=== PATIENT | male | born 1955 | race Caucasian/White ===

== ENCOUNTER 2016-10-15 13:15 | Outpatient (CLI) | payer OTHER ==
[~2016-10-15 13:15] MED LIST: ACET-907 PO; ALLA266C2 TP; ATEN100T PO; CLON0.1T14 PO; GEL90GEL2 TP; HYDR-3326 PO; HYDR-552 PO; INSU100V27 SQ; INSU100V7 SQ; LANC-346 MC; RXVAN XX
== END 2016-10-15 23:59 | disposition home or self-care (01) ==
LOC: VASLAB 13:15
PROVIDERS: ATTEND Surgery Vascular Surgery
DX: Z75.3 Unavailability and inaccessibility of health-care facilities (principal)

== ENCOUNTER 2016-11-06 09:53 | Outpatient (CLI) | payer OTHER | END 2016-11-06 23:59 | disposition home or self-care (01) | LOC: WOU 09:53 | PROVIDERS: ATTEND Podiatrist Foot & Ankle Surgery | DX: E11.621 Type 2 diabetes mellitus with foot ulcer (principal); L97.422 Non-pressure chronic ulcer of left heel and midfoot with fat layer exposed; E11.42 Type 2 diabetes mellitus with diabetic polyneuropathy; Z87.891 Personal history of nicotine dependence; E11.610 Type 2 diabetes mellitus with diabetic neuropathic arthropathy; I10 Essential (primary) hypertension; H40.9 Unspecified glaucoma; S80.812A Abrasion, left lower leg, initial encounter; X58.XXXA Exposure to other specified factors, initial encounter; Y92.89 Other specified places as the place of occurrence of the external cause; Z79.4 Long term (current) use of insulin | CPT/HCPCS: A6402 ==

== ENCOUNTER 2016-11-13 10:00 | Outpatient (CLI) | payer OTHER | END 2016-11-13 23:59 | disposition home or self-care (01) | LOC: WOU 10:00 | PROVIDERS: ATTEND Podiatrist Foot & Ankle Surgery | DX: E11.621 Type 2 diabetes mellitus with foot ulcer (principal); L97.422 Non-pressure chronic ulcer of left heel and midfoot with fat layer exposed; E11.610 Type 2 diabetes mellitus with diabetic neuropathic arthropathy; Z79.4 Long term (current) use of insulin; E11.42 Type 2 diabetes mellitus with diabetic polyneuropathy; H40.9 Unspecified glaucoma; Z87.891 Personal history of nicotine dependence; I10 Essential (primary) hypertension; R26.9 Unspecified abnormalities of gait and mobility; S80.812D Abrasion, left lower leg, subsequent encounter; X58.XXXD Exposure to other specified factors, subsequent encounter | CPT/HCPCS: 29445; A6402 ==

== ENCOUNTER 2016-11-20 10:00 | Outpatient (CLI) | payer OTHER | END 2016-11-20 23:59 | disposition home or self-care (01) | LOC: WOU 10:00 | PROVIDERS: ATTEND Podiatrist Foot & Ankle Surgery | DX: E11.621 Type 2 diabetes mellitus with foot ulcer (principal); L97.424 Non-pressure chronic ulcer of left heel and midfoot with necrosis of bone; R26.89 Other abnormalities of gait and mobility; S80.812D Abrasion, left lower leg, subsequent encounter; X58.XXXD Exposure to other specified factors, subsequent encounter; E11.610 Type 2 diabetes mellitus with diabetic neuropathic arthropathy; E11.69 Type 2 diabetes mellitus with other specified complication; M86.672 Other chronic osteomyelitis, left ankle and foot | CPT/HCPCS: 11042; 87070; 87075; 87077; 87186 ×2; A6402 ==

== ENCOUNTER 2016-11-26 10:12 | Outpatient (CLI) | payer OTHER | END 2016-11-26 23:59 | disposition home or self-care (01) | LOC: WOU 10:12 | PROVIDERS: ATTEND Podiatrist Foot & Ankle Surgery | DX: E11.621 Type 2 diabetes mellitus with foot ulcer (principal); L97.423 Non-pressure chronic ulcer of left heel and midfoot with necrosis of muscle; L97.521 Non-pressure chronic ulcer of other part of left foot limited to breakdown of skin; E11.42 Type 2 diabetes mellitus with diabetic polyneuropathy; E11.69 Type 2 diabetes mellitus with other specified complication; E11.610 Type 2 diabetes mellitus with diabetic neuropathic arthropathy; M86.672 Other chronic osteomyelitis, left ankle and foot; B95.2 Enterococcus as the cause of diseases classified elsewhere; B95.5 Unspecified streptococcus as the cause of diseases classified elsewhere; B95.61 Methicillin susceptible Staphylococcus aureus infection as the cause of diseases classified elsewhere | CPT/HCPCS: 11042; 11043; A6402 ==

== ENCOUNTER 2016-12-06 09:47 | Outpatient (CLI) | payer OTHER | END 2016-12-06 23:59 | disposition home or self-care (01) | LOC: WOU 09:47 | PROVIDERS: ATTEND Podiatrist Foot & Ankle Surgery | DX: E11.621 Type 2 diabetes mellitus with foot ulcer (principal); L97.423 Non-pressure chronic ulcer of left heel and midfoot with necrosis of muscle; E11.42 Type 2 diabetes mellitus with diabetic polyneuropathy; E11.610 Type 2 diabetes mellitus with diabetic neuropathic arthropathy; Z87.891 Personal history of nicotine dependence; E11.69 Type 2 diabetes mellitus with other specified complication; M86.672 Other chronic osteomyelitis, left ankle and foot; M24.372 Pathological dislocation of left ankle, not elsewhere classified | CPT/HCPCS: 11043; A6402 ==

== ENCOUNTER 2016-12-13 10:00 | Outpatient (CLI) | payer OTHER | END 2016-12-13 23:59 | disposition home or self-care (01) | LOC: WOU 10:00 | PROVIDERS: ATTEND Podiatrist Foot & Ankle Surgery | DX: E11.621 Type 2 diabetes mellitus with foot ulcer (principal); L97.423 Non-pressure chronic ulcer of left heel and midfoot with necrosis of muscle; E11.610 Type 2 diabetes mellitus with diabetic neuropathic arthropathy; E11.40 Type 2 diabetes mellitus with diabetic neuropathy, unspecified; Z83.3 Family history of diabetes mellitus; Z82.3 Family history of stroke; Z82.49 Family history of ischemic heart disease and other diseases of the circulatory system; H40.9 Unspecified glaucoma; Z87.891 Personal history of nicotine dependence; Z79.4 Long term (current) use of insulin; Z79.899 Other long term (current) drug therapy | CPT/HCPCS: 11043; 87070; 87077; 87186; A6253; A6402 ==

== ENCOUNTER 2016-12-24 10:06 | Outpatient (CLI) | payer OTHER | END 2016-12-24 23:59 | disposition home or self-care (01) | LOC: WOU 10:06 | PROVIDERS: ATTEND Podiatrist Foot & Ankle Surgery | DX: E11.621 Type 2 diabetes mellitus with foot ulcer (principal); L97.424 Non-pressure chronic ulcer of left heel and midfoot with necrosis of bone; E11.610 Type 2 diabetes mellitus with diabetic neuropathic arthropathy; B95.2 Enterococcus as the cause of diseases classified elsewhere; R70.0 Elevated erythrocyte sedimentation rate; Z79.4 Long term (current) use of insulin | CPT/HCPCS: 11044; 87070-TC; 87186-TC; A6253; A6402 ==

== ENCOUNTER 2017-01-11 12:05 | Inpatient (IN) | payer OTHER ==
[~2017-01-11] VITALS: Ht 167.6 cm; Wt 90.7 kg
--- NOTE | 2017-01-11 12:05 | NUR ---
sent by dr shetty for evaluation of left heel wound. per dr felton will undress wound. nad noted. pt aao x4, vss. daughter at bedside. pt placed in gown and monitor. pending md echavarria.
--- NOTE | 2017-01-11 12:55 | NUR ---
CALLED DR. SPICER LEFT MESSAGE.
[2017-01-11] MEDS ORDERED: PIPERACILLIN /TAZOBACTAM 3.375 G in IV D5W 50 ML IV ONE (13:30)
[2017-01-11] MEDS ORDERED: VANCOMYCIN 1 GM in IV D5W 250 ML IV ONE (13:30)
[2017-01-11] MEDS ORDERED: IV SET PRIMARY PUMP SET 1 EA INFUS.SET MC ONE ×2 (13:36→16:45)
[2017-01-11] MEDS ORDERED: BLOO-668 IN (13:43)
[2017-01-11] MEDS ORDERED: CLON0.1T14 PO (13:43)
[2017-01-11 13:44] LABS: BASOPHILS % (AUTO) 0.4 % (0.0-2.0); EOSINOPHILS # (AUTO) 0.3 /CMM (0.0-0.7); EOSINOPHILS % (AUTO) 4.1 % (0.0-6.0); HEMATOCRIT 27 % (39-51); HEMOGLOBIN 9.1 g/dL (13.5-17.5); LYMPHOCYTES % (AUTO) 15.2 % (20.0-44.0); MEAN CORPUSCULAR HEMOGLOBIN 30 PG (26.0-33.0); MEAN CORPUSCULAR HGB CONC 34 g/dl (31.0-36.0); MEAN CORPUSCULAR VOLUME 88 fL (80-96); MONOCYTES # (AUTO) 0.5 /CMM (0.1-1.30); MONOCYTES % (AUTO) 7.6 % (2.0-12.0); NEUTROPHILS % (AUTO) 72.7 % (43.0-81.0); PLATELET COUNT (AUTO) 211 /CMM (150-450); RDW COEFFICIENT OF VARIATION 13.5 (11.5-15.0); RED BLOOD CELL COUNT(AUTO) 3.03 MIL/uL (4.5-6.0); WHITE BLOOD COUNT (AUTO) 6.8 K/uL (4.3-11.0)
[2017-01-11 13:48] LABS: INR 0.96 (0.87-1.13)
[2017-01-11 13:53] LABS: CALCIUM, SERUM 8.5 mg/dL (8.5-10.1); CREATININE 1.9 mg/dL (0.6-1.3); POTASSIUM 4.3 mmol/L (3.5-5.1)
[2017-01-11 14:00] LABS: ALBUMIN 2.9 g/dL (3.4-5.0); BILIRUBIN,DIRECT 0.1 mg/dL (0.0-0.2); BILIRUBIN,TOTAL 0.2 mg/dL (0.2-1.0)
--- NOTE | 2017-01-11 14:49 | NUR ---
report given to shanelle gonzalez for jeny
--- NOTE | 2017-01-11 15:05 | NUR ---
RN NOTES PATIENT ADMITTED FROM E.R. DEPARTMENT, ADMITTING DIAGNOSIS OF LEFT HEEL WOUND, UNDER THE CARE OF DR. BAKER, FOR WOUND MANAGEMENT WITH DR. SPICER, PATIENT ALERT AND ORIENTED, SPEAKS MAURITIAN AND CHILEAN, AT BEDSIDE, PATIENT DENIES PAIN OR DISCOMFORT AT THIS TIME, ASSESSMENT COMPLETED, PATIENT WITH PIV ON RFA #18, PATENT AND INTACT, CONTINENT WITH B&B, ABLE TO AMBULATE WITH ASSIST AND WALKER, PATIENT HAS VERY POOR EYESIGHT, AND WILL NEED ASSISTANCE, PATIENT IN STABLE CONDITION AT THIS TIME, WAITING FOR DR. BAKER AND DR. SPICER, SAFETY MEASURES IN PLACED, CALL LIGHT WITHIN REACH, WILL CONTINUE TO MONITOR.
[2017-01-11 16:00] VITALS: BP 129/71
[2017-01-11] MEDS ORDERED: Z GUARD REMEDY 2 OZ OINT TP PRN (16:00)
[2017-01-11] MEDS ORDERED: MAG HYDROX/AL HYDROX/SIMETH 30 ML UDC PO PRN (16:00)
[2017-01-11] MEDS ORDERED: HYDROCODONE/APAP 5/325MG 1 EACH TABLET PO PRN (16:00)
[2017-01-11] MEDS ORDERED: CLONIDINE HCL 0.1 MG TABLET PO PRN (16:00)
[2017-01-11] MEDS ORDERED: ONDANSETRON HCL/PF 4 MG/2 ML VIAL IVP PRN (16:00)
[2017-01-11] MEDS ORDERED: ZOLPIDEM TARTRATE 5 MG TABLET PO PRN (16:00)
[2017-01-11] MEDS ORDERED: ACETAMINOPHEN 325 MG TABLET PO PRN (16:00)
[2017-01-11] MEDS ORDERED: MAGNESIUM HYDROXIDE 30 ML UDC PO PRN (16:00)
[2017-01-11] MEDS: IV NS 0.9% 1,000 ML IV PRN (17:08)
[2017-01-11 18:36] LABS: IRON, SERUM 27 ug/dl (50-175); TOTAL IRON BINDING CAPACITY 208 ug/dl (250-450)
--- NOTE | 2017-01-11 19:00 | NUR ---
MS RN OPENING NOTE PATIENT IS ALERT AND ORIENTED X4, NPO, NO S/S OF DISTRESS, NO CHEST PAIN. NO SOB OR DISTRESS NOTED. IN STABLE CONDITION. SAFETY MEASURES IMPLEMENTED. IV INTACT NO S/S OF INFILTRATION NOTED. CALL LIGHT WITHIN REACH. ON LOW BED TO ENSURE SAFETY. WILL CONTINUE TO MONITOR
--- NOTE | 2017-01-11 19:33 | NUR ---
RN NOTES PATIENT STILL WAITING FOR DR. SPICER, IN STABLE CONDITION, NPO AT THIS TIME, NEEDS ATTENDED AND MET, SAFETY MEASURES IN PLACED, CALL LIGHT WITHIN REACH, ENDORSED TO TRAVEL MONEY ADVISOR FOR ANGEL.
[2017-01-11 19:55] LABS: THYROID STIMULATING HORMONE 2.293 uIU/mL (0.358-3.74); URIC ACID 6.4 mg/dL (2.6-7.2)
[2017-01-11 20:00] VITALS: BP 153/76
[2017-01-11] MEDS ORDERED: LEVOFLOXACIN (500MG) 500 MG TABLET PO ONE (20:00)
--- NOTE | 2017-01-11 20:00 | NUR ---
LEVAQUIN 500 MG 1 TAB NOT GIVEN PATIENT NPO AT THIS TIME.
[2017-01-11 20:29] LABS: RETICULOCYTE COUNT 0.9 % (0.6-2.5)
--- NOTE | 2017-01-11 21:58 | NUR ---
CLARIFIED WITH DOCTOR NAYAN PATIENT DIET PER DR. GARCIA OK NOW TO GIVE DIET START ADA CCHO 60 GMS/ CARBS/MEAL 1800 STD NOTED AND CARRIED OUT
[2017-01-11] MEDS ORDERED: INSULIN GLARGINE HUM REC ANLOG 17 UNIT SQ SCH (22:00)
[2017-01-11] MEDS: INSULIN DETEMIR 100 UNIT/ML CARTRIDGE SQ SCH (22:00)
--- NOTE | 2017-01-11 22:00 | NUR ---
JUANIMER INSULIN 17 UNITS SQ REFUSED BY THE PATIENT DESPITE RISKS AND BENEFITS OFFERED 3 TIMES PATIENT DOESN'T WANT TO TAKE IT "PER PATIENT MY SUGAR IS OK NOW" MD MADE AWARE AND FAMILY.
[2017-01-12] MEDS: IV NS 0.9% 1,000 ML IV PRN ×2 (05:36→22:43)
--- NOTE | 2017-01-12 06:51 | NUR ---
MS RN CLOSING NOTES PATIENT COMFORTABLY IN BED ASLEEP AND EASILY AWAKEN, ALERT AND VERBALLY X 4 RESPONSIVE DENIES PAIN OR DISTRESS, RESPONDS APPROPRIATELY TO VERBAL STIMULI, RESPIRATIONS EVEN UNLABORED BREATH SOUNDS. APICAL PULSE REGULAR; NO S/S OF BLEEDING NOTED. TREATMENT ORDERED. GOOD SKIN CARE PROVIDED. NO S/S OF HYPO/HYPERGLYCEMIA. PATIENT IN STABLE CONDITION WITH NO SOB NO S/S OF DISTRESS NO NAUSEA AND VOMITING NO HEADACHE NO PAIN, NO COMPLAIN OF CHEST PAIN SAFETY ENVIRONMENT PROVIDED. FREE OF CLUTTERS, NEEDS ATTENDED AND ANTICIPATED, NURSING CARE RENDERED, KEPT CLEAN AND DRY AND COMFORTABLE. ALL DUE MEDS WAS GIVEN. CALL LIGHT IN REACH, BED LOWERED AND LOCKED, SR X2 FOR SAFETY AND WILL ENDORSE CONTINUE PLAN OF CARE. OFF LOAD AT ALL TIMES. RFA # 18 NS RUNNING 75 CC/HR. PATIENT REFUSED PICC LINE INSERTION CONSENT DESPITE RISKS AND BENEFITS OFFERED 3 TIMES RISKS AND BENEFITS EXPLAINED. MADE AWARE. PATIENT STIL REFUSED PICC LINE.
--- NOTE | 2017-01-12 07:10 | NUR ---
MS RN INITIAL NOTES REPORT RECEIVED AT THE BEDSIDE. PATIENT IS RESTING COMFORTABLY IN BED. NO SOB OR DISTRESS NOTED AT THIS TIME. PATIENT REPORTS PAIN AT 5/10 IN NECK AND BACK, WILL FOLLOW UP WITH PAIN MEDICATIONS. BED IN A LOW POSITION, CALL LIGHT WITHIN PATIENT REACH. WILL CONTINUE TO MONITOR.
[2017-01-12 08:00] VITALS: BP 148/67
[2017-01-12] MEDS: PANTOPRAZOLE 40 MG TABLET.DR PO SCH (08:35)
[2017-01-12] MEDS: ASCORBIC ACID 500 MG TABLET PO SCH (08:35)
[2017-01-12] MEDS: ATENOLOL 25 MG TABLET PO SCH (08:35)
[2017-01-12] MEDS: ZINC SULFATE 220 MG CAPSULE PO SCH (08:35)
[2017-01-12] MEDS: FLUCONAZOLE (100 MG) 100 MG TABLET PO SCH (08:35)
[2017-01-12] MEDS ORDERED: FERROUS SULFATE (325 MG) 325 MG/TAB TABLET PO SCH (09:00)
[2017-01-12 09:18] LABS: BASOPHILS % (AUTO) 0.9 % (0.0-2.0); EOSINOPHILS # (AUTO) 0.3 /CMM (0.0-0.7); EOSINOPHILS % (AUTO) 5.8 % (0.0-6.0); HEMATOCRIT 26 % (39-51); HEMOGLOBIN 8.7 g/dL (13.5-17.5); LYMPHOCYTES # (AUTO) 0.8 /CMM (0.8-4.8); LYMPHOCYTES % (AUTO) 18.4 % (20.0-44.0); MEAN CORPUSCULAR HEMOGLOBIN 30 PG (26.0-33.0); MEAN CORPUSCULAR HGB CONC 34 g/dl (31.0-36.0); MEAN CORPUSCULAR VOLUME 88 fL (80-96); MONOCYTES # (AUTO) 0.4 /CMM (0.1-1.30); NEUTROPHILS % (AUTO) 65.9 % (43.0-81.0); PLATELET COUNT (AUTO) 236 /CMM (150-450); RDW COEFFICIENT OF VARIATION 14.8 (11.5-15.0); RED BLOOD CELL COUNT(AUTO) 2.96 MIL/uL (4.5-6.0); WHITE BLOOD COUNT (AUTO) 4.5 K/uL (4.3-11.0)
--- NOTE | 2017-01-12 09:27 | NUR ---
MS RN NOTES CAN NOT YET ADMIN DAKINS OR BOOST THEY ARE NOT YET ON FLOOR. WILL CALL PHARMACY TO REMIND.
[2017-01-12 09:58] LABS: ALBUMIN 2.6 g/dL (3.4-5.0); BILIRUBIN,TOTAL 0.3 mg/dL (0.2-1.0); CALCIUM, SERUM 8.1 mg/dL (8.5-10.1); CREATININE 1.8 mg/dL (0.6-1.3); PHOSPHORUS 3.5 mg/dL (2.5-4.9); POTASSIUM 3.7 mmol/L (3.5-5.1); TOTAL PROTEIN, SERUM 6.4 g/dL (6.4-8.2)
[2017-01-12] MEDS: BOOST PLUS FOOD-VANILLA 237 ML BOX PO SCH ×2 (10:03→17:00)
[2017-01-12] MEDS: DAKINS QUARTER STRENGTH (0.125%) 480 ML BOTTLE TOP SCH (10:04)
[2017-01-12 10:06] LABS: THYROID STIMULATING HORMONE 2.453 uIU/mL (0.358-3.74)
[2017-01-12] MEDS ORDERED: SECONDARY IV SET 1 EA INFUS.SET MC ONE (13:24)
[2017-01-12] MEDS: SOD FERRIC GLUC 125 MG in IV NS 0.9% 100 ML IV SCH (13:28)
[2017-01-12 16:00] VITALS: BP 164/80
[2017-01-12 17:00] VITALS: BP 147/78
--- NOTE | 2017-01-12 17:44 | NUR ---
MS RN NOTES CHECKED PATIENT BLOOD SUGAR HE STATES THAT HE IS DIABETIC. SUGAR IS 149. INFORMED PATIENT THAT I WOULD HAVE TO CALL THE DOCTOR AND ASK HER TO ADD SOME INSULIN. PATIENT RESPONDED, "DON'T, I WILL NOT TAKE THE INSULIN. I ONLY SOMETIMES TAKE LONG ACTING, BUT THAT SUGAR IS FINE. I DON'T NEED IT." EXPLAINED TO THE PATIENT THE IMPORTANCE OF INSULIN FOR SUGARS OVER 130 AND ITS EFFECT ON WOUND HEALING. PATIENT IS STILL REFUSING. WILL INFORM MD.
--- NOTE | 2017-01-12 17:49 | NUR ---
MS RN NOTES INFORMED DR BAKER THAT PATIENT DOES NOT HAVE ANY ACCU CHECK OR INSULIN ORDERED. ALSO INFORMED MD OF PATIENT'S REFUSAL OF INSULIN. MD STATES TO ADD A MODERATE SLIDING SCALE AND TO ENCOURAGE INSULIN USE. WILL PLACE ORDERS AN SPEAK TO PATIENT AGAIN.
--- NOTE | 2017-01-12 17:59 | NUR ---
MS RUTHY ZUÑIGA AGAIN, INFORMED PATIENT THAT HE WOULD NEED INSULIN AND INFORMED HIM THAT HIS WOUND WOULD HEEL BETTER IF HE KEPT HIS BLOOD SUGARS UNDER TIGHT CONTROL. PATIENT STATED UNDERSTANDING AND STATES THAT IF THE NEXT ONE IS OVER 160, HE WILL ACCEPT THE INSULIN.
[2017-01-12] MEDS ORDERED: DEXTROSE 50%-WATER 50 ML DISP.SYRIN IV PRN (18:00)
--- NOTE | 2017-01-12 19:30 | NUR ---
MS RN OPENING NOTES: PATIENT IN BED, AOX4, ON ROOM AIR, BREATHING EVEN AND UNLABORED. PIV OVER RFA G 18 INTACT AND PATENT, INFUSING WELL WITH NS RUNNIGN AT 75 ML/HR. L FOOT HAS INTACT DRESSING, SECURED IN CAST. PROVIDED FOR COMFORT AND SAFETY. WILL CONT TO MONITOR.
--- NOTE | 2017-01-12 19:40 | NUR ---
MS RN CLOSING NOTES NO SIGNIFICANT CHANGES IN PATIENT CONDITION THROUGHOUT THE SHIFT. NO SOB OR DISTRESS NOTED AT THIS TIME. PATIENT DENIES PAIN. BED IN A LOW POSITION, CALL LIGHT WITHIN PATIENT REACH. ENDORSED FOR ANGEL.
[2017-01-12 20:00] VITALS: BP 169/76
[2017-01-12] MEDS: LEVOFLOXACIN (250MG) 250 MG TABLET PO SCH (20:37)
--- NOTE | 2017-01-12 21:08 | NUR ---
RN NOTES: PATIENT WAS ORDERED TO HAVE PICC LINE INSERTION BY DR GERBER, HOWEVER, WHEN TRYING TO GET CONSENT FROM PATIENT, PATIENT REFUSED, AND SAID THAT HE CAN TAKE ANTIBIOTIC "PILLS" AT HOME. EXPLAINED THAT THE PICC LINE IS INDICATED FOR ELL TEACHER ATB THERAPY, PATIENT STILL REFUSES.
[2017-01-12 22:00] VITALS: BP 169/76
[2017-01-12] MEDS: BLOOD SUGAR DIAGNOSTIC 1 EACH STRIP VI SCH (22:34)
[2017-01-12] MEDS: INSULIN DETEMIR 100 UNIT/ML CARTRIDGE SQ SCH (22:36)
[2017-01-12] MEDS: *INSULIN REGULAR(HUMULIN R)HUM 100 UNIT/ML VIAL SQ PRN (22:37)
[2017-01-12] MEDS ORDERED: IV SET PRIMARY PUMP SET 1 EA INFUS.SET MC ONE (22:43)
[2017-01-13] VITALS: BP 151/77
[2017-01-13 04:00] VITALS: BP 167/89
--- NOTE | 2017-01-13 04:00 | NUR ---
MS RN NOTES RECEIVED FROM [facility]IA [facility],AWAKE,ALERT,BLIND ON BOTH EYES,WITH DIABETIC FOOT ULCER.CAST IN PLACE WITH HOLE ON THE HEEL FOR TREATMENT ACCESS.NS AT 75ML/HR RATE IN PROGRESS VIA RFA THRU IV PUMP,SITE PATENT.NO S/S OF INFILTRATION NOTED.REPORT GIVEN MAK VELAZQUEZ RN FOR ANGEL.
--- NOTE | 2017-01-13 04:27 | NUR ---
RN NOTES: PATIENT TRANSFERRED TO MS 2ND FLOOR VIA GURNEY IN STABLE CONDITION. REPORT GIVEN TO RUTHY DOWNS FOR ANGEL.
--- NOTE | 2017-01-13 05:30 | NUR ---
MS RN NOTES ACCU-CHECK BLOOD SUGAR CHECK 76,NO INSULIN COVERAGE,ASYMPTOMATIC FOR HYPOGLYCEMIA,APPLE JUICE WITH SUGAR GIVEN PER PATIENT REQUEST AND PROTOCOL FOR LOW BLOOD SUGAR.
[2017-01-13] MEDS: BLOOD SUGAR DIAGNOSTIC 1 EACH STRIP VI SCH ×4 (05:35→21:50)
--- NOTE | 2017-01-13 07:14 | NUR ---
MS RN NOTES RESTING COMFORTABLY ON BED,DENIES PAIN,IVF INFUSING,SITE REMAINS PATENT.ABLE TO WALK TO THE TOILET ASSISTED BY DAMARIS THOMPSON.IN NO ACUTE DISTRESS.ENDORSED TO GLEN BLISS FOR ANGEL.POSSIBLE WOUND DEBRIDEMENT TODAY OR TOMORROW AWAITING FOR DR FONSECA.
--- NOTE | 2017-01-13 07:59 | NUR ---
MS/RN NOTES RECEIVED PATIENT RESTING IN BED COMFORTABLY, SLEEPING AT THIS TIME AROUSED BY VERBAL STIMULI, ON ROOM AIR. NO ACUTE DISTRESS OR DISCOMFORT NOTED. IV TO RIGHT FA INTACT AND PATENT. NO S/S OF PAIN. LEFT LEG COVERED IN DRESSING, PENDING DEBRIDEMENT TODAY. SAFETY MEASURES RENDERED, CALL LIGHT PLACED WITHIN REACH. WILL CONTINUE TO MONITOR.
[2017-01-13 08:00] VITALS: BP 150/96
[2017-01-13] MEDS: BOOST PLUS FOOD-VANILLA 237 ML BOX PO SCH ×2 (08:00→17:45)
[2017-01-13 08:13] LABS: BASOPHILS % (AUTO) 0.7 % (0.0-2.0); EOSINOPHILS # (AUTO) 0.2 /CMM (0.0-0.7); EOSINOPHILS % (AUTO) 4.7 % (0.0-6.0); HEMATOCRIT 25 % (39-51); HEMOGLOBIN 8.3 g/dL (13.5-17.5); MEAN CORPUSCULAR HEMOGLOBIN 29 PG (26.0-33.0); MEAN CORPUSCULAR HGB CONC 33 g/dl (31.0-36.0); MEAN CORPUSCULAR VOLUME 88 fL (80-96); MONOCYTES # (AUTO) 0.4 /CMM (0.1-1.30); MONOCYTES % (AUTO) 8.9 % (2.0-12.0); NEUTROPHILS # (AUTO) 3.2 /CMM (1.8-8.9); NEUTROPHILS % (AUTO) 65.7 % (43.0-81.0); PLATELET COUNT (AUTO) 229 /CMM (150-450); RDW COEFFICIENT OF VARIATION 14.5 (11.5-15.0); RED BLOOD CELL COUNT(AUTO) 2.87 MIL/uL (4.5-6.0); WHITE BLOOD COUNT (AUTO) 4.8 K/uL (4.3-11.0)
[2017-01-13 08:25] VITALS: BP 150/72
[2017-01-13 08:31] LABS: CALCIUM, SERUM 7.8 mg/dL (8.5-10.1); CREATININE 1.8 mg/dL (0.6-1.3); MAGNESIUM 1.9 mg/dL (1.8-2.4); PHOSPHORUS 3.7 mg/dL (2.5-4.9); POTASSIUM 4.1 mmol/L (3.5-5.1)
[2017-01-13] MEDS: ZINC SULFATE 220 MG CAPSULE PO SCH (08:43)
[2017-01-13] MEDS: ASCORBIC ACID 500 MG TABLET PO SCH (08:43)
[2017-01-13] MEDS: FLUCONAZOLE (100 MG) 100 MG TABLET PO SCH (08:43)
[2017-01-13] MEDS: PANTOPRAZOLE 40 MG TABLET.DR PO SCH (08:44)
[2017-01-13] MEDS: DAKINS QUARTER STRENGTH (0.125%) 480 ML BOTTLE TOP SCH (08:49)
[2017-01-13] MEDS: ATENOLOL 25 MG TABLET PO SCH ×2 (08:50→18:26)
[2017-01-13] MEDS ORDERED: hydrALAZINE HCL 25 MG TABLET PO PRN (10:30)
--- NOTE | 2017-01-13 11:44 | NUR ---
WOUND CARE CONSULT: PT REFUSED TO HAVE FULL SKIN ASSESSMENT. PT NOTED TO HAVE DRY SCABS TO RT LOWER LEG AND ANKLE. PT HAS CAST TO LEFT LOWER LEG WITH FRANCISCO WRAP AROUND CAST WINDOW. PT REFUSED TO HAVE FRANCISCO WRAP REMOVED AND STATED THAT DOCTOR JUST PACKED HIS WOUND. WILL SEE PRN. JEANINE SCORE IS 17.
[2017-01-13] MEDS: SOD FERRIC GLUC 125 MG in IV NS 0.9% 100 ML IV SCH (15:22)
[2017-01-13 16:00] VITALS: BP_SYST 169; BP_DIAS 70; BP_DIAS 79
--- NOTE | 2017-01-13 16:00 | NUR ---
MS/RN NOTES DR. CHEUNG AT BEDSIDE FOR LEFT FOOT DEBRIDEMENT. DISCUSSED WOUND CARE ORDERS AND PLAN OF CARE AND AGREED. WILL TREAT ACCORDINGLY
--- NOTE | 2017-01-13 17:30 | NUR ---
MS/RN NOTES BLOOD SUGAR 141 MG/DL, 2 UNITS OF INSULIN ADMINISTERED PER SLIDING SCALE.
[2017-01-13] MEDS: INSULIN REGULAR, HUMAN 100 UNIT/ML 3 ML VIAL SQ PRN (17:51)
--- NOTE | 2017-01-13 18:30 | NUR ---
MS/RN NOTES PATIENT RESTING IN BED COMFORTABLY, NO SIGNIFICANT CHANGES NOTED, STABLE AT THIS TIME. NO S/S OF DISTRESS/DISCOMFORT. NO COMPLAINTS OF PAIN AT THIS TIME. DAUGHTER AT BEDSIDE. PATIENT KEPT CLEAN AND DRY, ALL DUE MEDS GIVEN, ALL NEEDS MET AND ATTENDED. WILL ENDORSE CARE TO FARMWORKER FRUIT FOR ANGEL.
--- NOTE | 2017-01-13 19:40 | NUR ---
MS RN NOTE: PATIENT RESTING IN BED, NO ACUTE DISTRESS NOTED. BREATHING EVEN AND UNLABORED, NO SOB NOTED. IV TO RFA IN PLACE, INFUSING NS AT 75 ML/HR. DRESSING TO LEFT LEG IN PLACE, CLEAN AND DRY, NO BLEEDING NOTED. NO S/S OF HYPER/HYPOGLYCEMIA NOTED. BED LOCKED AND IN LOWEST POSITION, CALL LIGHT IN REACH. WILL CONTINUE TO MONITOR.
[2017-01-13 20:00] VITALS: BP 142/70
[2017-01-13] MEDS: LEVOFLOXACIN (250MG) 250 MG TABLET PO SCH (20:26)
[2017-01-13] MEDS: IV NS 0.9% 1,000 ML IV PRN (20:26)
[2017-01-13] MEDS: LINEZOLID 600 MG TABLET PO SCH (21:50)
[2017-01-13] MEDS: INSULIN DETEMIR 100 UNIT/ML CARTRIDGE SQ SCH (21:54)
[2017-01-13] MEDS: *INSULIN REGULAR(HUMULIN R)HUM 100 UNIT/ML VIAL SQ PRN (21:55)
--- NOTE | 2017-01-13 22:00 | NUR ---
MS RN NOTE: PATIENT BLOOD SUGAR LEVEL 132MG/DL, PATIENT TO RECEIVE 2 UNITS PER SLIDING SCALE AND LEVEMIR 17 UNITS PER MD ORDER. PATIENT DENIES S/S OF HYPER/HYPOGLYCEMIA AT THIS TIME, SNACKS PROVIDED. WILL CONTINUE TO MONITOR.
--- NOTE | 2017-01-14 01:45 | NUR ---
MS RN NOTE: PATIENT COMPLAINS OF UNABLE TO SLEEP. AMBIEN 5MG ORAL GIVEN PER MD ORDER. WILL CONTINUE TO MONITOR.
[2017-01-14 02:20] LABS: CARCINOEMBRYONIC AG (CEA) 4.1 ng/mL (0.0-4.7)
--- NOTE | 2017-01-14 06:10 | NUR ---
MS RN NOTE: PATIENT RESTING IN BED, NO ACUTE DISTRESS NOTED. BREATHING EVEN AND UNLABORED, NO SOB NOTED. IV TO RFA IN PLACE, INFUSING NS AT 75 ML/HR. DRESSING TO LEFT LEG IN PLACE, CLEAN AND DRY, NO BLEEDING NOTED. PATIENT BLOOD SUGAR 104MG/DL, NO INSULIN NEEDED PER SLIDING SCALE. NO S/S OF HYPER/HYPOGLYCEMIA NOTED. BED LOCKED AND IN LOWEST POSITION, CALL LIGHT IN REACH. WILL ENDORSE TO DAY NURSE TO CONTINUE WITH PLAN OF CARE.
[2017-01-14 07:00] LABS: BASOPHILS % (AUTO) 0.2 % (0.0-2.0); EOSINOPHILS # (AUTO) 0.3 /CMM (0.0-0.7); EOSINOPHILS % (AUTO) 3.7 % (0.0-6.0); HEMATOCRIT 26 % (39-51); HEMOGLOBIN 8.6 g/dL (13.5-17.5); LYMPHOCYTES # (AUTO) 1.1 /CMM (0.8-4.8); LYMPHOCYTES % (AUTO) 15.6 % (20.0-44.0); MEAN CORPUSCULAR HEMOGLOBIN 29 PG (26.0-33.0); MEAN CORPUSCULAR HGB CONC 33 g/dl (31.0-36.0); MEAN CORPUSCULAR VOLUME 88 fL (80-96); MONOCYTES # (AUTO) 0.5 /CMM (0.1-1.30); NEUTROPHILS % (AUTO) 72.5 % (43.0-81.0); PLATELET COUNT (AUTO) 243 /CMM (150-450); RDW COEFFICIENT OF VARIATION 14.9 (11.5-15.0); RED BLOOD CELL COUNT(AUTO) 2.93 MIL/uL (4.5-6.0); WHITE BLOOD COUNT (AUTO) 6.8 K/uL (4.3-11.0)
[2017-01-14 07:10] LABS: VIT D, 25-HYDROXY 7.5 ng/mL (30.0-100.0)
[2017-01-14 07:12] LABS: CREATININE 1.8 mg/dL (0.6-1.3); MAGNESIUM 1.8 mg/dL (1.8-2.4); PHOSPHORUS 3.1 mg/dL (2.5-4.9); POTASSIUM 3.9 mmol/L (3.5-5.1)
[2017-01-14] MEDS: BLOOD SUGAR DIAGNOSTIC 1 EACH STRIP VI SCH ×3 (07:30→17:38)
[2017-01-14 08:00] VITALS: BP 167/78
--- NOTE | 2017-01-14 08:00 | NUR ---
MS/RN NOTES PATIENT RESTING IN BED COMFORTABLY, NO SIGNIFICANT CHANGES NOTED, STABLE AT THIS TIME. NO S/S OF DISTRESS/DISCOMFORT. NO COMPLAINTS OF PAIN AT THIS TIME.PATIENT KEPT CLEAN AND DRY, DUE MEDS GIVEN, NEEDS MET AND ATTENDED.TX DONE TO THE LEFT HEEL WOUND.PT TOLERATED WELL.PT WAS ALSO SEEN BY WOUND DOCTOR, DR RUVALCABA AND WOUND TX DONE 2ND TIME.
[2017-01-14] MEDS: ZINC SULFATE 220 MG CAPSULE PO SCH (09:18)
[2017-01-14] MEDS: BOOST PLUS FOOD-VANILLA 237 ML BOX PO SCH ×2 (09:18→17:22)
[2017-01-14] MEDS: ASCORBIC ACID 500 MG TABLET PO SCH (09:18)
[2017-01-14] MEDS: PANTOPRAZOLE 40 MG TABLET.DR PO SCH (09:19)
[2017-01-14] MEDS: FLUCONAZOLE (100 MG) 100 MG TABLET PO SCH (09:19)
[2017-01-14] MEDS: ATENOLOL 25 MG TABLET PO SCH (09:21)
[2017-01-14] MEDS: DAKINS QUARTER STRENGTH (0.125%) 480 ML BOTTLE TOP SCH (09:22)
[2017-01-14] MEDS: LINEZOLID 600 MG TABLET PO SCH (09:27)
[2017-01-14] MEDS: IV NS 0.9% 1,000 ML IV PRN (10:15)
--- NOTE | 2017-01-14 10:27 | NUR ---
PT WAS SEEN BY Enedelia AND IS NON COMPLIANT AND WANTS TO STEP ON HIS LT FOOT AND IS NON COMPLIANT INSPITE OF INSTRUCTING PT NOT TO BEAR WT ON THE LT FOOT-PT INSISTS TO STEP ON BOTH FOOT AND REFUSED TO HOP AND NOT BEAR WT ON THE LT FOOT.
[2017-01-14] MEDS ORDERED: Zinc Sulfate PO (10:52)
[2017-01-14] MEDS ORDERED: ATEN25TA PO (10:52)
[2017-01-14] MEDS ORDERED: LINE600T PO (10:52)
[2017-01-14] MEDS ORDERED: Fluconazole PO (10:52)
[2017-01-14] MEDS ORDERED: LEVO250T2 PO (10:53)
[2017-01-14] MEDS: *INSULIN REGULAR(HUMULIN R)HUM 100 UNIT/ML VIAL SQ PRN (13:00)
[2017-01-14 14:16] LABS: *SPE A/G RATIO 0.9 (0.7-1.7); *SPE ALPHA-1-GLOBULIN 0.2 g/dL (0.0-0.4); *SPE ALPHA-2-GLOBULIN 0.7 g/dL (0.4-1.0); *SPE BETA GLOBULIN 0.8 g/dL (0.7-1.3); *SPE GLOBULIN, TOTAL 3.2 g/dL (2.2-3.9); *SPE M-SPIKE Not Observed g/dL (Not Observed); *SPE PROTEIN TOTAL 6.2 g/dL (6.0-8.5); *SPEGAMMA GLOBULIN 1.3 g/dL (0.4-1.8)
[2017-01-14] MEDS ORDERED: SECONDARY IV SET 1 EA INFUS.SET MC ONE (14:37)
[2017-01-14] MEDS: SOD FERRIC GLUC 125 MG in IV NS 0.9% 100 ML IV SCH (14:46)
[2017-01-14 16:00] VITALS: BP 150/84
[2017-01-14] MEDS: INSULIN REGULAR, HUMAN 100 UNIT/ML 3 ML VIAL SQ PRN (17:57)
--- NOTE | 2017-01-14 18:45 | NUR ---
DISCHARGED PT HOME VIA PRIVATE CAR ACCOMPANIED BY HIS WITH STABLE V/S.NEW PRESCRIPTIONS HANDED TO THE AND FAXED TO [facility].
[2017-01-15] MEDS ORDERED: EPOETIN ALFA (20,000 UNIT) 20,000 UNIT/ML VIAL IV SCH (15:00)
== END 2017-01-14 18:45 | disposition home health service (06) | DRG 951 ==
LOC: EDUNIT# 12:05 → ER 12:07 → MED 14:40 → MEDSG2 01-13 04:10
PROVIDERS: ADMIT Internal Medicine; ATTEND Internal Medicine
PROC: 0QBM0ZZ Excision of Left Tarsal, Open Approach (ICD-10-PCS; principal; 2017-01-13)
PROC: 0KBW0ZZ Excision of Left Foot Muscle, Open Approach (ICD-10-PCS; 2017-01-14)
DX: E11.52 Type 2 diabetes mellitus with diabetic peripheral angiopathy with gangrene (principal); N17.0 Acute kidney failure with tubular necrosis; E11.22 Type 2 diabetes mellitus with diabetic chronic kidney disease; E11.621 Type 2 diabetes mellitus with foot ulcer; E11.69 Type 2 diabetes mellitus with other specified complication; N18.3 Chronic kidney disease, stage 3 (moderate); A04.7 Enterocolitis due to Clostridium difficile; E78.5 Hyperlipidemia, unspecified; I12.9 Hypertensive chronic kidney disease with stage 1 through stage 4 chronic kidney disease, or unspecified chronic kidney disease; Z87.891 Personal history of nicotine dependence; D50.9 Iron deficiency anemia, unspecified; D63.8 Anemia in other chronic diseases classified elsewhere; M86.8X7 Other osteomyelitis, ankle and foot; E11.628 Type 2 diabetes mellitus with other skin complications; L03.116 Cellulitis of left lower limb; E11.610 Type 2 diabetes mellitus with diabetic neuropathic arthropathy; B95.2 Enterococcus as the cause of diseases classified elsewhere; Z79.4 Long term (current) use of insulin; L97.524 Non-pressure chronic ulcer of other part of left foot with necrosis of bone
CPT/HCPCS: 36415; 71010-TC; 80048-TC; 80053-TC; 80061-TC; 80076-TC; 82306; 82378; 82728-TC; 82746; 82962-TC; 83540-TC; 83615-TC; 83690-TC; 83735-TC; 84100-TC; 84155; 84165; 84443-TC; 84550-TC; 85025-TC; 85045-TC; 85652-TC; 85730-TC; 86850-TC; 87070-TC; 87081-TC; 87186-TC; 93307-TC; 94799-TC; 97001-TC; 97110-TC; 97530-TC; A4606; A6402; A6403; J1815; J2543; J2916; J3370; J7030; J7060; Z7610

== ENCOUNTER 2017-02-18 10:00 | Outpatient (CLI) | payer OTHER ==
[~2017-02-18 10:00] MED LIST changes: -ACET-907 PO; -ALLA266C2 TP; -ATEN100T PO; +ATEN25TA PO; +BLOO-668 IN; +Fluconazole PO; -GEL90GEL2 TP; -HYDR-3326 PO; -LANC-346 MC; +LEVO250T2 PO; +LINE600T PO; -RXVAN XX; +Zinc Sulfate PO
== END 2017-02-18 23:59 | disposition home or self-care (01) ==
LOC: WOU 10:00
PROVIDERS: ATTEND Podiatrist Foot & Ankle Surgery
DX: E11.621 Type 2 diabetes mellitus with foot ulcer (principal); L97.424 Non-pressure chronic ulcer of left heel and midfoot with necrosis of bone; E11.610 Type 2 diabetes mellitus with diabetic neuropathic arthropathy; E11.69 Type 2 diabetes mellitus with other specified complication; M86.672 Other chronic osteomyelitis, left ankle and foot; E11.42 Type 2 diabetes mellitus with diabetic polyneuropathy
CPT/HCPCS: 11044; 87070; 87075; A6253; A6402; 87186-TC

== ENCOUNTER 2017-03-04 09:59 | Outpatient (CLI) | payer OTHER | END 2017-03-04 23:59 | disposition home or self-care (01) | LOC: WOU 09:59 | PROVIDERS: ATTEND Podiatrist Foot & Ankle Surgery | DX: E11.621 Type 2 diabetes mellitus with foot ulcer (principal); L97.423 Non-pressure chronic ulcer of left heel and midfoot with necrosis of muscle; S80.812A Abrasion, left lower leg, initial encounter; X58.XXXA Exposure to other specified factors, initial encounter; Y92.89 Other specified places as the place of occurrence of the external cause; E11.610 Type 2 diabetes mellitus with diabetic neuropathic arthropathy; E11.40 Type 2 diabetes mellitus with diabetic neuropathy, unspecified; R26.9 Unspecified abnormalities of gait and mobility; H40.9 Unspecified glaucoma; Z87.891 Personal history of nicotine dependence; Z98.49 Cataract extraction status, unspecified eye | CPT/HCPCS: 11043; A6253; A6402 ==

== ENCOUNTER 2017-03-19 09:45 | Outpatient (CLI) | payer OTHER | END 2017-03-19 23:59 | disposition home or self-care (01) | LOC: WOU 09:45 | PROVIDERS: ATTEND Podiatrist Foot & Ankle Surgery | DX: L97.422 Non-pressure chronic ulcer of left heel and midfoot with fat layer exposed (principal); S80.812A Abrasion, left lower leg, initial encounter; X58.XXXA Exposure to other specified factors, initial encounter; Y92.89 Other specified places as the place of occurrence of the external cause; E11.69 Type 2 diabetes mellitus with other specified complication; M86.672 Other chronic osteomyelitis, left ankle and foot; M24.372 Pathological dislocation of left ankle, not elsewhere classified; L03.116 Cellulitis of left lower limb; E11.610 Type 2 diabetes mellitus with diabetic neuropathic arthropathy; E11.42 Type 2 diabetes mellitus with diabetic polyneuropathy; D64.9 Anemia, unspecified; I10 Essential (primary) hypertension; Z87.891 Personal history of nicotine dependence; Z79.4 Long term (current) use of insulin; Z83.3 Family history of diabetes mellitus; Z82.3 Family history of stroke; Z82.49 Family history of ischemic heart disease and other diseases of the circulatory system; R60.0 Localized edema; E11.51 Type 2 diabetes mellitus with diabetic peripheral angiopathy without gangrene; Z59.8 Other problems related to housing and economic circumstances | CPT/HCPCS: 97597; A6253; A6402; Z7610 ==

== ENCOUNTER 2017-04-09 10:00 | Outpatient (CLI) | payer OTHER | END 2017-04-09 23:59 | disposition home or self-care (01) | LOC: WOU 10:00 | PROVIDERS: ATTEND Podiatrist Foot & Ankle Surgery | DX: E11.621 Type 2 diabetes mellitus with foot ulcer (principal); L97.424 Non-pressure chronic ulcer of left heel and midfoot with necrosis of bone; E11.610 Type 2 diabetes mellitus with diabetic neuropathic arthropathy; E11.40 Type 2 diabetes mellitus with diabetic neuropathy, unspecified; E11.69 Type 2 diabetes mellitus with other specified complication; M86.672 Other chronic osteomyelitis, left ankle and foot; B95.2 Enterococcus as the cause of diseases classified elsewhere; Z79.4 Long term (current) use of insulin; R60.0 Localized edema; B35.1 Tinea unguium; Z89.422 Acquired absence of other left toe(s) | CPT/HCPCS: 11044; 87070; 87077; 87106; 87186; A6253; A6402 ==

== ENCOUNTER 2017-04-15 12:45 | Outpatient (CLI) | payer OTHER | END 2017-04-15 23:59 | disposition home or self-care (01) | LOC: VASLAB 12:45 | PROVIDERS: ATTEND Surgery Vascular Surgery | DX: E11.40 Type 2 diabetes mellitus with diabetic neuropathy, unspecified (principal); E11.621 Type 2 diabetes mellitus with foot ulcer; L97.422 Non-pressure chronic ulcer of left heel and midfoot with fat layer exposed | CPT/HCPCS: G0463 ==

== ENCOUNTER 2017-04-16 09:43 | Outpatient (CLI) | payer OTHER | END 2017-04-16 23:59 | disposition home or self-care (01) | LOC: WOU 09:43 | PROVIDERS: ATTEND Podiatrist Foot & Ankle Surgery | DX: E11.621 Type 2 diabetes mellitus with foot ulcer (principal); L97.423 Non-pressure chronic ulcer of left heel and midfoot with necrosis of muscle; B35.1 Tinea unguium; E11.610 Type 2 diabetes mellitus with diabetic neuropathic arthropathy; E11.69 Type 2 diabetes mellitus with other specified complication; M86.672 Other chronic osteomyelitis, left ankle and foot; Z79.4 Long term (current) use of insulin; R60.0 Localized edema; Z89.422 Acquired absence of other left toe(s) | CPT/HCPCS: 11043; A6253; A6402 ×2 ==

== ENCOUNTER 2017-04-30 09:50 | Outpatient (CLI) | payer OTHER | END 2017-04-30 23:59 | disposition home or self-care (01) | LOC: WOU 09:50 | PROVIDERS: ATTEND Podiatrist Foot & Ankle Surgery | DX: E11.621 Type 2 diabetes mellitus with foot ulcer (principal); L97.422 Non-pressure chronic ulcer of left heel and midfoot with fat layer exposed; E11.610 Type 2 diabetes mellitus with diabetic neuropathic arthropathy; E11.69 Type 2 diabetes mellitus with other specified complication; M86.672 Other chronic osteomyelitis, left ankle and foot; Z99.3 Dependence on wheelchair; Z91.19 Patient's noncompliance with other medical treatment and regimen; H40.9 Unspecified glaucoma; Z87.891 Personal history of nicotine dependence; Z79.4 Long term (current) use of insulin | CPT/HCPCS: 87070-TC; 87186-TC; A6253; A6402 ==

== ENCOUNTER 2017-05-07 09:45 | Outpatient (CLI) | payer OTHER | END 2017-05-07 23:59 | disposition home or self-care (01) | LOC: WOU 09:45 | PROVIDERS: ATTEND Podiatrist Foot & Ankle Surgery | DX: E11.621 Type 2 diabetes mellitus with foot ulcer (principal); L97.423 Non-pressure chronic ulcer of left heel and midfoot with necrosis of muscle; E11.610 Type 2 diabetes mellitus with diabetic neuropathic arthropathy; E11.69 Type 2 diabetes mellitus with other specified complication; M86.672 Other chronic osteomyelitis, left ankle and foot; B95.2 Enterococcus as the cause of diseases classified elsewhere; B95.7 Other staphylococcus as the cause of diseases classified elsewhere; Z16.21 Resistance to vancomycin; L97.511 Non-pressure chronic ulcer of other part of right foot limited to breakdown of skin; B35.1 Tinea unguium; R60.0 Localized edema | CPT/HCPCS: 11043; A6253; A6402 ==

== ENCOUNTER 2017-09-09 13:10 | Outpatient (CLI) | payer MEDICARE, OTHER | END 2017-09-09 23:59 | disposition home or self-care (01) | LOC: WOU 13:10 | PROVIDERS: ATTEND Podiatrist Foot & Ankle Surgery | DX: E11.621 Type 2 diabetes mellitus with foot ulcer (principal); L97.426 Non-pressure chronic ulcer of left heel and midfoot with bone involvement without evidence of necrosis; L97.512 Non-pressure chronic ulcer of other part of right foot with fat layer exposed; Z79.82 Long term (current) use of aspirin; E11.610 Type 2 diabetes mellitus with diabetic neuropathic arthropathy; E11.39 Type 2 diabetes mellitus with other diabetic ophthalmic complication; E11.40 Type 2 diabetes mellitus with diabetic neuropathy, unspecified; H40.9 Unspecified glaucoma; Z83.3 Family history of diabetes mellitus; Z82.3 Family history of stroke; Z82.49 Family history of ischemic heart disease and other diseases of the circulatory system; Z98.49 Cataract extraction status, unspecified eye; R60.0 Localized edema | CPT/HCPCS: 11042; 11043; 11730; 87070; 87075; 87077; 87186; A6253; A6402 ==

== ENCOUNTER 2017-09-12 09:50 | Outpatient (CLI) | payer MEDICARE, OTHER | END 2017-09-12 23:59 | disposition other institution (70) | LOC: WOU 09:50 | PROVIDERS: ATTEND Podiatrist Foot & Ankle Surgery | DX: E11.52 Type 2 diabetes mellitus with diabetic peripheral angiopathy with gangrene (principal); E11.621 Type 2 diabetes mellitus with foot ulcer; L97.426 Non-pressure chronic ulcer of left heel and midfoot with bone involvement without evidence of necrosis; L97.512 Non-pressure chronic ulcer of other part of right foot with fat layer exposed; L97.412 Non-pressure chronic ulcer of right heel and midfoot with fat layer exposed; E11.42 Type 2 diabetes mellitus with diabetic polyneuropathy; E11.610 Type 2 diabetes mellitus with diabetic neuropathic arthropathy; L03.115 Cellulitis of right lower limb; R60.0 Localized edema; M25.375 Other instability, left foot | CPT/HCPCS: G0463; A6253; A6402 ×2 ==

== ENCOUNTER 2017-09-12 11:57 | Inpatient (IN) | payer MEDICARE, OTHER ==
[~2017-09-12] VITALS: Ht 177.8 cm; Wt 86.6 kg
[2017-09-12] MEDS ORDERED: ZOLPIDEM TARTRATE 5 MG TABLET PO PRN (12:30)
[2017-09-12] MEDS ORDERED: LINEZOLID 600 MG TABLET PO SCH ×2 (12:30→21:00)
[2017-09-12] MEDS ORDERED: MAG HYDROX/AL HYDROX/SIMETH 30 ML UDC PO PRN (12:30)
[2017-09-12] MEDS ORDERED: HYDROCODONE/APAP 5/325MG 1 EACH TABLET PO PRN (12:30)
[2017-09-12] MEDS ORDERED: Z GUARD REMEDY 2 OZ OINT TP PRN (12:30)
[2017-09-12] MEDS ORDERED: ONDANSETRON HCL/PF 4 MG/2 ML VIAL IVP PRN (12:30)
[2017-09-12] MEDS ORDERED: MAGNESIUM HYDROXIDE 30 ML UDC PO PRN (12:30)
[2017-09-12] MEDS ORDERED: CLONIDINE HCL 0.1 MG TABLET PO PRN (12:30)
[2017-09-12 12:58] LABS: EOSINOPHILS # (AUTO) 0.2 /CMM (0.0-0.7); HEMATOCRIT 26 % (39-51); HEMOGLOBIN 8.4 g/dL (13.5-17.5); LYMPHOCYTES # (AUTO) 1.1 /CMM (0.8-4.8); LYMPHOCYTES % (AUTO) 5.8 % (20.0-44.0); MEAN CORPUSCULAR HEMOGLOBIN 29 PG (26.0-33.0); MEAN CORPUSCULAR HGB CONC 33 g/dl (31.0-36.0); MEAN CORPUSCULAR VOLUME 88 fL (80-96); MONOCYTES # (AUTO) 1.1 /CMM (0.1-1.30); MONOCYTES % (AUTO) 6.1 % (2.0-12.0); NEUTROPHILS # (AUTO) 16.3 /CMM (1.8-8.9); NEUTROPHILS % (AUTO) 87.1 % (43.0-81.0); PLATELET COUNT (AUTO) 367 /CMM (150-450); RDW COEFFICIENT OF VARIATION 16.3 (11.5-15.0); RED BLOOD CELL COUNT(AUTO) 2.94 MIL/uL (4.5-6.0); WHITE BLOOD COUNT (AUTO) 18.7 K/uL (4.3-11.0)
[2017-09-12 13:00] VITALS: BP 157/70
[2017-09-12 13:12] LABS: CALCIUM, SERUM 8.5 mg/dL (8.5-10.1); CREATININE 2.5 mg/dL (0.6-1.3); POTASSIUM 3.2 mmol/L (3.5-5.1)
[2017-09-12] MEDS ORDERED: CLINDAMYCIN 600 MG in IV D5W 50 ML IV SCH (14:00)
--- NOTE | 2017-09-12 14:00 | NUR ---
ADMISSION NOTE RECEIVED PT DIRECT ADMIT FROM WOUND CENTER. A/OX4 RWANDAN SPEAKING. DM WOUNDS ON B LOWER EXTREMITIES. FOOT DROP ON LEFT FOOT. IV ACCESS INSERTED INTO LEFT AC 22G SL. NO S/S OF RESPIRATORY DISTRESS OR SOB. NO C/O PAIN. WILL CONTINUE TO MONITOR.
[2017-09-12] MEDS: ZINC SULFATE 220 MG CAPSULE PO SCH (14:36)
[2017-09-12] MEDS: CEFTRIAXONE 1 G in IV D5W 50 ML IV SCH (15:47)
[2017-09-12 16:00] VITALS: BP 149/72
[2017-09-12] MEDS: ENOXAPARIN SODIUM 40 MG/0.4 ML DISP.SYRIN SQ SCH (16:36)
[2017-09-12] MEDS ORDERED: POTASSIUM CHLORIDE 20 MEQ TAB.PRT.SR PO ONE ×2 (18:00→21:31)
[2017-09-12] MEDS ORDERED: IV NS 0.9% 1,000 ML IV SCH (18:00)
[2017-09-12] MEDS ORDERED: DEXTROSE 50%-WATER 50 ML DISP.SYRIN IV PRN (18:00)
[2017-09-12] MEDS ORDERED: CLINDAMYCIN IV RTU IN D5W 900 MG/50 ML PIGGYBACK IV SCH (19:00)
[2017-09-12 19:22] VITALS: BP 149/72
--- NOTE | 2017-09-12 19:42 | NUR ---
RN CLOSING NOTES PT AWAKE AND RESTING IN BED. NO S/S OF RESP DISTRESS. NO C/O PAIN. DRESSINGS CHANGED ON BILATERAL LOWER EXT. ALL PT NEEDS ANTICIPATED AND MET. SAFETY MEASURES IN PLACE, CALL LIGHT WITHIN REACH. WILL ENDORSE TO PIPING SUPERVISOR FOR ANGEL.
[2017-09-12 20:00] VITALS: BP_SYST 149; BP_SYST 164; BP_DIAS 70; BP_DIAS 71
--- NOTE | 2017-09-12 20:00 | NUR ---
MS/RN OPENING NOTES PATIENT ALERT, ORIENTED X3 ABLE TO VERBALIZE NEEDS, REQUIRE ASSISTANCE DUE TO POOR VISIO/LOSS. RESPIRATION EVEN AND UNLABORED, SKIN WARM TO TOUCH, DENIES PAIN. IV ON LEFT AC PATENT W/ NO S/S OF INFILTRATION, ABLE TO USE URINAL, LEFT FOOT WITH BOOTS DUE TO FOOT DROP, APPLIED /COVER GAUZE AND KERLIX ON THE FOOT, RIGHT FOOT NOTED GANGRENE, COVERED W. KERLIX, POTASSIUM LOW AT 3.2 WITH ORDER TO GIVE KDUR 20MEW, ON IV ATB, FOR INFECTION. WILL CONTINUE TO MONITOR. RECEIVED ENDORSEMENT FROM AM RN.
[2017-09-12] MEDS: CLINDAMYCIN 600 MG in IV D5W 50 ML IV SCH (21:33)
[2017-09-12] MEDS: INSULIN DETEMIR 100 UNIT/ML CARTRIDGE SQ SCH (21:42)
[2017-09-12] MEDS: *INSULIN REGULAR(HUMULIN R)HUM 100 UNIT/ML VIAL SQ PRN (21:48)
[2017-09-12] MEDS: BLOOD SUGAR DIAGNOSTIC 1 EACH STRIP VI SCH (21:52)
--- NOTE | 2017-09-13 02:48 | NUR ---
MS/RN NOTES MD SPICER ORDER CARRIED OUT FOR EMPIRIC VANCO/ZOSYN TO DOSE, IDCONSULT, DIET ADA 2000 CALORIE, RIGHT AND LEFT FOOT XRAY 3 VIEWS, VASCULAR ARTERIAL AND VENOUS ULTRASOUND, CHEST XRAY, EKG, WOUND CARE WITH RIGHT FOOT APPLY IODOFORM PACKING AND LEFT FOOD WOUND VAC.
[2017-09-13] MEDS: CLINDAMYCIN 600 MG in IV D5W 50 ML IV SCH ×3 (05:02→21:39)
[2017-09-13] MEDS: BLOOD SUGAR DIAGNOSTIC 1 EACH STRIP VI SCH ×4 (05:57→21:39)
--- NOTE | 2017-09-13 06:23 | NUR ---
MS/RN NOTES PATIENT IN BED, ALERT, ORIENTED, ABLE TO VERBALZIE NEEDS, ASSIST TO BED, USES URINAL . PROVIDE FLUIDS. IV ATB ADMINISTERED, MONITORING FOR S/S OF HYPO/HYPERGLYCEMIA. BED IN LOCK POSITION. CALL LIGHTS WITNIN REACH, WILL CONTINUE TO MONITOR.
[2017-09-13 07:07] LABS: EOSINOPHILS % (AUTO) 0.2 % (0.0-6.0); HEMATOCRIT 26 % (39-51); HEMOGLOBIN 8.6 g/dL (13.5-17.5); LYMPHOCYTES % (AUTO) 6.2 % (20.0-44.0); MEAN CORPUSCULAR HEMOGLOBIN 29 PG (26.0-33.0); MEAN CORPUSCULAR HGB CONC 33 g/dl (31.0-36.0); MEAN CORPUSCULAR VOLUME 89 fL (80-96); MONOCYTES % (AUTO) 6.3 % (2.0-12.0); NEUTROPHILS % (AUTO) 87.3 % (43.0-81.0); PLATELET COUNT (AUTO) 396 /CMM (150-450); RDW COEFFICIENT OF VARIATION 16.3 (11.5-15.0); RED BLOOD CELL COUNT(AUTO) 2.96 MIL/uL (4.5-6.0)
[2017-09-13 07:20] LABS: CALCIUM, SERUM 8.5 mg/dL (8.5-10.1); CREATININE 2.3 mg/dL (0.6-1.3); MAGNESIUM 1.9 mg/dL (1.8-2.4); PHOSPHORUS 3.3 mg/dL (2.5-4.9); POTASSIUM 3.3 mmol/L (3.5-5.1)
--- NOTE | 2017-09-13 07:30 | NUR ---
AM RN NOTE Received patient sleeping comfortably in his bed, no acute distress noted. No SOB noted resp even and non-labored. IV site intact and patent. Tg on left foot. Bed in low locked position. Will continue to monitor.
[2017-09-13] MEDS ORDERED: POTASSIUM CHLORIDE 20 MEQ TAB.PRT.SR PO ONE ×2 (07:54→11:30)
[2017-09-13 08:00] VITALS: BP 148/68
[2017-09-13] MEDS: ZINC SULFATE 220 MG CAPSULE PO SCH (08:29)
[2017-09-13] MEDS: ATENOLOL 25 MG TABLET PO SCH (08:30)
[2017-09-13] MEDS ORDERED: hydrALAZINE HCL 25 MG TABLET PO PRN (11:30)
[2017-09-13] MEDS: INSULIN REGULAR, HUMAN 100 UNIT/ML 3 ML VIAL SQ PRN ×2 (11:55→17:55)
--- NOTE | 2017-09-13 12:12 | NUR ---
AM RN NOTE Clarified with Dr. Talbert that K-Dur 20meq was given this AM and per Dr. Talbert disregard her 40meq order. Vianca at pharmacy made aware.
[2017-09-13] MEDS: CEFTRIAXONE 1 G in IV D5W 50 ML IV SCH (13:30)
[2017-09-13 16:00] VITALS: BP 130/71
--- NOTE | 2017-09-13 16:00 | NUR ---
AM RN NOTE Pt seen by Dr. Salas with NNO.
[2017-09-13] MEDS: CADEXOMER IODINE 40 GM TUBE TP SCH (16:26)
[2017-09-13] MEDS: DAKINS QUARTER STRENGTH (0.125%) 480 ML BOTTLE TOP SCH (16:26)
[2017-09-13] MEDS: LACTOBACILLUS RHAMNOSUS GG 1 EACH CAP.SPRINK PO SCH (16:26)
--- NOTE | 2017-09-13 18:16 | NUR ---
AM RN NOTE Pt resting in his bed, no acute distress noted. All needs met and attended in timely manner. IV site intact and patent. Will endorse care to next shift.
--- NOTE | 2017-09-13 19:50 | NUR ---
MS RN NOTE: PATIENT RESTING IN BED, NO ACUTE DISTRESS NOTED. BREATHING EVEN AND UNLABORED, NO SOB NOTED. IV TO LAC IN PLACE, INFUSING NS AT 75ML/HR. CAM BOOT TO LEFT FOOT IN PLACE. NO S/S OF HYPER/HYPOGLYCEMIA NOTED. ISOLATION PRECAUTION OBSERVED. BED LOCKED AND IN LOWEST POSITION, CALL LIGHT IN REACH. WILL CONTINUE TO MONITOR.
[2017-09-13 20:00] VITALS: BP 150/72
[2017-09-13] MEDS: IV NS 0.9% 1,000 ML IV PRN (20:06)
[2017-09-13] MEDS: INSULIN DETEMIR 100 UNIT/ML CARTRIDGE SQ SCH (21:42)
[2017-09-13] MEDS: ENOXAPARIN SODIUM 40 MG/0.4 ML DISP.SYRIN SQ SCH (21:42)
[2017-09-13] MEDS: *INSULIN REGULAR(HUMULIN R)HUM 100 UNIT/ML VIAL SQ PRN (21:43)
--- NOTE | 2017-09-13 21:45 | NUR ---
MS RN NOTE: PATIENT BLOOD SUGAR LEVEL 158MG/DL, PATIENT TO RECEIVE 17 UNITS OF LEVEMIR PER MD ORDER AND 2 UNITS OF INSULIN PER SLIDING SCALE. NO S/S OF HYPER/HYPOGLYCEMIA NOTED. WILL CONTINUE TO MONITOR.
[2017-09-14] MEDS: CLINDAMYCIN 600 MG in IV D5W 50 ML IV SCH ×3 (05:40→21:10)
--- NOTE | 2017-09-14 06:30 | NUR ---
MS RN NOTE: PATIENT RESTING IN BED, NO ACUTE DISTRESS NOTED. BREATHING EVEN AND UNLABORED, NO SOB NOTED. IV TO LAC IN PLACE, INFUSING NS AT 75ML/HR. CAM BOOT TO LEFT FOOT IN PLACE. PATIENT BLOOD SUGAR LEVEL 73 MG/DL, NO INSULIN NEEDED PER SLIDING SCALE. NO S/S OF HYPER/HYPOGLYCEMIA NOTED, JUICE PROVIDED. ISOLATION PRECAUTION OBSERVED. BED LOCKED AND IN LOWEST POSITION, CALL LIGHT IN REACH. WILL ENDORSE TO DAY NURSE TO CONTINUE WITH PLAN OF CARE.
[2017-09-14] MEDS: BLOOD SUGAR DIAGNOSTIC 1 EACH STRIP VI SCH ×4 (06:31→21:13)
[2017-09-14 06:36] LABS: BASOPHILS % (AUTO) 0.1 % (0.0-2.0); EOSINOPHILS % (AUTO) 0.2 % (0.0-6.0); HEMATOCRIT 26 % (39-51); HEMOGLOBIN 8.7 g/dL (13.5-17.5); LYMPHOCYTES # (AUTO) 1.3 /CMM (0.8-4.8); LYMPHOCYTES % (AUTO) 7.9 % (20.0-44.0); MEAN CORPUSCULAR HEMOGLOBIN 29 PG (26.0-33.0); MEAN CORPUSCULAR HGB CONC 33 g/dl (31.0-36.0); MEAN CORPUSCULAR VOLUME 88 fL (80-96); MONOCYTES # (AUTO) 1.2 /CMM (0.1-1.30); MONOCYTES % (AUTO) 7.5 % (2.0-12.0); NEUTROPHILS % (AUTO) 84.3 % (43.0-81.0); PLATELET COUNT (AUTO) 416 /CMM (150-450); RDW COEFFICIENT OF VARIATION 16.2 (11.5-15.0); RED BLOOD CELL COUNT(AUTO) 2.98 MIL/uL (4.5-6.0); WHITE BLOOD COUNT (AUTO) 16.7 K/uL (4.3-11.0)
[2017-09-14 06:37] LABS: CALCIUM, SERUM 8.6 mg/dL (8.5-10.1); CREATININE 2.1 mg/dL (0.6-1.3); PHOSPHORUS 3.7 mg/dL (2.5-4.9); POTASSIUM 3.4 mmol/L (3.5-5.1)
[2017-09-14 08:00] VITALS: BP 176/70
[2017-09-14] MEDS: LACTOBACILLUS RHAMNOSUS GG 1 EACH CAP.SPRINK PO SCH ×2 (08:01→17:25)
[2017-09-14] MEDS: ATENOLOL 25 MG TABLET PO SCH (08:01)
[2017-09-14] MEDS: ZINC SULFATE 220 MG CAPSULE PO SCH (08:01)
[2017-09-14] MEDS: DAKINS QUARTER STRENGTH (0.125%) 480 ML BOTTLE TOP SCH ×2 (08:05→17:25)
[2017-09-14] MEDS: CADEXOMER IODINE 40 GM TUBE TP SCH ×2 (08:05→17:25)
[2017-09-14 10:38] VITALS: BP 133/67
[2017-09-14] MEDS ORDERED: POTASSIUM CHLORIDE 20 MEQ TAB.PRT.SR PO SCH (12:00)
[2017-09-14] MEDS: INSULIN REGULAR, HUMAN 100 UNIT/ML 3 ML VIAL SQ PRN ×2 (12:22→17:26)
[2017-09-14] MEDS: IV NS 0.9% 1,000 ML IV PRN (12:23)
[2017-09-14] MEDS: SENNOSIDES/DOCUSATE SODIUM 1 TAB TABLET PO SCH (14:14)
[2017-09-14] MEDS: POLYETHYLENE GLYCOL 3350 17 GM POWD.PACK PO SCH ×2 (14:14→21:10)
[2017-09-14] MEDS: CEFTRIAXONE 1 G in IV D5W 50 ML IV SCH (14:14)
[2017-09-14 16:00] VITALS: BP 149/70
--- NOTE | 2017-09-14 18:36 | NUR ---
CLOSING NOTES NO SIGNIFICANT CHANGES IN PATIENT CONDITION THROUGHOUT THE SHIFT. NO SOB OR DISTRESS NOTED AT THIS TIME. PATIENT DENIES PAIN. DRESSING CHANGES DONE. BED IN A LOW POSITION, CALL LIGHT WITHIN PATIENT REACH. WILL ENDORSE FOR ANGEL.
--- NOTE | 2017-09-14 19:30 | NUR ---
RN NOTE; RECEIVED PT IN BED AWAKE AND ALERT. BREATHING EVENLY. NO SOB. NAD, DRESSING ON BILAT FEET CDI. NO C/C OR C/O PAIN OR DISCOMFORT. NEEDS ATTENDED. BED LOW LOCKED .CALL LIGHT WITHIN REACH. WILL CONT TO MONITOR ,.
[2017-09-14 19:50] VITALS: BP 139/77
[2017-09-14 20:00] VITALS: BP 143/65
--- NOTE | 2017-09-14 20:00 | NUR ---
S/B DR. SPICER. WOUND CARE DONE AND PICTURES TAKEN. NO C/O PAIN OR DISCOMFORT . WILL CONT TO MONITOR,
[2017-09-14] MEDS: ENOXAPARIN SODIUM 40 MG/0.4 ML DISP.SYRIN SQ SCH (21:00)
[2017-09-14] MEDS: INSULIN DETEMIR 100 UNIT/ML CARTRIDGE SQ SCH (21:14)
[2017-09-14] MEDS: *INSULIN REGULAR(HUMULIN R)HUM 100 UNIT/ML VIAL SQ PRN (21:15)
[2017-09-14] MEDS: ACETAMINOPHEN 325 MG TABLET PO PRN (22:05)
--- NOTE | 2017-09-14 22:08 | NUR ---
tylenol given per pt's request for c/o r foot pain. will cont to monitor.
[2017-09-15] MEDS: IV NS 0.9% 1,000 ML IV PRN (03:27)
[2017-09-15] MEDS: CLINDAMYCIN 600 MG in IV D5W 50 ML IV SCH ×3 (04:18→20:24)
[2017-09-15] MEDS: BLOOD SUGAR DIAGNOSTIC 1 EACH STRIP VI SCH ×4 (06:34→21:45)
[2017-09-15 06:39] LABS: CALCIUM, SERUM 8.1 mg/dL (8.5-10.1); CREATININE 1.9 mg/dL (0.6-1.3); MAGNESIUM 1.9 mg/dL (1.8-2.4); POTASSIUM 3.7 mmol/L (3.5-5.1)
--- NOTE | 2017-09-15 07:10 | NUR ---
PT IN BED DOZING INTERMITTENTLY. BREATHING EVENLY. ON ONGOING IVF HYDRATION. NO C/O PAIN OR DISCOMFORT. WOUND CARE PROVIDED. ASSISTED W/ ADLS. CALL LIGHT WITHIN REACH,. WILL CONT TO MONITOR AND WILL ENDORSE TO AM SHIFT FOR ANGEL.
--- NOTE | 2017-09-15 07:20 | NUR ---
ms rn initial notes Received patient in bed, asleep, head of bed elevated, no SOB or distress noted. Patient is alert and oriented x 3, verbally responsive. Speak a little maltese and mostly tajik. Legally blind. IV intact and patent with IVF infusing well. Wound dressing intact on the right foot. Left boot on. Kept patient clean and comfortable in bed, call light with in patient reach, will continue to monitor accordingly.
[2017-09-15 08:00] VITALS: BP 174/67
[2017-09-15] MEDS: ATENOLOL 25 MG TABLET PO SCH (08:06)
[2017-09-15] MEDS: LACTOBACILLUS RHAMNOSUS GG 1 EACH CAP.SPRINK PO SCH ×2 (08:07→17:02)
[2017-09-15] MEDS: DAKINS QUARTER STRENGTH (0.125%) 480 ML BOTTLE TOP SCH ×2 (08:07→17:03)
[2017-09-15] MEDS: ZINC SULFATE 220 MG CAPSULE PO SCH (08:07)
[2017-09-15] MEDS: SENNOSIDES/DOCUSATE SODIUM 1 TAB TABLET PO SCH (08:07)
[2017-09-15] MEDS: CADEXOMER IODINE 40 GM TUBE TP SCH ×2 (08:07→17:03)
[2017-09-15] MEDS: AMLODIPINE BESYLATE 5 MG TABLET PO SCH (11:10)
[2017-09-15] MEDS: INSULIN REGULAR, HUMAN 100 UNIT/ML 3 ML VIAL SQ PRN ×2 (11:11→17:04)
[2017-09-15 13:38] LABS: APPEARANCE,URINE SL CLOUDY (CLEAR); BILIRUBIN,URINE NEGATIVE (NEGATIVE); BLOOD, URINE 1+ Ery/uL (NEGATIVE); COLOR,URINE YELLOW (YELLOW); KETONES,URINE NEGATIVE (NEGATIVE); LEUKOCYTE ESTERASE ,URINE TRACE (NEGATIVE); NITRITE, URINE NEGATIVE (NEGATIVE); PH,URINE 5.5 (5.0-8.0); PROTEIN,URINE 2+ mg/dl (NEGATIVE); UGLUCOSE NEGATIVE (NEGATIVE); UROBILINOGEN,URINE 0.2 EU/dL (0.2)
[2017-09-15 13:51] LABS: BACTERIA,URINE Rare /HPF (None Seen); SQUAMOUS EPITHELIAL CELL,UR Few /HPF (None Seen)
[2017-09-15] MEDS: CEFTRIAXONE 1 G in IV D5W 50 ML IV SCH (14:42)
[2017-09-15 16:00] VITALS: BP 155/60
--- NOTE | 2017-09-15 19:46 | NUR ---
MS RN NOTES All needs provided, attended, and anticipated. Wound dressing done with on site. Kept patient clean and comfortable in bed, call light with in patient reach, endorsed to next shift RN to continue care.
--- NOTE | 2017-09-15 19:47 | NUR ---
RN NOTES RECEIVED PT AWAKE, HOB ELEVATED, ON ROOM AIR AND TOLERATED WELL. PT IS ALERT AND ORIENTED X3, LEGALLY BLIND, FAMILY AT BEDSIDE. PAIN AT TOLERABLE LEVEL AT THIS TIME. BOTH LOWER LEG ELEVATED ON A PILLOW WITH RIGHT FOOT DRESSING CLEAN, DRY AND INTACT. KEPT COMFORTABLE IN BED, WITH CALL LIGHT WITHIN REACH. SAFETY MEASURES AND FALL PRECAUTION OBSERVED. WILL CONTINUE TO MONITOR PT.
[2017-09-15 19:54] VITALS: BP 153/76
[2017-09-15] MEDS: ENOXAPARIN SODIUM 40 MG/0.4 ML DISP.SYRIN SQ SCH (20:30)
[2017-09-15] MEDS: ACETAMINOPHEN 325 MG TABLET PO PRN (20:42)
[2017-09-15] MEDS: *INSULIN REGULAR(HUMULIN R)HUM 100 UNIT/ML VIAL SQ PRN (21:48)
[2017-09-15] MEDS: INSULIN DETEMIR 100 UNIT/ML CARTRIDGE SQ SCH (21:49)
[2017-09-15] MEDS: POLYETHYLENE GLYCOL 3350 17 GM POWD.PACK PO SCH (21:52)
[2017-09-15 22:00] VITALS: BP 153/76
[2017-09-16] MEDS: CLINDAMYCIN 600 MG in IV D5W 50 ML IV SCH ×2 (05:08→12:53)
[2017-09-16] MEDS: IV NS 0.9% 1,000 ML IV PRN (05:09)
[2017-09-16] MEDS: BLOOD SUGAR DIAGNOSTIC 1 EACH STRIP VI SCH ×3 (06:43→16:51)
[2017-09-16 06:47] LABS: CALCIUM, SERUM 8.5 mg/dL (8.5-10.1); CREATININE 1.9 mg/dL (0.6-1.3); POTASSIUM 3.7 mmol/L (3.5-5.1)
--- NOTE | 2017-09-16 07:25 | NUR ---
ms rn initial notes Received patient in bed, awake, head of bed elevated, no SOB or distress noted, on room air with 02 saturation of 98%, IV intact and patent with IVF infusing well. No complaint of pain or discomfort at this time. Will continue to monitor accordingly.
--- NOTE | 2017-09-16 07:31 | NUR ---
RN NOTES PT SLEEP WELL OVERNIGHT, DENIES ANY DISCOMFORT. KEPT BOTH LOWER LEG ELEVATED. PAIN AT TOLERABLE LEVEL. NO SIGNS OF HYPOGLYCEMIA NOTED. ALL NEEDS ATTENDED. ENDORSED TO MORNING RN FOR CONTINUITY OF CARE.
[2017-09-16 08:00] VITALS: BP 144/73
[2017-09-16] MEDS: AMLODIPINE BESYLATE 5 MG TABLET PO SCH (08:20)
[2017-09-16] MEDS: LACTOBACILLUS RHAMNOSUS GG 1 EACH CAP.SPRINK PO SCH (08:20)
[2017-09-16] MEDS: ZINC SULFATE 220 MG CAPSULE PO SCH (08:20)
[2017-09-16] MEDS: SENNOSIDES/DOCUSATE SODIUM 1 TAB TABLET PO SCH (08:21)
[2017-09-16] MEDS: DAKINS QUARTER STRENGTH (0.125%) 480 ML BOTTLE TOP SCH ×2 (08:21→16:52)
[2017-09-16] MEDS: ATENOLOL 25 MG TABLET PO SCH (08:21)
[2017-09-16] MEDS: CADEXOMER IODINE 40 GM TUBE TP SCH ×2 (08:21→16:52)
[2017-09-16] MEDS: ACETAMINOPHEN 325 MG TABLET PO PRN (09:43)
[2017-09-16 12:26] LABS: CALCIUM, SERUM 8.3 mg/dL (8.5-10.1); CREATININE 1.9 mg/dL (0.6-1.3); POTASSIUM 4.1 mmol/L (3.5-5.1)
[2017-09-16] MEDS: INSULIN REGULAR, HUMAN 100 UNIT/ML 3 ML VIAL SQ PRN ×2 (12:58→16:52)
[2017-09-16 13:01] LABS: BASOPHILS % (AUTO) 0.2 % (0.0-2.0); EOSINOPHILS # (AUTO) 0.3 /CMM (0.0-0.7); EOSINOPHILS % (AUTO) 1.9 % (0.0-6.0); HEMATOCRIT 25 % (39-51); HEMOGLOBIN 8.5 g/dL (13.5-17.5); LYMPHOCYTES % (AUTO) 7.7 % (20.0-44.0); MEAN CORPUSCULAR HEMOGLOBIN 30 PG (26.0-33.0); MEAN CORPUSCULAR HGB CONC 34 g/dl (31.0-36.0); MEAN CORPUSCULAR VOLUME 88 fL (80-96); MONOCYTES # (AUTO) 0.9 /CMM (0.1-1.30); MONOCYTES % (AUTO) 6.7 % (2.0-12.0); NEUTROPHILS # (AUTO) 11.3 /CMM (1.8-8.9); NEUTROPHILS % (AUTO) 83.5 % (43.0-81.0); PLATELET COUNT (AUTO) 414 /CMM (150-450); RDW COEFFICIENT OF VARIATION 15.7 (11.5-15.0); RED BLOOD CELL COUNT(AUTO) 2.89 MIL/uL (4.5-6.0); WHITE BLOOD COUNT (AUTO) 13.5 K/uL (4.3-11.0)
[2017-09-16] MEDS: CEFTRIAXONE 1 G in IV D5W 50 ML IV SCH (13:49)
[2017-09-16 16:00] VITALS: BP 152/76
--- NOTE | 2017-09-16 16:53 | NUR ---
ms rn notes Blood sugar checked no coverage given. Will continue to monitor accordingly.
--- NOTE | 2017-09-16 18:30 | NUR ---
ms modern dancer notes Discharge instructions given to patient and Veda and able to understand instructions. Signed discharge paper and belonging list. Prescription given and faxed to their preferred pharmacy. Wound dressing done and pictures taken and filed in the chart. Patient refused flu and pneumonia vaccine. Explained the risk and benefits x 3 and still refused. Vital signs checked and recorded. Patient left via wheelchair accompanied by assigned PIPE MAKER and . No complaint of pain or discomfort noted nor chest pain. patient left in stable condition. MD and charge nurse made aware.
== END 2017-09-16 18:30 | disposition home health service (06) | DRG 981 ==
LOC: WOUND2 11:57
PROVIDERS: ADMIT Internal Medicine; ATTEND Podiatrist Foot & Ankle Surgery
PROC: 0KBW0ZZ Excision of Left Foot Muscle, Open Approach (ICD-10-PCS; principal; 2017-09-16)
DX: E11.52 Type 2 diabetes mellitus with diabetic peripheral angiopathy with gangrene (principal); N17.0 Acute kidney failure with tubular necrosis; L03.116 Cellulitis of left lower limb; I96 Gangrene, not elsewhere classified; M86.672 Other chronic osteomyelitis, left ankle and foot; L03.115 Cellulitis of right lower limb; L97.429 Non-pressure chronic ulcer of left heel and midfoot with unspecified severity; E11.621 Type 2 diabetes mellitus with foot ulcer; E78.5 Hyperlipidemia, unspecified; E11.69 Type 2 diabetes mellitus with other specified complication; I12.9 Hypertensive chronic kidney disease with stage 1 through stage 4 chronic kidney disease, or unspecified chronic kidney disease; N18.9 Chronic kidney disease, unspecified; E11.22 Type 2 diabetes mellitus with diabetic chronic kidney disease; Z86.19 Personal history of other infectious and parasitic diseases; D64.9 Anemia, unspecified; H54.8 Legal blindness, as defined in USA; E11.42 Type 2 diabetes mellitus with diabetic polyneuropathy; I25.10 Atherosclerotic heart disease of native coronary artery without angina pectoris; K21.9 Gastro-esophageal reflux disease without esophagitis; Z87.891 Personal history of nicotine dependence; E11.610 Type 2 diabetes mellitus with diabetic neuropathic arthropathy; Z79.84 Long term (current) use of oral hypoglycemic drugs; L97.519 Non-pressure chronic ulcer of other part of right foot with unspecified severity; Z79.4 Long term (current) use of insulin
CPT/HCPCS: 36415; 71010-TC; 73630-TC; 80048-TC; 80061-TC; 81000-TC; 82962-TC; 83540-TC; 83735-TC; 84100-TC; 85025-TC; 85652-TC; 87040-TC; 87086-TC; 93970-TC; A4217; A6253; A6402; A6403; A6407; J0696; J1650; J1815; J3490; J7030; J7060; Z7610

== ENCOUNTER 2017-09-26 10:00 | Outpatient (CLI) | payer MEDICARE, OTHER ==
[~2017-09-26 10:00] MED LIST changes: -Fluconazole PO; -LEVO250T2 PO; -LINE600T PO
== END 2017-09-27 23:59 | disposition home or self-care (01) ==
LOC: WOU 10:00
PROVIDERS: ATTEND Podiatrist Foot & Ankle Surgery
DX: E11.621 Type 2 diabetes mellitus with foot ulcer (principal); E11.52 Type 2 diabetes mellitus with diabetic peripheral angiopathy with gangrene; L97.426 Non-pressure chronic ulcer of left heel and midfoot with bone involvement without evidence of necrosis; L97.512 Non-pressure chronic ulcer of other part of right foot with fat layer exposed; E11.610 Type 2 diabetes mellitus with diabetic neuropathic arthropathy; Z87.891 Personal history of nicotine dependence; Z83.3 Family history of diabetes mellitus; Z82.3 Family history of stroke; Z82.49 Family history of ischemic heart disease and other diseases of the circulatory system; E11.42 Type 2 diabetes mellitus with diabetic polyneuropathy; M25.372 Other instability, left ankle
CPT/HCPCS: 11044; A6253 ×2; A6402

== ENCOUNTER 2018-01-06 13:00 | Outpatient (CLI) | payer MEDICARE, MEDICAID ==
[2018-01-06] MEDS ORDERED: CARV6.25 PO (18:06)
[2018-01-06] MEDS ORDERED: AMLO5TAB7 PO (18:06)
[2018-01-06] MEDS ORDERED: ASPI-1152 PO (18:06)
[2018-01-06] MEDS ORDERED: ATOR40TA PO (18:06)
[2018-01-06] MEDS ORDERED: INSU100V7 SQ (18:06)
[2018-01-06] MEDS ORDERED: FURO40TA5 PO (18:06)
== END 2018-01-06 23:59 | disposition other institution (70) ==
LOC: WOU 13:00
PROVIDERS: ATTEND Podiatrist Foot & Ankle Surgery
DX: A41.9 Sepsis, unspecified organism (principal); E11.52 Type 2 diabetes mellitus with diabetic peripheral angiopathy with gangrene; E11.65 Type 2 diabetes mellitus with hyperglycemia; I96 Gangrene, not elsewhere classified; L97.426 Non-pressure chronic ulcer of left heel and midfoot with bone involvement without evidence of necrosis; I25.2 Old myocardial infarction; I25.10 Atherosclerotic heart disease of native coronary artery without angina pectoris; Z95.5 Presence of coronary angioplasty implant and graft; Z87.891 Personal history of nicotine dependence; Z79.899 Other long term (current) drug therapy; Z79.82 Long term (current) use of aspirin; E11.610 Type 2 diabetes mellitus with diabetic neuropathic arthropathy; E11.69 Type 2 diabetes mellitus with other specified complication; M86.8X7 Other osteomyelitis, ankle and foot
CPT/HCPCS: A6402; A6452; G0463

== ENCOUNTER 2018-01-06 15:22 | Inpatient (IN) | payer MEDICARE, OTHER, MEDICAID ==
[2018-01-06] VITALS (7 sets, daily range): BP systolic 114–131; BP diastolic 49–62
[~2018-01-06] VITALS: Ht 182.9 cm; Wt 88.9 kg
[2018-01-06] MEDS ORDERED: IV NS 0.9% 1,000 ML BAG IV ONE (16:00)
[2018-01-06] MEDS ORDERED: PIPERACILLIN /TAZOBACTAM 3.375 G in IV D5W 50 ML IV ONE (16:00)
--- NOTE | 2018-01-06 16:00 | NUR ---
[facility] FOR A POSSIBLE RT FOOT AMPUTATION. VSS. BILATERAL LOWER EXTREMITY WITH DRY DRESSING. SEEN BY MD FOR EVAL. SAFETY AND COMFORT MEASURES PROVIDED. WILL MONITOR.
[2018-01-06] MEDS: VANCOMYCIN 1 GM in IV D5W 250 ML IV ONE ×2 (16:20→16:40)
[2018-01-06 16:26] LABS: EOSINOPHILS % (AUTO) 0.4 % (0.0-6.0); LYMPHOCYTES # (AUTO) 0.9 /CMM (0.8-4.8); LYMPHOCYTES % (AUTO) 3.6 % (20.0-44.0); MEAN CORPUSCULAR HGB CONC 35 g/dl (31.0-36.0); MEAN CORPUSCULAR VOLUME 79 fL (80-96); MONOCYTES # (AUTO) 0.8 /CMM (0.1-1.30); MONOCYTES % (AUTO) 3.2 % (2.0-12.0); NEUTROPHILS # (AUTO) 24.1 /CMM (1.8-8.9); NEUTROPHILS % (AUTO) 92.8 % (43.0-81.0); PLATELET COUNT (AUTO) 514 /CMM (150-450); RED BLOOD CELL COUNT(AUTO) 2.23 MIL/uL (4.5-6.0); WHITE BLOOD COUNT (AUTO) 25.9 K/uL (4.3-11.0)
[2018-01-06] MEDS ORDERED: HYDROCODONE/APAP 5/325MG 1 EACH TABLET ONE (16:33)
[2018-01-06 16:38] LABS: HEMOGLOBIN 6.1 g/dL (13.5-17.5)
[2018-01-06 16:39] LABS: HEMATOCRIT 18 % (39-51)
[2018-01-06 16:44] LABS: ALBUMIN 1.7 g/dL (3.4-5.0); BILIRUBIN,DIRECT 0.2 mg/dL (0.0-0.2); BILIRUBIN,TOTAL 0.2 mg/dL (0.2-1.0); CREATININE 3.5 mg/dL (0.6-1.3); POTASSIUM 3.6 mmol/L (3.5-5.1); TOTAL PROTEIN, SERUM 7.2 g/dL (6.4-8.2)
[2018-01-06 16:48] LABS: INR 1.1 (0.85-1.15)
--- NOTE | 2018-01-06 17:12 | NUR ---
REPORT GIVEN TO RUTHY DIMAS FOR ANGEL MS 108
[2018-01-06] MEDS ORDERED: IV NS 0.9% 1,000 ML IV PRN ×2 (17:43→21:30)
[2018-01-06 17:49] LABS: NEUTROPHILS % (MANUAL) 94 (42-76)
[2018-01-06 17:50] LABS: LYMPHOCYTES % (MANUAL) 3 % (16-48); MONOCYTES % (MANUAL) 3 % (0-11.0)
[2018-01-06] MEDS ORDERED: MAG HYDROX/AL HYDROX/SIMETH 30 ML UDC PO PRN (18:00)
[2018-01-06] MEDS ORDERED: ONDANSETRON HCL/PF 4 MG/2 ML VIAL IVP PRN (18:00)
--- NOTE | 2018-01-06 18:00 | NUR ---
MS RN NOTE RECEIVED PATIENT FROM ER WITH DX RT FOOT POSSIBLE AMPUTATION UNDER CARE KASEY RN SPINAL SURGEON , RT FOOT CX DONE PER LORI RN SPINAL SURGEON ID ORDER , LT LEG WITH COMPRESSION CAST DRESSING INTACT , NOT ALLOWED TO REMOVE , HOSPITAL ORIENTATION DONE , VS TAKEN , PLAN OF CARE DISCUSSED WITH PATIENT , BED IN LOWEST AND LOCKED POSITION C\O PAIN OM RT FOOT NORCO PO GIVEN ORDERED WILL CONT TO MONITOR CLOSELY
[2018-01-06] MEDS ORDERED: ATOR40TA PO (18:06)
[2018-01-06] MEDS ORDERED: CARV6.25 PO (18:06)
[2018-01-06] MEDS ORDERED: AMLO5TAB7 PO (18:06)
[2018-01-06] MEDS ORDERED: FURO40TA5 PO (18:06)
[2018-01-06] MEDS ORDERED: INSU100V7 SQ (18:06)
[2018-01-06] MEDS ORDERED: ASPI-1152 PO (18:06)
[2018-01-06] MEDS ORDERED: FEE PK DOSING 1 MIN EA MC ONE (18:08)
[2018-01-06] MEDS: HYDROCODONE/APAP 5/325MG 1 EACH TABLET PO PRN ×2 (18:51→22:33)
--- NOTE | 2018-01-06 19:42 | NUR ---
MS RN NOTE US TECH AT BEDSIDE US KIDNEY AND BLADDERV DONE, SUGGESTED TO PLACE RAYGOZA CATH ,ENDORSED UPCOMING NURSE
[2018-01-06] MEDS: MEROPENEM 500 MG in IV NS 0.9% 50 ML IV SCH (20:46)
[2018-01-06] MEDS: LINEZOLID 600 MG TABLET PO SCH (20:47)
[2018-01-06] MEDS ORDERED: PIPERACILLIN /TAZOBACTAM 2.25 G in IV NS 0.9% 50 ML IV SCH (21:00)
[2018-01-06] MEDS: ATORVASTATIN 40 MG TABLET PO SCH (22:11)
[2018-01-06] MEDS: INSULIN GLARGINE, 100 UNIT/ML CARTRIDGE SQ SCH (22:18)
[2018-01-07] VITALS (11 sets, daily range): BP systolic 101–136; BP diastolic 52–69
[2018-01-07] MEDS: HYDROCODONE/APAP 5/325MG 1 EACH TABLET PO PRN ×4 (03:51→21:56)
[2018-01-07] MEDS: MEROPENEM 500 MG in IV NS 0.9% 50 ML IV SCH ×2 (05:40→17:30)
[2018-01-07 06:28] LABS: EOSINOPHILS % (AUTO) 0.2 % (0.0-6.0); HEMATOCRIT 21 % (39-51); HEMOGLOBIN 7.3 g/dL (13.5-17.5); LYMPHOCYTES # (AUTO) 0.8 /CMM (0.8-4.8); LYMPHOCYTES % (AUTO) 2.8 % (20.0-44.0); MEAN CORPUSCULAR HGB CONC 35 g/dl (31.0-36.0); MEAN CORPUSCULAR VOLUME 78 fL (80-96); MONOCYTES % (AUTO) 3.3 % (2.0-12.0); NEUTROPHILS % (AUTO) 93.7 % (43.0-81.0); PLATELET COUNT (AUTO) 528 /CMM (150-450); RDW COEFFICIENT OF VARIATION 15.6 (11.5-15.0); RED BLOOD CELL COUNT(AUTO) 2.71 MIL/uL (4.5-6.0); WHITE BLOOD COUNT (AUTO) 28.9 K/uL (4.3-11.0)
[2018-01-07] MEDS: ACETAMINOPHEN 325 MG TABLET PO PRN (06:33)
[2018-01-07 06:44] LABS: CALCIUM, SERUM 7.3 mg/dL (8.5-10.1); CREATININE 3.5 mg/dL (0.6-1.3); MAGNESIUM 1.8 mg/dL (1.8-2.4); PHOSPHORUS 4.9 mg/dL (2.5-4.9); POTASSIUM 3.3 mmol/L (3.5-5.1)
--- NOTE | 2018-01-07 07:40 | NUR ---
MS RN OPENING NOTE PATIENT IS ALERT AND ORIENTED X3. NO PAIN AT THIS TIME. NO SOB OR DISTRESS NOTED. CALL LIGHT WITHIN REACH. SAFETY MEASURES IMPLEMENTED. ABLE TO COMMUNICATE NEEDS. IV INTACT AND PATENT WITH FLUIDS RUNNING AT 75 ML/HR TOLERATING WELL. PENDING LABS THIS MORNING. WILL CONTINUE TO MONITOR THROUGHOUT SHIFT.
--- NOTE | 2018-01-07 07:58 | NUR ---
WOUND CARE CONSULT: PT PRESENTS WITH NECROTIC RT FOOT AND DISCOLORATION TO RT LOWER LEG (IN PHOTO). PT HAS DRESSING ON RT LOWER LEG AND FOOT WHICH HE REFUSES TO HAVE REMOVED. LEFT LOWER LEG HAS CAST FROM TOES TO KNEE. DEFER TO DR JJ. PT FOLLOWED BY DR SPICER. ALL SKIN PROTECTION MEASURES IN PLACE AND DISCUSSED WITH NURSING STAFF. PT IS CONTINENT AT THIS TIME. WILL SEE PRN. RAO IN AGREEMENT WITH PLAN OF CARE. Addendum: 01/07/18 at 0801 by DEE ANDERSEN WNDNU Amended: Links added.
--- NOTE | 2018-01-07 08:28 | NUR ---
CLARIFIED WITH OR CARLOS IF PATIENT ON ANY OR SCHEDULE VERBALIZED NO.PT. VERY HUNGRY AND SCREAMING AND WANTED TO EAT,KASEY SOUP PERSON NOTIFIED AND OK TO FEED PT. FOR NOW.
[2018-01-07 08:33] LABS: THYROID STIMULATING HORMONE 2.856 uIU/mL (0.358-3.74)
[2018-01-07] MEDS: CARVEDILOL 6.25 MG TABLET PO SCH ×2 (08:47→16:16)
[2018-01-07] MEDS: AMLODIPINE BESYLATE 5 MG TABLET PO SCH (08:47)
[2018-01-07] MEDS: ASPIRIN EC 81 MG TABLET.DR PO SCH (08:47)
[2018-01-07] MEDS: PANTOPRAZOLE 40 MG TABLET.DR PO SCH (08:47)
[2018-01-07] MEDS: LINEZOLID 600 MG TABLET PO SCH ×2 (08:47→21:57)
[2018-01-07] MEDS: IV NS 0.9% 1,000 ML IV PRN ×2 (08:51→21:56)
--- NOTE | 2018-01-07 11:51 | NUR ---
MS RN NOTE PATIENT RECEIVING ANOTHER UNIT OF PRBC. CONSENT OBTAINED AND PLACED IN CHART. VITAL SIGNS NOTED: BP: 107/55, P: 65, T:98.0, R: 18, O2: 98%. WILL MONITOR FOR ANY SIDE EFFECTS AND NOTIFY MD. WILL CONTINUE TO MONITOR
[2018-01-07] MEDS ORDERED: DEXTROSE 50%-WATER 50 ML DISP.SYRIN IV PRN (14:30)
--- NOTE | 2018-01-07 14:50 | NUR ---
MS RN NOTE BLOOD TRANSFUSION FINISHED. NO REACTIONS THROUGHOUT BLOOD TRANSFUSION. VITAL SIGNS WITHIN NORMAL LIMITS. WILL CONTINUE TO MONITOR THROUGHOUT SHIFT.
[2018-01-07] MEDS ORDERED: POTASSIUM CHLORIDE 20 MEQ TAB.PRT.SR PO ONE (15:00)
[2018-01-07] MEDS: MAGNESIUM HYDROXIDE 30 ML UDC PO PRN (16:21)
[2018-01-07] MEDS: BLOOD SUGAR DIAGNOSTIC 1 EACH STRIP IN SCH ×2 (16:31→21:57)
[2018-01-07] MEDS ORDERED: VANCOMYCIN 1 GM in IV NS 0.9% 250 ML IV SCH (17:00)
--- NOTE | 2018-01-07 17:01 | NUR ---
MS RN NOTE RAYGOZA CATHETER INSERTED PER . RAYGOZA CATHETER DRAINING WELL AT THIS TIME. WILL CONTINUE TO MONITOR OUTPUT.
--- NOTE | 2018-01-07 17:02 | NUR ---
ABLE TO PLACE FR 16 COUDETTE WITH INITIAL OUTPUT OF 500ML YELLOWISH IN COLOR.
[2018-01-07] MEDS ORDERED: BLOOD SUGAR DIAGNOSTIC 1 EACH STRIP IN SCH (17:30)
--- NOTE | 2018-01-07 18:33 | NUR ---
MS RN CLOSING NOTE PATIENT RESTING COMFORTABLY AT THIS TIME. NO PAIN NOTED. NO SOB OR DISTRESS NOTED. CALL LIGHT WITHIN REACH AT ALL TIMES. SAFETY MEASURES IMPLEMENTED. ABLE TO COMMUNICATE NEEDS. IV INTACT AND PATENT WITH IV FLUIDS RUNNING AT THIS TIME. TO BE NPO AT MIDNIGHT FOR SURGERY WITH DR. MAY ON 01/08/18, CONSENT SIGNED AND PLACED IN CHART. S/P 1 UNIT BLOOD TRANSFUSION, TOLERATED WELL. POTASSIUM REPLACED WITH 40 MEQ. RAYGOZA CATHETER IN PLACE, DRAINED-900. BLOOD SUGAR MONITORED-82 NO INSULIN NEEDED. IV INTACT AND PATENT NO REDNESS OR SWELLING NOTED WITH IV FLUIDS RUNNING AT THIS TIME. WILL ENDORSE TO EQUIPMENT TECHNICIAN NURSE FOR ANGEL
--- NOTE | 2018-01-07 19:35 | NUR ---
RN [id number] NOTES: RECEIVED REPORT FROM DAY RN SOFIYA, PT IN BED, SLEEPING ON 2L VIA NC RESPIRATION EVEN AND UNLABORED, NO FACIAL GRIMACE NOTED, S/P CODETTE FR 16 INSERTION BY BOAT CARPENTER MECHANIC, NO BLADDER DISTENTION NOTED, RFA IV ACCESS PATENT AND FLUSHING WELL INFUSING WITH NS AT 100ML/HR. PT FOR SURGERY IN AM, CONSENT SECURED BY DAY RN AND PREOP CHECKLIST TOO. PER DAY RN REPORT DRESSING ARE CHANGED DURING THE DAY AND PER MD DO NOT TOUCH THE LEFT FOOT WOUND. BLE OFFLOADED. SAFETY PRECAUTIONS FOR FALL INITIATED CALL LIGHT IN REACH, WILL CONTINUE MONITORING PT
[2018-01-07 20:37] LABS: CREATININE, URINE 64.4 MG/DL (30.0-125.0); URINE TOTAL PROTEIN 114.1 mg/dL (0-11.9)
[2018-01-07 20:54] LABS: APPEARANCE,URINE CLEAR (CLEAR); BILIRUBIN,URINE NEGATIVE (NEGATIVE); BLOOD, URINE 3+ Ery/uL (NEGATIVE); COLOR,URINE YELLOW (YELLOW); KETONES,URINE NEGATIVE (NEGATIVE); LEUKOCYTE ESTERASE ,URINE NEGATIVE (NEGATIVE); NITRITE, URINE NEGATIVE (NEGATIVE); PH,URINE 5.5 (5.0-8.0); PROTEIN,URINE 1+ mg/dl (NEGATIVE); UGLUCOSE NEGATIVE (NEGATIVE); UROBILINOGEN,URINE 0.2 EU/dL (0.2)
[2018-01-07 21:06] LABS: BACTERIA,URINE Many /HPF (None Seen); RBC,URINE TOO NUMEROUS TO COUN /HPF (0-2); SQUAMOUS EPITHELIAL CELL,UR Few /HPF (None Seen)
[2018-01-07 21:15] LABS: EOSINOPHIL,URINE None Seen
[2018-01-07] MEDS: ATORVASTATIN 40 MG TABLET PO SCH (21:56)
[2018-01-07] MEDS: INSULIN REGULAR, HUMAN 100 UNIT/ML 3 ML VIAL SQ PRN (21:57)
--- NOTE | 2018-01-07 21:58 | NUR ---
PRN NORCO AND ACCU CHECK: CHECKED PT'S BLOOD SUGAR AND REVEAL 90, ALSO PT C/O 7/10 BILATERAL FOOT PAIN, REQUESTING FOR PAIN MEDICATION, PRN NORCO 5/325 MG TAB PO ADMINISTERED TO THE PT AT THIS TIME. PT ALSO REQUESTING FOR 2 CRANBERRY JUICE AND JELLO, ASSISTED IN FEEDING THE PT FOLLOWING ASPIRATION PROTOCOL, NO ASPIRATION NOTED. ALSO PT REFUSED LONG ACTING INSULIN LANTUS. PT WILL BE NPO P MN FOR SURGERY IN AM. WILL MONITOR PT FOR ANY S/S OF HYPOGLYCEMIA
[2018-01-07] MEDS: INSULIN GLARGINE, 100 UNIT/ML CARTRIDGE SQ SCH (22:00)
--- NOTE | 2018-01-07 22:46 | NUR ---
CONTACTED [facility] STUDIO COORDINATOR: PT BEEN SCREAMING AND YELLING THAT HE CANNOT MOVE HIS BOWEL, MILK OF MAGNESIA WAS GIVEN 6HRS AGO, PT BEEN ON PAIN MEDICATION POSSIBLE REASON WHY HE'S HAVING CONSTIPATION, AWAITING FOR MD STUDIO COORDINATOR'S RESPONSE
--- NOTE | 2018-01-07 23:00 | NUR ---
RN NOTES: VS TAKEN FOLLOWS: 136/69 HR 78 RR 18 SPO2 98% ON 2L VIA NC, CLEANED THE PT, AND ESTATE PLANNING DIRECTOR MANUALLY DISIMPACTED THE PT, GOT LIKE A HARD BALL LIKE STOOL, AND THERE'S STILL A LOT INSIDE, PT TOLERATED THE PROCEDURE BUT REFUSING TO DO IT AGAIN, HE SPECIFICALLY REQUESTING FOR MEDICATION INSTEAD. AWAITING RESPONSE OF SABRINA RAO TELEPHONE SOLICITOR
--- NOTE | 2018-01-07 23:48 | NUR ---
RN NOTES: RECEIVED CALL FROM FINANCING ANALYST EPIC MD, RELAYED SITUATION, AND PT REFUSAL FOR ANOTHER MANUAL DISIMPACTION AND ENEMA, PER MD TO GIVE MIRALAX POWDER AND COLACE
[2018-01-08] VITALS (13 sets, daily range): BP systolic 119–141; BP diastolic 55–70
[2018-01-08] MEDS: DOCUSATE SODIUM 100 MG CAPSULE PO SCH ×2 (00:31→09:00)
[2018-01-08] MEDS: POLYETHYLENE GLYCOL 3350 17 GM POWD.PACK PO SCH ×2 (00:31→21:42)
[2018-01-08] MEDS: FENTANYL PF 100MCG/2ML AMPUL IV PRN ×2 (00:54→09:25)
--- NOTE | 2018-01-08 00:54 | NUR ---
PRN FENTANYL: PT C/O 04/07 ABDOMINAL PAIN, SCREAMING AGAIN, ALL LAXATIVE TAKEN ORDERED BY MD, VS TAKEN AND RECORDED PRIOR TO ADMINISTERING THE MEDICATION, BP 130/60 RR 18 HR 71 98% ON 2L VIA NC, PT CONNECTED TO SPO2 MONITOR TO MONITOR OXYGENATION AFTER GIVING MEDICATION. PRN FENTANYL 0.8ML/40MCG IVP ADMINISTERED AT THIS TIME, WILL CONTINUE TO MONITOR AND REASSESS PT
[2018-01-08] MEDS: HYDROCODONE/APAP 5/325MG 1 EACH TABLET PO PRN ×2 (03:30→22:23)
--- NOTE | 2018-01-08 03:30 | NUR ---
PRN NORCO: PT BEEN COMPLAINING OF ABDOMINAL PAIN, EXPLAINED TO THE PT SO JANUARY TIMES THAT PAIN MEDICATION SIDE EFFECT IS CONSTIPATION, AND ENCOURAGED PT COUPLE OF TIMES TO DO MANUAL DISIMPACTION BUT PT DOESNT WANT TO LISTEN AND INSTAD REFUSING, HE ONLY WANTS NORCO, PT NPO P MN, HOWEVER WILL BE THE LAST CASE SCHEDULED FOR JANUARY 08, 2018 SINCE ITS A DIRTY CASE/GANGRENE, PRN NORCO 5/325 MG TAB PO ADMINISTERED ONLY WITH SIP OF WATER. IF PT GO TO PROCEDURE AT 0300PM/1500, THERE'S STILL 12HRS SPACE SINCE HE LAST HAD LIQUID CONSUMPTION.
--- NOTE | 2018-01-08 04:12 | NUR ---
UA SPECIMEN COLLECTED: SERIES OF TEST FOR URINE ORDERED, COLLECTED URINE SPECIMEN VIA PORT, CONTACTED LAB TO DATABASE TECHNICIAN URINE
[2018-01-08] MEDS: MEROPENEM 500 MG in IV NS 0.9% 50 ML IV SCH ×2 (06:03→21:29)
[2018-01-08] MEDS: BLOOD SUGAR DIAGNOSTIC 1 EACH STRIP IN SCH ×4 (06:03→21:39)
[2018-01-08] MEDS: INSULIN REGULAR, HUMAN 100 UNIT/ML 3 ML VIAL SQ PRN ×2 (06:04→21:55)
--- NOTE | 2018-01-08 06:04 | NUR ---
ACCUCHECK: BS 109, NO INSULIN COVERAGE GIVEN PER SLIDING SCALE,
--- NOTE | 2018-01-08 06:38 | NUR ---
RN CLOSING NOTES: PT IN BED, AWAKE, REMAINS ON 2L VIA NC, LAST PAIN MEDS ADMINISTERED AT 0300AM, RFA IV ACCESS REMAINS PATENT AND FLUSHING WELL, INFUSING WITH NS AT 100ML/HR. COUDETTE CATHETER REMAINS IN PLACED, DRAINING INTO LYDIA COLORED URINE. PT STILL C/O ABDOMINAL PAIN DUE TO CONSTIPATION BUT STILL CONTINUE TO REFUSED ENEMA AND MANUAL DISIMPACTION. VS REMAINS STABLE, REMAINS NPO, FOR SURGERY RIGHT BKA, CONSENT AND CHECKLIST AT CHART, LABS DRAWN. BLE KEPT OFFLOADED, [id number] DRESSING CHANGE. SAFETY PRECAUTIONS FOR FALL REMAINS ENAGGED, CALL LIGHT IN REACH, WILL ENDORSE TO DAY RN FOR ANGEL.
--- NOTE | 2018-01-08 07:00 | NUR ---
MSRN RN OPENING NOTES. PT RECEIVED A&0X3, AWAKE AND RESTING IN BED. PT BLIND. PT NPO R/T SURG. PT WITH O2 VIA NC AT 2LPM AND SAO2 WNL. PT REPORTING MODERATE ABDOMINAL PAIN. PT REPORTS BEING UNABLE TO MAKE BM. PT WITH IVC AT R FA INTACT AND OPERATIONAL. PT WITH BI LAT FEET WOUNDS, DRESSING INTACT AND ENDORSED THAT MD WILL CHANGE L, R FOR BKA TODAY. BED IN LOWEST LOCKED POSITION WITH HANDRAILSX4 AND CALL ZACARIAS WITHIN REACH. PT BRIEFED ON TODAY'S POC AND IS WITHOUT CONCERN OR COMPLAINT AT THIS TIME.
[2018-01-08 07:19] LABS: EOSINOPHILS % (AUTO) 0.9 % (0.0-6.0); HEMATOCRIT 23 % (39-51); HEMOGLOBIN 7.9 g/dL (13.5-17.5); LYMPHOCYTES # (AUTO) 0.9 /CMM (0.8-4.8); LYMPHOCYTES % (AUTO) 3.2 % (20.0-44.0); MEAN CORPUSCULAR HGB CONC 34 g/dl (31.0-36.0); MEAN CORPUSCULAR VOLUME 80 fL (80-96); MONOCYTES # (AUTO) 1.4 /CMM (0.1-1.30); MONOCYTES % (AUTO) 4.9 % (2.0-12.0); NEUTROPHILS # (AUTO) 25.2 /CMM (1.8-8.9); PLATELET COUNT (AUTO) 459 /CMM (150-450); RDW COEFFICIENT OF VARIATION 15.9 (11.5-15.0); RED BLOOD CELL COUNT(AUTO) 2.86 MIL/uL (4.5-6.0); WHITE BLOOD COUNT (AUTO) 27.7 K/uL (4.3-11.0)
[2018-01-08 07:22] LABS: ALBUMIN 1.6 g/dL (3.4-5.0); BILIRUBIN,TOTAL 0.3 mg/dL (0.2-1.0); CALCIUM, SERUM 7.5 mg/dL (8.5-10.1); CREATININE 3.6 mg/dL (0.6-1.3); MAGNESIUM 1.7 mg/dL (1.8-2.4); PHOSPHORUS 4.9 mg/dL (2.5-4.9); POTASSIUM 3.3 mmol/L (3.5-5.1); TOTAL PROTEIN, SERUM 6.3 g/dL (6.4-8.2)
[2018-01-08] MEDS: PANTOPRAZOLE 40 MG TABLET.DR PO SCH (07:30)
[2018-01-08 08:40] LABS: BAND % (MANUAL) 2 % (0.0-5.0); LYMPHOCYTES % (MANUAL) 2 % (16-48); MONOCYTES % (MANUAL) 2 % (0-11.0); NEUTROPHILS % (MANUAL) 94 (42-76)
[2018-01-08] MEDS: AMLODIPINE BESYLATE 5 MG TABLET PO SCH (09:00)
[2018-01-08] MEDS: CARVEDILOL 6.25 MG TABLET PO SCH ×2 (09:00→16:31)
[2018-01-08] MEDS: LINEZOLID 600 MG TABLET PO SCH ×2 (09:00→21:41)
[2018-01-08] MEDS: ASPIRIN EC 81 MG TABLET.DR PO SCH (09:00)
[2018-01-08] MEDS: IV NS 0.9% 1,000 ML IV PRN (09:40)
--- NOTE | 2018-01-08 10:41 | NUR ---
MSRN NOTES. NUTRITION SERVICES AIDE REPORTED CHANGE TO PT TESTICLES, SOME EDEMA NOTED. COURETTE 16 SENEGALESE IN SITU AND OPERATIONAL WITH LITE YELLOW URINE IN COLLECTION. MD NOTIFIED AND ASSESSED. NO ACTION NEEDED.
[2018-01-08] MEDS: BISACODYL SUPP (10 MG) 10 MG/SUPP.RECT SUPP.RECT RC ONE ×2 (10:45→11:45)
[2018-01-08] MEDS ORDERED: POTASSIUM CL. PREMIX PERIPHER. 50 ML IV SCH (11:00)
[2018-01-08] MEDS ORDERED: Magnesium 1GM/D5W 100ML PREMIX PIGGYBACK IV ONE (11:00)
[2018-01-08] MEDS ORDERED: POTASSIUM CHLORIDE 20 MEQ TAB.PRT.SR PO ONE (11:30)
[2018-01-08] MEDS ORDERED: Magnesium 1GM/D5W 100ML PREMIX 100 ML IV SCH ×2 (11:30)
[2018-01-08 12:00] LABS: APPEARANCE,URINE SL CLOUDY (CLEAR); BILIRUBIN,URINE NEGATIVE (NEGATIVE); BLOOD, URINE 3+ Ery/uL (NEGATIVE); COLOR,URINE YELLOW (YELLOW); KETONES,URINE NEGATIVE (NEGATIVE); LEUKOCYTE ESTERASE ,URINE NEGATIVE (NEGATIVE); NITRITE, URINE NEGATIVE (NEGATIVE); PROTEIN,URINE 1+ mg/dl (NEGATIVE); UGLUCOSE NEGATIVE (NEGATIVE); UROBILINOGEN,URINE 0.2 EU/dL (0.2)
[2018-01-08 12:06] LABS: CREATININE, URINE 71.2 MG/DL (30.0-125.0); URINE TOTAL PROTEIN 122.1 mg/dL (0-11.9)
[2018-01-08] MEDS ORDERED: NA PHOS,M-B/NA PHOS,DI-BA 1 EA ENEMA RC STA (12:08)
--- NOTE | 2018-01-08 12:15 | NUR ---
MSRN NOTES. PT YELLING AND SCREAMING R/T PAIN AND CONSTIPATION. FLEET REQUESTED, PT REVIEWED BY BARGE PILOT AND ORDERS PLACED.
[2018-01-08 12:16] LABS: BACTERIA,URINE Moderate /HPF (None Seen); WBC,URINE 0-2 /HPF (0-3)
[2018-01-08 12:18] LABS: SQUAMOUS EPITHELIAL CELL,UR Few /HPF (None Seen)
[2018-01-08 12:36] LABS: EOSINOPHIL,URINE None Seen
[2018-01-08] MEDS ORDERED: FENTANYL PF 100MCG/2ML AMPUL IV STA (12:43)
--- NOTE | 2018-01-08 12:50 | NUR ---
RAlejandro NOTES. STAT 40MCG IV FENTANYL ORDERED BY CALL CENTER DISPATCHER BRANDY R/T INCREASED ABDOMINAL PAIN. PT YELLING AND SCREAMING. ORDERS PLACED AND ADMINISTERED.
--- NOTE | 2018-01-08 13:30 | NUR ---
MSRN NOTES. PT WITH LARGE BM POST FLEET ENEMA. PT PAIN REDUCED. PT CHANGED AND RESTING.
--- NOTE | 2018-01-08 17:00 | NUR ---
MSRN. PT FOR SURG.
--- NOTE | 2018-01-08 18:57 | NUR ---
MSRN NOTES. PT REMAINS IN THEATER. WILL ENDORSE TO NIGHT NURSE.
[2018-01-08] MEDS ORDERED: FENTANYL PF 100MCG/2ML AMPUL ONE (19:32)
--- NOTE | 2018-01-08 20:10 | NUR ---
RN/ MS NOTES: PT. CAME IN VIA BED FROM PACU AT ABOUT 2009 A/O X 3 W/ O2 @ 2LPM VIA N/C SAT 98%, BP 126/61, HR 69, T 98.1 ORAL,RR 18. DENIES ANY C/O PAIN OR SOB AT PRESENT. PT. HAS RFA G 20 PATENT AND INTACT W/ NO S/S OF INFECTION/INFILTRATION NOTED. PER DR. MAY RESUMYung ALL PRE-OP MEDS/ORDERS/DIET. PT. 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 CALL LIGHT W/ REACH. WILL CONTINUE TO MONITOR.
[2018-01-08 20:12] LABS: BASOPHILS % (AUTO) 0.1 % (0.0-2.0); EOSINOPHILS % (AUTO) 0.1 % (0.0-6.0); HEMATOCRIT 27 % (39-51); HEMOGLOBIN 9.1 g/dL (13.5-17.5); LYMPHOCYTES # (AUTO) 0.6 /CMM (0.8-4.8); MEAN CORPUSCULAR HGB CONC 34 g/dl (31.0-36.0); MEAN CORPUSCULAR VOLUME 80 fL (80-96); MONOCYTES # (AUTO) 0.1 /CMM (0.1-1.30); MONOCYTES % (AUTO) 0.3 % (2.0-12.0); NEUTROPHILS # (AUTO) 31.2 /CMM (1.8-8.9); NEUTROPHILS % (AUTO) 97.5 % (43.0-81.0); PLATELET COUNT (AUTO) 565 /CMM (150-450); RDW COEFFICIENT OF VARIATION 15.6 (11.5-15.0); RED BLOOD CELL COUNT(AUTO) 3.35 MIL/uL (4.5-6.0)
[2018-01-08 20:45] LABS: CALCIUM, SERUM 7.8 mg/dL (8.5-10.1); CREATININE 3.6 mg/dL (0.6-1.3); POTASSIUM 3.6 mmol/L (3.5-5.1)
[2018-01-08 21:02] LABS: BAND % (MANUAL) 23 % (0.0-5.0); LYMPHOCYTES % (MANUAL) 6 % (16-48); MONOCYTES % (MANUAL) 2 % (0-11.0); NEUTROPHILS % (MANUAL) 69 (42-76)
[2018-01-08] MEDS: ATORVASTATIN 40 MG TABLET PO SCH (21:41)
[2018-01-08] MEDS: INSULIN GLARGINE, 100 UNIT/ML CARTRIDGE SQ SCH (21:42)
--- NOTE | 2018-01-08 22:44 | NUR ---
RN/MS NOTES: SPOKE TO DR. SPANN REGARDING CRITICAL LAB RESULTS WBC 32 AND H/H 9./. W/ NEW ORDERS FOR CBC AND BMP IN AM. CHARGE NURSE MADE AWARE.
--- NOTE | 2018-01-08 22:53 | NUR ---
RN/MS NOTES: BLOOD SUGAR 147. DUE MEDS GIVEN.
[2018-01-08] MEDS ORDERED: MORPHINE SULFATE INJ 4 MG/ML DISP.SYRIN ONE (23:41)
[2018-01-08] MEDS: MORPHINE SULFATE INJ 4 MG/ML DISP.SYRIN IVP PRN (23:46)
[2018-01-09 04:00] VITALS: BP 118/57
[2018-01-09] MEDS: MEROPENEM 500 MG in IV NS 0.9% 50 ML IV SCH ×2 (05:32→18:10)
[2018-01-09 06:48] LABS: HEMATOCRIT 26 % (39-51); HEMOGLOBIN 8.6 g/dL (13.5-17.5); LYMPHOCYTES # (AUTO) 0.5 /CMM (0.8-4.8); LYMPHOCYTES % (AUTO) 2.9 % (20.0-44.0); MEAN CORPUSCULAR HGB CONC 34 g/dl (31.0-36.0); MEAN CORPUSCULAR VOLUME 81 fL (80-96); MONOCYTES # (AUTO) 0.1 /CMM (0.1-1.30); MONOCYTES % (AUTO) 0.6 % (2.0-12.0); NEUTROPHILS # (AUTO) 18.2 /CMM (1.8-8.9); NEUTROPHILS % (AUTO) 96.5 % (43.0-81.0); PLATELET COUNT (AUTO) 444 /CMM (150-450); RDW COEFFICIENT OF VARIATION 16.4 (11.5-15.0); RED BLOOD CELL COUNT(AUTO) 3.14 MIL/uL (4.5-6.0); WHITE BLOOD COUNT (AUTO) 18.8 K/uL (4.3-11.0)
[2018-01-09 06:51] LABS: BILIRUBIN,TOTAL 0.2 mg/dL (0.2-1.0); CALCIUM, SERUM 7.8 mg/dL (8.5-10.1); CREATININE 3.7 mg/dL (0.6-1.3); PHOSPHORUS 6.5 mg/dL (2.5-4.9); POTASSIUM 4.2 mmol/L (3.5-5.1); TOTAL PROTEIN, SERUM 6.4 g/dL (6.4-8.2)
[2018-01-09 06:54] LABS: ALBUMIN 1.4 g/dL (3.4-5.0)
[2018-01-09] MEDS: HYDROCODONE/APAP 5/325MG 1 EACH TABLET PO PRN ×3 (07:01→17:02)
--- NOTE | 2018-01-09 07:20 | NUR ---
RN OPENING NOTES RECEIVED PT. PT IS STABLE AND RESTING IN BED. NO S/S OF RESP DISTRESS OR SOB. NO C/O PAIN AT THIS TIME. PT IS A/OX3, PRIMARILY FIJIAN SPEAKING, HOWEVER DOES SPEAK/UNDERSTAND GABONESE. PT HAS VISUAL DEFICITS. FC IN PLACE AND PATENT. IV ACCESS LOCATED ON RIGHT FA 20G INFUSING NS AT 50 ML/HR. PT IS 1 DAY S/P RIGHT BKA. SX DRESSING TO BE CHANGED BY SURGICAL STAFF ON FRIDAY 01/12. SAFETY MEASURES IN PLACE, CALL LIGHT WITHIN REACH. WILL CONTINUE TO MONITOR.
--- NOTE | 2018-01-09 07:20 | NUR ---
RN/MS NOTES: NO ACUTE CHANGES NOTED DURING THIS SHIFT. REPORT GIVEN TO AM NURSE FOR ANGEL.
[2018-01-09] MEDS: PANTOPRAZOLE 40 MG TABLET.DR PO SCH (07:53)
[2018-01-09] MEDS: BLOOD SUGAR DIAGNOSTIC 1 EACH STRIP IN SCH ×4 (07:53→22:03)
[2018-01-09] MEDS: ACETAMINOPHEN 325 MG TABLET PO PRN (07:55)
[2018-01-09 08:00] VITALS: BP_SYST 123; BP_DIAS 50; BP_DIAS 58
[2018-01-09] MEDS: INSULIN REGULAR, HUMAN 100 UNIT/ML 3 ML VIAL SQ PRN ×3 (08:03→22:04)
[2018-01-09] MEDS: ASPIRIN EC 81 MG TABLET.DR PO SCH (08:05)
[2018-01-09] MEDS: CARVEDILOL 6.25 MG TABLET PO SCH ×2 (08:05→17:00)
[2018-01-09] MEDS: DOCUSATE SODIUM 100 MG CAPSULE PO SCH ×2 (08:05→16:58)
[2018-01-09] MEDS: AMLODIPINE BESYLATE 5 MG TABLET PO SCH (08:06)
[2018-01-09] MEDS: LINEZOLID 600 MG TABLET PO SCH ×2 (08:06→21:25)
[2018-01-09] MEDS: FENTANYL PF 100MCG/2ML AMPUL IV PRN (10:24)
[2018-01-09 12:15] LABS: *SPE A/G RATIO 0.5 (0.7-1.7); *SPE ALBUMIN 1.9 g/dL (2.9-4.4); *SPE ALPHA-1-GLOBULIN 0.4 g/dL (0.0-0.4); *SPE ALPHA-2-GLOBULIN 0.8 g/dL (0.4-1.0); *SPE BETA GLOBULIN 0.9 g/dL (0.7-1.3); *SPE M-SPIKE 0.4 g/dL (Not Observed); *SPEGAMMA GLOBULIN 1.9 g/dL (0.4-1.8); PTH, INTACT 107 pg/mL (15-65)
[2018-01-09] MEDS: CADEXOMER IODINE 40 GM TUBE TP SCH (15:47)
[2018-01-09 16:00] VITALS: BP 129/64
[2018-01-09] MEDS ORDERED: Z GUARD REMEDY 4 OZ OINT TP PRN (18:30)
--- NOTE | 2018-01-09 19:18 | NUR ---
RN CLOSING NOTE PT IN BED RESTING. NO S/S OF RESP DISTRESS OR SOB. PT HAS HAD FREQUENT C/O PAIN THROUGHOUT THE DAY, MANAGED PHARMACOLOGICALLY. GAETANO DRAIN EMPTIED WITH 70 ML OF FLUID. DRESSING CHANGE ON LEFT LOWER EXTREMITY CHANGED. SAFETY MEASURES IN PLACE, CALL LIGHT WITHIN REACH. WILL ENDORSE TO MAJOR SALES ASSOCIATE FOR ANGEL.
[2018-01-09 20:00] VITALS: BP 131/61
[2018-01-09] MEDS ORDERED: HYDROCODONE/APAP 10/325MG 1 EA TABLET PO PRN (20:00)
[2018-01-09] MEDS ORDERED: HYDROMORPHONE HCL 2 MG TABLET PO PRN (20:00)
[2018-01-09] MEDS: MORPHINE SULFATE INJ 4 MG/ML DISP.SYRIN IVP PRN ×2 (20:15→23:23)
--- NOTE | 2018-01-09 20:30 | NUR ---
RN NOTES RECEIVED PATIENT AWAKE IN BED WITH NO DISTRESS NOTED. BREATHING EVEN AND UNLABORED. COMPLAINING OF RIGHT KNEE PAIN. ALERT AND ORIENTED. ABLE TO VERBALIZE NEEDS. VITAL SIGNS WNL. NS @50ML TOLERATING WELL. KEPT CLEAN AND DRY.
[2018-01-09] MEDS: ATORVASTATIN 40 MG TABLET PO SCH (21:25)
[2018-01-09] MEDS: POLYETHYLENE GLYCOL 3350 17 GM POWD.PACK PO SCH (21:25)
[2018-01-09] MEDS: IV NS 0.9% 1,000 ML IV PRN (21:51)
[2018-01-09] MEDS: INSULIN GLARGINE, 100 UNIT/ML CARTRIDGE SQ SCH (22:00)
[2018-01-10] VITALS (7 sets, daily range): BP systolic 128–146; BP diastolic 61–89
[2018-01-10] MEDS: TEMAZEPAM 15 MG CAPSULE PO PRN ×2 (00:38→22:01)
[2018-01-10] MEDS: MEROPENEM 500 MG in IV NS 0.9% 50 ML IV SCH ×2 (06:12→17:31)
[2018-01-10] MEDS: BLOOD SUGAR DIAGNOSTIC 1 EACH STRIP IN SCH ×4 (06:21→21:59)
[2018-01-10 06:22] LABS: BASOPHILS % (AUTO) 0.3 % (0.0-2.0); EOSINOPHILS % (AUTO) 0.4 % (0.0-6.0); HEMATOCRIT 24 % (39-51); HEMOGLOBIN 7.8 g/dL (13.5-17.5); LYMPHOCYTES # (AUTO) 1.5 /CMM (0.8-4.8); LYMPHOCYTES % (AUTO) 9.4 % (20.0-44.0); MEAN CORPUSCULAR HGB CONC 33 g/dl (31.0-36.0); MEAN CORPUSCULAR VOLUME 82 fL (80-96); MONOCYTES # (AUTO) 0.7 /CMM (0.1-1.30); MONOCYTES % (AUTO) 4.7 % (2.0-12.0); NEUTROPHILS # (AUTO) 13.5 /CMM (1.8-8.9); NEUTROPHILS % (AUTO) 85.2 % (43.0-81.0); PLATELET COUNT (AUTO) 448 /CMM (150-450); RDW COEFFICIENT OF VARIATION 16.8 (11.5-15.0); RED BLOOD CELL COUNT(AUTO) 2.89 MIL/uL (4.5-6.0); WHITE BLOOD COUNT (AUTO) 15.8 K/uL (4.3-11.0)
[2018-01-10] MEDS: INSULIN REGULAR, HUMAN 100 UNIT/ML 3 ML VIAL SQ PRN (06:22)
[2018-01-10] MEDS: MORPHINE SULFATE INJ 4 MG/ML DISP.SYRIN IVP PRN (06:23)
--- NOTE | 2018-01-10 06:24 | NUR ---
RN CLOSING NOTES PATIENT HAS BEEN MOANING AND CRYING MOST OF THE NIGHT COMPLAINING HE IS IN PAIN, MORPHINE 4MG ADMINISTERED AND DILAUDID GIVEN WITH RELIEF. NO DISTRESS NOTED. BREATHING EVEN AND UNLABORED. VITAL SIGNS WNL. KEPT CLEAN AND DRY. WILL ENDORSE TO AM FOR CONTINUITY OF CARE.
[2018-01-10 07:35] LABS: ALBUMIN 1.5 g/dL (3.4-5.0); BILIRUBIN,TOTAL 0.2 mg/dL (0.2-1.0); CALCIUM, SERUM 7.7 mg/dL (8.5-10.1); CREATININE 3.5 mg/dL (0.6-1.3); PHOSPHORUS 5.9 mg/dL (2.5-4.9); POTASSIUM 4.4 mmol/L (3.5-5.1); TOTAL PROTEIN, SERUM 6.5 g/dL (6.4-8.2)
--- NOTE | 2018-01-10 07:40 | NUR ---
RN NOTES RECEIVED PATIENT AWAKE IN BED WITH TV ON. ALERT AND ORIENTED X 3. HE IS ABLE TO VERBALIZE NEEDS. BREATHING EVEN AND UNLABORED WITH NO DISTRESS NOTED. DENIES ANY PAIN AT THIS TIME. WILL CONTINUE TO MONITOR LEFT LEG CAST AND MEHNAZ DRAIN IF THE RIGHT KNEE. RIGHT FA IV SITE INTACT AND PATENT WITH NO S/SX OF INFILTRATION. BED LOW AND LOCKED POSITION. WILL CONTINUE TO MONITOR CONTINUITY OF CARE.
[2018-01-10] MEDS: CARVEDILOL 6.25 MG TABLET PO SCH ×2 (08:14→17:05)
[2018-01-10] MEDS: LINEZOLID 600 MG TABLET PO SCH ×2 (08:14→22:09)
[2018-01-10] MEDS: DOCUSATE SODIUM 100 MG CAPSULE PO SCH ×2 (08:14→16:06)
[2018-01-10] MEDS: AMLODIPINE BESYLATE 5 MG TABLET PO SCH (08:15)
[2018-01-10] MEDS: ASPIRIN EC 81 MG TABLET.DR PO SCH (08:15)
[2018-01-10] MEDS: CADEXOMER IODINE 40 GM TUBE TP SCH (08:15)
[2018-01-10] MEDS: PANTOPRAZOLE 40 MG TABLET.DR PO SCH (08:15)
--- NOTE | 2018-01-10 12:30 | NUR ---
RN NOTE RECEIVED ORDER FROM DILIP PARKS TO TRANSFUSE PRBC 1 UNIT. PATIENT IS RECEIVING 1 UNIT OF PRBC. CONSENT OBTAINED AND PLACED IN CHART. VITAL SIGNS NOTED: BP: 146/65, P: 70, T:97.7, R: 18, O2: 98%. WILL MONITOR FOR ANY SIDE EFFECTS AND NOTIFY .
--- NOTE | 2018-01-10 12:45 | NUR ---
RN NOTE PATIENT IS RECEIVING 1 UNIT OF PRBC. VITAL SIGNS NOTED: BP: 145/65, P: 69, T:97.6, R: 18, O2: 97%. WILL MONITOR FOR ANY SIDE EFFECTS AND NOTIFY MD.
--- NOTE | 2018-01-10 13:00 | NUR ---
RN NOTE PATIENT CONTINUES TO RECEIVE 1 UNIT OF PRBC. NO REACTION NOTED. VITAL SIGNS NOTED: BP: 142/66, P: 68, T:97.7, R: 20, O2: 98%. WILL MONITOR FOR ANY SIDE EFFECTS AND NOTIFY MD.
--- NOTE | 2018-01-10 14:41 | NUR ---
RN NOTE BLOOD TRANSFUSION COMPLETE. NO REACTIONS THROUGHOUT BLOOD TRANSFUSION. VITAL SIGNS; B/P 146/89, HR 73, T 97.7, RR 18, PAIN 0/10 WILL CONTINUE TO MONITOR THROUGHOUT SHIFT.
[2018-01-10] MEDS: MAGNESIUM HYDROXIDE 30 ML UDC PO PRN (15:35)
[2018-01-10] MEDS: HYDROCODONE/APAP 10/325MG 1 EA TABLET PO PRN (15:36)
[2018-01-10] MEDS ORDERED: GABAPENTIN 300 MG CAPSULE PO SCH (18:00)
[2018-01-10] MEDS: IV NS 0.9% 1,000 ML IV PRN (18:08)
--- NOTE | 2018-01-10 19:11 | NUR ---
RN NOTE PATIENT REMAINED STABLE THROUGHOUT SHIFT, NO ACUTE CHANGES NOTED. BREATHING EVEN AND UNLABORED WITH NO DISTRESS NOTED. ALL MEDS GIVEN WELL TOLERATED. CONTINUED WOUND TREATMENT ORDERED. WILL ENDORSE TO NEXT SHIFT TO CONTINUE CONTINUITY OF CARE.
[2018-01-10] MEDS: METHADONE HCL 10 MG TABLET PO PRN ×2 (19:18→20:09)
--- NOTE | 2018-01-10 20:00 | NUR ---
RN NOTES RECEIVED PATIENT AWAKE IN BED. BREATHING EVEN AND UNLABORED. ALERT AND ORIENTED. ABLE TO VERBALIZE NEEDS. NO COMPLAINT OF PAIN OF THIS TIME. VITAL SIGNS WNL. KEPT CLEAN AND DRY. WILL CONTINUE TO MONITOR.
[2018-01-10] MEDS: POLYETHYLENE GLYCOL 3350 17 GM POWD.PACK PO SCH (22:01)
[2018-01-10] MEDS: ATORVASTATIN 40 MG TABLET PO SCH (22:01)
[2018-01-10] MEDS: INSULIN GLARGINE, 100 UNIT/ML CARTRIDGE SQ SCH (22:11)
[2018-01-11 04:00] VITALS: BP 140/61
[2018-01-11] MEDS: MEROPENEM 500 MG in IV NS 0.9% 50 ML IV SCH ×2 (06:16→18:08)
[2018-01-11] MEDS: BLOOD SUGAR DIAGNOSTIC 1 EACH STRIP IN SCH ×4 (06:16→21:32)
[2018-01-11] MEDS: INSULIN REGULAR, HUMAN 100 UNIT/ML 3 ML VIAL SQ PRN ×2 (06:17→21:36)
[2018-01-11] MEDS: IV NS 0.9% 1,000 ML IV PRN (06:19)
[2018-01-11 06:27] LABS: BASOPHILS % (AUTO) 0.1 % (0.0-2.0); HEMATOCRIT 28 % (39-51); HEMOGLOBIN 9.1 g/dL (13.5-17.5); LYMPHOCYTES # (AUTO) 1.4 /CMM (0.8-4.8); LYMPHOCYTES % (AUTO) 10.9 % (20.0-44.0); MEAN CORPUSCULAR HGB CONC 33 g/dl (31.0-36.0); MEAN CORPUSCULAR VOLUME 81 fL (80-96); MONOCYTES # (AUTO) 0.5 /CMM (0.1-1.30); MONOCYTES % (AUTO) 4.1 % (2.0-12.0); NEUTROPHILS # (AUTO) 10.3 /CMM (1.8-8.9); NEUTROPHILS % (AUTO) 82.9 % (43.0-81.0); PLATELET COUNT (AUTO) 508 /CMM (150-450); RDW COEFFICIENT OF VARIATION 16.5 (11.5-15.0); RED BLOOD CELL COUNT(AUTO) 3.45 MIL/uL (4.5-6.0); WHITE BLOOD COUNT (AUTO) 12.4 K/uL (4.3-11.0)
--- NOTE | 2018-01-11 06:43 | NUR ---
RN CLOSING NOTES NO SIGNIFICANT CHANGE OF CONDITION. IN BED RESTING COMFORTABLY WITH NO RESPIRATORY DISTRESS NOTED. VITAL SIGNS WNL. NO COMPLAINT OF PAIN OF THIS TIME. WILL ENDORSE TO AM SHIFT FOR CONTINUITY OF CARE
[2018-01-11 07:07] LABS: CALCIUM, SERUM 7.7 mg/dL (8.5-10.1); CREATININE 2.9 mg/dL (0.6-1.3); POTASSIUM 4.7 mmol/L (3.5-5.1)
--- NOTE | 2018-01-11 07:30 | NUR ---
LAST PUTTER AWAY INITIAL NOTES PATIENT RESTING IN BED, AOX2-3, SRI LANKAN SPEAKING WITH MALTESE WELL, PATIENT IS AGITATED AND SCREAMING, NO CO OF PAIN, 2L NC, FC TO GRAVITY AND R LEG WITH GAETANO DRAIN POST AMPUTATION, R FA 20G, NS @ 80 ML/HR, BED IN LOW AND LOCKED POSITION CALL LIGHT WITHIN REACH, WILL CONTINUE TO MONITOR.
[2018-01-11 08:00] VITALS: BP 155/66
[2018-01-11] MEDS: ASPIRIN EC 81 MG TABLET.DR PO SCH (08:15)
[2018-01-11] MEDS: PANTOPRAZOLE 40 MG TABLET.DR PO SCH (08:15)
[2018-01-11] MEDS: LINEZOLID 600 MG TABLET PO SCH ×2 (08:15→21:32)
[2018-01-11] MEDS: DOCUSATE SODIUM 100 MG CAPSULE PO SCH ×2 (08:15→17:12)
[2018-01-11] MEDS: CARVEDILOL 6.25 MG TABLET PO SCH ×2 (08:16→17:12)
[2018-01-11] MEDS: AMLODIPINE BESYLATE 5 MG TABLET PO SCH (08:16)
[2018-01-11] MEDS: CADEXOMER IODINE 40 GM TUBE TP SCH (08:16)
[2018-01-11] MEDS: LORAZEPAM 1 MG TABLET PO PRN (09:13)
--- NOTE | 2018-01-11 09:30 | NUR ---
FARM EQUIPMENT OPERATOR NOTES PATIENT GIVEN ATIVAN ORDERED, SEEN BY ENVIRONMENTAL CONSERVATION OFFICER BURKE PATIENT CRYING AND SCREAMING MUCH AGITATION.
[2018-01-11] MEDS: GABAPENTIN 300 MG CAPSULE PO SCH ×2 (12:46→17:12)
[2018-01-11] MEDS: HYDROCODONE/APAP 10/325MG 1 EA TABLET PO PRN (14:40)
[2018-01-11 16:00] VITALS: BP 155/69
--- NOTE | 2018-01-11 19:20 | NUR ---
RN MS NOTES, RECEIVED PATIENT TIN BED, SLEEPING AT THIS TIME, BREATHING EVEN AND UNLABORED, NO SOB OR ACUTE DISTRESS NOTED AT THIS TIME, SL IN LEFT HAND INTACT AND PATENT, NO S/S OF INFILTRATION NOTED, NO IVF RUNNING AT THIS TIME, BED LOCKED AND IN LOWEST POSITION, CALL LIGHT W/I REACH, DRY AND CLEAN AT THIS TIME, DRESSING IN RIGHT LOWER EXTREMITY DRY AND CLEAN, GAETANO NOTED WITH MINIMAL DRAINAGE AT THIS TIME. REPOSITION PROVIDED AT THIS TIME, WILL CONTINUE TO MONITOR CLOSELY.
--- NOTE | 2018-01-11 19:23 | NUR ---
SPIRITUAL CARE COORDINATOR END NOTES PATIENT RESTING IN BED, NO SIGNS OF DISTRESS, ALL NEEDS ATTENDED TO, WILL ENDORSE TO FILM COMPOSER FOR CONTINUITY OF CARE.
[2018-01-11 20:00] VITALS: BP_SYST 135; BP_SYST 138; BP_DIAS 66
[2018-01-11] MEDS: POLYETHYLENE GLYCOL 3350 17 GM POWD.PACK PO SCH (21:32)
[2018-01-11] MEDS: ATORVASTATIN 40 MG TABLET PO SCH (21:32)
[2018-01-11] MEDS: INSULIN GLARGINE, 100 UNIT/ML CARTRIDGE SQ SCH (21:35)
[2018-01-12] VITALS: BP 132/72
[2018-01-12] MEDS: TEMAZEPAM 15 MG CAPSULE PO PRN (00:47)
[2018-01-12 04:00] VITALS: BP 152/78
[2018-01-12] MEDS: MEROPENEM 500 MG in IV NS 0.9% 50 ML IV SCH ×2 (05:32→18:07)
[2018-01-12 06:32] LABS: BASOPHILS % (AUTO) 0.2 % (0.0-2.0); EOSINOPHILS % (AUTO) 1.7 % (0.0-6.0); HEMATOCRIT 27 % (39-51); LYMPHOCYTES # (AUTO) 1.6 /CMM (0.8-4.8); LYMPHOCYTES % (AUTO) 14.4 % (20.0-44.0); MEAN CORPUSCULAR HGB CONC 33 g/dl (31.0-36.0); MEAN CORPUSCULAR VOLUME 81 fL (80-96); MONOCYTES # (AUTO) 0.5 /CMM (0.1-1.30); MONOCYTES % (AUTO) 4.7 % (2.0-12.0); NEUTROPHILS # (AUTO) 8.8 /CMM (1.8-8.9); PLATELET COUNT (AUTO) 436 /CMM (150-450); RDW COEFFICIENT OF VARIATION 16.6 (11.5-15.0); RED BLOOD CELL COUNT(AUTO) 3.36 MIL/uL (4.5-6.0); WHITE BLOOD COUNT (AUTO) 11.2 K/uL (4.3-11.0)
--- NOTE | 2018-01-12 06:50 | NUR ---
RN MS CLOSING NOTES, PATIENT SLEEPING AT THIS TIME, BREATHING EVEN AND UNLABORED, NO SOB/ACUTE DISTRESS NOTED AT THIS TIME AND THROUGHOUT THIS SHIFT, NO C/O PAIN IN THIS SHIFT, RFA IV SITE INTACT AND PATENT, DRY AND CLEAN, BE LOCKED AND IN LOWEST POSITION, CALL LIGHT AT BEDSIDE, ASSURANCE PROVIDED AT ALL TIMES, WILL ENDORSE CONTINUITY OF CARE TO ONCOMING SHIFT.
[2018-01-12 06:52] LABS: CALCIUM, SERUM 7.6 mg/dL (8.5-10.1); CREATININE 2.5 mg/dL (0.6-1.3); POTASSIUM 4.8 mmol/L (3.5-5.1)
[2018-01-12 08:00] VITALS: BP_SYST 148; BP_DIAS 61; BP_DIAS 68
[2018-01-12] MEDS: PANTOPRAZOLE 40 MG TABLET.DR PO SCH (08:03)
[2018-01-12] MEDS: BLOOD SUGAR DIAGNOSTIC 1 EACH STRIP IN SCH ×4 (08:03→21:08)
[2018-01-12] MEDS: ASPIRIN EC 81 MG TABLET.DR PO SCH (08:03)
[2018-01-12] MEDS: LINEZOLID 600 MG TABLET PO SCH ×2 (08:03→20:54)
[2018-01-12] MEDS: GABAPENTIN 300 MG CAPSULE PO SCH ×3 (08:03→16:34)
[2018-01-12] MEDS: DOCUSATE SODIUM 100 MG CAPSULE PO SCH ×2 (08:03→16:34)
[2018-01-12] MEDS: AMLODIPINE BESYLATE 5 MG TABLET PO SCH (08:07)
[2018-01-12] MEDS: CARVEDILOL 6.25 MG TABLET PO SCH ×2 (08:07→16:35)
[2018-01-12] MEDS: CADEXOMER IODINE 40 GM TUBE TP SCH (08:08)
[2018-01-12] MEDS: IV NS 0.9% 1,000 ML IV PRN ×2 (08:09→18:07)
--- NOTE | 2018-01-12 12:40 | NUR ---
MS RN NOTES PATIENT BLOOD SUGAR SLIGHTLY LOWERED. ATE LUNCH AND SUGAR PACKET WITH PUDDING PROVIDED.
[2018-01-12 13:10] LABS: CALCITRIOL VIT D,1, 25 DIHYDRO < 5.0 pg/mL (19.9-79.3)
[2018-01-12] MEDS: LORAZEPAM 1 MG TABLET PO PRN (14:48)
[2018-01-12] MEDS: HYDROCODONE/APAP 10/325MG 1 EA TABLET PO PRN ×2 (14:49→21:52)
[2018-01-12 16:00] VITALS: BP 126/61
[2018-01-12] MEDS: MAGNESIUM HYDROXIDE 30 ML UDC PO PRN (16:34)
--- NOTE | 2018-01-12 17:30 | NUR ---
MS RN NOTES DR MAY AT BEDSIDE. REMOVE GAETANO DRAIN COMPLETED WOUND CARE TO RIGHT BKA. PER MD DELVALLE FOR DC. DAILY DRESSING CHANGE; PAINT BETADINE ON INCISION, APPLY 4X4, KERLIX AND FRANCISCO WRAP.
--- NOTE | 2018-01-12 19:03 | NUR ---
MS RN CLOSING PATIENT STABLE. ALL DUE MEDS GIVEN AND ALL NEEDS MET. PATIENT AT BEDSIDE. RIGHT BKA WOUND CARE COMPLETED BY DR MAY AND LEFT HEEL WOUND CARE COMPLETED PER MD SPICER. PATIENT NEEDS IN REACH. SAFETY PRECAUTIONS IN PLACE. IVF RUNNING ORDERED. IV SITE CLEAN DRY AND INTACT. PATIENT CARE ENDORSED TO RN FOR ANGEL.
--- NOTE | 2018-01-12 19:30 | NUR ---
MS RN OPENING NOTES: PATIENT IN BED, AOX3, ON ROOM AIR, BREATHING EVEN AND UNLABORED, BREATH SOUNDS CLEAR TO AUSCULTATION. APPEARS CALM AND IN NO DISTRESS NOW, DENIES PAIN. PIV OVER RFA G 20 INTACT AND INFUSING WELL WITH NS RUNNING AT 80 ML/HR. RAYGOZA CATHETER IN PLACE, DRAINING LYDIA COLORED URINE. PROVIDED FOR COMFORT AND SAFETY. BED IN LOWEST AND LOCKED POSITION, SIDERAILS UP X 3, CALL LIGHT WITHIN REACH. WILL CONT TO MONITOR.
[2018-01-12 20:00] VITALS: BP 160/74
[2018-01-12] MEDS: ATORVASTATIN 40 MG TABLET PO SCH (21:02)
[2018-01-12] MEDS: INSULIN GLARGINE, 100 UNIT/ML CARTRIDGE SQ SCH (21:20)
[2018-01-12] MEDS: POLYETHYLENE GLYCOL 3350 17 GM POWD.PACK PO SCH (21:20)
--- NOTE | 2018-01-12 21:22 | NUR ---
RN NOTES: BLOOD SUGAR CHECKED AT 87 MG/DL, HELD LANTUS 16 UNITS DOSE FOR TONIGHT.
--- NOTE | 2018-01-12 21:53 | NUR ---
RN NOTES: PATIENT COMPLAINED OF 9/10 PAIN OVER HIS ABDOMEN AND RLE INCISION SITE. ADMINISTERED NORCO 10-325 MG PO. WILL CONT TO MONITOR.
--- NOTE | 2018-01-12 22:30 | NUR ---
RN NOTES: PATIENT NOTED TO HAVE LARGE, HARD/ FORMED STOOL, PATIENT NOTED TO BE HAVING DIFFICULTY DEFECATING. PATIENT ABLE TO HAVE 2 BOWEL MOVEMENTS BY THIS TIME. ENCOURAGED ADEQUATE PO WATER INTAKE.
[2018-01-12 23:00] VITALS: BP 132/77
--- NOTE | 2018-01-13 03:27 | NUR ---
RN NOTES: REPORT GIVEN TO RUTHY DE PAZ FOR ANGEL.
--- NOTE | 2018-01-13 03:28 | NUR ---
RN NOTES RECEIVED REPORT FROM RUTHY VELAZQUEZ FOR CONTINUITY OF CARE. PATIENT IN BED, AWAKE, ALERT AND ORIENTED X 3, VERBALLY RESPONSIVE. CONTINUES TO RECEIVE IVF ORDERED. RAYGOZA CATHETER DRAINING WITH YELLOW URINE. CALL LIGHT PLACED WITHIN EASY REACH. PLACED BED IN LOW POSITION AND LOCKED IN PLACE. WILL CONTINUE TO MONITOR.
[2018-01-13 04:00] VITALS: BP 146/72
--- NOTE | 2018-01-13 04:45 | NUR ---
RN NOTE PATIENT VERBALIZED THAT HE WANTS A SNACK, ALL PATIENT'S NEEDS ATTENDED TO. PATIENT ASKING ABOUT TIME BREAKFAST WILL BE SERVED. INFORMED PATIENT THAT BREAKFAST WILL BE BROUGHT TO UNIT AT 07:30 AM. PATIENT VERBALIZED UNDERSTANDING.
[2018-01-13 05:39] LABS: OCCULT BLOOD STOOL NEGATIVE (NEGATIVE)
[2018-01-13] MEDS: MEROPENEM 500 MG in IV NS 0.9% 50 ML IV SCH ×2 (05:56→16:58)
--- NOTE | 2018-01-13 06:29 | NUR ---
RN NOTES PATIENT IN BED, ALERT AND ORIENTED X 3, NOTED WITH NO SOB, IN NO ACUTE DISTRESS AND WITH NO C/O PAIN. PT CONTINUES TO RECEIVE IVF ORDERED VIA IV PERIPHERAL LINE ON LFA G#22. ALL PATIENT'S NEEDS ATTENDED TO THROUGHOUT THE SHIFT. PLACED BED IN LOW POSITION AND LOCKED IN PLACE. WILL ENDORSE TO AM SHIFT NURSE FOR CONTINUITY OF CARE.
[2018-01-13] MEDS: BLOOD SUGAR DIAGNOSTIC 1 EACH STRIP IN SCH ×4 (06:45→21:14)
[2018-01-13] MEDS: IV NS 0.9% 1,000 ML IV PRN (07:02)
--- NOTE | 2018-01-13 07:41 | NUR ---
MS/RN OPENING NOTE PATIENT IN BED IN STABLE CONDITION. A/O X 3. NO SIGNS OF ACUTE DISTRESS. NO COMPLAIN OF PAIN OR DISCOMFORT. ALL NEEDS ATTENDED TO. CALL LIGHT WITHIN REACH. WILL CONTINUE TO MONITOR TO ENSURE SAFETY.
[2018-01-13 08:00] VITALS: BP 150/68
[2018-01-13 08:16] VITALS: BP 150/68
[2018-01-13] MEDS: AMLODIPINE BESYLATE 5 MG TABLET PO SCH (08:37)
[2018-01-13] MEDS: GABAPENTIN 300 MG CAPSULE PO SCH ×3 (08:37→16:58)
[2018-01-13] MEDS: CARVEDILOL 6.25 MG TABLET PO SCH ×2 (08:37→16:58)
[2018-01-13] MEDS: LINEZOLID 600 MG TABLET PO SCH ×2 (08:37→21:13)
[2018-01-13] MEDS: ASPIRIN EC 81 MG TABLET.DR PO SCH (08:37)
[2018-01-13] MEDS: PANTOPRAZOLE 40 MG TABLET.DR PO SCH (08:37)
[2018-01-13] MEDS: CADEXOMER IODINE 40 GM TUBE TP SCH (08:38)
[2018-01-13] MEDS: DOCUSATE SODIUM 100 MG CAPSULE PO SCH ×2 (08:38→16:59)
[2018-01-13] MEDS: INSULIN REGULAR, HUMAN 100 UNIT/ML 3 ML VIAL SQ PRN ×2 (13:32→17:56)
[2018-01-13 14:29] LABS: BASOPHILS % (AUTO) 0.2 % (0.0-2.0); EOSINOPHILS % (AUTO) 1.8 % (0.0-6.0); HEMATOCRIT 27 % (39-51); HEMOGLOBIN 8.9 g/dL (13.5-17.5); LYMPHOCYTES # (AUTO) 1.4 /CMM (0.8-4.8); LYMPHOCYTES % (AUTO) 10.1 % (20.0-44.0); MEAN CORPUSCULAR HGB CONC 33 g/dl (31.0-36.0); MEAN CORPUSCULAR VOLUME 81 fL (80-96); MONOCYTES # (AUTO) 0.5 /CMM (0.1-1.30); MONOCYTES % (AUTO) 3.3 % (2.0-12.0); NEUTROPHILS # (AUTO) 11.4 /CMM (1.8-8.9); NEUTROPHILS % (AUTO) 84.6 % (43.0-81.0); PLATELET COUNT (AUTO) 386 /CMM (150-450); RDW COEFFICIENT OF VARIATION 16.1 (11.5-15.0); RED BLOOD CELL COUNT(AUTO) 3.36 MIL/uL (4.5-6.0); WHITE BLOOD COUNT (AUTO) 13.5 K/uL (4.3-11.0)
[2018-01-13 14:47] LABS: CALCIUM, SERUM 7.8 mg/dL (8.5-10.1); CREATININE 1.9 mg/dL (0.6-1.3); POTASSIUM 4.7 mmol/L (3.5-5.1)
[2018-01-13 16:00] VITALS: BP 163/75
--- NOTE | 2018-01-13 18:06 | NUR ---
MS/RN CLOSING NOTE PATIENT IN BED IN STABLE CONDITION. A/O X 3, LEGALLY BLIND. NO SIGNS OF ACUTE DISTRESS. NO COMPLAIN OF PAIN OR DISCOMFORT. ALL NEEDS ATTENDED TO. CALL LIGHT WITHIN REACH. WILL ENDORSE TO NEXT SHIFT FOR CONTINUITY OF CARE.
[2018-01-13 20:00] VITALS: BP 166/74
[2018-01-13] MEDS: ATORVASTATIN 40 MG TABLET PO SCH (21:13)
[2018-01-13] MEDS: POLYETHYLENE GLYCOL 3350 17 GM POWD.PACK PO SCH (21:13)
[2018-01-13] MEDS: INSULIN GLARGINE, 100 UNIT/ML CARTRIDGE SQ SCH (21:23)
[2018-01-14 04:00] VITALS: BP 171/78
[2018-01-14] MEDS: HYDROCODONE/APAP 10/325MG 1 EA TABLET PO PRN ×3 (04:29→17:59)
[2018-01-14] MEDS: MEROPENEM 500 MG in IV NS 0.9% 50 ML IV SCH ×2 (06:30→17:59)
--- NOTE | 2018-01-14 06:33 | NUR ---
RN NOTE PT REFUSED TO HAVE IV PLACED. UNABLE TO ADMINISTER IV ATB. WILL ENDORSE TO DAY SHIFT TO TRY TO CONVINCE PT TO ACCEPT IV PLACEMENT FOR IV ATB ADMINISTRATION.
--- NOTE | 2018-01-14 06:34 | NUR ---
RN NOTE PT REMAINS IN NO ACUTE DISTRESS IN BED. PT DID NOT HAVE ANY SIGNIFICANT CHANGE IN CONDITION DURING SHIFT. ALL NEEDS MET, ALL ORDERS CARRIED OUT. WILL ENDORSE CARE TO AM RN FOR CONTINUITY OF CARE.
[2018-01-14 08:00] VITALS: BP 169/69
[2018-01-14] MEDS: PANTOPRAZOLE 40 MG TABLET.DR PO SCH (08:32)
[2018-01-14] MEDS: LORAZEPAM 1 MG TABLET PO PRN (08:32)
[2018-01-14] MEDS: BLOOD SUGAR DIAGNOSTIC 1 EACH STRIP IN SCH ×4 (08:33→22:03)
[2018-01-14] MEDS: GABAPENTIN 300 MG CAPSULE PO SCH ×3 (08:42→17:49)
[2018-01-14] MEDS: DOCUSATE SODIUM 100 MG CAPSULE PO SCH ×3 (08:42→17:48)
[2018-01-14] MEDS: AMLODIPINE BESYLATE 5 MG TABLET PO SCH (08:43)
[2018-01-14] MEDS: ASPIRIN EC 81 MG TABLET.DR PO SCH (08:43)
[2018-01-14] MEDS: LINEZOLID 600 MG TABLET PO SCH ×2 (08:43→22:24)
[2018-01-14] MEDS: CADEXOMER IODINE 40 GM TUBE TP SCH (08:43)
[2018-01-14] MEDS: CARVEDILOL 6.25 MG TABLET PO SCH ×2 (08:43→17:49)
[2018-01-14] MEDS ORDERED: LOPERAMIDE HCL UDC(2 MG/10 ML) 2 MG/10 ML UDC PO PRN (11:30)
[2018-01-14] MEDS: IV NS 0.9% 1,000 ML IV PRN (12:17)
[2018-01-14] MEDS ORDERED: HYDROCODONE/APAP 5/325MG 1 EACH TABLET PO PRN (15:00)
[2018-01-14 16:00] VITALS: BP 177/71
[2018-01-14 20:00] VITALS: BP_SYST 142; BP_SYST 162; BP_DIAS 68
[2018-01-14] MEDS: ATORVASTATIN 40 MG TABLET PO SCH (22:23)
[2018-01-14] MEDS: POLYETHYLENE GLYCOL 3350 17 GM POWD.PACK PO SCH (22:24)
[2018-01-14] MEDS: INSULIN GLARGINE, 100 UNIT/ML CARTRIDGE SQ SCH (22:27)
[2018-01-15] VITALS (7 sets, daily range): BP systolic 111–181; BP diastolic 60–76
[2018-01-15] MEDS: IV NS 0.9% 1,000 ML IV PRN ×2 (06:14→22:03)
[2018-01-15] MEDS: MEROPENEM 500 MG in IV NS 0.9% 50 ML IV SCH ×2 (06:16→19:04)
--- NOTE | 2018-01-15 06:57 | NUR ---
RN NOTE PT REMAINS IN NO ACUTE DISTRESS IN BED. PT A/O X4, SAMMARINESE SPEAKING, HAS IV LINE IS DRY, CLEAN, INTACT AND PATIENT WITH NS 80ML/HR RUNNING. SAFETY PRECAUTIONS ARE IMPLEMENTED, BED IS LOCKED, LOWEST POSITION, SIDE RAILS ARE UP X2, CALL LIGHT IN REACH. PT DID NOT HAVE ANY SIGNIFICANT CHANGE IN CONDITION DURING SHIFT. ALL NEEDS MET, ALL ORDERS CARRIED OUT. WILL ENDORSE CARE TO AM RN FOR CONTINUITY OF CARE.
--- NOTE | 2018-01-15 07:30 | NUR ---
RN MS NOTES PT IN BED, AWAKE, ALERT AND ORIENTED, VERBALLY RESPONSIVE, NO COMPLAINT OF PAIN AT THIS TIME, RESPIRATIONS NORMAL, IV FLUIDS INFUSING WELL, CALL LIGHT WITHIN REACH, KEPT COMFORTABLE.
[2018-01-15] MEDS: BLOOD SUGAR DIAGNOSTIC 1 EACH STRIP IN SCH ×4 (07:50→21:53)
[2018-01-15] MEDS: LINEZOLID 600 MG TABLET PO SCH ×2 (09:16→21:56)
[2018-01-15] MEDS: AMLODIPINE BESYLATE 5 MG TABLET PO SCH (09:16)
[2018-01-15] MEDS: DOCUSATE SODIUM 100 MG CAPSULE PO SCH ×2 (09:16→17:00)
[2018-01-15] MEDS: GABAPENTIN 300 MG CAPSULE PO SCH ×3 (09:16→17:13)
[2018-01-15] MEDS: CARVEDILOL 6.25 MG TABLET PO SCH ×2 (09:16→17:13)
[2018-01-15] MEDS: PANTOPRAZOLE 40 MG TABLET.DR PO SCH (09:16)
[2018-01-15] MEDS: ASPIRIN EC 81 MG TABLET.DR PO SCH (09:16)
[2018-01-15] MEDS: CADEXOMER IODINE 40 GM TUBE TP SCH (09:17)
--- NOTE | 2018-01-15 11:53 | NUR ---
RN MS NOTES PT IN BED, RESTING, DENIES PAIN, NOT IN DISTRESS, CALL LIGHT WITHIN REACH, ASSISTED WITH MEALS, ASSISTED WITH NEEDS, KEPT CLEAN AND DRY, PERINEAL CARE PROVIDED NEEDED, F/C DRAINING WELL, KEPT GRIP BOSS BED.
--- NOTE | 2018-01-15 19:00 | NUR ---
RN MS NOTES PT IN BED, AWAKE, ALERT AND ORIENTED, DENIES PAIN, BREATHING PATTERN NORMAL, CALL LIGHT WITHIN REACH, ASSISTED WITH MEALS, PM MEDS GIVEN, WOUND TREATMENTS DONE, PM CARE RENDERED, LAURIE VISITED, EXPLAINED TO THE NEED FOR PICC LINE PLACEMENT FOR HALFWAY ATB, REFUSING PICC LINE PLACEMENT AT THIS TIME. KEPT CLEAN AND DRY, TURNED AND REPOSITIONED FOR COMFORT.
--- NOTE | 2018-01-15 20:20 | NUR ---
RN NOTES RECEIVED PATIENT AWAKE IN BED WITH NO DISTRESS NOTED. BREATHING EVEN AND UNLABORED. ALERT AND ORIENTED. ABLE TO VERBALLY COMMUNICATE NEEDS. NO COMPLAINT OF PAIN OF THIS TIME. VITAL SIGNS WNL. RAYGOZA CATH IN PLACE DRAINING CLEAR YELLOW WITH NO FOUL ODOR URINE. KEPT CLEAN AND DRY. WILL CONTINUE TO MONITOR.
[2018-01-15] MEDS: INSULIN REGULAR, HUMAN 100 UNIT/ML 3 ML VIAL SQ PRN (21:55)
[2018-01-15] MEDS: ATORVASTATIN 40 MG TABLET PO SCH (21:56)
[2018-01-15] MEDS: POLYETHYLENE GLYCOL 3350 17 GM POWD.PACK PO SCH (21:58)
[2018-01-15] MEDS: INSULIN GLARGINE, 100 UNIT/ML CARTRIDGE SQ SCH (21:59)
[2018-01-16] VITALS (9 sets, daily range): BP systolic 131–189; BP diastolic 68–96
[2018-01-16] MEDS: LORAZEPAM 1 MG TABLET PO PRN ×2 (03:34→12:49)
[2018-01-16] MEDS: HYDROCODONE/APAP 10/325MG 1 EA TABLET PO PRN (03:34)
[2018-01-16] MEDS: IV NS 0.9% 1,000 ML IV PRN (05:52)
[2018-01-16] MEDS: MEROPENEM 500 MG in IV NS 0.9% 50 ML IV SCH ×2 (05:54→17:34)
[2018-01-16] MEDS: BLOOD SUGAR DIAGNOSTIC 1 EACH STRIP IN SCH ×3 (06:10→17:16)
[2018-01-16] MEDS: INSULIN REGULAR, HUMAN 100 UNIT/ML 3 ML VIAL SQ PRN (06:10)
--- NOTE | 2018-01-16 07:30 | NUR ---
COD CLERK INITIAL NOTES PATIENT RESTING IN BED, AOX2-3, [place]ER SPEAKING WITH PERSIAN WELL, PATIENT IS AGITATED AND SCREAMING, THERAPEUTIC COMMUNICATION USED TO CALM PATIENT DOWN, DUE TO BLINDNESS PATIENT CONFUSED ABOUT TIME REORIENTED TO TIME AND PLACE, NO FC AT THIS TIME PATIENT PULLED OUT DURING SENIOR DATA WAREHOUSE ARCHITECT WILL MONITOR FOR BLEEDING AND TRAUMA, NO CO OF PAIN, R FA 20G, BED IN LOW AND LOCKED POSITION CALL LIGHT WITHIN REACH, WILL CONTINUE TO MONITOR.
[2018-01-16] MEDS: AMLODIPINE BESYLATE 5 MG TABLET PO SCH (08:35)
[2018-01-16] MEDS: LINEZOLID 600 MG TABLET PO SCH (08:35)
[2018-01-16] MEDS: PANTOPRAZOLE 40 MG TABLET.DR PO SCH (08:35)
[2018-01-16] MEDS: CARVEDILOL 6.25 MG TABLET PO SCH ×2 (08:35→16:06)
[2018-01-16] MEDS: ASPIRIN EC 81 MG TABLET.DR PO SCH (08:35)
[2018-01-16] MEDS: GABAPENTIN 300 MG CAPSULE PO SCH ×3 (08:35→16:05)
[2018-01-16] MEDS: DOCUSATE SODIUM 100 MG CAPSULE PO SCH ×2 (08:36→16:04)
[2018-01-16] MEDS: CADEXOMER IODINE 40 GM TUBE TP SCH (08:36)
--- NOTE | 2018-01-16 10:02 | NUR ---
LINE CLEARANCE FOREMAN NOTES PATIENT RECEIVING PHYSICAL THERAPY AT THIS TIME FOR HIS LEGS.
[2018-01-16] MEDS ORDERED: hydrALAZINE HCL IV 20 MG VIAL IV ONE (17:30)
--- NOTE | 2018-01-16 19:00 | NUR ---
STATISTICIAN MATHEMATICAL NOTES PATIENT DISCHARGE ORDERS GIVEN BY DR LIZ, ALL EXIT CARE DONE, ALL TEACHING DONE, PICC LINE PLACED IN UPPER RIGHT ARM FOR CONTINUOUS ANTIBIOTICS FOR NEXT 6 WEEKS, REPORT GIVEN TO [facility] TO RUTHY BASS, ALL WOUND CARE DONE, ALL PICTURES TAKEN AND PLACED IN CHART, BELONGINGS LIST SIGNED, PATIENT SÁNCHEZ AWARE OF TRANSFER. ALL NEEDS ATTENDED TO, ALL QUESTIONS ANSWERED. PATIENT TAKEN BY AMBULANCE STABLE VITAL SIGNS.
== END 2018-01-16 19:09 | DRG 853 ==
LOC: ER 15:24 → MEDSG1 17:06
PROVIDERS: ADMIT Nurse Practitioner Acute Care; ATTEND Nurse Practitioner Acute Care
PROC: 0Y6H0Z3 Detachment at Right Lower Leg, Low, Open Approach (ICD-10-PCS; principal; 2018-01-08 18:12)
PROC: 02HV33Z Insertion of Infusion Device into Superior Vena Cava, Percutaneous Approach (ICD-10-PCS; 2018-01-16)
PROC: B548ZZA Ultrasonography of Superior Vena Cava, Guidance (ICD-10-PCS; 2018-01-16)
DX: A41.9 Sepsis, unspecified organism (principal); E43 Unspecified severe protein-calorie malnutrition; N17.0 Acute kidney failure with tubular necrosis; I50.33 Acute on chronic diastolic (congestive) heart failure; I96 Gangrene, not elsewhere classified; E11.22 Type 2 diabetes mellitus with diabetic chronic kidney disease; E11.42 Type 2 diabetes mellitus with diabetic polyneuropathy; E87.1 Hypo-osmolality and hyponatremia; E11.52 Type 2 diabetes mellitus with diabetic peripheral angiopathy with gangrene; M86.8X7 Other osteomyelitis, ankle and foot; I13.0 Hypertensive heart and chronic kidney disease with heart failure and stage 1 through stage 4 chronic kidney disease, or unspecified chronic kidney disease; M86.9 Osteomyelitis, unspecified; E11.69 Type 2 diabetes mellitus with other specified complication; N18.9 Chronic kidney disease, unspecified; Z98.890 Other specified postprocedural states; E11.610 Type 2 diabetes mellitus with diabetic neuropathic arthropathy; E11.621 Type 2 diabetes mellitus with foot ulcer; E11.622 Type 2 diabetes mellitus with other skin ulcer; D63.1 Anemia in chronic kidney disease; E11.65 Type 2 diabetes mellitus with hyperglycemia; Z79.4 Long term (current) use of insulin; Z79.899 Other long term (current) drug therapy; E86.1 Hypovolemia; E78.5 Hyperlipidemia, unspecified; I70.0 Atherosclerosis of aorta; H54.8 Legal blindness, as defined in USA; I25.10 Atherosclerotic heart disease of native coronary artery without angina pectoris; K21.9 Gastro-esophageal reflux disease without esophagitis; Z90.49 Acquired absence of other specified parts of digestive tract; Z86.19 Personal history of other infectious and parasitic diseases; Z79.2 Long term (current) use of antibiotics; E83.42 Hypomagnesemia; E66.9 Obesity, unspecified; Z68.26 Body mass index [BMI] 26.0-26.9, adult; R33.9 Retention of urine, unspecified; F41.9 Anxiety disorder, unspecified; E83.51 Hypocalcemia; E83.39 Other disorders of phosphorus metabolism; E87.6 Hypokalemia; G89.29 Other chronic pain; L97.529 Non-pressure chronic ulcer of other part of left foot with unspecified severity; Z79.82 Long term (current) use of aspirin
CPT/HCPCS: 36415; 71045-TC; 76770-TC; 80048-TC; 80053-TC; 80061-TC; 80076-TC; 81000-TC; 82272-TC; 82306; 82550-TC; 82570-TC; 82652; 82728-TC; 82962-TC; 83540-TC; 83605-TC; 83735-TC; 83970; 84100-TC; 84155; 84155-TC; 84165; 84300-TC; 84439-TC; 84443-TC; 85025-TC; 85730-TC; 86850-TC; 86921-TC; 87040-TC; 87045-TC; 87070-TC; 87081-TC; 87086-TC; 87186-TC; 88305-TC; 88307-TC; 88311-TC; 93307-TC; 93926-TC; 97110-TC; 97530-TC; A4216; A4606; A6253; A6402; A6403; A6407; C1751; J0360; J1100; J1815; J2185; J2270; J2405; J2543; J2704; J3010; J3370; J3475; J3480; J3490; J7030; J7040; J7050; J7060; L1830; P9016-BL; Z7610

== ENCOUNTER 2018-01-20 21:21 | Inpatient (IN) | payer MEDICARE, OTHER, MEDICAID ==
[~2018-01-20] VITALS: Ht 180.3 cm; Wt 71.7 kg
[~2018-01-20 21:21] MED LIST changes: +AMLO5TAB7 PO; +ASPI-1152 PO; -ATEN25TA PO; +ATOR40TA PO; -BLOO-668 IN; +CARV6.25 PO; -CLON0.1T14 PO; +FURO40TA5 PO; -HYDR-552 PO; -Zinc Sulfate PO
--- NOTE | 2018-01-20 22:05 | NUR ---
PT BIB PA WITH A C/O AMS MORE THAN USUAL. PT HAD A RT BKA RECENTLY AND HAS AN IMMOBILIZER ON THAT LEG. PT'S LLE IS IN A CAST AND LT HEEL HAS A WOUND. RT BKA HAS SOME BLOOD ON THE BANDAGES. PT IS YELLING AND TALKING IN VENEZUELAN. PT IS ON THE MONITOR AND CONTINUOUS PULSE OX. PT HAS RUE DOUBLE LUMEN PICC LINE.
[2018-01-20] MEDS ORDERED: LORAZEPAM INJ 2 MG/ML VIAL ONE (22:35)
[2018-01-20 22:47] LABS: BASOPHILS % (AUTO) 0.5 % (0.0-2.0); EOSINOPHILS % (AUTO) 1.2 % (0.0-6.0); HEMATOCRIT 23 % (39-51); HEMOGLOBIN 7.5 g/dL (13.5-17.5); LYMPHOCYTES # (AUTO) 1.2 /CMM (0.8-4.8); LYMPHOCYTES % (AUTO) 13.9 % (20.0-44.0); MEAN CORPUSCULAR HGB CONC 33 g/dl (31.0-36.0); MEAN CORPUSCULAR VOLUME 81 fL (80-96); MONOCYTES # (AUTO) 0.5 /CMM (0.1-1.30); MONOCYTES % (AUTO) 5.2 % (2.0-12.0); NEUTROPHILS # (AUTO) 7.1 /CMM (1.8-8.9); NEUTROPHILS % (AUTO) 79.2 % (43.0-81.0); PLATELET COUNT (AUTO) 143 /CMM (150-450); RDW COEFFICIENT OF VARIATION 16.8 (11.5-15.0); WHITE BLOOD COUNT (AUTO) 8.9 K/uL (4.3-11.0)
--- NOTE | 2018-01-20 22:54 | NUR ---
PT LEFT FOR CT VIA GURDESHAUN WITH RN.
[2018-01-20 22:58] LABS: APPEARANCE,URINE CLEAR (CLEAR); BILIRUBIN,URINE NEGATIVE (NEGATIVE); BLOOD, URINE 2+ Ery/uL (NEGATIVE); COLOR,URINE YELLOW (YELLOW); KETONES,URINE NEGATIVE (NEGATIVE); LEUKOCYTE ESTERASE ,URINE NEGATIVE (NEGATIVE); NITRITE, URINE NEGATIVE (NEGATIVE); PROTEIN,URINE 2+ mg/dl (NEGATIVE); UGLUCOSE NEGATIVE (NEGATIVE); UROBILINOGEN,URINE 0.2 EU/dL (0.2)
[2018-01-20 22:58] LABS: SERUM AMMONIA 18 umol/L (11-32)
[2018-01-20 22:59] LABS: CALCIUM, SERUM 8.3 mg/dL (8.5-10.1); CARBON DIOXIDE 25 mmol/L (21-32); CHLORIDE 104 mmol/L (98-107); CREATININE 1.7 mg/dL (0.6-1.3); GLUCOSE 171 mg/dL (74-106); POTASSIUM 3.9 mmol/L (3.5-5.1); SODIUM SERUM 141 mmol/L (136-145); UREA NITROGEN, BLOOD 27 mg/dL (7-18)
[2018-01-20] MEDS ORDERED: LORAZEPAM INJ 2 MG/ML VIAL IV ONE (23:00)
[2018-01-20 23:04] LABS: TROPONIN I 0.029 ng/mL (0.00-0.056)
[2018-01-20 23:11] LABS: ALANINE AMINOTRANSFERASE 37 U/L (12-78); ALBUMIN 2.2 g/dL (3.4-5.0); ALKALINE PHOSPHATASE 125 U/L (46-116); ASPARTATE AMINOTRANSFERASE 26 U/L (15-37); BILIRUBIN,DIRECT 0.1 mg/dL (0.0-0.2); BILIRUBIN,TOTAL 0.4 mg/dL (0.2-1.0); TOTAL PROTEIN, SERUM 7.3 g/dL (6.4-8.2)
--- NOTE | 2018-01-20 23:11 | NUR ---
PT RETURNED FROM CT.
[2018-01-20 23:12] LABS: ACETAMINOPHEN 0 ug/ml (10-30); ALCOHOL, BLOOD < 3 mg/dL (0-0); SALICYLATE 1.2 mg/dL (2.8-20.0)
[2018-01-20 23:17] LABS: BACTERIA,URINE Rare /HPF (None Seen); SQUAMOUS EPITHELIAL CELL,UR Few /HPF (None Seen); WBC,URINE 0-2 /HPF (0-3)
[2018-01-20 23:49] LABS: INR 1.08 (0.87-1.13)
[2018-01-21] VITALS (10 sets, daily range): BP systolic 142–187; BP diastolic 76–105
--- NOTE | 2018-01-21 00:15 | NUR ---
CLEANED PT AND NOTED DIARRHEA. STOOL SAMPLE SENT TO LAB.
--- NOTE | 2018-01-21 00:16 | NUR ---
tele [phone]
[2018-01-21] MEDS ORDERED: LORAZEPAM INJ 2 MG/ML VIAL ONE (00:24)
[2018-01-21] MEDS ORDERED: MULT-1185 PO (00:25)
[2018-01-21] MEDS ORDERED: ASCO500C18 PO (00:25)
[2018-01-21] MEDS ORDERED: AMIN887L7 PO (00:25)
[2018-01-21] MEDS ORDERED: CEFE2VIA3 IV (00:25)
[2018-01-21] MEDS ORDERED: LINE600I2 IV (00:25)
[2018-01-21] MEDS ORDERED: TRAM50TA PO (00:25)
[2018-01-21] MEDS ORDERED: LORAZEPAM INJ 2 MG/ML VIAL IV PRN (00:30)
--- NOTE | 2018-01-21 00:45 | NUR ---
RN NOTES ADMITTED PATIENT FROM ER DX OF ALTERED MENTAL STATUS, PATIENT IS TUNISIAN SPEAKING ONLY, ALERT AND AWAKE, PER , PATIENT'S BASELINE IS ALERT AND ORIENTED X4. LUNG SOUNDS ARE CLEAR AND DIMINISHED, SPO2 AT ROOM AIR 98%, UNABLE TO VERBALIZE NEEDS, SPEECH GARBLED, INCOHERENT. ABDOMEN SOFT AND NON-TENDER, S/P RIGHT BKA 01/08/[address] MAY, LEFT HEEL SX WITH CAST, UNKNOWN SX DATE, RIGHT BKA WITH IMMOBILIZER, PATIENT IS RESTLESS, HITTING SIDE RAILS WITH RIGHT HAND, AND WITH RIGHT STUMP. RIGHT UPPER PICC LINE WITH DOUBLE LUMEN SECURED WITH DRESSING. BP ELEVATED, WILL GIVE HYDRALAZINE, SKIN ASSESSMENT PERFORMED, KEPT SAFE, CALL LIGHT WITHIN REACH.
[2018-01-21] MEDS ORDERED: TRAMADOL HCL 50 MG TABLET PO PRN (01:00)
[2018-01-21] MEDS ORDERED: DEXTROSE 50%-WATER 50 ML DISP.SYRIN IV PRN (01:00)
[2018-01-21] MEDS ORDERED: MORPHINE SULFATE INJ 2 MG/ML DISP.SYRIN IV PRN (01:30)
[2018-01-21] MEDS ORDERED: ONDANSETRON HCL/PF 4 MG/2 ML VIAL IVP PRN (01:30)
[2018-01-21] MEDS: hydrALAZINE HCL 25 MG TABLET PO PRN (02:43)
[2018-01-21] MEDS: BLOOD SUGAR DIAGNOSTIC 1 EACH STRIP IN SCH ×4 (06:36→21:28)
--- NOTE | 2018-01-21 06:49 | NUR ---
RN NOTES PATIENT IS AWAKE, CONFUSED, RESTLESS, MOANING, FACIAL GRIMACING, GIVEN TRAMADOL, STILL RESTLESS AFTER AN HOUR, GIVEN ATIVAN FOR RESTLESSNESS, CALMED DOWN A BIT, PADDED RIGHT SIDE RAILS, PATIENT HITTING HAND AGAINST SIDE RAIL, R BKA OFFLOADED, KEPT SAFE AND COMFORTABLE, CALL LIGHT WITHIN REACH.
[2018-01-21 07:17] LABS: BASOPHILS % (AUTO) 0.5 % (0.0-2.0); EOSINOPHILS % (AUTO) 1.9 % (0.0-6.0); HEMATOCRIT 23 % (39-51); HEMOGLOBIN 7.4 g/dL (13.5-17.5); LYMPHOCYTES # (AUTO) 1.3 /CMM (0.8-4.8); LYMPHOCYTES % (AUTO) 15.1 % (20.0-44.0); MEAN CORPUSCULAR HGB CONC 33 g/dl (31.0-36.0); MEAN CORPUSCULAR VOLUME 81 fL (80-96); MONOCYTES # (AUTO) 0.6 /CMM (0.1-1.30); NEUTROPHILS # (AUTO) 6.4 /CMM (1.8-8.9); NEUTROPHILS % (AUTO) 75.5 % (43.0-81.0); PLATELET COUNT (AUTO) 141 /CMM (150-450); RDW COEFFICIENT OF VARIATION 17.1 (11.5-15.0); RED BLOOD CELL COUNT(AUTO) 2.79 MIL/uL (4.5-6.0); WHITE BLOOD COUNT (AUTO) 8.5 K/uL (4.3-11.0)
[2018-01-21 07:37] LABS: ALBUMIN 2.3 g/dL (3.4-5.0); BILIRUBIN,TOTAL 0.5 mg/dL (0.2-1.0); CALCIUM, SERUM 8.2 mg/dL (8.5-10.1); CREATININE 1.7 mg/dL (0.6-1.3); MAGNESIUM 1.6 mg/dL (1.8-2.4); PHOSPHORUS 3.5 mg/dL (2.5-4.9); POTASSIUM 3.6 mmol/L (3.5-5.1); TOTAL PROTEIN, SERUM 7.5 g/dL (6.4-8.2)
[2018-01-21 07:59] LABS: TROPONIN I 0.031 ng/mL (0.00-0.056)
[2018-01-21] MEDS: CARVEDILOL 6.25 MG TABLET PO SCH ×2 (08:24→16:29)
[2018-01-21] MEDS: FUROSEMIDE 40 MG TABLET PO SCH ×2 (08:25→16:29)
[2018-01-21] MEDS: ASPIRIN EC 81 MG TABLET.DR PO SCH (08:25)
[2018-01-21] MEDS: AMLODIPINE BESYLATE 5 MG TABLET PO SCH (08:25)
[2018-01-21] MEDS ORDERED: CEFEPIME HCL 2 GM IV SCH (09:00)
--- NOTE | 2018-01-21 09:48 | NUR ---
WOUND CARE CONSULT: PT PRESENTS WITH INCONTINENCE AND SURGICAL WOUND TO RT LEG, SACRAL SCARRING, AND LEFT LOWER LEG CAST WITH WINDOW AND WOUND TO LEFT HEEL/FOOT AREA. UNABLE TO VISUALIZE LEFT HEEL/FOOT WOUND WELL THROUGH WINDOW BUT SOME ADAMSON DRAINAGE NOTED. NURSING STAFF REINFORCING DSG. NEED SURGICAL FOLLOW UP FOR LOWER EXTREMITIES. RECOMMENDATIONS MADE FOR SKIN PROTECTION AND CARE. PT ON KIMBERLY ISOLEX LOW AIRLOSS BED. ALL SKIN PROTECTION MEASURES IN PLACE AND DISCUSSED WITH NURSING STAFF. WILL SEE PRN. CURRENT JEANINE SCORE IS 13. MD IN AGREEMENT WITH PLAN OF CARE. Addendum: 01/21/18 at 0952 by DEE ANDERSEN WNDNU Amended: Links added.
[2018-01-21] MEDS ORDERED: Z GUARD REMEDY 2 OZ OINT TP PRN (10:00)
[2018-01-21] MEDS: MULTIVIT, IRON, MIN NO. 8, FA 1 TAB PO SCH (11:15)
[2018-01-21] MEDS: ASCORBIC ACID 500 MG TABLET PO SCH (11:15)
[2018-01-21] MEDS: PROSOURCE / PROSTAT (PYXIS) 30 ML UDC PO SCH ×2 (11:16→16:29)
[2018-01-21] MEDS: Z GUARD REMEDY 2 OZ OINT TP SCH (11:19)
[2018-01-21] MEDS: LORAZEPAM INJ 2 MG/ML VIAL IV PRN ×2 (11:52→20:56)
[2018-01-21] MEDS ORDERED: Magnesium 1GM/D5W 100ML PREMIX 100 ML IV SCH (12:00)
[2018-01-21] MEDS: CEFEPIME 2 GM in IV D5W 100 ML IV SCH ×2 (12:00→15:20)
--- NOTE | 2018-01-21 15:21 | NUR ---
antibotic not avaliable
[2018-01-21] MEDS ORDERED: QUETIAPINE FUMARATE 25 MG TABLET PO SCH (17:30)
--- NOTE | 2018-01-21 19:35 | NUR ---
MS RN OPENING NOTES RECEIVED PT IN BED AWAKE, CONFUSED, URUGUAYAN SPEAKING, ON ROOM AIR, RESPIRATIONS EVEN, UNLABORED, NO APPARENT DISTRESS NOTED. IV SITE KIMO PICC LINE, INTACT, PATENT. NO S/SX OF PAIN OR DISCOMFORT NOTED AT THIS TIME. BED LOCKED IN LOWEST POSITION. KEPT CLEAN AND COMFORTABLE, ATTENDED ALL NEEDS. WILL CONTINUE TO MONITOR ACCORDINGLY.
[2018-01-21] MEDS: QUETIAPINE FUMARATE 25 MG TABLET PO SCH (20:05)
[2018-01-21] MEDS: LINEZOLID 600 MG TABLET PO SCH (20:06)
[2018-01-21] MEDS: ATORVASTATIN 40 MG TABLET PO SCH (21:02)
[2018-01-21] MEDS: INSULIN GLARGINE, 100 UNIT/ML CARTRIDGE SQ SCH (21:32)
[2018-01-21] MEDS: INSULIN REGULAR, HUMAN 100 UNIT/ML 3 ML VIAL SQ PRN (21:34)
[2018-01-22] MEDS ORDERED: CEFEPIME 1 GM VIAL ONE (00:07)
[2018-01-22] MEDS: CEFEPIME 2 GM in IV D5W 100 ML IV SCH ×3 (00:14→23:52)
--- NOTE | 2018-01-22 00:20 | NUR ---
MS RN NOTE UNABLE TO SCAN MAXIPIME, MEDICATION VERIFIED BY TWO LICENSED NURSES.ADMINISTERED ORDERED. WILL CONTINUE TO MONITOR,
[2018-01-22] MEDS: BLOOD SUGAR DIAGNOSTIC 1 EACH STRIP IN SCH ×4 (06:20→21:46)
--- NOTE | 2018-01-22 06:35 | NUR ---
MS RN CLOSING NOTES PT IN BED ON ROOM AIR, RESPIRATIONS EVEN UNLABORED.NO APPARENT DISTRESS NOTED. KEPT CLEAN AND COMFORTABLE. ATTENDED ALL NEEDS. WILL ENDORSE TO THE DAY SHIFT FOR CONTINUITY OF CARE.
--- NOTE | 2018-01-22 07:30 | NUR ---
RN OPENING NOTES RECEIVED PT. IN BED, CONFUSED, BLIND IN BOTH EYES. BREATHING UNLABORED, AND EVENLY ON ROOM AIR. NO S/S OF ACUTE DISTRESS.CENTRAL LINE ON RIGHT UPPER ARM. 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 LEFT LEG HAS A CAST WITH BANDAGE WRAPPED AROUND HEEL. BED IS IN LOWEST, AND LOCKED POSITION. 2 SIDE RAILS UP, AND CALL LIGHT WITHIN REACH. ALL NEEDS MET WILL CONTINUE TO ASSESS AND MONITOR.
[2018-01-22 08:00] VITALS: BP 112/89
[2018-01-22 08:24] LABS: CALCIUM, SERUM 8.3 mg/dL (8.5-10.1); CREATININE 1.6 mg/dL (0.6-1.3); MAGNESIUM 1.8 mg/dL (1.8-2.4); POTASSIUM 3.4 mmol/L (3.5-5.1)
[2018-01-22] MEDS: Z GUARD REMEDY 2 OZ OINT TP SCH (09:39)
[2018-01-22] MEDS: ASPIRIN EC 81 MG TABLET.DR PO SCH (09:50)
[2018-01-22] MEDS: ACETAMINOPHEN 325 MG TABLET PO PRN (09:50)
[2018-01-22] MEDS: FUROSEMIDE 40 MG TABLET PO SCH ×2 (09:56→16:50)
[2018-01-22] MEDS: MULTIVIT, IRON, MIN NO. 8, FA 1 TAB PO SCH (09:58)
[2018-01-22] MEDS: ASCORBIC ACID 500 MG TABLET PO SCH (09:58)
[2018-01-22] MEDS: CARVEDILOL 6.25 MG TABLET PO SCH ×2 (09:59→16:50)
[2018-01-22] MEDS: PROSOURCE / PROSTAT (PYXIS) 30 ML UDC PO SCH ×2 (09:59→16:50)
[2018-01-22] MEDS: AMLODIPINE BESYLATE 5 MG TABLET PO SCH (09:59)
[2018-01-22] MEDS: LINEZOLID 600 MG TABLET PO SCH ×2 (10:00→21:19)
[2018-01-22 10:26] LABS: IRON, SERUM 50 ug/dl (50-175); TOTAL IRON BINDING CAPACITY 206 ug/dl (250-450)
[2018-01-22] MEDS: LORAZEPAM INJ 2 MG/ML VIAL IV PRN ×2 (10:30→21:24)
[2018-01-22] MEDS ORDERED: POTASSIUM CHLORIDE 20 MEQ TAB.PRT.SR PO SCH (10:30)
--- NOTE | 2018-01-22 10:35 | NUR ---
RN NOTES PT. UNABLE TO SWALLOW K DUR PILL, DUE TO MEDICATION NEEDS TO BE CRUSHED IN ORDER FOR PT. TO INTAKE. PHARMACY WAS NOTIFIED AND WILL CHANGE TO POWDER FORM.
--- NOTE | 2018-01-22 10:36 | NUR ---
RN NOTES PT. WAS SHOUTING, AND SHOWED SIGNS OF AGITATION. 1 MG OF ATIVAN WAS GIVEN IVP.
[2018-01-22 11:00] LABS: FERRITIN 1205 ng/mL (8-388)
[2018-01-22] MEDS ORDERED: POTASSIUM CHLORIDE 20 MEQ POWDER PACKET PO SCH (11:00)
[2018-01-22] MEDS: IV D5/ 0.9% NACL 1,000 ML IV PRN (12:20)
[2018-01-22 15:34] LABS: BASOPHILS # (AUTO) 0.1 /CMM (0.0-0.2); BASOPHILS % (AUTO) 0.4 % (0.0-2.0); EOSINOPHILS % (AUTO) 1.1 % (0.0-6.0); HEMATOCRIT 27 % (39-51); HEMOGLOBIN 9.1 g/dL (13.5-17.5); LYMPHOCYTES # (AUTO) 1.1 /CMM (0.8-4.8); LYMPHOCYTES % (AUTO) 8.7 % (20.0-44.0); MEAN CORPUSCULAR HGB CONC 34 g/dl (31.0-36.0); MEAN CORPUSCULAR VOLUME 82 fL (80-96); MONOCYTES # (AUTO) 0.7 /CMM (0.1-1.30); MONOCYTES % (AUTO) 5.8 % (2.0-12.0); NEUTROPHILS # (AUTO) 10.9 /CMM (1.8-8.9); PLATELET COUNT (AUTO) 130 /CMM (150-450); RED BLOOD CELL COUNT(AUTO) 3.26 MIL/uL (4.5-6.0); WHITE BLOOD COUNT (AUTO) 12.9 K/uL (4.3-11.0)
[2018-01-22 16:00] VITALS: BP 166/95
--- NOTE | 2018-01-22 19:00 | NUR ---
RN NOTES WOUND CARE WAS PERFORMED TO RIGHT WOUND, AND LEFT HEEL. PT. TOLERATED WELL. RIGHT BKA CLEANED AROUND JOSE WITH IODINE, AND WOUND ABOVE SURGICAL SITE, WRAPPED IN KERLIX, AND FRANCISCO BANDAGE. LEFT HEEL ULCER WAS CLEANSED WITH NORMAL SALINE, AND PACKED WITH 4X4 GAUZE, WRAPPED IN FRANCISCO BANDAGE.
--- NOTE | 2018-01-22 19:06 | NUR ---
RN CLOSING NOTES PT. IN BED, CONFUSED, BLIND IN BOTH EYES. PT.'S IS AT BEDSIDE. BREATHING UNLABORED, AND EVENLY ON ROOM AIR. NO S/S OF ACUTE DISTRESS.CENTRAL LINE ON RIGHT UPPER ARM INTACT AND PATENT, IV FLUIDS RUNNING AT 75 ML/HR. 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 LEFT LEG HAS A CAST WITH BANDAGE WRAPPED AROUND HEEL. BED IS IN LOWEST, AND LOCKED POSITION. 2 SIDE RAILS UP, AND CALL LIGHT WITHIN REACH. ALL NEEDS MET. WILL ENDORSE REPORT TO NURSE.
[2018-01-22 20:00] VITALS: BP 158/76
--- NOTE | 2018-01-22 20:31 | NUR ---
RN OPENING NOTES RECEIVED PT. IN BED, CONFUSED, BREATHING EVEN AND UNLABORED, NO S/S OF ACUTE DISTRESS. CENTRAL LINE ON RIGHT UPPER ARM. 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 LEFT LEG HAS A CAST WITH BANDAGE WRAPPED AROUND HEEL. BED IS IN LOWEST, AND LOCKED POSITION. 2 SIDE RAILS UP, AND CALL LIGHT WITHIN REACH. ALL NEEDS MET WILL CONTINUE TO ASSESS AND MONITOR.
[2018-01-22] MEDS: QUETIAPINE FUMARATE 25 MG TABLET PO SCH (21:19)
[2018-01-22] MEDS: ATORVASTATIN 40 MG TABLET PO SCH (21:19)
[2018-01-22] MEDS: INSULIN GLARGINE, 100 UNIT/ML CARTRIDGE SQ SCH (21:44)
[2018-01-22] MEDS: INSULIN REGULAR, HUMAN 100 UNIT/ML 3 ML VIAL SQ PRN (21:45)
[2018-01-23] MEDS: IV D5/ 0.9% NACL 1,000 ML IV PRN (03:19)
[2018-01-23] MEDS: BLOOD SUGAR DIAGNOSTIC 1 EACH STRIP IN SCH ×4 (06:02→21:32)
[2018-01-23] MEDS: INSULIN REGULAR, HUMAN 100 UNIT/ML 3 ML VIAL SQ PRN ×3 (06:28→17:40)
[2018-01-23 06:31] LABS: CREATININE 1.6 mg/dL (0.6-1.3); POTASSIUM 3.3 mmol/L (3.5-5.1)
--- NOTE | 2018-01-23 06:34 | NUR ---
RN CLOSING NOTES PT. IN BED, CONFUSED, BREATHING EVEN AND UNLABORED, NO S/S OF ACUTE DISTRESS. CENTRAL LINE ON RIGHT UPPER ARM. 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 LEFT LEG HAS A CAST WITH BANDAGE WRAPPED AROUND HEEL. BED IS IN LOWEST, AND LOCKED POSITION. 2 SIDE RAILS UP, AND CALL LIGHT WITHIN REACH. ALL NEEDS MET WILL CONTINUE TO ASSESS AND MONITOR.
--- NOTE | 2018-01-23 07:46 | NUR ---
RN OPENING NOTES RECEIVED PT. IN BED, CONFUSED, BLIND IN BOTH EYES. BREATHING UNLABORED, AND EVENLY ON ROOM AIR. NO S/S OF ACUTE DISTRESS.CENTRAL LINE ON RIGHT UPPER ARM. 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 LEFT LEG HAS A CAST BELOW THE KNEE WITH BANDAGE WRAPPED AROUND HEEL. IV FLUIDS RUNNING AT 75 ML/HR. BED IS IN LOWEST, AND LOCKED POSITION. 2 SIDE RAILS UP, AND CALL LIGHT WITHIN REACH. ALL NEEDS MET WILL CONTINUE TO ASSESS AND MONITOR.
[2018-01-23] MEDS: ACETAMINOPHEN 325 MG TABLET PO PRN (08:06)
[2018-01-23] MEDS: MULTIVIT, IRON, MIN NO. 8, FA 1 TAB PO SCH (08:06)
[2018-01-23] MEDS: FUROSEMIDE 40 MG TABLET PO SCH ×2 (08:06→17:21)
[2018-01-23] MEDS: LINEZOLID 600 MG TABLET PO SCH ×2 (08:07→21:15)
[2018-01-23] MEDS: AMLODIPINE BESYLATE 5 MG TABLET PO SCH (08:07)
[2018-01-23] MEDS: CARVEDILOL 6.25 MG TABLET PO SCH ×2 (08:07→17:21)
[2018-01-23] MEDS: ASCORBIC ACID 500 MG TABLET PO SCH (08:07)
[2018-01-23] MEDS: ASPIRIN EC 81 MG TABLET.DR PO SCH (08:07)
[2018-01-23] MEDS: PROSOURCE / PROSTAT (PYXIS) 30 ML UDC PO SCH ×2 (08:09→17:21)
[2018-01-23] MEDS: Z GUARD REMEDY 2 OZ OINT TP SCH (08:30)
[2018-01-23] MEDS: FENTANYL PF 100MCG/2ML AMPUL IV PRN (08:42)
--- NOTE | 2018-01-23 10:05 | NUR ---
WOUND CARE CONSULT 2ND CONSULT RECEIVED BY WOUND CARE AND PATIENT WAS PREVIOUSLY SEEN BY SENIOR MARKETING ASSOCIATE. ALL TREATMENT PLANS ARE BEING DEFERRED TO DPM DR SPICER AT THIS TIME. I CALLED DR SPICER TO CONFIRM AND HE CONFIRMED CONSULT AND WILL WRITE WOUND TREATMENT PLANS.
[2018-01-23] MEDS ORDERED: POTASSIUM CHLORIDE 10 MEQ TABLET.SA PO ONE (10:30)
[2018-01-23] MEDS ORDERED: POTASSIUM CHLORIDE 20 MEQ TAB.PRT.SR PO ONE (12:00)
[2018-01-23] MEDS: CEFEPIME 2 GM in IV D5W 100 ML IV SCH ×2 (12:11→23:34)
[2018-01-23] MEDS ORDERED: POTASSIUM CHLORIDE 20 MEQ POWDER PACKET PO ONE (15:30)
[2018-01-23] MEDS: hydrALAZINE HCL 25 MG TABLET PO PRN (15:31)
[2018-01-23 16:14] VITALS: BP 184/96
--- NOTE | 2018-01-23 16:33 | NUR ---
RN NOTES CALLED PHARMACY TO CHANGE K DUR ORDER TO POWDER FORM DUE TO UNABLE TO CRUSH MEDICATIONS FOR PT. INTAKE.
[2018-01-23] MEDS ORDERED: HYDROCODONE/APAP 5/325MG 1 EACH TABLET PO PRN (19:30)
--- NOTE | 2018-01-23 19:45 | NUR ---
MS RN OPENING NOTE RECEIVED PT IN BED AWAKE, NO APPARENT DISTRESS NOTED.ON ROOM AIR, RESPIRATIONS EVEN, UNLABORED, NO APPARENT DISTRESS NOTED. NO S/SX OF PAIN OR DISCOMFORT NOTED AT THIS TIME. IV SITE KIMO PICC LINE INTACT. BED LOCKED IN LOWEST POSITION. ATTENDED ALL NEEDS. WILL CONTINUE TO MONITOR ACCORDINGLY
[2018-01-23 20:00] VITALS: BP 174/83
--- NOTE | 2018-01-23 20:00 | NUR ---
RN CLOSING NOTES PT. IS IN BED, SITTING UP, CONFUSED, BLIND IN BOTH EYES. PT.'S , AND SON ARE AT BEDSIDE. PT. BREATHING UNLABORED, AND EVENLY ON ROOM AIR. NO S/S OF ACUTE DISTRESS. CENTRAL LINE ON RIGHT UPPER ARM INTACT AND PATENT, IV FLUIDS RUNNING AT 75 ML/HR. 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 LEFT LEG HAS A CAST WITH BANDAGE WRAPPED AROUND HEEL. WOUND CARE WAS PERFORMED TODAY BY WOUND DOCTOR, AND RIGHT BKA DRESSING CHANGED. PT.'S BLADDER WAS DISTENDED ON PALPATION, WILL ENDORSE BLADDER SCAN. NORCO FOR PAIN WAS ORDERED PER FAMILY REQUEST. PT.'S BLOOD PRESSURE WAS ELEVATED TODAY, AND INORGANIC CHEMIST WAS MADE AWARE. DISCUSSED WITH PT.'S FAMILY REGARDING PT.'S CONDITION. PROVIDED SON INFORMATION TO CALL BACK TO SPEAK WITH HOSPITALIST TO HELP BETTER UNDERSTAND HIS DAD'S CONDITION, AND TREATMENT PLAN. BED IS IN LOWEST, AND LOCKED POSITION. 2 SIDE RAILS UP, AND CALL LIGHT WITHIN REACH. ALL NEEDS MET. WILL ENDORSE REPORT TO NURSE.
--- NOTE | 2018-01-23 20:30 | NUR ---
MS RN NOTE PT NOTED WITH BLADDER DISTENTION. BLADDER SCAN DONE WITH RESULTS ABOVE 600ML URINE.NOTIFIED LATONYA VELEZ, DILIP NEW ORDER RECEIVED TO INSERT RAYGOZA CATHETER AND TO COLLECT URINE FOR CULTURE AND SENSITIVITY.WILL CONTINUE TO MONITOR ATTENDED ALL NEEDS.
[2018-01-23] MEDS: ATORVASTATIN 40 MG TABLET PO SCH (21:15)
[2018-01-23] MEDS: QUETIAPINE FUMARATE 25 MG TABLET PO SCH (21:15)
[2018-01-23] MEDS: INSULIN GLARGINE, 100 UNIT/ML CARTRIDGE SQ SCH (21:33)
[2018-01-24] MEDS: IV D5/ 0.9% NACL 1,000 ML IV PRN ×2 (04:31→10:29)
[2018-01-24] MEDS: INSULIN REGULAR, HUMAN 100 UNIT/ML 3 ML VIAL SQ PRN ×2 (05:50→22:21)
[2018-01-24] MEDS: BLOOD SUGAR DIAGNOSTIC 1 EACH STRIP IN SCH ×4 (05:50→22:15)
--- NOTE | 2018-01-24 06:49 | NUR ---
MS RN CLOSING NOTES PT IN BED AWAKE, ON ROOM AIR, RESPIRATIONS EVEN, UNLABORED NO APPARENT DISTRESS NOTED.NO S/SX OF PAIN OR DISCOMFORT NOTED AT THIS TIME. IV SITE INTACT, PATENT F/C IN PLACE DRAINING YELLOW COLOR URINE. ATTENDED ALL NEEDS. WILL CONTINUE TO MONITOR ACCORDINGLY.
--- NOTE | 2018-01-24 07:29 | NUR ---
MS/RN OPENING NOTE PATIENT NOTED IN BED WITH EYES CLOSED. NON VERBAL AT THIS TIME, LEGALLY BLIND. NO SINGS OF ACUTE DISTRESS. NO COMPLAIN OF PAIN OR DISCOMFORT. HOB ELEVATED, ALL NEEDS ATTENDED TO. CALL LIGHT WITHIN REACH. WILL CONTINUE TO MONITOR TO ENSURE SAFETY.
[2018-01-24 08:00] VITALS: BP 135/73
[2018-01-24] MEDS ORDERED: IPRATROPIUM NEB FS 0.5 MG/2.5 ML AMPUL.NEB NEB PRN (09:00)
[2018-01-24] MEDS ORDERED: ALBUTEROL FS 2.5 MG/0.5 ML VIAL.NEB NEB PRN (09:00)
[2018-01-24] MEDS: Z GUARD REMEDY 2 OZ OINT TP SCH (09:00)
[2018-01-24] MEDS: PROSOURCE / PROSTAT (PYXIS) 30 ML UDC PO SCH ×2 (09:00→17:00)
--- NOTE | 2018-01-24 09:00 | NUR ---
MS/RN SPOKE WITH KASEY SPOKE WITH GUNSTOCK REPAIRER KASEY AND MADE AWARE PATIENT NOTED VERY LETHARGIC, CONGESTED AND DESATURATING. OXYGEN 2L VIA NC STARTED TOLERATING WELL, PER GUNSTOCK REPAIRER KASEY STAT CBC, CMP, CXR, HGBAIC, BREATHING TREATMENT, TELE MONITOR. AND TO TRANSFER PATIENT TO [facility].
--- NOTE | 2018-01-24 09:30 | NUR ---
MS/RN TRANSFERRED TO [facility] PATIENT TRANSFER TO [facility] 113-1, REPORT GIVEN TO JENISE BLISS FOR ANGEL. RESPONSIBLE REPUBLICAN SON AWARE.
[2018-01-24 10:00] VITALS: BP 113/68
--- NOTE | 2018-01-24 10:00 | NUR ---
Patient admitted from Med Surg floor. No s/s of distress .Breathing even and unlabored.On 2 LPM O2. On Telemetry monitoring .I.V CDI and patent .Patient is confused at this time.Providers Roge and made aware.will continue to monitor for changes.
[2018-01-24 10:08] LABS: BASOPHILS % (AUTO) 0.4 % (0.0-2.0); EOSINOPHILS % (AUTO) 1.1 % (0.0-6.0); HEMATOCRIT 26 % (39-51); HEMOGLOBIN 8.7 g/dL (13.5-17.5); LYMPHOCYTES # (AUTO) 1.6 /CMM (0.8-4.8); LYMPHOCYTES % (AUTO) 16.1 % (20.0-44.0); MEAN CORPUSCULAR HGB CONC 34 g/dl (31.0-36.0); MEAN CORPUSCULAR VOLUME 81 fL (80-96); MONOCYTES # (AUTO) 0.8 /CMM (0.1-1.30); MONOCYTES % (AUTO) 7.8 % (2.0-12.0); NEUTROPHILS # (AUTO) 7.3 /CMM (1.8-8.9); NEUTROPHILS % (AUTO) 74.6 % (43.0-81.0); PLATELET COUNT (AUTO) 68 /CMM (150-450); RDW COEFFICIENT OF VARIATION 16.5 (11.5-15.0); RED BLOOD CELL COUNT(AUTO) 3.23 MIL/uL (4.5-6.0); WHITE BLOOD COUNT (AUTO) 9.8 K/uL (4.3-11.0)
[2018-01-24 10:23] LABS: ABG BASE EXCESS 1.5 mmol/L; ABG OXYGEN SATURATION 96.4 % (92.0-98.5); ABG PCO2 34.3 mmHg (35.0-45.0); ABG PH 7.479 (7.350-7.450); ABG PO2 101.1 mmHg (75.0-100.0); AaDO2 58.1 mmHg; MetHb 0.5 % (0.0-1.5); SITE, ABG Right Radial; VENT MODE, BG NASAL CANNULA
[2018-01-24 10:23] LABS: CALCIUM, SERUM 8.1 mg/dL (8.5-10.1); CREATININE 1.7 mg/dL (0.6-1.3); POTASSIUM 3.5 mmol/L (3.5-5.1)
[2018-01-24] MEDS: LINEZOLID 600 MG TABLET PO SCH ×2 (10:36→21:53)
[2018-01-24] MEDS: ASCORBIC ACID 500 MG TABLET PO SCH (10:36)
[2018-01-24] MEDS: CARVEDILOL 6.25 MG TABLET PO SCH ×2 (10:36→17:00)
[2018-01-24] MEDS: MULTIVIT, IRON, MIN NO. 8, FA 1 TAB PO SCH (10:37)
[2018-01-24] MEDS: FUROSEMIDE 40 MG TABLET PO SCH ×2 (10:37→17:00)
[2018-01-24] MEDS: ASPIRIN EC 81 MG TABLET.DR PO SCH (10:37)
[2018-01-24] MEDS: AMLODIPINE BESYLATE 5 MG TABLET PO SCH (10:37)
[2018-01-24 10:43] LABS: EOSINOPHILS % (MANUAL) 1 % (0-4); LYMPHOCYTES % (MANUAL) 11 % (16-48); MONOCYTES % (MANUAL) 3 % (0-11.0); NEUTROPHILS % (MANUAL) 85 (42-76)
[2018-01-24] MEDS ORDERED: hydrALAZINE HCL IV 20 MG VIAL IV PRN (12:00)
[2018-01-24] MEDS: hydrALAZINE HCL IV 20 MG VIAL IV PRN ×2 (12:14→19:14)
[2018-01-24] MEDS ORDERED: LORAZEPAM INJ 2 MG/ML VIAL IV PRN (12:30)
[2018-01-24] MEDS: ALBUTEROL FS 2.5 MG/0.5 ML VIAL.NEB NEB SCH ×3 (12:30→20:06)
[2018-01-24] MEDS: IPRATROPIUM NEB FS 0.5 MG/2.5 ML AMPUL.NEB NEB SCH ×3 (12:30→20:06)
[2018-01-24] MEDS: ACETYLCYSTEINE 10% SOLN 400 MG/4 ML VIAL NEB SCH ×3 (12:58→23:26)
[2018-01-24] MEDS: CEFEPIME 2 GM in IV D5W 100 ML IV SCH (14:31)
[2018-01-24 16:00] VITALS: BP 180/92
[2018-01-24 20:00] VITALS: BP 162/66
--- NOTE | 2018-01-24 20:00 | NUR ---
[facility] RN NOTES RECEIVED PTS ON BED WITH EYE OPEN NON VERBAL LETHARGIC . ON ON NC AT 3 LITERS OF O2 97%, ON D5 NS AT 75CC/HR WELL TOLERATED PICCLINE IN KIMO INTACT AND PATENT NOTED WITH DOUBLE LUMEN .PER ENDORSEMENT PTS UNABLE TO SWALLOW , SPOKE TO KASEY WITH ORDER AND DISCUSS WITH FAMILY PTS NEEDS NGT AND DIETARY AND GI EVAL FOR GT PLACEMENT . NGT INSERTED PLACEMENT CHECKED WITH TWO RN ,XRAY DONE TO COFIRM PLACEMENT. PER XRAY RESULT NGT IN THE STOMACH , MADE AWARE MAY USE NGT FOR MEDICATION , PTS IS NPO EXCEPT MEDS, F/C INTACT AND PATENT DRAINING WITH YELLOWISH URINE OUTPUT.HOB ELEVATED FOR ASPIRATION PRECAUTION , TURNED AND REPOSITION .ALL NEEDS ATTENDED TOO CALL LIGHT WITHIN REACH DUE MEDS GIVEN ORDERED KEPT PTS CLEAN DRY AND COMFORTABLE. WILL CONTINUE TO MONITOR PTS.V/S STABLE AFEBRILE.
[2018-01-24] MEDS: QUETIAPINE FUMARATE 25 MG TABLET PO SCH (21:00)
[2018-01-24] MEDS ORDERED: NITROGLYCERIN PACKET 1 GM PACKET ONE (21:45)
[2018-01-24] MEDS: ATORVASTATIN 40 MG TABLET PO SCH (21:53)
[2018-01-24] MEDS: NITROGLYCERIN 30 GM TUBE TP SCH (21:55)
--- NOTE | 2018-01-24 21:58 | NUR ---
[facility] RN NOTES SEROQUEL ORDER NOT GIVEN SECONDARY TO PTS IS LETHARGIC
--- NOTE | 2018-01-24 22:00 | NUR ---
[facility] RN NOTES BLOOD SUGAR AT 10PM IS 172 MG/DL- 16 UNITS SQ INJ GIVEN ORDERED AND 3 UNITS OF REGULAR INSULIN GIVEN PER SLIDING SCALE , PTS ON D5NS AT 75CC/HR , WILL CHECKED BLOOD SUGAR AGAIN IN AM.
[2018-01-24] MEDS: INSULIN GLARGINE, 100 UNIT/ML CARTRIDGE SQ SCH (22:15)
[2018-01-25] VITALS: BP 157/80
--- NOTE | 2018-01-25 00:30 | NUR ---
[facility] RN NOTES BP -157/80- APRESOLINE 25 MG GIVEN VIA NGT ORDERED
[2018-01-25] MEDS: hydrALAZINE HCL 25 MG TABLET PO PRN ×3 (00:38→08:50)
[2018-01-25] MEDS: CEFEPIME 2 GM in IV D5W 100 ML IV SCH ×3 (00:44→23:55)
[2018-01-25] MEDS: IV D5/ 0.9% NACL 1,000 ML IV PRN ×2 (00:50→17:13)
[2018-01-25] MEDS: IPRATROPIUM NEB FS 0.5 MG/2.5 ML AMPUL.NEB NEB SCH ×4 (01:41→19:06)
[2018-01-25] MEDS: ALBUTEROL FS 2.5 MG/0.5 ML VIAL.NEB NEB SCH ×4 (01:41→19:06)
[2018-01-25 04:00] VITALS: BP 164/80
--- NOTE | 2018-01-25 06:23 | NUR ---
lito rn notes pts remains in bed with eye opening ,non verbal npo status , remains on ngt intact and patent , iv fluids of d5ns at 75cc/hr in progress, all needs attended too call light within reach will endorse to rn day shift for continuity of care.
[2018-01-25 07:24] LABS: BASOPHILS % (AUTO) 0.2 % (0.0-2.0); EOSINOPHILS % (AUTO) 0.4 % (0.0-6.0); HEMATOCRIT 24 % (39-51); HEMOGLOBIN 7.9 g/dL (13.5-17.5); LYMPHOCYTES # (AUTO) 1.2 /CMM (0.8-4.8); LYMPHOCYTES % (AUTO) 11.1 % (20.0-44.0); MEAN CORPUSCULAR HGB CONC 33 g/dl (31.0-36.0); MEAN CORPUSCULAR VOLUME 81 fL (80-96); MONOCYTES # (AUTO) 0.7 /CMM (0.1-1.30); MONOCYTES % (AUTO) 6.8 % (2.0-12.0); NEUTROPHILS # (AUTO) 8.7 /CMM (1.8-8.9); NEUTROPHILS % (AUTO) 81.5 % (43.0-81.0); PLATELET COUNT (AUTO) 67 /CMM (150-450); RDW COEFFICIENT OF VARIATION 17.6 (11.5-15.0); RED BLOOD CELL COUNT(AUTO) 2.95 MIL/uL (4.5-6.0); WHITE BLOOD COUNT (AUTO) 10.7 K/uL (4.3-11.0)
[2018-01-25 07:39] LABS: CALCIUM, SERUM 8.2 mg/dL (8.5-10.1); POTASSIUM 3.2 mmol/L (3.5-5.1); TROPONIN I 0.025 ng/mL (0.00-0.056)
[2018-01-25 07:40] LABS: BILIRUBIN,TOTAL 0.4 mg/dL (0.2-1.0); CREATININE 1.8 mg/dL (0.6-1.3); MAGNESIUM 1.7 mg/dL (1.8-2.4); PHOSPHORUS 3.4 mg/dL (2.5-4.9); TOTAL PROTEIN, SERUM 7.1 g/dL (6.4-8.2)
[2018-01-25] MEDS: ACETYLCYSTEINE 10% SOLN 400 MG/4 ML VIAL NEB SCH ×2 (07:47→15:01)
[2018-01-25 08:00] VITALS: BP 163/84
[2018-01-25] MEDS ORDERED: POTASSIUM CHLORIDE 20 MEQ POWDER PACKET GT ONE (08:30)
[2018-01-25] MEDS ORDERED: Magnesium 1GM/D5W 100ML PREMIX PIGGYBACK IV ONE (08:30)
[2018-01-25] MEDS: BLOOD SUGAR DIAGNOSTIC 1 EACH STRIP IN SCH ×4 (08:41→21:52)
[2018-01-25] MEDS: Z GUARD REMEDY 2 OZ OINT TP SCH (08:41)
[2018-01-25] MEDS: AMLODIPINE BESYLATE 5 MG TABLET PO SCH (08:49)
[2018-01-25] MEDS: ASPIRIN EC 81 MG TABLET.DR PO SCH (08:49)
[2018-01-25] MEDS: MULTIVIT, IRON, MIN NO. 8, FA 1 TAB PO SCH (08:49)
[2018-01-25] MEDS: CARVEDILOL 6.25 MG TABLET PO SCH ×2 (08:49→17:13)
[2018-01-25] MEDS: ASCORBIC ACID 500 MG TABLET PO SCH (08:49)
[2018-01-25] MEDS: LINEZOLID 600 MG TABLET PO SCH ×2 (08:49→21:39)
[2018-01-25] MEDS: FUROSEMIDE 40 MG TABLET PO SCH ×2 (08:49→17:13)
[2018-01-25] MEDS: PROSOURCE / PROSTAT (PYXIS) 30 ML UDC PO SCH ×2 (08:54→17:13)
[2018-01-25] MEDS: NITROGLYCERIN 30 GM TUBE TP SCH ×2 (08:55→21:39)
[2018-01-25 09:12] LABS: LYMPHOCYTES % (MANUAL) 12 % (16-48); MONOCYTES % (MANUAL) 6 % (0-11.0); NEUTROPHILS % (MANUAL) 82 (42-76)
[2018-01-25] MEDS ORDERED: POTASSIUM CHLORIDE 20 MEQ POWDER PACKET NG SCH (09:30)
[2018-01-25 10:18] LABS: THYROID STIMULATING HORMONE 3.657 uIU/mL (0.358-3.74); URIC ACID 5.1 mg/dL (2.6-7.2)
[2018-01-25 12:00] VITALS: BP_SYST 159; BP_SYST 161; BP_DIAS 67; BP_DIAS 76
[2018-01-25 16:00] VITALS: BP 170/85
--- NOTE | 2018-01-25 19:25 | NUR ---
SCHOOL JANITOR NOTE RECEIVED PATIENT RESTING COMFORTABLY IN BED WITH HOB ELEVATED, CONFUSED/ LETHARGIC, ON TELE SR 97, ON 2 L O2 VIA NC, NO S/SX OF RESPIRATORY DISTRESS, F/C DRAINING TO GRAVITY, G TUBE FEEDING GLUCERNA 1.2 AT 20 ML/HR, NPO AFTER MIDNIGHT FOR EGD TOMORROW, KIMO PICC LINE PATENT FLUSHING WELL, WITH DWNS AT 75 ML/HR, SKIN KEPT CLEAN AND DRY, SAFETY MAINTAINED AT ALL TIMES, BED IN LOW LOCKED POSITION, CALL LIGHT WITHIN REACH, WILL CONTINUE TO MONITOR.
[2018-01-25] MEDS: hydrALAZINE HCL IV 20 MG VIAL IV PRN (19:56)
[2018-01-25 20:00] VITALS: BP 182/87
[2018-01-25] MEDS: ATORVASTATIN 40 MG TABLET PO SCH (21:39)
[2018-01-25] MEDS: QUETIAPINE FUMARATE 25 MG TABLET PO SCH (21:39)
[2018-01-25] MEDS: INSULIN GLARGINE, 100 UNIT/ML CARTRIDGE SQ SCH (21:43)
[2018-01-25] MEDS: INSULIN REGULAR, HUMAN 100 UNIT/ML 3 ML VIAL SQ PRN (21:51)
[2018-01-25] MEDS: GLUCERNA 1.2 1,000 ML BOTTLE NG PRN (21:52)
[2018-01-26] VITALS (12 sets, daily range): BP systolic 133–179; BP diastolic 62–84
[2018-01-26] MEDS: IPRATROPIUM NEB FS 0.5 MG/2.5 ML AMPUL.NEB NEB SCH ×4 (01:08→20:02)
[2018-01-26] MEDS: ACETYLCYSTEINE 10% SOLN 400 MG/4 ML VIAL NEB SCH ×3 (01:08→15:10)
[2018-01-26] MEDS: ALBUTEROL FS 2.5 MG/0.5 ML VIAL.NEB NEB SCH ×4 (01:08→20:02)
[2018-01-26 06:41] LABS: BASOPHILS % (AUTO) 0.1 % (0.0-2.0); EOSINOPHILS % (AUTO) 0.4 % (0.0-6.0); HEMATOCRIT 21 % (39-51); LYMPHOCYTES # (AUTO) 1.1 /CMM (0.8-4.8); LYMPHOCYTES % (AUTO) 8.5 % (20.0-44.0); MEAN CORPUSCULAR HGB CONC 33 g/dl (31.0-36.0); MEAN CORPUSCULAR VOLUME 82 fL (80-96); MONOCYTES # (AUTO) 0.8 /CMM (0.1-1.30); NEUTROPHILS # (AUTO) 11.6 /CMM (1.8-8.9); PLATELET COUNT (AUTO) 86 /CMM (150-450); RDW COEFFICIENT OF VARIATION 17.3 (11.5-15.0); RED BLOOD CELL COUNT(AUTO) 2.58 MIL/uL (4.5-6.0); WHITE BLOOD COUNT (AUTO) 13.6 K/uL (4.3-11.0)
[2018-01-26 06:53] LABS: HEMOGLOBIN 6.9 g/dL (13.5-17.5)
--- NOTE | 2018-01-26 07:00 | NUR ---
RN NOTE RECEIVED PATIENT ON BED, LETHARGIC , NON VERBAL , ON 2L O2 N/C , NO SOB NOTED, ON TELE SR, HR IN 80'S , RAYGOZA DRINING TO GRAVITY WELL, PT IS NPO THIS AM FOR PEG PLACEMENT, HEMOGLOBIN 6.9 THIS AM , ANDREA BLISS NOTIFED IN OR , D5NS AT 75CC/HR RUNNING VIA R UPPER ARM PICC LINE, SITE CDI, SKIN KEPT CLEAN AND DRY, SAFETY MAINTAINED AT ALL TIMES, BED IN LOW LOCKED POSITION, CALL LIGHT WITHIN EASY REACH, WILL CONTINUE TO MONITOR.
[2018-01-26 07:06] LABS: ALBUMIN 1.8 g/dL (3.4-5.0); BILIRUBIN,TOTAL 0.4 mg/dL (0.2-1.0); CALCIUM, SERUM 8.2 mg/dL (8.5-10.1); CREATININE 1.8 mg/dL (0.6-1.3); MAGNESIUM 1.9 mg/dL (1.8-2.4); PHOSPHORUS 3.5 mg/dL (2.5-4.9); POTASSIUM 3.2 mmol/L (3.5-5.1)
--- NOTE | 2018-01-26 07:07 | NUR ---
RECORD CHANGER NOTE CALL FROM LAB FOR HGB 6.9 AND HCT 21, PER DR PACHECO GIVE 1 UNIT PRBC.
[2018-01-26] MEDS: BLOOD SUGAR DIAGNOSTIC 1 EACH STRIP IN SCH ×4 (07:30→21:27)
--- NOTE | 2018-01-26 09:00 | NUR ---
RN NOTES PT BACK FROM OR , G- TUBE SITE WITH SMALL AMOUNT OF BLOODY DRAINING , DRESSING REINFORCE , CONTINE TO MONITOR .
[2018-01-26] MEDS: ASCORBIC ACID 500 MG TABLET PO SCH (09:06)
[2018-01-26] MEDS: ASPIRIN EC 81 MG TABLET.DR PO SCH (09:06)
[2018-01-26] MEDS: AMLODIPINE BESYLATE 5 MG TABLET PO SCH (09:06)
[2018-01-26] MEDS: MULTIVIT, IRON, MIN NO. 8, FA 1 TAB PO SCH (09:07)
[2018-01-26] MEDS: CARVEDILOL 6.25 MG TABLET PO SCH ×2 (09:07→17:30)
[2018-01-26] MEDS: FUROSEMIDE 40 MG TABLET PO SCH (09:07)
[2018-01-26] MEDS: PROSOURCE / PROSTAT (PYXIS) 30 ML UDC PO SCH ×2 (09:08→17:31)
[2018-01-26] MEDS: Z GUARD REMEDY 2 OZ OINT TP SCH (09:08)
[2018-01-26] MEDS: LINEZOLID 600 MG TABLET PO SCH ×2 (09:10→20:09)
[2018-01-26] MEDS: NITROGLYCERIN 30 GM TUBE TP SCH ×2 (09:10→20:10)
--- NOTE | 2018-01-26 09:58 | NUR ---
RN NOTES PT SABLE , ONE UNIT OF PRBC STATED PER MD ORDER , CONTINUE TO MONITOR .
[2018-01-26] MEDS ORDERED: POTASSIUM CHLORIDE 10 MEQ TABLET.SA PO ONE (10:00)
[2018-01-26] MEDS: hydrALAZINE HCL IV 20 MG VIAL IV PRN (10:10)
[2018-01-26] MEDS ORDERED: POTASSIUM CHLORIDE 20 MEQ POWDER PACKET GT SCH (10:30)
[2018-01-26] MEDS: CEFEPIME 2 GM in IV D5W 100 ML IV SCH ×2 (11:55→23:30)
[2018-01-26] MEDS: IV D5/ 0.9% NACL 1,000 ML IV PRN (12:25)
[2018-01-26 14:40] LABS: BAND % (MANUAL) 1 % (0.0-5.0); LYMPHOCYTES % (MANUAL) 11 % (16-48); MONOCYTES % (MANUAL) 5 % (0-11.0); NEUTROPHILS % (MANUAL) 83 (42-76)
[2018-01-26 16:05] LABS: HEMOGLOBIN 8.2 g/dL (13.5-17.5)
[2018-01-26] MEDS: POVIDONE-IODINE OINT 28.4 GM TUBE TP SCH (17:00)
--- NOTE | 2018-01-26 17:17 | NUR ---
RN NOTES RADIOLOGY IS UNABLE TO GET CT OF THE HEAD DONE DUE PT BODY JERKING MOVEMENT , KASEY GROUND SERVICES INSTRUCTOR NOTIFED , ORDER RECEIVED FOR ATIVAN 1 MG IV TO BE GIVEN . CONTINUE TO MONITOR.
[2018-01-26] MEDS ORDERED: LORAZEPAM INJ 2 MG/ML VIAL IV PRN (17:30)
--- NOTE | 2018-01-26 18:00 | NUR ---
RN NOTES PT PEG TUBE SITE CDI, SUPPORTIVE AT THE BEDSIDE, D5NS AT 75CC/HR RUNNING VIA R UPPER ARM PICC LINE , RAYGOZA DRAINING TO GRAVITY, SR UP x3 , CALL LIGHT WITHIN EASY REACH, WILL ENDOSE TO NURSE EXECUTIVE NURSE FOR ANGEL.
--- NOTE | 2018-01-26 19:20 | NUR ---
RN M/S NOTE RECEIVED PATIENT RESTING COMFORTABLY IN BED WITH HOB ELEVATED, CONFUSED/ LETHARGIC, ON TELE SR 84, ON 2 L O2 VIA NC, NO S/SX OF RESPIRATORY DISTRESS, F/C DRAINING TO GRAVITY, G TUBE CLAMPED, PATENT, FLUSHING, NPO, KIMO PICC LINE, PATENT FLUSHING WELL, WITH D5NS AT 75 ML/HR, SKIN KEPT CLEAN AND DRY, SAFETY MAINTAINED AT ALL TIMES, BED IN LOW LOCKED POSITION, CALL LIGHT WITHIN REACH, WILL CONTINUE TO MONITOR.
[2018-01-26] MEDS ORDERED: FLUCONAZOLE (100 MG) 100 MG TABLET PO SCH (20:00)
[2018-01-26] MEDS: INSULIN REGULAR, HUMAN 100 UNIT/ML 3 ML VIAL SQ PRN (21:27)
[2018-01-26] MEDS: ATORVASTATIN 40 MG TABLET PO SCH (21:28)
[2018-01-26] MEDS: INSULIN GLARGINE, 100 UNIT/ML CARTRIDGE SQ SCH (21:28)
[2018-01-27] MEDS: ACETYLCYSTEINE 10% SOLN 400 MG/4 ML VIAL NEB SCH ×4 (00:03→23:25)
[2018-01-27] MEDS: ALBUTEROL FS 2.5 MG/0.5 ML VIAL.NEB NEB SCH ×4 (01:56→19:45)
[2018-01-27] MEDS: IPRATROPIUM NEB FS 0.5 MG/2.5 ML AMPUL.NEB NEB SCH ×4 (01:56→19:45)
[2018-01-27 04:00] VITALS: BP 146/80
[2018-01-27 05:11] LABS: HAPTOGLOBIN 207 mg/dL (34-200)
[2018-01-27 06:33] LABS: BASOPHILS % (AUTO) 0.2 % (0.0-2.0); EOSINOPHILS % (AUTO) 0.4 % (0.0-6.0); HEMATOCRIT 25 % (39-51); HEMOGLOBIN 8.4 g/dL (13.5-17.5); LYMPHOCYTES # (AUTO) 1.3 /CMM (0.8-4.8); LYMPHOCYTES % (AUTO) 7.6 % (20.0-44.0); MEAN CORPUSCULAR HGB CONC 33 g/dl (31.0-36.0); MEAN CORPUSCULAR VOLUME 82 fL (80-96); MONOCYTES # (AUTO) 0.7 /CMM (0.1-1.30); MONOCYTES % (AUTO) 4.2 % (2.0-12.0); NEUTROPHILS # (AUTO) 15.1 /CMM (1.8-8.9); NEUTROPHILS % (AUTO) 87.6 % (43.0-81.0); PLATELET COUNT (AUTO) 120 /CMM (150-450); RDW COEFFICIENT OF VARIATION 17.1 (11.5-15.0); RED BLOOD CELL COUNT(AUTO) 3.07 MIL/uL (4.5-6.0); WHITE BLOOD COUNT (AUTO) 17.2 K/uL (4.3-11.0)
[2018-01-27 06:41] LABS: CREATININE 1.8 mg/dL (0.6-1.3); POTASSIUM 3.2 mmol/L (3.5-5.1)
--- NOTE | 2018-01-27 07:00 | NUR ---
RN NOTE RECEIVED PATIENT ON BED, LETHARGIC/ NON VERBAL , ON RA , RESPIRATION EVEN AND UNLABORED, NO SOB NOTED , RAYGOZA DRAINING TO GRAVITY WITH YELLOW URINE, G TUBE IS CLAMPED AT THIS TIME , WILL START TF PER MD ORDER THIS AM, PT IS NPO, R UA PICC LINE SITE CDI, PATENT FLUSHING WELL, WITH D5NS AT 75 ML/HR RUNNING , SR UP x3, CALL LIGHT WITHIN EASY REACH, L LEG CAST ON AND INTACT , SAFETY MAINTAINED AT ALL TIMES, BED LOCKED AND IN LOWEST POSITION, WILL CONTINUE TO MONITOR.
[2018-01-27 08:00] VITALS: BP 187/86
[2018-01-27 08:10] LABS: *SPE A/G RATIO 0.7 (0.7-1.7); *SPE ALBUMIN 2.6 g/dL (2.9-4.4); *SPE ALPHA-1-GLOBULIN 0.3 g/dL (0.0-0.4); *SPE ALPHA-2-GLOBULIN 0.7 g/dL (0.4-1.0); *SPE M-SPIKE Not Observed g/dL (Not Observed)
[2018-01-27] MEDS: ASPIRIN EC 81 MG TABLET.DR PO SCH (08:14)
[2018-01-27] MEDS: CARVEDILOL 6.25 MG TABLET PO SCH ×2 (08:15→16:30)
[2018-01-27] MEDS: AMLODIPINE BESYLATE 5 MG TABLET PO SCH (08:15)
[2018-01-27] MEDS: MULTIVIT, IRON, MIN NO. 8, FA 1 TAB PO SCH (08:15)
[2018-01-27] MEDS: LINEZOLID 600 MG TABLET PO SCH ×2 (08:16→21:06)
[2018-01-27] MEDS: ASCORBIC ACID 500 MG TABLET PO SCH (08:16)
[2018-01-27] MEDS: NITROGLYCERIN 30 GM TUBE TP SCH ×2 (08:16→21:07)
[2018-01-27] MEDS: PROSOURCE / PROSTAT (PYXIS) 30 ML UDC PO SCH ×2 (08:17→16:36)
[2018-01-27] MEDS: GLUCERNA 1.2 1,000 ML BOTTLE NG PRN (08:17)
[2018-01-27] MEDS: BLOOD SUGAR DIAGNOSTIC 1 EACH STRIP IN SCH ×4 (08:18→21:08)
[2018-01-27] MEDS: POVIDONE-IODINE OINT 28.4 GM TUBE TP SCH ×2 (08:19→16:37)
[2018-01-27] MEDS: Z GUARD REMEDY 2 OZ OINT TP SCH (08:19)
--- NOTE | 2018-01-27 09:05 | NUR ---
RT NOTE: PATIENT WAS NT SUCTIONED AT THIS TIME TO OBTAIN LARGE AMOUNT OF THICK ADAMSON/BLOODY SECRETIONS AND SMALL DARK BROWN CLOTS. PATIENT WAS PLACED ON OXYGEN AT 5LPM VIA NASAL CANNULA WITH HUMIDIFIER. SP02=[id number]%. NURSE (CUCO) NOTIFIED.
[2018-01-27 09:27] LABS: BAND % (MANUAL) 3 % (0.0-5.0); LYMPHOCYTES % (MANUAL) 9 % (16-48); MONOCYTES % (MANUAL) 4 % (0-11.0); NEUTROPHILS % (MANUAL) 84 (42-76)
[2018-01-27] MEDS: POTASSIUM CHLORIDE 20 MEQ POWDER PACKET NG SCH ×3 (11:28→16:29)
[2018-01-27] MEDS: CEFEPIME 2 GM in IV D5W 100 ML IV SCH (11:28)
[2018-01-27 12:00] VITALS: BP 175/85
[2018-01-27] MEDS: hydrALAZINE HCL IV 20 MG VIAL IV PRN (13:24)
--- NOTE | 2018-01-27 14:00 | NUR ---
RN NOTES PT ON 5L O2 N/C , O2 SAT 95%, CONTINUE TO MONITOR .
[2018-01-27 16:00] VITALS: BP 161/73
[2018-01-27 16:08] VITALS: BP 161/73
[2018-01-27] MEDS: INSULIN REGULAR, HUMAN 100 UNIT/ML 3 ML VIAL SQ PRN ×2 (16:49→21:14)
[2018-01-27] MEDS: MICAFUNGIN SODIUM 100 MG in IV NS 0.9% 100 ML IV SCH (17:33)
--- NOTE | 2018-01-27 18:25 | NUR ---
RN NOTES T =99.9 AXILLARY , JAIME RADIO ARTIST NOTIFED , NO NEW ORDER GIVEN , CONTINUE D5NS AT 75CC/HR PER WILSTEIN RADIO ARTIST ORDER , R UPPER ARM PICC LINE SITE CDI, RAYGOZA DRAINING TO GRAVITY , SUPPORTIVE AT THE BEDSIDE, WILL ENDORSE TO ARIADNE SHIFT NURSE FOR ANGEL .
[2018-01-27] MEDS: MEROPENEM 500 MG in IV NS 0.9% 50 ML IV SCH (18:30)
[2018-01-27 20:00] VITALS: BP 153/78
[2018-01-27] MEDS: ATORVASTATIN 40 MG TABLET PO SCH (21:08)
[2018-01-27] MEDS: INSULIN GLARGINE, 100 UNIT/ML CARTRIDGE SQ SCH (21:12)
[2018-01-28] MEDS: ALBUTEROL FS 2.5 MG/0.5 ML VIAL.NEB NEB SCH ×4 (00:50→19:49)
[2018-01-28] MEDS: IPRATROPIUM NEB FS 0.5 MG/2.5 ML AMPUL.NEB NEB SCH ×4 (00:50→19:49)
[2018-01-28] MEDS: IV D5/ 0.9% NACL 1,000 ML IV PRN ×2 (01:32→18:30)
[2018-01-28 04:00] VITALS: BP 165/74
[2018-01-28] MEDS: hydrALAZINE HCL IV 20 MG VIAL IV PRN (04:15)
[2018-01-28] MEDS: MEROPENEM 500 MG in IV NS 0.9% 50 ML IV SCH ×2 (05:44→18:06)
[2018-01-28] MEDS: INSULIN REGULAR, HUMAN 100 UNIT/ML 3 ML VIAL SQ PRN ×4 (05:51→18:07)
[2018-01-28 06:48] LABS: BASOPHILS # (AUTO) 0.1 /CMM (0.0-0.2); BASOPHILS % (AUTO) 0.3 % (0.0-2.0); EOSINOPHILS % (AUTO) 0.2 % (0.0-6.0); HEMATOCRIT 25 % (39-51); HEMOGLOBIN 8.3 g/dL (13.5-17.5); LYMPHOCYTES # (AUTO) 1.2 /CMM (0.8-4.8); LYMPHOCYTES % (AUTO) 6.5 % (20.0-44.0); MEAN CORPUSCULAR HGB CONC 33 g/dl (31.0-36.0); MEAN CORPUSCULAR VOLUME 83 fL (80-96); MONOCYTES # (AUTO) 0.8 /CMM (0.1-1.30); NEUTROPHILS # (AUTO) 16.6 /CMM (1.8-8.9); PLATELET COUNT (AUTO) 165 /CMM (150-450); RDW COEFFICIENT OF VARIATION 17.4 (11.5-15.0); WHITE BLOOD COUNT (AUTO) 18.7 K/uL (4.3-11.0)
[2018-01-28] MEDS: ACETYLCYSTEINE 10% SOLN 400 MG/4 ML VIAL NEB SCH ×3 (07:24→23:22)
[2018-01-28 07:34] LABS: CALCIUM, SERUM 7.9 mg/dL (8.5-10.1); CREATININE 1.9 mg/dL (0.6-1.3); MAGNESIUM 1.8 mg/dL (1.8-2.4); PHOSPHORUS 3.3 mg/dL (2.5-4.9); POTASSIUM 3.6 mmol/L (3.5-5.1)
--- NOTE | 2018-01-28 07:44 | NUR ---
RN NOTES PATIENT RECEIVED SLEEPING COMFORTABLY IN BED, NON VERBAL, RESPONSIVE TO PAINFUL STIMULI. RESPIRATIONS EVEN AND UNLABORED, IN NO APPARENT PAIN OR DISCOMFORT. PT WITH KIMO PICC LINE PATENT AND INTACT NO REDNESS OR INFILTRATION NOTED. FC IN PLACE AND DRAINING, INTACT. TOLERATING GT FEEDING WELL. KEPT CLEAN DRY AND COMFORTABLE CALL LIGHT WITHIN EASY REACH
[2018-01-28 08:00] VITALS: BP 158/70
[2018-01-28] MEDS: ASPIRIN EC 81 MG TABLET.DR PO SCH (08:43)
[2018-01-28] MEDS: MULTIVIT, IRON, MIN NO. 8, FA 1 TAB PO SCH (08:43)
[2018-01-28] MEDS: LINEZOLID 600 MG TABLET PO SCH ×2 (08:43→21:45)
[2018-01-28] MEDS: ASCORBIC ACID 500 MG TABLET PO SCH (08:43)
[2018-01-28] MEDS: BLOOD SUGAR DIAGNOSTIC 1 EACH STRIP IN SCH ×4 (08:43→21:47)
[2018-01-28] MEDS: CARVEDILOL 6.25 MG TABLET PO SCH ×2 (08:47→18:02)
[2018-01-28] MEDS: AMLODIPINE BESYLATE 5 MG TABLET PO SCH (08:47)
[2018-01-28] MEDS: NITROGLYCERIN 30 GM TUBE TP SCH ×2 (08:48→21:47)
[2018-01-28] MEDS: POVIDONE-IODINE OINT 28.4 GM TUBE TP SCH ×2 (08:51→18:30)
[2018-01-28] MEDS: Z GUARD REMEDY 2 OZ OINT TP SCH (08:53)
[2018-01-28] MEDS: PROSOURCE / PROSTAT (PYXIS) 30 ML UDC PO SCH ×2 (09:00→17:00)
--- NOTE | 2018-01-28 09:00 | NUR ---
RN NOTES PROSTAT NON ADMINISTERED, PT NOT TOLERATING FEEDINGS HAND SPINNER AWARE WILL CONTINUE TO MONITOR
--- NOTE | 2018-01-28 09:15 | NUR ---
RN NOTES NOTED WITH PATIENT GASTRIC RESIDUAL OF 290ML, TUBE FEEDING HELD INFERTILITY NURSE AWARE
--- NOTE | 2018-01-28 11:45 | NUR ---
RN NOTES NOTED WITH PATIENT GASTRIC RESIDUAL OF 420ML, TUBE FEEDING HELD AGRICULTURAL EDUCATION PROFESSOR AWARE
[2018-01-28 16:00] VITALS: BP 148/64
--- NOTE | 2018-01-28 16:00 | NUR ---
RN NOTES NOTED WITH PATIENT GASTRIC RESIDUAL OF 400ML, TUBE FEEDING HELD LDR RN AWARE
--- NOTE | 2018-01-28 17:30 | NUR ---
RN NOTES PROSTAT NON ADMINISTERED, PT NOT TOLERATING FEEDINGS ENTERPRISE SOFTWARE DEVELOPER AWARE WILL CONTINUE TO MONITOR
--- NOTE | 2018-01-28 18:30 | NUR ---
RN NOTES NOTED WITH PATIENT GASTRIC RESIDUAL OF 400ML, TUBE FEEDING HELD PUBLISHER ASSISTANT AWARE
[2018-01-28] MEDS: MICAFUNGIN SODIUM 100 MG in IV NS 0.9% 100 ML IV SCH (18:51)
--- NOTE | 2018-01-28 19:31 | NUR ---
RN NOTES PATIENT SLEEPING COMFORTABLY IN BED, NON VERBAL, RESPONSIVE TO PAINFUL STIMULI. RESPIRATIONS EVEN AND UNLABORED, IN NO APPARENT PAIN OR DISCOMFORT. PT WITH KIMO PICC LINE PATENT AND INTACT NO REDNESS OR INFILTRATION NOTED. FC IN PLACE AND DRAINING, INTACT. TUBE FEEDING UNTIL FURTHER ORDERS, IV D5 NS ADMINISTERED ORDERED. KEPT CLEAN DRY AND COMFORTABLE CALL LIGHT WITHIN EASY REACH AT BEDSIDE
[2018-01-28] MEDS: GLUCERNA 1.2 1,000 ML BOTTLE NG PRN (19:35)
[2018-01-28 20:00] VITALS: BP 165/73
--- NOTE | 2018-01-28 20:00 | NUR ---
RN INITIAL NOTES PATIENT SLEEPING COMFORTABLY IN BED, NON VERBAL, RESPONSIVE TO PAINFUL STIMULI. RESPIRATIONS EVEN AND UNLABORED, IN NO APPARENT PAIN OR DISCOMFORT. PT WITH KIMO PICC LINE PATENT AND INTACT NO REDNESS OR INFILTRATION NOTED. FC IN PLACE AND DRAINING, INTACT. TUBE FEEDING HELD UNTIL FURTHER ORDERED, IV D5 NS ADMINISTERED ORDERED. KEPT CLEAN DRY AND COMFORTABLE CALL LIGHT WITHIN EASY REACH.
--- NOTE | 2018-01-28 21:00 | NUR ---
RN NOTES GASTRIC RESIDUAL OF 320ML, TUBE FEEDING HELD PIPE ORGAN TUNER AND REPAIRER AWARE
[2018-01-28 21:25] VITALS: BP 165/73
[2018-01-28] MEDS: ATORVASTATIN 40 MG TABLET PO SCH (21:47)
[2018-01-28] MEDS: INSULIN GLARGINE, 100 UNIT/ML CARTRIDGE SQ SCH (21:48)
[2018-01-29] VITALS: BP 165/73
[2018-01-29] MEDS: IPRATROPIUM NEB FS 0.5 MG/2.5 ML AMPUL.NEB NEB SCH ×4 (01:42→20:04)
[2018-01-29] MEDS: ALBUTEROL FS 2.5 MG/0.5 ML VIAL.NEB NEB SCH ×4 (01:42→20:04)
[2018-01-29 04:00] VITALS: BP 163/76
[2018-01-29] MEDS: MEROPENEM 500 MG in IV NS 0.9% 50 ML IV SCH ×2 (05:11→18:24)
--- NOTE | 2018-01-29 06:26 | NUR ---
RN CLOSING NOTES NO CHANGE IN PT CONDITION OVER NIGHT. PATIENT SLEEPING COMFORTABLY IN BED, NON VERBAL, RESPONSIVE TO PAINFUL STIMULI. RESPIRATIONS EVEN AND UNLABORED, IN NO APPARENT PAIN OR DISCOMFORT. PT WITH KIMO PICC LINE PATENT AND INTACT NO REDNESS OR INFILTRATION NOTED. IV D5 NS ADMINISTERED ORDERED. FC IN PLACE AND DRAINING, INTACT. KEPT CLEAN DRY AND COMFORTABLE CALL LIGHT WITHIN EASY REACH.
[2018-01-29 06:54] LABS: BASOPHILS % (AUTO) 0.2 % (0.0-2.0); EOSINOPHILS % (AUTO) 1.1 % (0.0-6.0); HEMATOCRIT 24 % (39-51); LYMPHOCYTES # (AUTO) 1.3 /CMM (0.8-4.8); LYMPHOCYTES % (AUTO) 9.9 % (20.0-44.0); MEAN CORPUSCULAR HGB CONC 33 g/dl (31.0-36.0); MEAN CORPUSCULAR VOLUME 83 fL (80-96); MONOCYTES # (AUTO) 0.7 /CMM (0.1-1.30); MONOCYTES % (AUTO) 5.2 % (2.0-12.0); NEUTROPHILS # (AUTO) 11.1 /CMM (1.8-8.9); NEUTROPHILS % (AUTO) 83.6 % (43.0-81.0); PLATELET COUNT (AUTO) 187 /CMM (150-450); RDW COEFFICIENT OF VARIATION 17.4 (11.5-15.0); RED BLOOD CELL COUNT(AUTO) 2.88 MIL/uL (4.5-6.0); WHITE BLOOD COUNT (AUTO) 13.3 K/uL (4.3-11.0)
[2018-01-29 07:28] LABS: CALCIUM, SERUM 8.2 mg/dL (8.5-10.1); CREATININE 1.9 mg/dL (0.6-1.3); PHOSPHORUS 3.8 mg/dL (2.5-4.9); POTASSIUM 3.3 mmol/L (3.5-5.1)
[2018-01-29] MEDS: ACETYLCYSTEINE 10% SOLN 400 MG/4 ML VIAL NEB SCH ×3 (07:53→23:35)
[2018-01-29 08:00] VITALS: BP 181/74
[2018-01-29] MEDS: BLOOD SUGAR DIAGNOSTIC 1 EACH STRIP IN SCH ×4 (08:56→21:53)
[2018-01-29] MEDS: ASCORBIC ACID 500 MG TABLET PO SCH (08:59)
[2018-01-29] MEDS: MULTIVIT, IRON, MIN NO. 8, FA 1 TAB PO SCH (08:59)
[2018-01-29] MEDS: LINEZOLID 600 MG TABLET PO SCH (08:59)
[2018-01-29] MEDS: CARVEDILOL 6.25 MG TABLET PO SCH ×2 (08:59→17:23)
[2018-01-29] MEDS: AMLODIPINE BESYLATE 5 MG TABLET PO SCH (08:59)
[2018-01-29] MEDS: ASPIRIN EC 81 MG TABLET.DR PO SCH (08:59)
[2018-01-29] MEDS: NITROGLYCERIN 30 GM TUBE TP SCH ×2 (09:25→21:49)
[2018-01-29] MEDS: POVIDONE-IODINE OINT 28.4 GM TUBE TP SCH ×2 (09:27→17:38)
[2018-01-29] MEDS: Z GUARD REMEDY 2 OZ OINT TP SCH (09:27)
[2018-01-29] MEDS: PROSOURCE / PROSTAT (PYXIS) 30 ML UDC PO SCH ×2 (09:34→17:21)
[2018-01-29] MEDS ORDERED: POTASSIUM CL. PREMIX PERIPHER. 50 ML IV SCH (11:43)
[2018-01-29 16:00] VITALS: BP 179/82
[2018-01-29] MEDS: MICAFUNGIN SODIUM 100 MG in IV NS 0.9% 100 ML IV SCH (17:17)
[2018-01-29] MEDS: METOCLOPRAMIDE HCL 10 MG TABLET PO SCH (17:22)
[2018-01-29 20:00] VITALS: BP 182/83
[2018-01-29] MEDS: DOXYCYCLINE HYCLATE (100 MG) 100 MG TABLET PO SCH (21:49)
[2018-01-29] MEDS: ATORVASTATIN 40 MG TABLET PO SCH (21:49)
[2018-01-29] MEDS: INSULIN GLARGINE, 100 UNIT/ML CARTRIDGE SQ SCH (21:54)
--- NOTE | 2018-01-29 22:00 | NUR ---
RN NOTES PATIENT'S BS CHECKED AND NOTED TO BE 116. NO INSULIN GIVEN, PATIENT KEPT ON NPO, GT CLAMPED WITH IVF ORDERED. PATIENT'S GASTRIC RESIDUAL NOTED TO BE 100cc, LIQUID-GREENISH, BILE-LIKE FLUID UPON ASPIRATION. KEPT NPO. CHARGE NURSE AWARE.
[2018-01-30] MEDS: METOCLOPRAMIDE HCL 10 MG TABLET PO SCH ×4 (00:29→18:13)
[2018-01-30] MEDS: IV D5/ 0.9% NACL 1,000 ML IV PRN (00:29)
[2018-01-30] MEDS: FENTANYL PF 100MCG/2ML AMPUL IV PRN (00:36)
[2018-01-30] MEDS: ALBUTEROL FS 2.5 MG/0.5 ML VIAL.NEB NEB SCH ×4 (01:41→19:48)
[2018-01-30] MEDS: IPRATROPIUM NEB FS 0.5 MG/2.5 ML AMPUL.NEB NEB SCH ×4 (01:41→19:48)
[2018-01-30 04:00] VITALS: BP_SYST 175; BP_SYST 179; BP_DIAS 81; BP_DIAS 86
[2018-01-30] MEDS: hydrALAZINE HCL IV 20 MG VIAL IV PRN ×2 (05:17→12:24)
[2018-01-30] MEDS: MEROPENEM 500 MG in IV NS 0.9% 50 ML IV SCH ×2 (05:18→18:13)
[2018-01-30] MEDS: BLOOD SUGAR DIAGNOSTIC 1 EACH STRIP IN SCH ×3 (05:29→18:15)
[2018-01-30] MEDS ORDERED: DEXTROSE 50%-WATER 50 ML DISP.SYRIN IV PRN (05:30)
[2018-01-30 06:22] LABS: BASOPHILS % (AUTO) 0.3 % (0.0-2.0); EOSINOPHILS % (AUTO) 1.5 % (0.0-6.0); HEMATOCRIT 24 % (39-51); HEMOGLOBIN 7.7 g/dL (13.5-17.5); LYMPHOCYTES # (AUTO) 1.1 /CMM (0.8-4.8); LYMPHOCYTES % (AUTO) 11.8 % (20.0-44.0); MEAN CORPUSCULAR HGB CONC 32 g/dl (31.0-36.0); MEAN CORPUSCULAR VOLUME 83 fL (80-96); MONOCYTES # (AUTO) 0.6 /CMM (0.1-1.30); MONOCYTES % (AUTO) 6.2 % (2.0-12.0); NEUTROPHILS # (AUTO) 7.7 /CMM (1.8-8.9); NEUTROPHILS % (AUTO) 80.2 % (43.0-81.0); PLATELET COUNT (AUTO) 220 /CMM (150-450); RDW COEFFICIENT OF VARIATION 17.3 (11.5-15.0); RED BLOOD CELL COUNT(AUTO) 2.88 MIL/uL (4.5-6.0); WHITE BLOOD COUNT (AUTO) 9.6 K/uL (4.3-11.0)
[2018-01-30 06:45] LABS: ALBUMIN 1.5 g/dL (3.4-5.0); BILIRUBIN,TOTAL 0.4 mg/dL (0.2-1.0); CALCIUM, SERUM 8.2 mg/dL (8.5-10.1); CREATININE 1.7 mg/dL (0.6-1.3); PHOSPHORUS 2.9 mg/dL (2.5-4.9); POTASSIUM 3.1 mmol/L (3.5-5.1); TOTAL PROTEIN, SERUM 6.9 g/dL (6.4-8.2)
--- NOTE | 2018-01-30 07:28 | NUR ---
MS RN INITIAL NOTES RECEIVED PATIENT AWAKE IN BED WITH NO ACUTE SIGNS OF DISTRESS NOTED. ALERT, NON VERBAL AND RESPONSIVE TO TACTILE/PAINFUL STIMULI. ON O2 VIA NC AT 2L/MIN, BREATHING EVEN AND UNLABORED. PT WITH KIMO PICC LINE PATENT AND INTACT WITH IVF D5NS AT 75CC/HR INFUSING WELL, NO REDNESS OR INFILTRATION NOTED. FC IN PLACE AND DRAINING CLEAR YELLOW URINE. GTUBE IN PLACED, FEEDING HELD UNTIL FURTHER ORDERED. HOB ELEVATED, BED LOCKED AND IN LOW POSITION WITH SR UP X3 KEPT CLEAN DRY AND COMFORTABLE CALL LIGHT WITHIN EASY REACH.
[2018-01-30] MEDS: ACETYLCYSTEINE 10% SOLN 400 MG/4 ML VIAL NEB SCH ×3 (07:37→23:52)
[2018-01-30] MEDS: DOXYCYCLINE HYCLATE (100 MG) 100 MG TABLET PO SCH ×2 (08:24→22:08)
[2018-01-30] MEDS: ASCORBIC ACID 500 MG TABLET PO SCH (08:24)
[2018-01-30] MEDS: ASPIRIN EC 81 MG TABLET.DR PO SCH (08:24)
[2018-01-30] MEDS: MULTIVIT, IRON, MIN NO. 8, FA 1 TAB PO SCH (08:24)
[2018-01-30] MEDS: AMLODIPINE BESYLATE 5 MG TABLET PO SCH (08:25)
[2018-01-30] MEDS: CARVEDILOL 6.25 MG TABLET PO SCH ×2 (08:25→16:53)
[2018-01-30] MEDS: PROSOURCE / PROSTAT (PYXIS) 30 ML UDC PO SCH ×2 (08:26→16:52)
[2018-01-30] MEDS: NITROGLYCERIN 30 GM TUBE TP SCH ×2 (08:27→22:08)
[2018-01-30] MEDS: POVIDONE-IODINE OINT 28.4 GM TUBE TP SCH ×2 (08:27→17:04)
[2018-01-30] MEDS: Z GUARD REMEDY 2 OZ OINT TP SCH (08:28)
[2018-01-30] MEDS: INSULIN REGULAR, HUMAN 100 UNIT/ML 3 ML VIAL SQ PRN ×2 (11:48→18:15)
[2018-01-30 12:00] VITALS: BP 169/79
[2018-01-30] MEDS: POTASSIUM CL. PREMIX PERIPHER. 50 ML IV SCH ×3 (12:25→14:45)
[2018-01-30] MEDS: GLUCERNA 1.2 1,000 ML BOTTLE NG PRN (13:07)
--- NOTE | 2018-01-30 13:09 | NUR ---
RN NOTES PATIENT NOTED WITH ELEVATED BP OF 169/79 MMHG, PRN APRESOLINE 10MG IV GIVEN. RE-CHECKED BP AFTER 30MINS AND WENT DOWN TO 152/70MMHG. DILIP CAMACHO MADE AWARE. WILL CONTINUE TO MONITOR.
--- NOTE | 2018-01-30 13:13 | NUR ---
RN NOTES RN PALLIATIVE DOUG SEEN AND EVALUATED PT WITH ORDER TO RE-START PT ON G-TUBE FEED OF GLUCERNA 1.2, TO START AT LOW DOSE UNTIL IT REACHES 30ML/HR TOLERATED BY PT. WILL CONTINUE TO MONITOR.
[2018-01-30] MEDS ORDERED: IV D5W 1,000 ML IV ONE (14:00)
[2018-01-30] MEDS: ACETAMINOPHEN 325 MG TABLET PO PRN (15:53)
[2018-01-30 16:00] VITALS: BP 154/71
--- NOTE | 2018-01-30 16:19 | NUR ---
RN NOTES PATIENT NOTED WITH ELEVATED TEMP OF 100.4F, COOLING MEASURES RENDERED. PRN TYLENOL 650MG GIVEN VIA G-TUBE. WILL CONTINUE TO MONITOR
[2018-01-30] MEDS: MICAFUNGIN SODIUM 100 MG in IV NS 0.9% 100 ML IV SCH (16:52)
--- NOTE | 2018-01-30 18:42 | NUR ---
MS RN CLOSING NOTES PATIENT AWAKE AND LYING COMFORTABLY AT MODERATE HIGH BACKREST POSITION. ALERT X1-2, VERBALLY RESPONSIVE IN [place]. PT TOLERATING O2 VIA NC AT 2L/MIN, BREATHING EVEN WITH NO SOB NOTED. KIMO PICC LINE PATENT AND INTACT WITH IVF D5W AT 75CC/HR INFUSING WELL, NO REDNESS OR INFILTRATION NOTED. FC IN PLACE, DRAINING CLEAR YELLOW URINE VIA GRAVITY. G-TUBE IN PLACED, FEEDING IN PROGRESS ORDERED, TOLERATING WELL. HOB ELEVATED, BED LOCKED AND IN LOW POSITION WITH SR UP X3 KEPT CLEAN DRY AND COMFORTABLE. CALL LIGHT WITHIN EASY REACH. ALL NEEDS AND CARE PROVIDED WELL. WILL ENDORSED TO POWER WASHER NURSE FOR ANGEL.
[2018-01-30 20:00] VITALS: BP 140/66
--- NOTE | 2018-01-30 20:10 | NUR ---
RN NOTES RECEIVED PATIENT AWAKE IN BED WITH NO RESPIRATORY DISTRESS OR SHORTNESS OF BREATH. BREATHING EVEN AND ULABORED. NO PHYSICAL MANIFESTATION OF PAIN OR DISCOMFORT. ALERT AND RESPONSIVE WITH CONFUSION. GTUBE INTACT AND IN PLACE, FEEDING WELL TOLERATED. NO RESIDUAL. KEPT CLEAN AND DRY. WILL CONTINUE TO MONITOR.
[2018-01-30] MEDS: ATORVASTATIN 40 MG TABLET PO SCH (22:08)
[2018-01-30] MEDS: hydrALAZINE HCL 25 MG TABLET PO SCH (22:09)
[2018-01-30] MEDS: INSULIN GLARGINE, 100 UNIT/ML CARTRIDGE SQ SCH (22:17)
[2018-01-31] MEDS: METOCLOPRAMIDE HCL 10 MG TABLET PO SCH ×5 (00:05→23:56)
[2018-01-31] MEDS: INSULIN REGULAR, HUMAN 100 UNIT/ML 3 ML VIAL SQ PRN ×4 (00:09→17:28)
[2018-01-31] MEDS: BLOOD SUGAR DIAGNOSTIC 1 EACH STRIP IN SCH ×5 (00:10→23:57)
[2018-01-31] MEDS: IPRATROPIUM NEB FS 0.5 MG/2.5 ML AMPUL.NEB NEB SCH ×4 (01:08→19:14)
[2018-01-31] MEDS: ALBUTEROL FS 2.5 MG/0.5 ML VIAL.NEB NEB SCH ×4 (01:08→19:15)
[2018-01-31 04:00] VITALS: BP_SYST 155; BP_SYST 174; BP_DIAS 84; BP_DIAS 91
[2018-01-31] MEDS: MEROPENEM 500 MG in IV NS 0.9% 50 ML IV SCH ×2 (05:42→16:54)
[2018-01-31 06:59] LABS: BASOPHILS % (AUTO) 0.1 % (0.0-2.0); EOSINOPHILS % (AUTO) 0.6 % (0.0-6.0); HEMATOCRIT 27 % (39-51); HEMOGLOBIN 8.9 g/dL (13.5-17.5); LYMPHOCYTES # (AUTO) 0.8 /CMM (0.8-4.8); LYMPHOCYTES % (AUTO) 6.9 % (20.0-44.0); MEAN CORPUSCULAR HGB CONC 33 g/dl (31.0-36.0); MEAN CORPUSCULAR VOLUME 83 fL (80-96); MONOCYTES # (AUTO) 0.7 /CMM (0.1-1.30); MONOCYTES % (AUTO) 6.2 % (2.0-12.0); NEUTROPHILS # (AUTO) 10.4 /CMM (1.8-8.9); NEUTROPHILS % (AUTO) 86.2 % (43.0-81.0); PLATELET COUNT (AUTO) 261 /CMM (150-450); RDW COEFFICIENT OF VARIATION 17.1 (11.5-15.0); RED BLOOD CELL COUNT(AUTO) 3.22 MIL/uL (4.5-6.0); WHITE BLOOD COUNT (AUTO) 12.1 K/uL (4.3-11.0)
--- NOTE | 2018-01-31 07:03 | NUR ---
RN NOTES NO SIGNIFICANT CHANGE OF CONDITION, REMAINS AFEBRILE WITH SKIN WARM AND DRY TO TOUCH. NO PHYSICAL MANIFESTATION OF PAIN OR DISCOMFORT. LEGALLY BLIND, MUMBLES WORDS. VITAL SIGNS WNL. KEPT CLEAN AND DRY. WILL ENDORSE TO AM SHIFT FOR CONTINUITY OF CARE
[2018-01-31] MEDS: ACETYLCYSTEINE 10% SOLN 400 MG/4 ML VIAL NEB SCH ×2 (07:19→15:12)
[2018-01-31 07:25] LABS: CALCIUM, SERUM 8.1 mg/dL (8.5-10.1); CREATININE 1.7 mg/dL (0.6-1.3); MAGNESIUM 1.7 mg/dL (1.8-2.4); PHOSPHORUS 2.3 mg/dL (2.5-4.9); POTASSIUM 3.1 mmol/L (3.5-5.1)
--- NOTE | 2018-01-31 07:40 | NUR ---
RN OPENING NOTES PATIENT IN BED IN STABLE CONDITION. A/O X 1 WITH EPISODES OF CONFUSION AND FORGETFULNESS. LEGALLY BLIND.NO SIGNS OF ACUTE DISTRESS. NO COMPLAIN OF PAIN OR DISCOMFORT. ON G TUBE FEEDING TOLERATING WELL. HOB ELEVATED FOR ASPIRATION PRECAUTION. ALL NEEDS ATTENDED TO. CALL LIGHT WITHIN REACH. WILL CONTINUE TO MONITOR TO ENSURE SAFETY.
[2018-01-31 08:00] VITALS: BP 174/91
[2018-01-31] MEDS: NITROGLYCERIN 30 GM TUBE TP SCH ×2 (08:30→21:27)
[2018-01-31] MEDS: ASPIRIN EC 81 MG TABLET.DR PO SCH (08:30)
[2018-01-31] MEDS: PROSOURCE / PROSTAT (PYXIS) 30 ML UDC PO SCH ×2 (08:30→16:54)
[2018-01-31] MEDS: AMLODIPINE BESYLATE 5 MG TABLET PO SCH (08:30)
[2018-01-31] MEDS: hydrALAZINE HCL 25 MG TABLET PO SCH ×2 (08:31→21:26)
[2018-01-31] MEDS: Z GUARD REMEDY 2 OZ OINT TP SCH (08:31)
[2018-01-31] MEDS: ASCORBIC ACID 500 MG TABLET PO SCH (08:31)
[2018-01-31] MEDS: CARVEDILOL 6.25 MG TABLET PO SCH ×2 (08:31→16:54)
[2018-01-31] MEDS: MULTIVIT, IRON, MIN NO. 8, FA 1 TAB PO SCH (08:31)
[2018-01-31] MEDS: DOXYCYCLINE HYCLATE (100 MG) 100 MG TABLET PO SCH ×2 (08:31→21:27)
[2018-01-31] MEDS: POVIDONE-IODINE OINT 28.4 GM TUBE TP SCH ×2 (08:32→16:54)
[2018-01-31] MEDS ORDERED: Magnesium 1GM/D5W 100ML PREMIX 100 ML IV SCH (09:56)
[2018-01-31] MEDS ORDERED: NEUTRA PHOS 1 POWD.PACKET GT ONE (10:00)
[2018-01-31] MEDS ORDERED: POTASSIUM CHLORIDE 20 MEQ POWDER PACKET GT ONE (10:00)
[2018-01-31] MEDS ORDERED: FUROSEMIDE 40 MG/4 ML VIAL IV ONE (15:00)
[2018-01-31] MEDS: MICAFUNGIN SODIUM 100 MG in IV NS 0.9% 100 ML IV SCH (15:30)
--- NOTE | 2018-01-31 17:04 | NUR ---
S/P BKA SITE C/O REDNESS AND TENDERNESS,SUTURE INTACT NOTIFIED DILIP PETIT IF WANTED DR. MAY TO REEVAL PT.SHE WILL REASSESSE WOUND SITE FIRST.WILL FF.UP.
--- NOTE | 2018-01-31 18:00 | NUR ---
MS/RN SEEN AND EXAMINED BY DAMASO RIGHT BKA REDNESS SITE SEEN AND EXAMINED BY DAMASO, PER DAMASO IT COULD BE POSSIBLE HEMATOMA, CONTINUE TO MONITOR FOR INCREASE IN SIZE OR FURTHER CHANGES. AT BEDSIDE AWARE. PER DAMASO SHE WILL LET DR MAY SURGEON MAKE AWARE.
--- NOTE | 2018-01-31 18:14 | NUR ---
MS/RN CLOSING NOTE PATIENT IN BED IN STABLE CONDITION. A/O X 1 WITH EPISODES OF CONFUSION AND FORGETFULNESS. NO SIGNS OF ACUTE DISTRESS. NO COMPLAIN OF PAIN OR DISCOMFORT. ON G TUBE FEEDING TOLERATING WELL. HOB ELEVATED FOR ASPIRATION PRECAUTION. ALL NEEDS ATTENDED TO. CALL LIGHT WITHIN REACH. WILL ENDORSE TO NEXT SHIFT FOR CONTINUITY OF CARE.
--- NOTE | 2018-01-31 19:30 | NUR ---
RN NOTES: RECEIVED LYING BED ON SEMI FOWLERS POSITION, HHN TREATMENT ON GOING, ON 02 AT2L/MIN VIA NC,PATIENT IS ALERTX1 WITH PERIODS OF FORGETFULNESS AND CONFUSION,RE-ORIENTED TO UNIT AND STAFF ,PEG INTACT GLUCERNA 1.2 AT 25 ML/HR VIA FEEDING PUMP ONGOING, ON RAYGOZA CATH DRAINING INTO PALE STRAW YELLOWISH URINE AT 350CC LEVEL,KIMO PICC LINE INTACT,RIGHT BKA SITE NOTED WITH REDNESS,ONLINE MERCHANDISING COORDINATOR(SARIAH) AWARE, WILL CONTINUE TO MONITOR.,FALL,SAFETY AND ASPIRATION PRECAUTION OBSERVED, BED LOW AND LOCKED, CALL LIGHT WITHIN EASY REACH, KEPT ON CLOSE WATCH.
[2018-01-31 20:00] VITALS: BP 149/76
[2018-01-31] MEDS: ATORVASTATIN 40 MG TABLET PO SCH (21:27)
[2018-01-31] MEDS: ACETAMINOPHEN 325 MG TABLET PO PRN (21:28)
--- NOTE | 2018-01-31 22:00 | NUR ---
RN NOTES: BLOOD SUGAR CHECK-192, PEG TUBE ONGOING ,LANTUS 16 UNITS GIVEN, WILL CONTINUE TO MONIOTR FOR SIGN OF HYPER AND HYPOGLYCEMIA. -TURNING AND REPOSITIONING DONE,BED BATH RENDERED, CLEAN AND CHANGE.
[2018-01-31] MEDS: INSULIN GLARGINE, 100 UNIT/ML CARTRIDGE SQ SCH (22:07)
--- NOTE | 2018-02-01 | NUR ---
RN NOTES: BLOOD SUGAR-162,INSULIN GIVEN PER SCALE, PATIENT IS AWAKE, CONVERSANT IN ARMEN[place] BUT UNABLE TO UNDERSTAND WHAT HE IS SAYING, HE IS SPILLING IN BETWEEN, NO SIGN OF PAIN OR DISCOMFORT,NO SOB OR RESPIRATORY DISTRESS NOTED.
[2018-02-01] MEDS: INSULIN REGULAR, HUMAN 100 UNIT/ML 3 ML VIAL SQ PRN (00:05)
[2018-02-01] MEDS: IPRATROPIUM NEB FS 0.5 MG/2.5 ML AMPUL.NEB NEB SCH ×4 (00:48→19:37)
[2018-02-01] MEDS: ACETYLCYSTEINE 10% SOLN 400 MG/4 ML VIAL NEB SCH ×3 (00:48→15:25)
[2018-02-01] MEDS: ALBUTEROL FS 2.5 MG/0.5 ML VIAL.NEB NEB SCH ×4 (00:48→19:37)
[2018-02-01 04:00] VITALS: BP 179/82
[2018-02-01] MEDS: hydrALAZINE HCL 25 MG TABLET PO PRN ×2 (04:28→11:29)
[2018-02-01 05:00] VITALS: BP 179/82
[2018-02-01] MEDS: MEROPENEM 500 MG in IV NS 0.9% 50 ML IV SCH ×2 (05:10→17:19)
[2018-02-01] MEDS: METOCLOPRAMIDE HCL 10 MG TABLET PO SCH ×3 (05:10→17:18)
[2018-02-01] MEDS: BLOOD SUGAR DIAGNOSTIC 1 EACH STRIP IN SCH ×3 (05:10→17:18)
--- NOTE | 2018-02-01 05:11 | NUR ---
RN NOTES: BLOOD SUGAR CHECKED-72,NO INSULIN COVERAGE PER SCALE, PATIENT IS AWAKE, HAD BM, CLEANED, DRESSING CHANGE, REPOSITIONING DONE, KEPT COMFORTABLE IN BED.
[2018-02-01] MEDS: GLUCERNA 1.2 1,000 ML BOTTLE NG PRN (05:46)
--- NOTE | 2018-02-01 05:47 | NUR ---
RN NOTES: STARTED NEW BOTTLE OF PEG FEED GLUCERNA 1.2 AT 25 ML/HR.KEPT ON SEMI FOWLERS POSITION, ASPIRATION PRECAUTION OBSERVED.
--- NOTE | 2018-02-01 06:40 | NUR ---
RN NOTES: AWAKE, LOOK SLEEPY BUT HE IS TRYING TO WAKE UP WHENEVER NURSES ARE CHECKING HIM,KEPT IN COMFORTABLE POSITION, CALL LIGHT WITHIN EASY REACH, ENDORSED FOR CONTINUITY OF CARE.
--- NOTE | 2018-02-01 07:35 | NUR ---
MS RN OPENING NOTE PATIENT IS ALERT AND ORIENTED X1, CONFUSED WITH GARBLED SPEECH. CALL LIGHT WITHIN REACH AND SAFETY MEASURES IMPLEMENTED. NO FACIAL GRIMACING NOTED FOR PAIN. NO SOB OR DISTRESS NOTED ON 2L OF OXYGEN VIA NASAL CANNULA TOLERATING WELL. RAYGOZA CATHETER IN PLACE, DRAINING WELL. HAS RIGHT BELOW THE KNEE AMPUTATION. WOUND TREATMENT TO BE DONE THROUGHOUT SHIFT. BLOOD SUGAR TO BE MONITORED AND INSULIN TO BE GIVEN NEEDED. LABS THIS MORNING AND WILL REPLACE ELECTROLYTES NEEDED. WILL CONTINUE TO MONITOR THROUGHOUT SHIFT Addendum: 02/01/18 at 0814 by SOFIYA HOANG RN G-TUBE INTACT AND PATENT WITH TUBE FEEDING RUNNING AT 25 ML/HR TOLERATING WELL WITH NO RESIDUAL PER FIELD INSTRUCTOR NURSE TO SLOWLY INCREASE WITHOUT HAVING HIGH RESIDUAL. WILL CONTINUE TO MONITOR
[2018-02-01 08:00] VITALS: BP 187/92
[2018-02-01 08:12] LABS: BASOPHILS % (AUTO) 0.2 % (0.0-2.0); HEMATOCRIT 27 % (39-51); HEMOGLOBIN 8.9 g/dL (13.5-17.5); LYMPHOCYTES # (AUTO) 1.2 /CMM (0.8-4.8); LYMPHOCYTES % (AUTO) 11.1 % (20.0-44.0); MEAN CORPUSCULAR HGB CONC 33 g/dl (31.0-36.0); MEAN CORPUSCULAR VOLUME 83 fL (80-96); MONOCYTES # (AUTO) 0.7 /CMM (0.1-1.30); MONOCYTES % (AUTO) 6.6 % (2.0-12.0); NEUTROPHILS # (AUTO) 8.7 /CMM (1.8-8.9); NEUTROPHILS % (AUTO) 81.1 % (43.0-81.0); PLATELET COUNT (AUTO) 293 /CMM (150-450); RDW COEFFICIENT OF VARIATION 16.7 (11.5-15.0); RED BLOOD CELL COUNT(AUTO) 3.27 MIL/uL (4.5-6.0); WHITE BLOOD COUNT (AUTO) 10.7 K/uL (4.3-11.0)
[2018-02-01 08:23] LABS: CALCIUM, SERUM 8.4 mg/dL (8.5-10.1); CREATININE 1.7 mg/dL (0.6-1.3); MAGNESIUM 1.8 mg/dL (1.8-2.4); PHOSPHORUS 2.4 mg/dL (2.5-4.9); POTASSIUM 3.1 mmol/L (3.5-5.1)
[2018-02-01] MEDS: DOXYCYCLINE HYCLATE (100 MG) 100 MG TABLET PO SCH ×2 (08:33→20:17)
[2018-02-01] MEDS: MULTIVIT, IRON, MIN NO. 8, FA 1 TAB PO SCH (08:34)
[2018-02-01] MEDS: hydrALAZINE HCL 25 MG TABLET PO SCH ×2 (08:34→20:17)
[2018-02-01] MEDS: ASPIRIN EC 81 MG TABLET.DR PO SCH (08:34)
[2018-02-01] MEDS: CARVEDILOL 6.25 MG TABLET PO SCH ×2 (08:34→16:26)
[2018-02-01] MEDS: AMLODIPINE BESYLATE 5 MG TABLET PO SCH (08:34)
[2018-02-01] MEDS: POVIDONE-IODINE OINT 28.4 GM TUBE TP SCH ×2 (08:35→16:27)
[2018-02-01] MEDS: ASCORBIC ACID 500 MG TABLET PO SCH (08:35)
[2018-02-01] MEDS: Z GUARD REMEDY 2 OZ OINT TP SCH (08:36)
[2018-02-01] MEDS: PROSOURCE / PROSTAT (PYXIS) 30 ML UDC PO SCH ×2 (08:37→16:23)
[2018-02-01] MEDS: NITROGLYCERIN 30 GM TUBE TP SCH ×2 (08:38→20:17)
[2018-02-01] MEDS ORDERED: NEUTRA PHOS 1 POWD.PACKET NG ONE (09:30)
[2018-02-01] MEDS ORDERED: POTASSIUM CHLORIDE 20 MEQ POWDER PACKET GT SCH (10:00)
--- NOTE | 2018-02-01 10:24 | NUR ---
MS RN NOTE BOTH PHOSPHORUS AND POTASSIUM REPLACED. WILL MONITOR FOR ANY SIGNS OR SYMPTOMS OF MEDICATION
--- NOTE | 2018-02-01 11:13 | NUR ---
MS RN NOTE PICC LINE DRESSING CHANGED AND DATED. NOW CLEAN, DRY AND INTACT. WILL ENDORSE TO SENIOR HEALTH CONSULTANT NURSE
--- NOTE | 2018-02-01 11:27 | NUR ---
MS RN NOTE PATIENT NOTIFIED ANOTHER NURSE THAT HE WAS IN PAIN. UNABLE TO DESCRIBE PAIN AT THIS TIME. NORCO GIVEN AT THIS TIME WILL REASSESS PAIN.
--- NOTE | 2018-02-01 11:28 | NUR ---
MS RN NOTE PRN APRESOLINE GIVEN FOR BP 183/87. WILL REASSESS BP AGAIN AFTER MEDICATION ADMINISTRATION
--- NOTE | 2018-02-01 11:59 | NUR ---
MS RN NOTE BLOOD SUGAR-94 NO INSULIN TO BE GIVEN. WILL CONTINUE TO MONITOR FOR SIGNS/ SYMPTOMS OF HYPO/HYPERGLYCEMIA
[2018-02-01 16:00] VITALS: BP 165/82
[2018-02-01] MEDS: MICAFUNGIN SODIUM 100 MG in IV NS 0.9% 100 ML IV SCH (16:26)
--- NOTE | 2018-02-01 18:33 | NUR ---
MS RN CLOSING NOTE PATIENT IS RESTING AT THIS TIME COMFORTABLY IN BED WITH SIDE RAILS UP AND BED LOCKED IN LOWEST POSITION WITH HOB ELEVATED AT 30. CALL LIGHT WITHIN REACH AND SAFETY MEASURES IMPLEMENTED. NO FACIAL GRIMACING NOTED FOR PAIN. NO SOB OR DISTRESS NOTED, ON 4L OF OXYGEN WITH HUMIDIFIER ON AND TOLERATING WELL. ALL DUE MEDICATIONS GIVEN ORDERED. ALL NURSING CARE NEEDS ATTENDED TO NEEDED. PICC LINE DRESSING CHANGED ON SHIFT, WOUND DRESSINGS CHANGED ON SHIFT. BLOOD SUGAR MONITORED THROUGHOUT SHIFT AND NO INSULIN GIVEN. RAYGOZA CATHETER IN PLACE, DRAINING WELL-650 OUTPUT WITH TWO SOFT BOWEL MOVEMENTS. PHOSPHORUS AND POTASSIUM REPLACED. G-TUBE INTACT AND PATENT NO REDNESS OR SWELLING NOTED, TUBE FEEDING RUNNING AT 30 ML/HR TOLERATING WELL WITH 25 CC RESIDUAL TOLERATING WELL. WILL ENDORSE TO SMALL CRAFT OPERATOR NURSE FOR ANGEL
--- NOTE | 2018-02-01 19:49 | NUR ---
RN NOTE RECEIVED PATIENT IN THE BED, ASLEEP, NO RESPIRATORY DISTRESS NOTED, KIMO PICC LINE, ONLY RED PORT WORKING WELL, MED SURGE, ORIENTED TO NAME ONLY, ONGOING G-TUBE FEEDING, ALL SAFETY MEASURES TAKEN, CALL LIGHT WITHIN REACH, BED IN THE LOWEST POSITION, BED ALARM ACTIVATED AND CHECKED PRIOR, SIDE RAILS UP X 2, WILL CONTINUE TO MONITOR PATIENT
[2018-02-01 20:00] VITALS: BP 173/89
[2018-02-01 20:30] VITALS: BP 152/82
[2018-02-01] MEDS: INSULIN GLARGINE, 100 UNIT/ML CARTRIDGE SQ SCH (21:30)
[2018-02-01] MEDS: ATORVASTATIN 40 MG TABLET PO SCH (21:32)
[2018-02-02] MEDS: ACETYLCYSTEINE 10% SOLN 400 MG/4 ML VIAL NEB SCH ×4 (00:32→23:30)
[2018-02-02] MEDS: IPRATROPIUM NEB FS 0.5 MG/2.5 ML AMPUL.NEB NEB SCH ×4 (00:32→19:30)
[2018-02-02] MEDS: ALBUTEROL FS 2.5 MG/0.5 ML VIAL.NEB NEB SCH ×4 (00:32→19:30)
[2018-02-02] MEDS: METOCLOPRAMIDE HCL 10 MG TABLET PO SCH ×4 (00:47→17:02)
[2018-02-02] MEDS: BLOOD SUGAR DIAGNOSTIC 1 EACH STRIP IN SCH ×4 (00:51→17:01)
[2018-02-02 04:00] VITALS: BP 152/84
[2018-02-02] MEDS: MEROPENEM 500 MG in IV NS 0.9% 50 ML IV SCH ×2 (05:51→17:02)
[2018-02-02 06:16] LABS: BASOPHILS % (AUTO) 0.2 % (0.0-2.0); HEMATOCRIT 28 % (39-51); HEMOGLOBIN 9.1 g/dL (13.5-17.5); LYMPHOCYTES # (AUTO) 1.5 /CMM (0.8-4.8); LYMPHOCYTES % (AUTO) 14.2 % (20.0-44.0); MEAN CORPUSCULAR HGB CONC 32 g/dl (31.0-36.0); MEAN CORPUSCULAR VOLUME 83 fL (80-96); MONOCYTES # (AUTO) 0.5 /CMM (0.1-1.30); MONOCYTES % (AUTO) 5.1 % (2.0-12.0); NEUTROPHILS # (AUTO) 8.1 /CMM (1.8-8.9); NEUTROPHILS % (AUTO) 79.5 % (43.0-81.0); PLATELET COUNT (AUTO) 320 /CMM (150-450); RDW COEFFICIENT OF VARIATION 17.5 (11.5-15.0); WHITE BLOOD COUNT (AUTO) 10.2 K/uL (4.3-11.0)
[2018-02-02 06:35] LABS: CALCIUM, SERUM 8.5 mg/dL (8.5-10.1); CREATININE 1.6 mg/dL (0.6-1.3); MAGNESIUM 1.7 mg/dL (1.8-2.4); PHOSPHORUS 3.3 mg/dL (2.5-4.9); POTASSIUM 3.5 mmol/L (3.5-5.1)
--- NOTE | 2018-02-02 06:46 | NUR ---
RN NOTE POTASSIUM 3.0, NOTIFIED NEGJOSÉ IBARRA VISUAL BASIC PROGRAMMER, NEW ORDER OF POTASSIUM 20MEQ IV IS GIVEN AND CARRIED OUT
--- NOTE | 2018-02-02 07:30 | NUR ---
BIAS MACHINE OPERATOR HELPER INITIAL NOTES RECEIVED PATIENT AWAKE IN BED, AOX1-2, JAPANESE SPEAKING, WITH CONFUSION AND FORGETFULNESS, PATIENT IS BLIND, ON 3L NASAL CANNULA, R BKA, LEFT FOOT CAST, ON G-TUBE FEEDING GLUCERNA @ 30 ML/HR, KIMO PICC LINE, ONE WORKING PORT CLEAN AND INTACT, FC TO GRAVITY, DRAINING YELLOW CLEAR URINE, BED IN LOW AND LOCKED POSITION, WILL CONTINUE TO MONITOR.
[2018-02-02 08:00] VITALS: BP_SYST 169; BP_DIAS 84; BP_DIAS 94
[2018-02-02] MEDS: NITROGLYCERIN 30 GM TUBE TP SCH ×2 (08:54→20:41)
[2018-02-02] MEDS: ASCORBIC ACID 500 MG TABLET PO SCH (08:54)
[2018-02-02] MEDS: ASPIRIN EC 81 MG TABLET.DR PO SCH (08:54)
[2018-02-02] MEDS: CARVEDILOL 6.25 MG TABLET PO SCH ×2 (08:54→16:20)
[2018-02-02] MEDS: DOXYCYCLINE HYCLATE (100 MG) 100 MG TABLET PO SCH ×2 (08:54→20:46)
[2018-02-02] MEDS: AMLODIPINE BESYLATE 5 MG TABLET PO SCH (08:55)
[2018-02-02] MEDS: MULTIVIT, IRON, MIN NO. 8, FA 1 TAB PO SCH (08:55)
[2018-02-02] MEDS: hydrALAZINE HCL 25 MG TABLET PO SCH ×2 (08:55→20:46)
[2018-02-02] MEDS: PROSOURCE / PROSTAT (PYXIS) 30 ML UDC PO SCH ×2 (08:55→16:21)
[2018-02-02] MEDS: POVIDONE-IODINE OINT 28.4 GM TUBE TP SCH ×2 (08:56→16:25)
[2018-02-02] MEDS: Z GUARD REMEDY 2 OZ OINT TP SCH (08:57)
[2018-02-02] MEDS ORDERED: Magnesium 1GM/D5W 100ML PREMIX 100 ML IV SCH (10:01)
[2018-02-02] MEDS ORDERED: AMPI500C11 IV (14:08)
[2018-02-02] MEDS ORDERED: FLUC200T PO (14:08)
[2018-02-02 16:00] VITALS: BP 147/85
[2018-02-02] MEDS: MICAFUNGIN SODIUM 100 MG in IV NS 0.9% 100 ML IV SCH (16:21)
--- NOTE | 2018-02-02 18:26 | NUR ---
EMERGENCY WORKER NOTES PATIENT RESTING IN BED, ALL NEEDS MET, NO SIGNS OF DISTRESS, PATIENT DISCHARGE ON HOLD AT THIS TIME DUE TO FAMILY PREFERENCES. WILL ENDORSE TO AIRPLANE GAS TANK LINER ASSEMBLER FOR CONTINUITY OF CARE.
[2018-02-02] MEDS: ACETAMINOPHEN 325 MG TABLET PO PRN (19:18)
[2018-02-02 20:00] VITALS: BP_SYST 122; BP_SYST 175; BP_DIAS 66; BP_DIAS 83
[2018-02-02] MEDS: GLUCERNA 1.2 1,000 ML BOTTLE NG PRN (20:42)
[2018-02-02] MEDS: AMPICILLIN SODIUM 1 GM in IV NS 0.9% 100 ML IV SCH (20:43)
[2018-02-02] MEDS: ATORVASTATIN 40 MG TABLET PO SCH (21:06)
[2018-02-02] MEDS: INSULIN GLARGINE, 100 UNIT/ML CARTRIDGE SQ SCH (21:07)
[2018-02-03] VITALS: BP 161/84
[2018-02-03] MEDS: BLOOD SUGAR DIAGNOSTIC 1 EACH STRIP IN SCH ×4 (00:37→16:26)
[2018-02-03] MEDS: METOCLOPRAMIDE HCL 10 MG TABLET PO SCH ×4 (00:37→16:25)
[2018-02-03] MEDS: ALBUTEROL FS 2.5 MG/0.5 ML VIAL.NEB NEB SCH ×3 (01:30→15:01)
[2018-02-03] MEDS: IPRATROPIUM NEB FS 0.5 MG/2.5 ML AMPUL.NEB NEB SCH ×3 (01:30→15:01)
[2018-02-03 04:00] VITALS: BP 167/86
[2018-02-03] MEDS: hydrALAZINE HCL IV 20 MG VIAL IV PRN (04:39)
[2018-02-03] MEDS: AMPICILLIN SODIUM 1 GM in IV NS 0.9% 100 ML IV SCH ×2 (04:41→12:55)
[2018-02-03 06:00] VITALS: BP 155/73
[2018-02-03 06:47] LABS: BASOPHILS % (AUTO) 0.2 % (0.0-2.0); EOSINOPHILS % (AUTO) 1.3 % (0.0-6.0); HEMATOCRIT 28 % (39-51); HEMOGLOBIN 9.1 g/dL (13.5-17.5); LYMPHOCYTES # (AUTO) 1.6 /CMM (0.8-4.8); MEAN CORPUSCULAR HGB CONC 33 g/dl (31.0-36.0); MEAN CORPUSCULAR VOLUME 83 fL (80-96); MONOCYTES # (AUTO) 0.4 /CMM (0.1-1.30); MONOCYTES % (AUTO) 4.4 % (2.0-12.0); NEUTROPHILS # (AUTO) 7.9 /CMM (1.8-8.9); NEUTROPHILS % (AUTO) 78.1 % (43.0-81.0); PLATELET COUNT (AUTO) 293 /CMM (150-450); RDW COEFFICIENT OF VARIATION 17.5 (11.5-15.0); RED BLOOD CELL COUNT(AUTO) 3.34 MIL/uL (4.5-6.0); WHITE BLOOD COUNT (AUTO) 10.1 K/uL (4.3-11.0)
[2018-02-03 08:00] VITALS: BP 167/83
[2018-02-03] MEDS: ACETYLCYSTEINE 10% SOLN 400 MG/4 ML VIAL NEB SCH ×2 (08:08→15:01)
[2018-02-03] MEDS: DOXYCYCLINE HYCLATE (100 MG) 100 MG TABLET PO SCH (08:34)
[2018-02-03] MEDS: MULTIVIT, IRON, MIN NO. 8, FA 1 TAB PO SCH (08:34)
[2018-02-03] MEDS: ASPIRIN EC 81 MG TABLET.DR PO SCH (08:34)
[2018-02-03] MEDS: ASCORBIC ACID 500 MG TABLET PO SCH (08:34)
[2018-02-03] MEDS: AMLODIPINE BESYLATE 5 MG TABLET PO SCH (08:35)
[2018-02-03] MEDS: CARVEDILOL 6.25 MG TABLET PO SCH ×2 (08:35→16:24)
[2018-02-03] MEDS: POVIDONE-IODINE OINT 28.4 GM TUBE TP SCH ×2 (08:36→16:25)
[2018-02-03] MEDS: PROSOURCE / PROSTAT (PYXIS) 30 ML UDC PO SCH ×2 (08:36→16:24)
[2018-02-03] MEDS: Z GUARD REMEDY 2 OZ OINT TP SCH (08:37)
[2018-02-03] MEDS: NITROGLYCERIN 30 GM TUBE TP SCH (08:37)
[2018-02-03] MEDS: hydrALAZINE HCL 25 MG TABLET PO SCH (08:38)
[2018-02-03] MEDS ORDERED: FLUCONAZOLE (100 MG) 100 MG TABLET PO SCH (09:00)
[2018-02-03 16:00] VITALS: BP 158/77
[2018-02-03 16:24] VITALS: BP 158/77
== END 2018-02-03 19:15 | DRG 871 ==
LOC: ER 21:22 → TELE 01-21 00:16 → MED 01-21 09:06 → TELE-TD 01-24 09:49 → TELE1 01-25 08:28 → MEDSG1 01-26 10:43
PROVIDERS: ADMIT Internal Medicine; ATTEND Internal Medicine
PROC: 0DH63UZ Insertion of Feeding Device into Stomach, Percutaneous Approach (ICD-10-PCS; 2018-01-19)
PROC: 30233N1 Transfusion of Nonautologous Red Blood Cells into Peripheral Vein, Percutaneous Approach (ICD-10-PCS; 2018-01-20)
PROC: 02HV33Z Insertion of Infusion Device into Superior Vena Cava, Percutaneous Approach (ICD-10-PCS; 2018-01-23)
PROC: 0DH63UZ Insertion of Feeding Device into Stomach, Percutaneous Approach (ICD-10-PCS; principal; 2018-01-26 07:43)
DX: A41.9 Sepsis, unspecified organism (principal); E43 Unspecified severe protein-calorie malnutrition; J69.0 Pneumonitis due to inhalation of food and vomit; I50.33 Acute on chronic diastolic (congestive) heart failure; G92 Toxic encephalopathy; N17.9 Acute kidney failure, unspecified; E83.42 Hypomagnesemia; K31.84 Gastroparesis; E86.0 Dehydration; M86.10 Other acute osteomyelitis, unspecified site; E11.52 Type 2 diabetes mellitus with diabetic peripheral angiopathy with gangrene; I13.0 Hypertensive heart and chronic kidney disease with heart failure and stage 1 through stage 4 chronic kidney disease, or unspecified chronic kidney disease; M86.672 Other chronic osteomyelitis, left ankle and foot; N39.0 Urinary tract infection, site not specified; R13.10 Dysphagia, unspecified; E11.22 Type 2 diabetes mellitus with diabetic chronic kidney disease; N18.9 Chronic kidney disease, unspecified; D63.1 Anemia in chronic kidney disease; F29 Unspecified psychosis not due to a substance or known physiological condition; I11.0 Hypertensive heart disease with heart failure; E11.42 Type 2 diabetes mellitus with diabetic polyneuropathy; E11.621 Type 2 diabetes mellitus with foot ulcer; E11.65 Type 2 diabetes mellitus with hyperglycemia; E11.69 Type 2 diabetes mellitus with other specified complication; Z98.890 Other specified postprocedural states; Z79.82 Long term (current) use of aspirin; Z79.899 Other long term (current) drug therapy; Z79.4 Long term (current) use of insulin; F41.9 Anxiety disorder, unspecified; Z89.511 Acquired absence of right leg below knee; Z86.73 Personal history of transient ischemic attack (TIA), and cerebral infarction without residual deficits; Z86.19 Personal history of other infectious and parasitic diseases; R62.7 Adult failure to thrive; E78.5 Hyperlipidemia, unspecified; D64.9 Anemia, unspecified; E87.6 Hypokalemia; R41.0 Disorientation, unspecified; T50.905A Adverse effect of unspecified drugs, medicaments and biological substances, initial encounter; Y92.129 Unspecified place in nursing home as the place of occurrence of the external cause; F03.90 Unspecified dementia, unspecified severity, without behavioral disturbance, psychotic disturbance, mood disturbance, and anxiety; H40.9 Unspecified glaucoma; H54.7 Unspecified visual loss; I25.10 Atherosclerotic heart disease of native coronary artery without angina pectoris; E66.9 Obesity, unspecified; K21.9 Gastro-esophageal reflux disease without esophagitis; E11.43 Type 2 diabetes mellitus with diabetic autonomic (poly)neuropathy; B37.9 Candidiasis, unspecified; B96.89 Other specified bacterial agents as the cause of diseases classified elsewhere; I70.0 Atherosclerosis of aorta
CPT/HCPCS: 36415; 36600; 43246; 70450-TC; 71045-TC; 73600-TC; 73620-TC; 74018; 80048-TC; 80053-TC; 80076-TC; 80305; 81000-TC; 82140-TC; 82306; 82378; 82728-TC; 82962-TC; 83010; 83540-TC; 83605-TC; 83615-TC; 83735-TC; 83880; 84100-TC; 84155; 84165; 84443-TC; 84484-TC; 84550-TC; 85025-TC; 85027-TC; 85045-TC; 85652-TC; 85730-TC; 86850-TC; 86921-TC; 87040-TC; 87070-TC; 87081-TC; 87086-TC; 92521; 92526; 94799-TC; A4216; A4349; A4606; A6253; A6402; A6403; G0480; J0290; J0360; J0690; J0692; J1815; J1940; J2060; J2185; J2248; J3010; J3475; J3480; J3490; J7030; J7040; J7042; J7050; J7060; J7070; J8597; P9016-BL; Z7610

== ENCOUNTER 2018-04-10 12:23 | Outpatient (CLI) | payer MEDICARE, OTHER, MEDICAID ==
[~2018-04-10 12:23] MED LIST changes: +AMIN887L7 PO; +AMLO5TAB2 PO; -AMLO5TAB7 PO; +AMPI500C11 IV; +ASCO500C18 PO; +FLUC200T PO; +MULT-1185 PO; +TRAM50TA PO
== END 2018-04-10 23:59 ==
LOC: WOU 12:23
PROVIDERS: ATTEND Podiatrist Foot & Ankle Surgery
DX: E11.610 Type 2 diabetes mellitus with diabetic neuropathic arthropathy (principal); Z89.512 Acquired absence of left leg below knee; I25.2 Old myocardial infarction; M25.372 Other instability, left ankle; Z86.31 Personal history of diabetic foot ulcer; Z87.891 Personal history of nicotine dependence; Z93.1 Gastrostomy status; E11.51 Type 2 diabetes mellitus with diabetic peripheral angiopathy without gangrene; Z79.82 Long term (current) use of aspirin
CPT/HCPCS: A6402; Z7610

== ENCOUNTER 2018-05-15 13:03 | Outpatient (CLI) | payer MEDICARE, OTHER | END 2018-05-15 23:59 | LOC: WOU 13:03 | PROVIDERS: ATTEND Podiatrist Foot & Ankle Surgery | DX: E11.610 Type 2 diabetes mellitus with diabetic neuropathic arthropathy (principal); E11.42 Type 2 diabetes mellitus with diabetic polyneuropathy; Z89.512 Acquired absence of left leg below knee; Z86.31 Personal history of diabetic foot ulcer; M25.372 Other instability, left ankle; E11.69 Type 2 diabetes mellitus with other specified complication; M86.9 Osteomyelitis, unspecified; E11.52 Type 2 diabetes mellitus with diabetic peripheral angiopathy with gangrene | CPT/HCPCS: 29445; A6402; Z7610 ==

== ENCOUNTER 2018-06-12 12:55 | Outpatient (CLI) | payer MEDICARE, OTHER | END 2018-06-12 23:59 | disposition home or self-care (01) | LOC: WOU 12:55 | PROVIDERS: ATTEND Podiatrist Foot & Ankle Surgery | DX: E11.621 Type 2 diabetes mellitus with foot ulcer (principal); L97.429 Non-pressure chronic ulcer of left heel and midfoot with unspecified severity; E11.610 Type 2 diabetes mellitus with diabetic neuropathic arthropathy; Z89.511 Acquired absence of right leg below knee; M21.6X2 Other acquired deformities of left foot; I25.2 Old myocardial infarction | CPT/HCPCS: 29445; Z7610; A6402 ==

== ENCOUNTER 2018-06-26 12:25 | Outpatient (CLI) | payer MEDICARE, OTHER ==
[~2018-06-26 12:25] MED LIST changes: -AMLO5TAB2 PO; +AMLO5TAB7 PO
== END 2018-06-26 23:59 | disposition home or self-care (01) ==
LOC: WOU 12:25
PROVIDERS: ATTEND Podiatrist Foot & Ankle Surgery
DX: E11.621 Type 2 diabetes mellitus with foot ulcer (principal); L97.322 Non-pressure chronic ulcer of left ankle with fat layer exposed; L97.522 Non-pressure chronic ulcer of other part of left foot with fat layer exposed; E11.622 Type 2 diabetes mellitus with other skin ulcer; Z89.511 Acquired absence of right leg below knee; E11.42 Type 2 diabetes mellitus with diabetic polyneuropathy; I25.2 Old myocardial infarction; E11.610 Type 2 diabetes mellitus with diabetic neuropathic arthropathy; M21.962 Unspecified acquired deformity of left lower leg; E11.52 Type 2 diabetes mellitus with diabetic peripheral angiopathy with gangrene
CPT/HCPCS: 11042; A6209; A6402; Z7610

== ENCOUNTER 2018-07-03 20:52 | Inpatient (IN) | payer MEDICARE, OTHER, MEDICAID ==
[~2018-07-03] VITALS: Ht 177.8 cm; Wt 60.3 kg
[2018-07-03] MEDS ORDERED: VANCOMYCIN 1 GM in IV D5W 250 ML IV ONE (21:30)
[2018-07-03] MEDS ORDERED: MORPHINE SULFATE INJ 2 MG/ML DISP.SYRIN IV ONE (21:30)
[2018-07-03] MEDS ORDERED: IV NS 0.9% 500 ML BAG IV ONE ×2 (21:30→23:30)
[2018-07-03] MEDS ORDERED: PIPERACILLIN /TAZOBACTAM 3.375 G in IV D5W 50 ML IV ONE (21:30)
[2018-07-03] MEDS ORDERED: ONDANSETRON HCL/PF 4 MG/2 ML VIAL IVP ONE (21:30)
[2018-07-03 22:32] LABS: BASOPHILS % (AUTO) 0.2 % (0.0-2.0); EOSINOPHILS % (AUTO) 1.7 % (0.0-6.0); HEMATOCRIT 24 % (39-51); HEMOGLOBIN 7.7 g/dL (13.5-17.5); LYMPHOCYTES # (AUTO) 1.1 /CMM (0.8-4.8); LYMPHOCYTES % (AUTO) 9.3 % (20.0-44.0); MEAN CORPUSCULAR HGB CONC 32 g/dl (31.0-36.0); MEAN CORPUSCULAR VOLUME 97 fL (80-96); MONOCYTES # (AUTO) 0.8 /CMM (0.1-1.30); NEUTROPHILS # (AUTO) 9.4 /CMM (1.8-8.9); NEUTROPHILS % (AUTO) 81.8 % (43.0-81.0); PLATELET COUNT (AUTO) 327 /CMM (150-450); RED BLOOD CELL COUNT(AUTO) 2.48 MIL/uL (4.5-6.0); WHITE BLOOD COUNT (AUTO) 11.5 K/uL (4.3-11.0)
[2018-07-03 22:37] LABS: CALCIUM, SERUM 7.8 mg/dL (8.5-10.1); CARBON DIOXIDE 12 mmol/L (21-32); CHLORIDE 105 mmol/L (98-107); CREATININE 3.9 mg/dL (0.6-1.3); GLUCOSE 225 mg/dL (74-106); POTASSIUM 3.4 mmol/L (3.5-5.1); SODIUM SERUM 136 mmol/L (136-145); UREA NITROGEN, BLOOD 78 mg/dL (7-18)
[2018-07-03 22:44] LABS: TROPONIN I < 0.017 ng/mL (0.00-0.056)
[2018-07-03 22:49] LABS: INR 0.95 (0.87-1.13)
[2018-07-03 22:51] LABS: ALANINE AMINOTRANSFERASE 126 U/L (12-78); ALKALINE PHOSPHATASE 100 U/L (46-116); ASPARTATE AMINOTRANSFERASE 61 U/L (15-37); BILIRUBIN,DIRECT 0.1 mg/dL (0.0-0.2); BILIRUBIN,TOTAL 0.2 mg/dL (0.2-1.0); TOTAL PROTEIN, SERUM 6.9 g/dL (6.4-8.2)
[2018-07-03] MEDS ORDERED: LIDOCAINE 2% JEL UROJET 10 ML MM ONE (23:34)
[2018-07-03] MEDS ORDERED: HYDROMORPHONE 1 MG/1 ML DISP.SYRIN ONE (23:40)
[2018-07-03 23:50] LABS: ABG BASE EXCESS -15.3 mmol/L; ABG OXYGEN SATURATION 97.7 % (92.0-98.5); ABG PCO2 19.2 mmHg (35.0-45.0); ABG PH 7.306 (7.350-7.450); ABG PO2 114.3 mmHg (75.0-100.0); AaDO2 12.4 mmHg; COHb 0.6 % (0.5-1.5); MetHb 0.7 % (0.0-1.5); O2Hb 96.4 % (94.0-97.0); SITE, ABG Left Brachial; VENT MODE, BG Room Air
[2018-07-04] VITALS (23 sets, daily range): BP systolic 15–161; BP diastolic 51–81
[2018-07-04] MEDS ORDERED: MAGNESIUM HYDROXIDE 30 ML UDC PO PRN
[2018-07-04] MEDS ORDERED: CEFTRIAXONE 1 G in IV D5W 50 ML IV SCH ×2
[2018-07-04] MEDS ORDERED: DEXTROSE 50%-WATER 50 ML DISP.SYRIN IV PRN
[2018-07-04] MEDS ORDERED: MAG HYDROX/AL HYDROX/SIMETH 30 ML UDC PO PRN
[2018-07-04] MEDS ORDERED: LIDOCAINE 2% JEL UROJET 10 ML MM ONE
[2018-07-04] MEDS ORDERED: ALBUTEROL FS 2.5 MG/3 ML VIAL.NEB NEB PRN
[2018-07-04] MEDS ORDERED: ONDANSETRON HCL/PF 4 MG/2 ML VIAL IVP PRN
[2018-07-04] MEDS ORDERED: VANCOMYCIN 1 GM in IV D5W 250 ML IV SCH ×2
[2018-07-04] MEDS ORDERED: TRAMADOL HCL 50 MG TABLET PO PRN
[2018-07-04] MEDS ORDERED: Z GUARD REMEDY 2 OZ OINT TP PRN
[2018-07-04] MEDS ORDERED: HYDROMORPHONE INJ 0.5 MG/0.5 ML SYRINGE IV ONE
[2018-07-04 00:38] LABS: BILIRUBIN,URINE NEGATIVE (NEGATIVE); BLOOD, URINE 2+ Ery/uL (NEGATIVE); COLOR,URINE YELLOW (YELLOW); KETONES,URINE NEGATIVE (NEGATIVE); LEUKOCYTE ESTERASE ,URINE 3+ (NEGATIVE); NITRITE, URINE NEGATIVE (NEGATIVE); PH,URINE 5.5 (5.0-8.0); PROTEIN,URINE 2+ mg/dl (NEGATIVE); UGLUCOSE NEGATIVE (NEGATIVE); UROBILINOGEN,URINE 0.2 EU/dL (0.2)
[2018-07-04] MEDS ORDERED: CEFTRIAXONE 1 G VIAL ONE (01:00)
[2018-07-04] MEDS: IV NS 0.9% 1,000 ML IV PRN ×2 (01:04→17:50)
[2018-07-04 01:40] LABS: APPEARANCE,URINE CLOUDY (CLEAR)
[2018-07-04] MEDS: BLOOD SUGAR DIAGNOSTIC 1 EACH STRIP IN SCH ×6 (01:45→21:17)
[2018-07-04] MEDS: INSULIN REGULAR, HUMAN 100 UNIT/ML 3 ML VIAL SQ PRN ×2 (01:50→09:04)
[2018-07-04 01:56] LABS: BACTERIA,URINE 2+ /HPF (None Seen); RBC,URINE 21-50 /HPF (0-2); SQUAMOUS EPITHELIAL CELL,UR Few /HPF (None Seen); WBC,URINE TOO NUMEROUS TO COUN /HPF (0-3)
[2018-07-04] MEDS: ACETAMINOPHEN 325 MG TABLET PO PRN (05:10)
[2018-07-04] MEDS: HYDROCODONE/APAP 5/325MG 1 EACH TABLET PO PRN (05:10)
[2018-07-04 05:18] LABS: BASOPHILS % (AUTO) 0.2 % (0.0-2.0); EOSINOPHILS % (AUTO) 1.3 % (0.0-6.0); HEMATOCRIT 26 % (39-51); HEMOGLOBIN 8.2 g/dL (13.5-17.5); LYMPHOCYTES # (AUTO) 1.1 /CMM (0.8-4.8); LYMPHOCYTES % (AUTO) 8.5 % (20.0-44.0); MEAN CORPUSCULAR HGB CONC 32 g/dl (31.0-36.0); MEAN CORPUSCULAR VOLUME 99 fL (80-96); MONOCYTES # (AUTO) 0.9 /CMM (0.1-1.30); MONOCYTES % (AUTO) 7.1 % (2.0-12.0); NEUTROPHILS # (AUTO) 10.2 /CMM (1.8-8.9); NEUTROPHILS % (AUTO) 82.9 % (43.0-81.0); PLATELET COUNT (AUTO) 316 /CMM (150-450); RDW COEFFICIENT OF VARIATION 14.1 (11.5-15.0); RED BLOOD CELL COUNT(AUTO) 2.61 MIL/uL (4.5-6.0); WHITE BLOOD COUNT (AUTO) 12.3 K/uL (4.3-11.0)
[2018-07-04 05:29] LABS: CALCIUM, SERUM 8.1 mg/dL (8.5-10.1); CREATININE 3.7 mg/dL (0.6-1.3); MAGNESIUM 1.6 mg/dL (1.8-2.4); PHOSPHORUS 5.5 mg/dL (2.5-4.9); POTASSIUM 3.1 mmol/L (3.5-5.1)
[2018-07-04] MEDS ORDERED: FEE PK DOSING 1 MIN EA MC ONE (07:36)
[2018-07-04] MEDS: CARVEDILOL 6.25 MG TABLET PO SCH ×2 (08:57→17:09)
[2018-07-04] MEDS: ASCORBIC ACID 500 MG TABLET PO SCH (08:58)
[2018-07-04] MEDS: ASPIRIN EC 81 MG TABLET.DR PO SCH (08:58)
[2018-07-04] MEDS: PROSOURCE / PROSTAT (PYXIS) 30 ML UDC PO SCH ×2 (08:58→16:40)
[2018-07-04] MEDS: AMLODIPINE BESYLATE 5 MG TABLET PO SCH (08:58)
[2018-07-04] MEDS: FLUCONAZOLE (100 MG) 100 MG TABLET PO SCH (08:58)
[2018-07-04] MEDS ORDERED: FUROSEMIDE 40 MG TABLET PO SCH (09:00)
[2018-07-04] MEDS: MORPHINE SULFATE INJ 2 MG/ML DISP.SYRIN IV PRN ×2 (11:13→17:59)
[2018-07-04] MEDS ORDERED: LORAZEPAM INJ 2 MG/ML VIAL IV ONE (12:30)
[2018-07-04] MEDS: SODIUM BICARBONATE 650 MG TABLET PO SCH ×2 (12:30→16:40)
[2018-07-04] MEDS ORDERED: POTASSIUM CHLORIDE 20 MEQ POWDER PACKET PO ONE (14:00)
[2018-07-04] MEDS ORDERED: MAGNESIUM OXIDE 400 MG TABLET PO ONE (14:00)
[2018-07-04] MEDS: LACTOBACILLUS RHAMNOSUS GG 1 EACH CAP.SPRINK PO SCH (16:40)
[2018-07-04] MEDS: LORAZEPAM INJ 2 MG/ML VIAL IV PRN ×2 (17:42→23:44)
[2018-07-04] MEDS: NYSTATIN CREAM 15 GM TUBE TP SCH (18:03)
[2018-07-04] MEDS: BACITRACIN/POLYMYXIN B 15 GM TUBE TP SCH (18:03)
[2018-07-04] MEDS: ATORVASTATIN 40 MG TABLET PO SCH (21:04)
[2018-07-04] MEDS: CEFEPIME 1 GM in IV D5W 50 ML IV SCH (21:04)
[2018-07-05] VITALS: BP 140/60
[2018-07-05] MEDS: BLOOD SUGAR DIAGNOSTIC 1 EACH STRIP IN SCH ×5 (00:37→17:23)
[2018-07-05] MEDS ORDERED: POTASSIUM CHLORIDE 20 MEQ TAB.PRT.SR PO ONE ×2 (02:00→02:56)
[2018-07-05] MEDS: MORPHINE SULFATE INJ 2 MG/ML DISP.SYRIN IV PRN (02:57)
[2018-07-05 04:00] VITALS: BP 144/69
[2018-07-05 06:44] LABS: BASOPHILS % (AUTO) 0.2 % (0.0-2.0); EOSINOPHILS % (AUTO) 0.9 % (0.0-6.0); HEMATOCRIT 25 % (39-51); HEMOGLOBIN 7.8 g/dL (13.5-17.5); LYMPHOCYTES # (AUTO) 1.5 /CMM (0.8-4.8); LYMPHOCYTES % (AUTO) 10.5 % (20.0-44.0); MEAN CORPUSCULAR HGB CONC 32 g/dl (31.0-36.0); MEAN CORPUSCULAR VOLUME 99 fL (80-96); MONOCYTES # (AUTO) 0.7 /CMM (0.1-1.30); MONOCYTES % (AUTO) 4.9 % (2.0-12.0); NEUTROPHILS # (AUTO) 11.7 /CMM (1.8-8.9); NEUTROPHILS % (AUTO) 83.5 % (43.0-81.0); PLATELET COUNT (AUTO) 374 /CMM (150-450); RDW COEFFICIENT OF VARIATION 13.9 (11.5-15.0); RED BLOOD CELL COUNT(AUTO) 2.51 MIL/uL (4.5-6.0)
[2018-07-05 06:55] LABS: CALCIUM, SERUM 8.2 mg/dL (8.5-10.1); CREATININE 3.1 mg/dL (0.6-1.3); MAGNESIUM 1.5 mg/dL (1.8-2.4); PHOSPHORUS 5.7 mg/dL (2.5-4.9); POTASSIUM 3.6 mmol/L (3.5-5.1)
[2018-07-05] MEDS: INSULIN REGULAR, HUMAN 100 UNIT/ML 3 ML VIAL SQ PRN ×4 (07:16→17:24)
[2018-07-05 08:00] VITALS: BP 138/81
[2018-07-05] MEDS: FLUCONAZOLE (100 MG) 100 MG TABLET PO SCH (08:06)
[2018-07-05] MEDS: SODIUM BICARBONATE 650 MG TABLET PO SCH ×2 (08:07→17:22)
[2018-07-05] MEDS: ASCORBIC ACID 500 MG TABLET PO SCH (08:07)
[2018-07-05] MEDS: CARVEDILOL 6.25 MG TABLET PO SCH ×2 (08:08→17:25)
[2018-07-05] MEDS: AMLODIPINE BESYLATE 5 MG TABLET PO SCH (08:08)
[2018-07-05] MEDS: ASPIRIN EC 81 MG TABLET.DR PO SCH (08:08)
[2018-07-05] MEDS: LACTOBACILLUS RHAMNOSUS GG 1 EACH CAP.SPRINK PO SCH ×2 (08:08→17:22)
[2018-07-05] MEDS: PROSOURCE / PROSTAT (PYXIS) 30 ML UDC PO SCH ×2 (08:10→17:22)
[2018-07-05] MEDS: NYSTATIN CREAM 15 GM TUBE TP SCH ×2 (08:10→17:23)
[2018-07-05] MEDS: BACITRACIN/POLYMYXIN B 15 GM TUBE TP SCH ×2 (08:11→17:23)
[2018-07-05] MEDS: LORAZEPAM INJ 2 MG/ML VIAL IV PRN (09:02)
[2018-07-05] MEDS ORDERED: MAGNESIUM OXIDE 400 MG TABLET PO ONE (10:00)
[2018-07-05] MEDS: HYDROCODONE/APAP 5/325MG 1 EACH TABLET PO PRN ×3 (10:51→22:31)
[2018-07-05] MEDS ORDERED: VANCOMYCIN 1 GM in IV D5W 250 ML IV SCH (11:00)
[2018-07-05] MEDS ORDERED: DEXTROSE 50%-WATER 50 ML DISP.SYRIN IV PRN (11:00)
[2018-07-05 12:00] VITALS: BP 138/81
[2018-07-05] MEDS ORDERED: Magnesium 1GM/D5W 100ML PREMIX 100 ML IV SCH (12:30)
[2018-07-05 16:00] VITALS: BP 134/69
[2018-07-05] MEDS: LORATADINE 10 MG TABLET PO SCH (17:22)
[2018-07-05] MEDS: IV NS 0.9% 1,000 ML IV PRN (17:50)
[2018-07-05] MEDS: CEFEPIME 1 GM in IV D5W 50 ML IV SCH (18:06)
[2018-07-05 20:00] VITALS: BP 124/50
[2018-07-05] MEDS ORDERED: HALOPERIDOL LACTATE INJ 5 MG/ML VIAL IM PRN (21:00)
[2018-07-05] MEDS: ATORVASTATIN 40 MG TABLET PO SCH (22:30)
[2018-07-06] VITALS: BP 162/60
[2018-07-06] MEDS: HYDROCODONE/APAP 5/325MG 1 EACH TABLET PO PRN ×2 (00:23→13:40)
[2018-07-06] MEDS: BLOOD SUGAR DIAGNOSTIC 1 EACH STRIP IN SCH ×5 (00:23→22:13)
[2018-07-06] MEDS: INSULIN REGULAR, HUMAN 100 UNIT/ML 3 ML VIAL SQ PRN ×3 (00:29→22:27)
[2018-07-06 04:00] VITALS: BP 147/63
[2018-07-06] MEDS: ACETAMINOPHEN 325 MG TABLET PO PRN (04:55)
[2018-07-06] MEDS: IV NS 0.9% 1,000 ML IV PRN (04:55)
[2018-07-06 08:00] VITALS: BP 135/70
[2018-07-06] MEDS: ASCORBIC ACID 500 MG TABLET PO SCH (08:06)
[2018-07-06] MEDS: FLUCONAZOLE (100 MG) 100 MG TABLET PO SCH (08:07)
[2018-07-06] MEDS: HALOPERIDOL 1 MG TABLET PO SCH ×3 (08:07→17:00)
[2018-07-06] MEDS: AMLODIPINE BESYLATE 5 MG TABLET PO SCH (08:08)
[2018-07-06] MEDS: SODIUM BICARBONATE 650 MG TABLET PO SCH ×3 (08:08→17:31)
[2018-07-06] MEDS: LORATADINE 10 MG TABLET PO SCH (08:08)
[2018-07-06] MEDS: CARVEDILOL 6.25 MG TABLET PO SCH ×2 (08:09→17:34)
[2018-07-06] MEDS: ASPIRIN EC 81 MG TABLET.DR PO SCH (08:13)
[2018-07-06] MEDS: PROSOURCE / PROSTAT (PYXIS) 30 ML UDC PO SCH ×2 (09:00→17:30)
[2018-07-06] MEDS: MORPHINE SULFATE INJ 2 MG/ML DISP.SYRIN IV PRN ×2 (09:09→14:58)
[2018-07-06] MEDS: NYSTATIN CREAM 15 GM TUBE TP SCH ×2 (10:00→17:36)
[2018-07-06] MEDS: BACITRACIN/POLYMYXIN B 15 GM TUBE TP SCH ×2 (10:00→17:36)
[2018-07-06] MEDS: LACTOBACILLUS RHAMNOSUS GG 1 EACH CAP.SPRINK PO SCH ×2 (10:02→17:30)
[2018-07-06] MEDS ORDERED: INSULIN REGULAR, HUMAN 100 UNIT/ML 3 ML VIAL SQ PRN (10:30)
[2018-07-06] MEDS ORDERED: DEXTROSE 50%-WATER 50 ML DISP.SYRIN IV PRN ×2 (10:30)
[2018-07-06 10:46] LABS: BASOPHILS % (AUTO) 0.3 % (0.0-2.0); EOSINOPHILS % (AUTO) 1.6 % (0.0-6.0); HEMATOCRIT 24 % (39-51); HEMOGLOBIN 7.6 g/dL (13.5-17.5); LYMPHOCYTES # (AUTO) 1.3 /CMM (0.8-4.8); MEAN CORPUSCULAR HGB CONC 31 g/dl (31.0-36.0); MEAN CORPUSCULAR VOLUME 98 fL (80-96); MONOCYTES # (AUTO) 0.5 /CMM (0.1-1.30); MONOCYTES % (AUTO) 4.1 % (2.0-12.0); NEUTROPHILS # (AUTO) 10.9 /CMM (1.8-8.9); PLATELET COUNT (AUTO) 383 /CMM (150-450); RDW COEFFICIENT OF VARIATION 13.9 (11.5-15.0); RED BLOOD CELL COUNT(AUTO) 2.46 MIL/uL (4.5-6.0)
[2018-07-06 11:01] LABS: CALCIUM, SERUM 8.1 mg/dL (8.5-10.1); MAGNESIUM 1.6 mg/dL (1.8-2.4); PHOSPHORUS 4.7 mg/dL (2.5-4.9); POTASSIUM 3.5 mmol/L (3.5-5.1)
[2018-07-06] MEDS: VANCOMYCIN 0.75 GM in IV D5W 250 ML IV SCH (11:11)
[2018-07-06] MEDS ORDERED: BLOOD SUGAR DIAGNOSTIC 1 EACH STRIP IN SCH (12:00)
[2018-07-06] MEDS ORDERED: Sodium Bicarbonate 150 MEQ in IV D5W 1,000 ML IV PRN (13:30)
[2018-07-06] MEDS: Magnesium 1GM/D5W 100ML PREMIX 100 ML IV SCH ×2 (14:01→15:52)
[2018-07-06] MEDS: CLOTRIMAZOLE/BETAMETASONE DIPROPIONATE 15 GM TUBE TP SCH (15:50)
[2018-07-06] MEDS: Z GUARD REMEDY 2 OZ OINT TP SCH ×3 (15:51→22:12)
[2018-07-06 16:00] VITALS: BP 133/57
[2018-07-06] MEDS: CEFEPIME 1 GM in IV D5W 50 ML IV SCH (19:26)
[2018-07-06 20:00] VITALS: BP 134/65
[2018-07-06 21:00] VITALS: BP 134/65
[2018-07-06] MEDS: ATORVASTATIN 40 MG TABLET PO SCH (22:13)
[2018-07-07] MEDS: IV NS 0.9% 1,000 ML IV PRN ×2 (02:10→21:35)
[2018-07-07] MEDS: CLOTRIMAZOLE/BETAMETASONE DIPROPIONATE 15 GM TUBE TP SCH ×2 (02:11→08:22)
[2018-07-07] MEDS: Z GUARD REMEDY 2 OZ OINT TP SCH ×6 (02:11→20:17)
[2018-07-07 05:00] VITALS: BP 142/75
[2018-07-07 08:00] VITALS: BP 167/56
[2018-07-07] MEDS: FLUCONAZOLE (100 MG) 100 MG TABLET PO SCH (08:13)
[2018-07-07] MEDS: LORATADINE 10 MG TABLET PO SCH (08:13)
[2018-07-07] MEDS: LACTOBACILLUS RHAMNOSUS GG 1 EACH CAP.SPRINK PO SCH ×2 (08:13→16:57)
[2018-07-07] MEDS: ASCORBIC ACID 500 MG TABLET PO SCH (08:14)
[2018-07-07] MEDS: AMLODIPINE BESYLATE 5 MG TABLET PO SCH (08:14)
[2018-07-07] MEDS: CARVEDILOL 6.25 MG TABLET PO SCH ×2 (08:14→17:07)
[2018-07-07] MEDS: HALOPERIDOL 1 MG TABLET PO SCH ×3 (08:14→16:58)
[2018-07-07] MEDS: BLOOD SUGAR DIAGNOSTIC 1 EACH STRIP IN SCH ×4 (08:20→21:29)
[2018-07-07] MEDS: SODIUM BICARBONATE 650 MG TABLET PO SCH ×3 (08:20→16:57)
[2018-07-07] MEDS: ASPIRIN EC 81 MG TABLET.DR PO SCH (08:20)
[2018-07-07] MEDS: PROSOURCE / PROSTAT (PYXIS) 30 ML UDC PO SCH ×2 (08:20→16:57)
[2018-07-07] MEDS: NYSTATIN CREAM 15 GM TUBE TP SCH ×2 (08:22→16:58)
[2018-07-07] MEDS: BACITRACIN/POLYMYXIN B 15 GM TUBE TP SCH ×2 (08:22→16:58)
[2018-07-07] MEDS: INSULIN REGULAR, HUMAN 100 UNIT/ML 3 ML VIAL SQ PRN ×4 (08:28→21:30)
[2018-07-07 10:22] LABS: CALCIUM, SERUM 7.6 mg/dL (8.5-10.1); CREATININE 2.6 mg/dL (0.6-1.3); POTASSIUM 3.5 mmol/L (3.5-5.1)
[2018-07-07 10:23] LABS: BASOPHILS % (AUTO) 0.2 % (0.0-2.0); HEMATOCRIT 23 % (39-51); HEMOGLOBIN 7.2 g/dL (13.5-17.5); LYMPHOCYTES # (AUTO) 1.5 /CMM (0.8-4.8); LYMPHOCYTES % (AUTO) 13.4 % (20.0-44.0); MEAN CORPUSCULAR HGB CONC 31 g/dl (31.0-36.0); MEAN CORPUSCULAR VOLUME 99 fL (80-96); MONOCYTES # (AUTO) 0.5 /CMM (0.1-1.30); MONOCYTES % (AUTO) 4.5 % (2.0-12.0); NEUTROPHILS # (AUTO) 8.7 /CMM (1.8-8.9); NEUTROPHILS % (AUTO) 79.9 % (43.0-81.0); PLATELET COUNT (AUTO) 396 /CMM (150-450); RDW COEFFICIENT OF VARIATION 13.9 (11.5-15.0); RED BLOOD CELL COUNT(AUTO) 2.35 MIL/uL (4.5-6.0); WHITE BLOOD COUNT (AUTO) 10.9 K/uL (4.3-11.0)
[2018-07-07 10:27] LABS: IRON, SERUM 25 ug/dl (50-175); TOTAL IRON BINDING CAPACITY 140 ug/dl (250-450)
[2018-07-07] MEDS: VANCOMYCIN 0.75 GM in IV D5W 250 ML IV SCH (10:27)
[2018-07-07 10:37] LABS: FERRITIN 902 ng/mL (8-388)
[2018-07-07 16:00] VITALS: BP 135/63
[2018-07-07] MEDS: CEFEPIME 1 GM in IV D5W 50 ML IV SCH (18:05)
[2018-07-07] MEDS ORDERED: IVERMECTIN 3 MG TABLET PO ONE (20:00)
[2018-07-07] MEDS ORDERED: PERMETHRIN 5% CRM 60 GM TUBE TP ONE (20:00)
[2018-07-07] MEDS: MORPHINE SULFATE INJ 2 MG/ML DISP.SYRIN IV PRN (20:24)
[2018-07-07 21:00] VITALS: BP 131/59
[2018-07-07] MEDS: ATORVASTATIN 40 MG TABLET PO SCH (21:29)
[2018-07-08] MEDS: MORPHINE SULFATE INJ 2 MG/ML DISP.SYRIN IV PRN (01:38)
[2018-07-08] MEDS: Z GUARD REMEDY 2 OZ OINT TP SCH ×4 (03:01→14:24)
[2018-07-08] MEDS: CLOTRIMAZOLE/BETAMETASONE DIPROPIONATE 15 GM TUBE TP SCH ×2 (03:01→14:24)
[2018-07-08 05:00] VITALS: BP 150/61
[2018-07-08 08:00] VITALS: BP_SYST 144; BP_SYST 149; BP_DIAS 76
[2018-07-08 08:08] LABS: IMMUNOGLOBULIN A, SERUM 438 mg/dL (61-437); IMMUNOGLOBULIN G, SERUM 1541 mg/dL (700-1600); IMMUNOGLOBULIN M, SERUM 36 mg/dL (20-172)
[2018-07-08] MEDS: INSULIN REGULAR, HUMAN 100 UNIT/ML 3 ML VIAL SQ PRN ×2 (08:19→11:57)
[2018-07-08] MEDS: LACTOBACILLUS RHAMNOSUS GG 1 EACH CAP.SPRINK PO SCH ×2 (08:20→16:16)
[2018-07-08] MEDS: FLUCONAZOLE (100 MG) 100 MG TABLET PO SCH (08:20)
[2018-07-08] MEDS: HALOPERIDOL 1 MG TABLET PO SCH ×3 (08:21→16:17)
[2018-07-08] MEDS: NYSTATIN CREAM 15 GM TUBE TP SCH ×2 (08:21→16:18)
[2018-07-08] MEDS: ASCORBIC ACID 500 MG TABLET PO SCH (08:21)
[2018-07-08] MEDS: BACITRACIN/POLYMYXIN B 15 GM TUBE TP SCH ×2 (08:22→16:18)
[2018-07-08] MEDS: CARVEDILOL 6.25 MG TABLET PO SCH (08:23)
[2018-07-08] MEDS: LORATADINE 10 MG TABLET PO SCH (08:23)
[2018-07-08] MEDS: ASPIRIN EC 81 MG TABLET.DR PO SCH (08:24)
[2018-07-08] MEDS: HYDROCODONE/APAP 5/325MG 1 EACH TABLET PO PRN (08:24)
[2018-07-08] MEDS: AMLODIPINE BESYLATE 5 MG TABLET PO SCH (08:25)
[2018-07-08] MEDS: BLOOD SUGAR DIAGNOSTIC 1 EACH STRIP IN SCH ×2 (08:26→13:16)
[2018-07-08] MEDS: PROSOURCE / PROSTAT (PYXIS) 30 ML UDC PO SCH ×2 (08:27→16:16)
[2018-07-08] MEDS: SODIUM BICARBONATE 650 MG TABLET PO SCH ×3 (08:28→16:17)
[2018-07-08 10:17] LABS: *SPE A/G RATIO 0.7 (0.7-1.7); *SPE ALBUMIN 2.4 g/dL (2.9-4.4); *SPE ALPHA-1-GLOBULIN 0.3 g/dL (0.0-0.4); *SPE ALPHA-2-GLOBULIN 0.8 g/dL (0.4-1.0); *SPE BETA GLOBULIN 0.9 g/dL (0.7-1.3); *SPE GLOBULIN, TOTAL 3.5 g/dL (2.2-3.9); *SPE M-SPIKE Not Observed g/dL (Not Observed); *SPEGAMMA GLOBULIN 1.5 g/dL (0.4-1.8)
[2018-07-08] MEDS: VANCOMYCIN 0.75 GM in IV D5W 250 ML IV SCH (11:56)
[2018-07-08] MEDS ORDERED: HALO1TAB5 PO (12:52)
[2018-07-08] MEDS ORDERED: CEFE1PIG3 IV (12:52)
[2018-07-08] MEDS ORDERED: FLUC100T8 PO (12:52)
[2018-07-08] MEDS ORDERED: RXVAN XX (12:52)
[2018-07-08] MEDS ORDERED: LACT1CAP72 PO (12:52)
[2018-07-08] MEDS ORDERED: NYST15CR TP (12:52)
[2018-07-08 16:00] VITALS: BP_SYST 139; BP_SYST 150; BP_DIAS 56; BP_DIAS 82
== END 2018-07-08 16:30 | DRG 682 ==
LOC: ER 20:55 → ICU 23:47 → TELE-TD 07-04 10:02 → TELE1 07-06 13:16 → MEDSG1 07-06 13:25
PROVIDERS: ADMIT Internal Medicine; ATTEND Internal Medicine
DX: N17.0 Acute kidney failure with tubular necrosis (principal); G93.41 Metabolic encephalopathy; E43 Unspecified severe protein-calorie malnutrition; M86.172 Other acute osteomyelitis, left ankle and foot; I13.0 Hypertensive heart and chronic kidney disease with heart failure and stage 1 through stage 4 chronic kidney disease, or unspecified chronic kidney disease; N39.0 Urinary tract infection, site not specified; E11.52 Type 2 diabetes mellitus with diabetic peripheral angiopathy with gangrene; L97.429 Non-pressure chronic ulcer of left heel and midfoot with unspecified severity; B49 Unspecified mycosis; I50.32 Chronic diastolic (congestive) heart failure; M86.672 Other chronic osteomyelitis, left ankle and foot; E11.69 Type 2 diabetes mellitus with other specified complication; E11.22 Type 2 diabetes mellitus with diabetic chronic kidney disease; K21.9 Gastro-esophageal reflux disease without esophagitis; N18.9 Chronic kidney disease, unspecified; Z79.4 Long term (current) use of insulin; R62.7 Adult failure to thrive; Z98.890 Other specified postprocedural states; Z79.84 Long term (current) use of oral hypoglycemic drugs; Z79.899 Other long term (current) drug therapy; E11.621 Type 2 diabetes mellitus with foot ulcer; E78.5 Hyperlipidemia, unspecified; E83.42 Hypomagnesemia; E86.0 Dehydration; Z74.01 Bed confinement status; Z87.440 Personal history of urinary (tract) infections; Z90.49 Acquired absence of other specified parts of digestive tract; I70.0 Atherosclerosis of aorta; F41.9 Anxiety disorder, unspecified; F29 Unspecified psychosis not due to a substance or known physiological condition; I25.10 Atherosclerotic heart disease of native coronary artery without angina pectoris; D53.9 Nutritional anemia, unspecified; E87.6 Hypokalemia; F03.90 Unspecified dementia, unspecified severity, without behavioral disturbance, psychotic disturbance, mood disturbance, and anxiety; E11.610 Type 2 diabetes mellitus with diabetic neuropathic arthropathy; M21.969 Unspecified acquired deformity of unspecified lower leg; Z51.5 Encounter for palliative care; S30.812A Abrasion of penis, initial encounter; X58.XXXA Exposure to other specified factors, initial encounter; Y92.129 Unspecified place in nursing home as the place of occurrence of the external cause; L30.4 Erythema intertrigo; S61.208A Unspecified open wound of other finger without damage to nail, initial encounter; Z93.1 Gastrostomy status; R32 Unspecified urinary incontinence; N32.9 Bladder disorder, unspecified; L89.159 Pressure ulcer of sacral region, unspecified stage; I11.0 Hypertensive heart disease with heart failure
CPT/HCPCS: 36415; 36600; 71045-TC; 73140-TC; 76770-TC; 80048-TC; 80076-TC; 80202-TC; 81000-TC; 82570-TC; 82728-TC; 82784; 82803-TC; 82962-TC; 83540-TC; 83605-TC; 83735-TC; 84100-TC; 84155; 84165; 84300-TC; 84484-TC; 85025-TC; 85652-TC; 85730-TC; 86140-TC; 86334; 87040-TC; 87081-TC; 87086-TC; 93307-TC; 93930-TC; A4606; A6403; J0692; J0696; J1170; J1630; J1815; J2060; J2270; J2543; J3370; J3475; J3490; J7030; J7040; J7050; J7060; J7070; Z7610

== ENCOUNTER 2018-07-10 12:36 | Outpatient (CLI) | payer MEDICARE, OTHER, MEDICAID ==
[~2018-07-10 12:36] MED LIST changes: -AMPI500C11 IV; +CEFE1PIG3 IV; +FLUC100T8 PO; -FLUC200T PO; +HALO1TAB5 PO; +LACT1CAP72 PO; +NYST15CR TP; +RXVAN XX
== END 2018-07-10 23:59 ==
LOC: WOU 12:36
PROVIDERS: ATTEND Podiatrist Foot & Ankle Surgery
DX: E11.622 Type 2 diabetes mellitus with other skin ulcer (principal); L97.324 Non-pressure chronic ulcer of left ankle with necrosis of bone; L97.522 Non-pressure chronic ulcer of other part of left foot with fat layer exposed; E11.621 Type 2 diabetes mellitus with foot ulcer; E11.610 Type 2 diabetes mellitus with diabetic neuropathic arthropathy; E11.42 Type 2 diabetes mellitus with diabetic polyneuropathy; E11.69 Type 2 diabetes mellitus with other specified complication; M86.672 Other chronic osteomyelitis, left ankle and foot; E11.51 Type 2 diabetes mellitus with diabetic peripheral angiopathy without gangrene; Z89.511 Acquired absence of right leg below knee; Z79.899 Other long term (current) drug therapy; Z79.82 Long term (current) use of aspirin; M25.372 Other instability, left ankle
CPT/HCPCS: 11042; 11044; A6209; A6402; Z7610

== ENCOUNTER 2018-08-18 13:15 | Outpatient (CLI) | payer MEDICARE, OTHER, MEDICAID | END 2018-08-18 23:59 | disposition home health service (06) | LOC: WOU 13:15 | PROVIDERS: ATTEND Surgery Vascular Surgery | DX: I96 Gangrene, not elsewhere classified (principal); L98.498 Non-pressure chronic ulcer of skin of other sites with other specified severity | CPT/HCPCS: A6402; G0463; Z7610 ==

== ENCOUNTER 2018-09-09 12:58 | Outpatient (CLI) | payer MEDICARE, OTHER, MEDICAID | END 2018-09-09 23:59 | LOC: WOU 12:58 | PROVIDERS: ATTEND Podiatrist Foot & Ankle Surgery | DX: E11.621 Type 2 diabetes mellitus with foot ulcer (principal); L97.524 Non-pressure chronic ulcer of other part of left foot with necrosis of bone; E11.42 Type 2 diabetes mellitus with diabetic polyneuropathy; Z89.511 Acquired absence of right leg below knee; E11.610 Type 2 diabetes mellitus with diabetic neuropathic arthropathy; M25.372 Other instability, left ankle; E11.52 Type 2 diabetes mellitus with diabetic peripheral angiopathy with gangrene; E11.69 Type 2 diabetes mellitus with other specified complication; M86.9 Osteomyelitis, unspecified | CPT/HCPCS: 11044; 87070; 87077; A6402; Z7610 ==

== ENCOUNTER 2018-09-16 13:05 | Outpatient (CLI) | payer MEDICARE, OTHER, MEDICAID | END 2018-09-16 23:59 | LOC: WOU 13:05 | PROVIDERS: ATTEND Podiatrist Foot & Ankle Surgery | DX: E11.621 Type 2 diabetes mellitus with foot ulcer (principal); L97.523 Non-pressure chronic ulcer of other part of left foot with necrosis of muscle; L03.032 Cellulitis of left toe; R60.0 Localized edema; E11.610 Type 2 diabetes mellitus with diabetic neuropathic arthropathy; M25.372 Other instability, left ankle; M25.375 Other instability, left foot; B95.62 Methicillin resistant Staphylococcus aureus infection as the cause of diseases classified elsewhere; Z79.899 Other long term (current) drug therapy; Z79.82 Long term (current) use of aspirin | CPT/HCPCS: 11043; A6402; Z7610 ==

== ENCOUNTER 2018-09-30 13:30 | Outpatient (CLI) | payer MEDICARE, OTHER, MEDICAID ==
[~2018-09-30 13:30] MED LIST changes: -AMLO5TAB7 PO; +AMLO5TAB9 PO
== END 2018-09-30 23:59 | disposition home health service (06) ==
LOC: WOU 13:30
PROVIDERS: ATTEND Podiatrist Foot & Ankle Surgery
DX: E11.621 Type 2 diabetes mellitus with foot ulcer (principal); L97.523 Non-pressure chronic ulcer of other part of left foot with necrosis of muscle; L97.522 Non-pressure chronic ulcer of other part of left foot with fat layer exposed; E11.610 Type 2 diabetes mellitus with diabetic neuropathic arthropathy; L03.032 Cellulitis of left toe; Z89.511 Acquired absence of right leg below knee; E11.51 Type 2 diabetes mellitus with diabetic peripheral angiopathy without gangrene; M25.372 Other instability, left ankle; Z79.82 Long term (current) use of aspirin; Z79.899 Other long term (current) drug therapy
CPT/HCPCS: 11042; 11043; A6402

== ENCOUNTER 2018-10-13 12:30 | Outpatient (CLI) | payer MEDICARE, OTHER, MEDICAID | END 2018-10-13 23:59 | disposition home health service (06) | LOC: VASLAB 12:30 | PROVIDERS: ATTEND Surgery Vascular Surgery | DX: I96 Gangrene, not elsewhere classified (principal); L98.498 Non-pressure chronic ulcer of skin of other sites with other specified severity | CPT/HCPCS: A6402; G0463 ==

== ENCOUNTER 2018-10-14 12:15 | Outpatient (CLI) | payer MEDICARE, OTHER, MEDICAID | END 2018-10-14 23:59 | LOC: WOU 12:15 | PROVIDERS: ATTEND Podiatrist Foot & Ankle Surgery | DX: E11.621 Type 2 diabetes mellitus with foot ulcer (principal); L97.526 Non-pressure chronic ulcer of other part of left foot with bone involvement without evidence of necrosis; Z89.511 Acquired absence of right leg below knee; E11.42 Type 2 diabetes mellitus with diabetic polyneuropathy; M25.372 Other instability, left ankle; E11.610 Type 2 diabetes mellitus with diabetic neuropathic arthropathy; Z79.82 Long term (current) use of aspirin; Z79.899 Other long term (current) drug therapy; Z86.14 Personal history of Methicillin resistant Staphylococcus aureus infection | CPT/HCPCS: 11043; 87070-TC ==

== ENCOUNTER 2018-10-23 12:00 | Outpatient (CLI) | payer MEDICARE, OTHER, MEDICAID | END 2018-10-23 23:59 | disposition home health service (06) | LOC: WOU 12:00 | PROVIDERS: ATTEND Podiatrist Foot & Ankle Surgery | DX: E11.621 Type 2 diabetes mellitus with foot ulcer (principal); L97.526 Non-pressure chronic ulcer of other part of left foot with bone involvement without evidence of necrosis; E11.42 Type 2 diabetes mellitus with diabetic polyneuropathy; E11.610 Type 2 diabetes mellitus with diabetic neuropathic arthropathy; Z89.511 Acquired absence of right leg below knee; E11.51 Type 2 diabetes mellitus with diabetic peripheral angiopathy without gangrene; M25.372 Other instability, left ankle; Z79.82 Long term (current) use of aspirin; L03.116 Cellulitis of left lower limb | CPT/HCPCS: 11043; A6402 ==

== ENCOUNTER 2018-10-26 12:00 | Outpatient (CLI) | payer MEDICARE, OTHER, MEDICAID | END 2018-10-26 23:59 | disposition home health service (06) | LOC: WOU 12:00 | PROVIDERS: ATTEND Surgery | DX: E11.52 Type 2 diabetes mellitus with diabetic peripheral angiopathy with gangrene (principal); I96 Gangrene, not elsewhere classified; E11.621 Type 2 diabetes mellitus with foot ulcer; L97.809 Non-pressure chronic ulcer of other part of unspecified lower leg with unspecified severity; E11.69 Type 2 diabetes mellitus with other specified complication; E11.610 Type 2 diabetes mellitus with diabetic neuropathic arthropathy; M86.372 Chronic multifocal osteomyelitis, left ankle and foot; I73.9 Peripheral vascular disease, unspecified; Z79.82 Long term (current) use of aspirin; Z79.891 Long term (current) use of opiate analgesic; Z89.511 Acquired absence of right leg below knee | CPT/HCPCS: A6402; G0463; Z7610 ==

== ENCOUNTER 2018-10-30 12:20 | Outpatient (CLI) | payer MEDICARE, OTHER, MEDICAID | END 2018-10-30 23:59 | LOC: WOU 12:20 | PROVIDERS: ATTEND Podiatrist Foot & Ankle Surgery | DX: E11.621 Type 2 diabetes mellitus with foot ulcer (principal); L97.523 Non-pressure chronic ulcer of other part of left foot with necrosis of muscle; L03.116 Cellulitis of left lower limb; Z89.511 Acquired absence of right leg below knee; E11.610 Type 2 diabetes mellitus with diabetic neuropathic arthropathy; M25.372 Other instability, left ankle; E11.42 Type 2 diabetes mellitus with diabetic polyneuropathy; A49.02 Methicillin resistant Staphylococcus aureus infection, unspecified site; E11.51 Type 2 diabetes mellitus with diabetic peripheral angiopathy without gangrene; Z79.82 Long term (current) use of aspirin; Z79.899 Other long term (current) drug therapy | CPT/HCPCS: 11043; A6402 ==

== ENCOUNTER 2018-11-02 12:45 | Outpatient (CLI) | payer MEDICARE, OTHER, MEDICAID ==
[2018-11-02] MEDS ORDERED: LOPE2CAP PO (18:29)
[2018-11-02] MEDS ORDERED: COLL30OI TP (18:29)
[2018-11-02] MEDS ORDERED: MAG30ORA PO (18:29)
[2018-11-02] MEDS ORDERED: DIPH25CA6 PO (18:29)
[2018-11-02] MEDS ORDERED: CADE40GE2 TP (18:29)
[2018-11-02] MEDS ORDERED: FERR325T23 PO (18:29)
[2018-11-02] MEDS ORDERED: TRAM50TA2 PO (18:29)
[2018-11-02] MEDS ORDERED: CLIN300C11 PO (18:29)
[2018-11-02] MEDS ORDERED: ACET-868 PO (18:29)
[2018-11-02] MEDS ORDERED: CHOL100044 PO (18:29)
[2018-11-02] MEDS ORDERED: AMIN30LI2 PO (18:29)
[2018-11-02] MEDS ORDERED: ALBU2.5V38 IH (18:29)
== END 2018-11-02 23:59 | disposition home health service (06) ==
LOC: WOU 12:45
PROVIDERS: ATTEND Surgery
DX: E11.52 Type 2 diabetes mellitus with diabetic peripheral angiopathy with gangrene (principal); I96 Gangrene, not elsewhere classified; E11.69 Type 2 diabetes mellitus with other specified complication; M86.372 Chronic multifocal osteomyelitis, left ankle and foot; Z79.82 Long term (current) use of aspirin; Z79.891 Long term (current) use of opiate analgesic
CPT/HCPCS: 87070-TC; 87075-TC; 87186-TC; A6402; G0463

== ENCOUNTER 2018-11-02 17:53 | Inpatient (IN) | payer MEDICARE, OTHER, MEDICAID ==
[~2018-11-02] VITALS: Ht 177.8 cm; Wt 61.3 kg
[2018-11-02] MEDS ORDERED: VANCOMYCIN 1 GM in IV D5W 250 ML IV ONE (18:00)
[2018-11-02] MEDS ORDERED: PIPERACILLIN /TAZOBACTAM 3.375 G in IV D5W 50 ML IV ONE (18:00)
[2018-11-02] MEDS ORDERED: IV NS 0.9% 500 ML BAG IV ONE (18:00)
[2018-11-02 18:28] LABS: BASOPHILS # (AUTO) 0.1 /CMM (0.0-0.2); BASOPHILS % (AUTO) 0.7 % (0.0-2.0); HEMATOCRIT 29 % (39-51); HEMOGLOBIN 9.2 g/dL (13.5-17.5); LYMPHOCYTES # (AUTO) 1.2 /CMM (0.8-4.8); LYMPHOCYTES % (AUTO) 11.7 % (20.0-44.0); MEAN CORPUSCULAR HGB CONC 32 g/dl (31.0-36.0); MEAN CORPUSCULAR VOLUME 99 fL (80-96); MONOCYTES # (AUTO) 0.7 /CMM (0.1-1.30); MONOCYTES % (AUTO) 6.7 % (2.0-12.0); NEUTROPHILS % (AUTO) 79.9 % (43.0-81.0); PLATELET COUNT (AUTO) 341 /CMM (150-450); RED BLOOD CELL COUNT(AUTO) 2.89 MIL/uL (4.5-6.0); WHITE BLOOD COUNT (AUTO) 10.1 K/uL (4.3-11.0)
[2018-11-02] MEDS ORDERED: COLL30OI TP (18:29)
[2018-11-02] MEDS ORDERED: ACET-868 PO (18:29)
[2018-11-02] MEDS ORDERED: LOPE2CAP PO (18:29)
[2018-11-02] MEDS ORDERED: ALBU2.5V38 IH (18:29)
[2018-11-02] MEDS ORDERED: CADE40GE2 TP (18:29)
[2018-11-02] MEDS ORDERED: CHOL100044 PO (18:29)
[2018-11-02] MEDS ORDERED: CLIN300C11 PO (18:29)
[2018-11-02] MEDS ORDERED: FERR325T23 PO (18:29)
[2018-11-02] MEDS ORDERED: MAG30ORA PO (18:29)
[2018-11-02] MEDS ORDERED: DIPH25CA6 PO (18:29)
[2018-11-02] MEDS ORDERED: TRAM50TA2 PO (18:29)
[2018-11-02] MEDS ORDERED: AMIN30LI2 PO (18:29)
--- NOTE | 2018-11-02 18:35 | NUR ---
PATIENT BROUGHT IN BY PRIMARY MD FROM [facility] FOR GANGRENE CHANGES TO HAND WOUND. LIA AIKEN AT BEDSIDE FOR VISUALIZATION. FOUL SMELLING. PATIENT UNABLE TO MOVE FINGER. REDNESS NOTED AT KNUCKLE JOINT. RIGHT POINTER FINGER GANGRENE AND RIGHT MIDDLE TIP FINGER GANGRENE. PATIENT STATES SEVERE PAIN WHEN MANIPULATED. DRESSING CHANGES COMPLETED. PATIENT NOTED WITH HEALING SACRAL WOUND WITH SMALL OPENING. PENILE EXCORIATION/WOUND. RIGHT BKA, LEFT LE CAST IN PLACE. PATIENT LEGALLY BLIND IN BOTH EYES. BASELINE MENTAL STATUS. AFEBRILE.
[2018-11-02 18:45] LABS: ALBUMIN 1.9 g/dL (3.4-5.0); BILIRUBIN,DIRECT 0.1 mg/dL (0.0-0.2); BILIRUBIN,TOTAL 0.1 mg/dL (0.2-1.0); CALCIUM, SERUM 8.3 mg/dL (8.5-10.1); CREATININE 3.4 mg/dL (0.6-1.3); POTASSIUM 5.1 mmol/L (3.5-5.1); TOTAL PROTEIN, SERUM 6.7 g/dL (6.4-8.2)
--- NOTE | 2018-11-02 19:11 | NUR ---
REPORT GIVEN TO RUTHY SCHULTZ FOR ANGEL. PATIENT DIAPER CHANGED AND RESTING COMFORTABLY
--- NOTE | 2018-11-02 19:15 | NUR ---
SABRINA CALLED ITS [facility].
--- NOTE | 2018-11-02 19:16 | NUR ---
CALLED FOR MS BED INFORMED TO CALL BACK AFTER 1929
[2018-11-02] MEDS ORDERED: ACETAMINOPHEN 325 MG TABLET PO ONE (19:30)
[2018-11-02] MEDS ORDERED: ACETAMINOPHEN 325 MG TABLET ONE (19:34)
[2018-11-02] MEDS ORDERED: LORAZEPAM INJ 2 MG/ML VIAL ONE (19:37)
[2018-11-02 20:00] VITALS: BP_SYST 139; BP_SYST 142; BP_DIAS 55; BP_DIAS 82
[2018-11-02] MEDS ORDERED: LORAZEPAM INJ 2 MG/ML VIAL IV ONE (20:00)
--- NOTE | 2018-11-02 20:06 | NUR ---
REPORT GIVEN TO JIMMY BLISS.
[2018-11-02 20:30] VITALS: BP 142/55
--- NOTE | 2018-11-02 20:30 | NUR ---
MS/RN OPENING NOTES PT RECEIVED FROM ER [facility]. MOSTLY WELSH SPEAKING, ABLE TO COMMUNICATE WITH SOME HEBREW. ABLE TO MAKE NEEDS KNOWN. IV TO LAC PATENT AND INTACT. ORIENTED PT TO ROOM AND CALL LIGHT. BILATERAL UPPER SIDE RAILS IN PLACE WITH BED ALARM ON FOR SAFETY. BED IS IN LOW/LOCKED POSITION. LEFT LEG IN HARD CAST AND RIGHT BKA NOTED. WILL CONTINUE TO MONITOR
[2018-11-02] MEDS ORDERED: ONDANSETRON HCL/PF 4 MG/2 ML VIAL IVP PRN (21:00)
[2018-11-02] MEDS ORDERED: Z GUARD REMEDY 2 OZ OINT TP PRN (21:00)
[2018-11-02] MEDS ORDERED: ATORVASTATIN 40 MG TABLET PO SCH (22:00)
[2018-11-02] MEDS: INSULIN GLARGINE, 100 UNIT/ML CARTRIDGE SQ SCH (22:03)
[2018-11-02] MEDS: ATORVASTATIN 10 MG TABLET PO SCH (22:04)
[2018-11-02] MEDS: FUROSEMIDE 40 MG TABLET PO SCH (22:04)
--- NOTE | 2018-11-02 22:30 | NUR ---
MS/RN NOTES CALLED [facility] [phone] UNABLE TO PROVIDE DETAILS REGARDING CAST ON PT'S LLE. LAST BM UNKNOWN. PER SNF RECORDS, PT REFUSES FLU/PNA VACCINE.
[2018-11-02] MEDS: BLOOD SUGAR DIAGNOSTIC 1 EACH STRIP IN SCH (22:51)
[2018-11-02] MEDS: INSULIN REGULAR, HUMAN 100 UNIT/ML 3 ML VIAL SQ PRN (22:53)
--- NOTE | 2018-11-02 22:57 | NUR ---
MS/RN NOTES KAREEN, AD SETTER NOTIFIED THAT PT IS DIABETIC WITH ONLY LANTUS HS ORDERED. WITH ORDERS FOR MILD SLIDING SCALE. ORDERED NOTED AND CARRIED OUT. SNACKS PROVIDED TO PATIENT AND ASSISTED WITH FEEDING.
[2018-11-02] MEDS ORDERED: DEXTROSE 50%-WATER 50 ML DISP.SYRIN IV PRN (23:00)
[2018-11-02] MEDS: ACETAMINOPHEN 325 MG TABLET PO PRN (23:53)
--- NOTE | 2018-11-02 23:59 | NUR ---
MS/RN NOTES PT C/O OF PAIN TO BILATERAL HANDS, REQUESTING TYLENOL. ADMINISTERED ORDERED. WILL MONITOR FOR EFFECTIVENESS.
[2018-11-03] MEDS: TRAMADOL HCL 50 MG TABLET PO PRN (01:14)
[2018-11-03 03:03] LABS: BASOPHILS # (AUTO) 0.1 /CMM (0.0-0.2); BASOPHILS % (AUTO) 0.5 % (0.0-2.0); EOSINOPHILS % (AUTO) 1.2 % (0.0-6.0); HEMATOCRIT 27 % (39-51); HEMOGLOBIN 8.8 g/dL (13.5-17.5); LYMPHOCYTES # (AUTO) 1.3 /CMM (0.8-4.8); LYMPHOCYTES % (AUTO) 11.8 % (20.0-44.0); MEAN CORPUSCULAR HGB CONC 32 g/dl (31.0-36.0); MEAN CORPUSCULAR VOLUME 97 fL (80-96); MONOCYTES # (AUTO) 0.9 /CMM (0.1-1.30); MONOCYTES % (AUTO) 8.3 % (2.0-12.0); NEUTROPHILS # (AUTO) 8.8 /CMM (1.8-8.9); NEUTROPHILS % (AUTO) 78.2 % (43.0-81.0); PLATELET COUNT (AUTO) 352 /CMM (150-450); RED BLOOD CELL COUNT(AUTO) 2.82 MIL/uL (4.5-6.0); WHITE BLOOD COUNT (AUTO) 11.2 K/uL (4.3-11.0)
[2018-11-03 03:19] LABS: ALBUMIN 1.9 g/dL (3.4-5.0); BILIRUBIN,TOTAL 0.2 mg/dL (0.2-1.0); CALCIUM, SERUM 8.1 mg/dL (8.5-10.1); CREATININE 3.1 mg/dL (0.6-1.3); MAGNESIUM 1.9 mg/dL (1.8-2.4); PHOSPHORUS 4.2 mg/dL (2.5-4.9); POTASSIUM 4.4 mmol/L (3.5-5.1); TOTAL PROTEIN, SERUM 6.4 g/dL (6.4-8.2)
[2018-11-03 03:26] LABS: THYROID STIMULATING HORMONE 3.039 uIU/mL (0.358-3.74)
--- NOTE | 2018-11-03 03:33 | NUR ---
MS/RN NOTES PT C/O BACK PAIN 05/08. TYLENOL AND TRAMADOL INEFFECTIVE. NOTIFIED PEÑA MATHUR. WITH ORDERS FOR DILAUDID 1MG IV Q4H PRN. ORDERED NOTED AND CARRIED OUT.
[2018-11-03] MEDS: HYDROMORPHONE INJ 2 MG/ML DISP.SYRIN IV PRN (03:56)
[2018-11-03] MEDS: PIPERACILLIN /TAZOBACTAM 2.25 G in IV D5W 50 ML IV SCH ×3 (05:50→20:22)
--- NOTE | 2018-11-03 06:37 | NUR ---
MS/RN CLOSING NOTES PT RESTING COMFORTABLY IN BED. ON ROOM AIR, BREATHING EVEN AND UNLABORED. NO S/S OF SOB, DENIES PAIN AT THIS TIME. IN NO ACUTE DISTRESS. IV TO LAC PATENT AND INTACT. RIGHT BKA AND LLE CAST IN PLACE AND ELEVATED ON PILLOW. KEPT CLEAN AND DRY. TURNED/REPOSITIONED PT PERMITS. REFUSING ACCUCHECK THIS MORNING DESPITE EDUCATION X3 RE: RISKS/BENEFITS. PT BECOMING AGITATED AND YELLING. DILAUDID EFFECTIVE FOR PAIN 05/08. SLEPT WELL FOR REMAINDER OF THE SHIFT. NO SIGNIFICANT CHANGES OVERNIGHT. KEPT PT COMFORTABLE POSSIBLE. BED REMAINS IN LOW/LOCKED POSITION WITH CALL LIGHT IN REACH. BILATERAL UPPER SIDE RAILS IN PLACE WITH BED ALARM ON FOR SAFETY. WILL ENDORSE TO DAY SHIFT RN ANGEL.
[2018-11-03] MEDS ORDERED: FEE PK DOSING 1 MIN EA MC ONE (06:41)
[2018-11-03] MEDS: BLOOD SUGAR DIAGNOSTIC 1 EACH STRIP IN SCH ×4 (07:30→21:06)
--- NOTE | 2018-11-03 07:30 | NUR ---
MS RN NOTES PATIENT EYES CLOSED, EASY TO AROUSE.RESPONSE TO VERBAL AND TACTILE STIMULI. NO ACUTE DISTRESS NOTED. BREATHING UNLABORED. HOB ELEVATED. IV ACCESS PATENT AND INTACT, NO REDNESS OR SWELLING NOTED. CALL LIGHT WITHIN REACH. SAFETY MEASURES IN PLACE. WILL CONTINUE TO MONITOR ACCORDINGLY.
[2018-11-03 08:00] VITALS: BP 149/70
[2018-11-03] MEDS ORDERED: COLLAGENASE 15 GM TUBE TP SCH (09:00)
[2018-11-03] MEDS: CHOLECALCIFEROL 1,000 UNIT TABLET (VIT D3) PO SCH (09:05)
[2018-11-03] MEDS: ASPIRIN EC 81 MG TABLET.DR PO SCH (09:05)
[2018-11-03] MEDS: ACETAMINOPHEN 325 MG TABLET PO PRN ×2 (09:05→16:53)
[2018-11-03] MEDS: FERROUS SULFATE (325 MG) 325 MG/TAB TABLET PO SCH (09:05)
[2018-11-03] MEDS: CARVEDILOL 6.25 MG TABLET PO SCH ×2 (09:05→17:14)
[2018-11-03] MEDS: AMLODIPINE BESYLATE 5 MG TABLET PO SCH (09:06)
[2018-11-03] MEDS: CADEXOMER IODINE 40 GM TUBE TP SCH (10:41)
[2018-11-03 16:00] VITALS: BP 146/64
[2018-11-03] MEDS: LACTOBACILLUS RHAMNOSUS GG 1 EACH CAP.SPRINK PO SCH (16:53)
--- NOTE | 2018-11-03 17:44 | NUR ---
MS RUTHY RUELAS CLARIFIED WOUND CARE ORDER FROM QC CHEMIST FRANC DAWKINS FOR GROIN/SCROTAL/PENILE AREA, WITH ORDERS FOR APPLY TRIPLE ANTIBIOTIC QSHIFT TO PENILE WOUND AND DILIP BRUNER WILL SEE PATIENT TOMORROW. NOTED AND CARRIED OUT.
[2018-11-03] MEDS: VANCOMYCIN 0.75 GM in IV D5W 250 ML IV SCH (18:05)
--- NOTE | 2018-11-03 19:00 | NUR ---
MS RN NOTES PATIENT ALERT ORIENTED X 2. NO ACUTE DISTRESS NOTED. BREATHING UNLABORED. HOB ELEVATED. IV ACCESS PATENT AND INTACT, NO REDNESS OR SWELLING NOTED.NEEDS ATTENDED AND ANTICIPATED. KEPT CLEAN DRY AND COMFORTABLE. DUE MEDICATIONS GIVEN, NO ASE NOTED. CALL LIGHT WITHIN REACH. SAFETY MEASURES IN PLACE. ENDORSED TO NIGHT NURSE FOR CONTINUITY OF CARE.
--- NOTE | 2018-11-03 19:29 | NUR ---
RN MS OPENING NOTES RECEIVED PATIENT RESTING IN BED. ALERT AND ORIENTED X2, VERBALLY RESPONSIVE, ABLE TO MAKE NEEDS KNOWN. BREATHING EVEN AND UNLABORED. NO SOB NOTED. TOLERATING ROOM AIR. CURRENTLY NO COMPLAINTS OF PAIN OR DISCOMFORT. NO FACIAL GRIMACING. IV ON LEFT AC G#20 INTACT AND PATENT. SKIN DRY AND WARM TO TOUCH. AFEBRILE. DRESSING ON LEFT HAND NECROTIC FINGER DRY AND INTACT. ALL OTHER NEEDS ATTENDED TO. SAFETY MEASURES IN PLACE. CALL LIGHT WITHIN REACH. WILL CONTINUE TO MONITOR.
[2018-11-03] MEDS: NEOMY SULF/BACITRAC ZN/POLY 15 GM TUBE TP SCH (20:21)
[2018-11-03 20:42] VITALS: BP 145/63
[2018-11-03] MEDS: INSULIN REGULAR, HUMAN 100 UNIT/ML 3 ML VIAL SQ PRN (21:06)
[2018-11-03] MEDS: INSULIN GLARGINE, 100 UNIT/ML CARTRIDGE SQ SCH (21:06)
--- NOTE | 2018-11-03 21:07 | NUR ---
RN MS NOTES PATIENT REFUSED BLOOD SUGAR CHECK THIS EVENING DESPITE EXPLANATION OF RISKS AND BENEFITS. PER PATIENT HE HAS NOT CHECKED HIS BLOOD SUGAR IN A LONG TIME AND DOES NOT WANT IT NOW. INSULIN ALSO NOT GIVEN DUE TO REFUSAL. WILL CONTINUE TO MONITOR.
[2018-11-03] MEDS: ATORVASTATIN 10 MG TABLET PO SCH (21:10)
[2018-11-04] MEDS: diphenhydrAMINE HCL 25 MG CAPSULE PO PRN (03:33)
[2018-11-04] MEDS: PIPERACILLIN /TAZOBACTAM 2.25 G in IV D5W 50 ML IV SCH ×3 (05:26→20:49)
[2018-11-04] MEDS: ACETAMINOPHEN 325 MG TABLET PO PRN ×3 (06:07→16:51)
[2018-11-04] MEDS: BLOOD SUGAR DIAGNOSTIC 1 EACH STRIP IN SCH ×4 (06:33→22:00)
[2018-11-04] MEDS: INSULIN REGULAR, HUMAN 100 UNIT/ML 3 ML VIAL SQ PRN ×2 (06:34→18:42)
--- NOTE | 2018-11-04 06:35 | NUR ---
RN MS NOTES BS 112 - NO COVERAGE NEEDED
--- NOTE | 2018-11-04 06:38 | NUR ---
RN MS CLOSING NOTES PATIENT RESTING IN BED. NO ACUTE CHANGES THROUGHOUT SHIFT. PATIENT NOTED WITH SCREAMING WHEN NEEDING ASSISTANCE. DESPITE EDUCATING THE USE OF CALL LIGHT LIGHT, PATIENT STILL SCREAMS WHEN HE NEEDS HELP. BREATHING EVEN AND UNLABORED. NO SOB NOTED. TOLERATING ROOM AIR. CURRENTLY NO COMPLAINTS OF PAIN OR DISCOMFORT. NO FACIAL GRIMACING. IV ON LEFT AC G#20 INTACT AND PATENT. SKIN DRY AND WARM TO TOUCH. AFEBRILE. DRESSING ON LEFT AND RIGHT HAND NECROTIC FINGERS DRY AND INTACT. ALL OTHER NEEDS ATTENDED TO. SAFETY MEASURES IN PLACE. CALL LIGHT WITHIN REACH. WILL ENDORSE TO ONCOMING NURSE FOR ANGEL.
[2018-11-04 06:43] LABS: CALCIUM, SERUM 8.1 mg/dL (8.5-10.1); MAGNESIUM 1.9 mg/dL (1.8-2.4); PHOSPHORUS 4.5 mg/dL (2.5-4.9); POTASSIUM 4.6 mmol/L (3.5-5.1)
[2018-11-04 06:45] LABS: BASOPHILS # (AUTO) 0.1 /CMM (0.0-0.2); BASOPHILS % (AUTO) 0.6 % (0.0-2.0); EOSINOPHILS % (AUTO) 1.4 % (0.0-6.0); HEMATOCRIT 28 % (39-51); HEMOGLOBIN 9.1 g/dL (13.5-17.5); LYMPHOCYTES # (AUTO) 1.5 /CMM (0.8-4.8); LYMPHOCYTES % (AUTO) 14.3 % (20.0-44.0); MEAN CORPUSCULAR HGB CONC 33 g/dl (31.0-36.0); MEAN CORPUSCULAR VOLUME 98 fL (80-96); MONOCYTES # (AUTO) 0.8 /CMM (0.1-1.30); MONOCYTES % (AUTO) 7.8 % (2.0-12.0); NEUTROPHILS # (AUTO) 8.1 /CMM (1.8-8.9); NEUTROPHILS % (AUTO) 75.9 % (43.0-81.0); PLATELET COUNT (AUTO) 350 /CMM (150-450); RED BLOOD CELL COUNT(AUTO) 2.83 MIL/uL (4.5-6.0); WHITE BLOOD COUNT (AUTO) 10.7 K/uL (4.3-11.0)
[2018-11-04 08:00] VITALS: BP 136/85
[2018-11-04] MEDS: LACTOBACILLUS RHAMNOSUS GG 1 EACH CAP.SPRINK PO SCH ×2 (09:07→17:29)
[2018-11-04] MEDS: ASPIRIN EC 81 MG TABLET.DR PO SCH (09:07)
[2018-11-04] MEDS: CHOLECALCIFEROL 1,000 UNIT TABLET (VIT D3) PO SCH (09:08)
[2018-11-04] MEDS: CARVEDILOL 6.25 MG TABLET PO SCH ×2 (09:08→17:29)
[2018-11-04] MEDS: AMLODIPINE BESYLATE 5 MG TABLET PO SCH (09:08)
[2018-11-04] MEDS: FERROUS SULFATE (325 MG) 325 MG/TAB TABLET PO SCH (09:08)
[2018-11-04] MEDS: CADEXOMER IODINE 40 GM TUBE TP SCH (09:10)
[2018-11-04] MEDS: NEOMY SULF/BACITRAC ZN/POLY 15 GM TUBE TP SCH ×2 (09:10→22:58)
--- NOTE | 2018-11-04 10:30 | NUR ---
DR. PLATA IN DISCUSSING POSSIBLE SURGERY WITH PT.PT. UNSURE.PT,S CALLED,TO BE IN LATER TO DISCUSS.
--- NOTE | 2018-11-04 11:30 | NUR ---
EYAL DAWKINS IN TO SEE PT.
[2018-11-04] MEDS ORDERED: diphenhydrAMINE HCL 25 MG CAPSULE PO ONE (12:00)
--- NOTE | 2018-11-04 12:03 | NUR ---
MEDICATED FOR ITCHING ON CHEST WITH BENADRYL 25 MG PO.
[2018-11-04] MEDS: TRAMADOL HCL 50 MG TABLET PO PRN ×2 (14:12→20:25)
[2018-11-04 16:00] VITALS: BP 121/51
--- NOTE | 2018-11-04 16:30 | NUR ---
LAURIE IN AND WANTS INFO ON POSSIBLE SURG.GERARDO CALLED AND SAYS SURGEON WILL BE IN TOMORRW AND EVAL.PT. FOR POSSIBLE SURG.11/05 AND THAT SURGEON WILL CONTACT .PT. TO BE NPO AFTER MIDNIGHT.
[2018-11-04] MEDS: NYSTATIN TOP POWDER 15 GM BOTTLE TP SCH ×2 (17:28→22:57)
--- NOTE | 2018-11-04 18:30 | NUR ---
WANTS TO LOOK AT PT,S LT. EYE, RED AND WITH SM. AMT. DISCHARGE. TO ENDORSE TO [facility]. BLISS.PT HAS BEEN REFUSING BLOOD SUGAR CHECKS.PT. WONT USE CALL LIGHT,YELLS OUT FREQ. AND LOUDLY WHEN HE NEEDS SOMETHING. MED X 2 WITH TYLENOL AND ONE TIME WITH ULTRAM.
[2018-11-04] MEDS: VANCOMYCIN 0.75 GM in IV D5W 250 ML IV SCH (18:33)
--- NOTE | 2018-11-04 19:30 | NUR ---
RN NOTES RECEIVED PT. AWAKE ON BED, A/OX2, BLIND , DRESSING ON THE LEFT FINGER DRY AND INTACT, CALL LIGHT WITHIN REACH, [id number], CONTINUE TO MONITOR
[2018-11-04 20:26] VITALS: BP 146/65
--- NOTE | 2018-11-04 20:30 | NUR ---
RN NOTES COMPLAINED OF HIS LEFT INDEX AND RING FINGER- TRAMADOL 50MG PO GIVEN ORDERED, V/S STABLE
[2018-11-04] MEDS: FUROSEMIDE 40 MG TABLET PO SCH (20:48)
[2018-11-04] MEDS: FINASTERIDE (5 MG) 5 MG TABLET PO SCH (20:49)
[2018-11-04] MEDS: INSULIN GLARGINE, 100 UNIT/ML CARTRIDGE SQ SCH (22:00)
--- NOTE | 2018-11-04 22:00 | NUR ---
RN NOTES PT. REFUSED ACCU CHECK WELL HIS LANTUS, INFORMED THE CHARGE NURSE
[2018-11-04] MEDS: ATORVASTATIN 10 MG TABLET PO SCH (22:57)
[2018-11-04] MEDS: TAMSULOSIN 0.4 MG CAP.SR.24H PO SCH (22:57)
--- NOTE | 2018-11-05 05:00 | NUR ---
RN NOTES PT. ASKED FOR TYLENOL.. EXPLAINED TO THE PT. THAT HE'S NOT ALLOWED TO EAT AND DRINK BECAUSE HE 'S GOING TO HAVE SURGERY. PATIENT SCREAMED . INFORMED THE PT THAT WE WILL CALL THE DOCTOR FOR IV ORDER, BUT PT. DOESN'T WANT AND IV MEDICATION. INFORMED THE CHARGE NURSE AND GAVE TYLENOL 650MG PO WITH A SIP OF WATER
--- NOTE | 2018-11-05 06:30 | NUR ---
RN NOTES PT. STILL REFUSING ACU-CHECK, EXPLAINED THE IMPORTANCE OF CHECKING HIS BLOOD SUGAR BUT PT. STILL REFUSING
--- NOTE | 2018-11-05 06:42 | NUR ---
RN NOTEA AWAKE, DENIES PAIN, MORNING CARE RENDERED, CALL LIGHT WITHIN REACH, [id number], PT. NEEDS ATTENDED
[2018-11-05] MEDS: PIPERACILLIN /TAZOBACTAM 2.25 G in IV D5W 50 ML IV SCH ×2 (06:47→13:04)
[2018-11-05] MEDS: BLOOD SUGAR DIAGNOSTIC 1 EACH STRIP IN SCH ×4 (07:30→21:08)
--- NOTE | 2018-11-05 07:30 | NUR ---
MS/RN NOTE RECEIVED THE PATIENT IN BED. THE PATIENT AWAKE, ALERT AND ORIENTED X2. THE PATIENT YELLING ASKING FOR FOOD. THE PATIENT IS REMINDED ABOUT BEING NPO. EXPLAINED TO THE PATIENT RISKS OF NOT FOLLOWING NPO ORDER. LAC G 18 PATENT AND SALINE LOCKED. BED LOW AND LOCKED. SIDE RAILS UP X3. CALL LIGHT WITHIN REACH. WILL CONTINUE TO MONITOR.
[2018-11-05 08:00] VITALS: BP 151/79
--- NOTE | 2018-11-05 08:01 | NUR ---
MS/RN NOTE THE PATIENT REFUSED BLOOD SUGAR CHECK DUE AT 0730. EXPLAINED RISKS AND BENEFITS MULTIPLE TIMES BUT THE PATIENT STILL REFUSED.
[2018-11-05] MEDS: ASPIRIN EC 81 MG TABLET.DR PO SCH (09:00)
[2018-11-05] MEDS: CARVEDILOL 6.25 MG TABLET PO SCH ×2 (09:00→17:03)
[2018-11-05] MEDS: FINASTERIDE (5 MG) 5 MG TABLET PO SCH (09:00)
[2018-11-05] MEDS: CADEXOMER IODINE 40 GM TUBE TP SCH (09:00)
[2018-11-05] MEDS: CHOLECALCIFEROL 1,000 UNIT TABLET (VIT D3) PO SCH (09:00)
[2018-11-05] MEDS: AMLODIPINE BESYLATE 5 MG TABLET PO SCH (09:00)
[2018-11-05] MEDS: LACTOBACILLUS RHAMNOSUS GG 1 EACH CAP.SPRINK PO SCH ×2 (09:00→17:03)
[2018-11-05] MEDS: FERROUS SULFATE (325 MG) 325 MG/TAB TABLET PO SCH (09:00)
[2018-11-05] MEDS: HYDROMORPHONE INJ 2 MG/ML DISP.SYRIN IV PRN (09:13)
[2018-11-05 10:54] LABS: BASOPHILS % (AUTO) 0.4 % (0.0-2.0); EOSINOPHILS % (AUTO) 1.3 % (0.0-6.0); HEMATOCRIT 26 % (39-51); HEMOGLOBIN 8.5 g/dL (13.5-17.5); LYMPHOCYTES # (AUTO) 1.5 /CMM (0.8-4.8); LYMPHOCYTES % (AUTO) 14.7 % (20.0-44.0); MEAN CORPUSCULAR HGB CONC 33 g/dl (31.0-36.0); MEAN CORPUSCULAR VOLUME 98 fL (80-96); MONOCYTES # (AUTO) 0.8 /CMM (0.1-1.30); MONOCYTES % (AUTO) 7.9 % (2.0-12.0); NEUTROPHILS # (AUTO) 7.8 /CMM (1.8-8.9); NEUTROPHILS % (AUTO) 75.7 % (43.0-81.0); PLATELET COUNT (AUTO) 287 /CMM (150-450); RED BLOOD CELL COUNT(AUTO) 2.67 MIL/uL (4.5-6.0); WHITE BLOOD COUNT (AUTO) 10.3 K/uL (4.3-11.0)
[2018-11-05 11:03] LABS: CALCIUM, SERUM 8.1 mg/dL (8.5-10.1); CREATININE 3.2 mg/dL (0.6-1.3); POTASSIUM 4.3 mmol/L (3.5-5.1)
--- NOTE | 2018-11-05 11:35 | NUR ---
MS/RN NOTE THE PATIENT IS SEEN BY DR PORTER WITH NEW [facility] ORDER FOR CCHO LOW CARB-45GM/MEAL STARTING 11/05/18 LUNCH. THE ORDER IS READ BACK, VERIFIED. NOTED ADN CARRIED OUT.
[2018-11-05] MEDS: NEOMY SULF/BACITRAC ZN/POLY 15 GM TUBE TP SCH ×2 (11:40→21:08)
[2018-11-05] MEDS: NYSTATIN TOP POWDER 15 GM BOTTLE TP SCH ×2 (11:40→21:08)
[2018-11-05 16:01] VITALS: BP 144/74
[2018-11-05] MEDS ORDERED: MEROPENEM 500 MG in IV NS 0.9% 50 ML IV ONE (18:00)
[2018-11-05] MEDS: INSULIN REGULAR, HUMAN 100 UNIT/ML 3 ML VIAL SQ PRN (18:39)
--- NOTE | 2018-11-05 19:30 | NUR ---
RUTHY BOB RECEIVED PT. SLEEPING BUT AROUSABLE, SCREAMER, A/OX2, BLIND, NO PAIN NOTED, NO SOB, CALL LIGHT WITHIN REACH, SIDERAILSUPX2, CONTINUE TO MONITOR
[2018-11-05 20:00] VITALS: BP 158/70
[2018-11-05] MEDS: ATORVASTATIN 10 MG TABLET PO SCH (21:07)
[2018-11-05] MEDS: TAMSULOSIN 0.4 MG CAP.SR.24H PO SCH (21:07)
[2018-11-05] MEDS: LINEZOLID 600 MG TABLET PO SCH (21:07)
[2018-11-05] MEDS: INSULIN GLARGINE, 100 UNIT/ML CARTRIDGE SQ SCH (21:17)
[2018-11-05] MEDS: TRAMADOL HCL 50 MG TABLET PO PRN (23:07)
[2018-11-06] MEDS: diphenhydrAMINE HCL 25 MG CAPSULE PO PRN (00:18)
--- NOTE | 2018-11-06 00:19 | NUR ---
RN NOTES PT. ASKED FOR BENADRYL AND WAS SCREAMING- BENADRY 50MG PO GIVEN ORDERED, V/S STABLE
[2018-11-06] MEDS: ACETAMINOPHEN 325 MG TABLET PO PRN (03:04)
--- NOTE | 2018-11-06 03:06 | NUR ---
RN NOTES PT. WAS SCREAMING AND ASKING FOR TYLENOL, TYLENOL 650MG PO GIVEN ORDERED
[2018-11-06] MEDS ORDERED: MEROPENEM 500 MG in IV NS 0.9% 100 ML IV SCH (06:00)
--- NOTE | 2018-11-06 06:30 | NUR ---
RN NOTES PT. STILL REFUSING TO DO ACCU CHECK, MORNING CARE RENDERED, CALL LIGHT WITHIN REACH, [id number], PT. NEEDS ATTENDED
[2018-11-06 07:03] LABS: BASOPHILS # (AUTO) 0.1 /CMM (0.0-0.2); BASOPHILS % (AUTO) 0.6 % (0.0-2.0); EOSINOPHILS % (AUTO) 1.2 % (0.0-6.0); HEMATOCRIT 27 % (39-51); HEMOGLOBIN 8.8 g/dL (13.5-17.5); LYMPHOCYTES # (AUTO) 1.6 /CMM (0.8-4.8); LYMPHOCYTES % (AUTO) 17.8 % (20.0-44.0); MEAN CORPUSCULAR HGB CONC 33 g/dl (31.0-36.0); MEAN CORPUSCULAR VOLUME 99 fL (80-96); MONOCYTES # (AUTO) 0.8 /CMM (0.1-1.30); MONOCYTES % (AUTO) 8.7 % (2.0-12.0); NEUTROPHILS # (AUTO) 6.4 /CMM (1.8-8.9); NEUTROPHILS % (AUTO) 71.7 % (43.0-81.0); PLATELET COUNT (AUTO) 304 /CMM (150-450); RED BLOOD CELL COUNT(AUTO) 2.71 MIL/uL (4.5-6.0); WHITE BLOOD COUNT (AUTO) 8.9 K/uL (4.3-11.0)
--- NOTE | 2018-11-06 07:15 | NUR ---
MS/RN NOTE THE PATIENT ALERT AND ORIENTED X2. DENIES SOB. IN ROOM AIR. RESPIRATION REGULAR AND UNLABORED. DENIES PAIN. LAC G 18 PATENT AND SALINE LOCKED. BED LOW AND LOCKED. SIDE RAILS UP X3. CALL LIGHT WITHIN REACH. WILL CONTINUE TO MONITOR.
[2018-11-06 07:19] LABS: CALCIUM, SERUM 8.4 mg/dL (8.5-10.1); CREATININE 2.9 mg/dL (0.6-1.3); POTASSIUM 4.2 mmol/L (3.5-5.1)
[2018-11-06] MEDS: BLOOD SUGAR DIAGNOSTIC 1 EACH STRIP IN SCH ×2 (07:30→12:22)
--- NOTE | 2018-11-06 07:33 | NUR ---
MS/RN NOTE THE PATIENT REFUSES BLOOD SUGAR CHECK. EXPLAINED RISKS AND BENEFITS BUT THE PATIENT STILL REFUSED.
[2018-11-06 08:00] VITALS: BP_SYST 169; BP_DIAS 76; BP_DIAS 84
[2018-11-06] MEDS: AMLODIPINE BESYLATE 5 MG TABLET PO SCH (08:20)
[2018-11-06] MEDS: CHOLECALCIFEROL 1,000 UNIT TABLET (VIT D3) PO SCH (08:20)
[2018-11-06] MEDS: ASPIRIN EC 81 MG TABLET.DR PO SCH (08:20)
[2018-11-06] MEDS: FINASTERIDE (5 MG) 5 MG TABLET PO SCH (08:20)
[2018-11-06] MEDS: CARVEDILOL 6.25 MG TABLET PO SCH (08:20)
[2018-11-06] MEDS: FERROUS SULFATE (325 MG) 325 MG/TAB TABLET PO SCH (08:21)
[2018-11-06] MEDS: LACTOBACILLUS RHAMNOSUS GG 1 EACH CAP.SPRINK PO SCH (08:21)
[2018-11-06] MEDS: NEOMY SULF/BACITRAC ZN/POLY 15 GM TUBE TP SCH (08:27)
[2018-11-06] MEDS: NYSTATIN TOP POWDER 15 GM BOTTLE TP SCH (08:27)
[2018-11-06] MEDS: CADEXOMER IODINE 40 GM TUBE TP SCH (08:27)
[2018-11-06 09:00] VITALS: BP 138/75
[2018-11-06] MEDS: LINEZOLID 600 MG TABLET PO SCH (09:07)
--- NOTE | 2018-11-06 12:22 | NUR ---
MS/RN NOTE BLOOD SUGAR IS 167 AND THE PATIENT REFUSES INSULIN. EXPLAINED RISKS AND BENEFITS MULTIPLE TIMES BUT THE PATIENT STILL REFUSED.
[2018-11-06 15:48] VITALS: BP 149/64
--- NOTE | 2018-11-06 16:10 | NUR ---
MS/RN NOTE. THE PATIENT ALERT AND ORIENTED X2. NO C/O SOB. RESPIRATION REGULAR AND UNLABORED. NO C/O PAIN. PATIENT IN STABLE CONDITION. THE PATIENT WAS PICKED UP BY AMBULANCE. LEFT IN STABLE CONDITION.
== END 2018-11-06 16:00 | DRG 299 ==
LOC: ER 17:55 → MED 19:51
PROVIDERS: ADMIT Nurse Practitioner Acute Care
PROC: 05H633Z Insertion of Infusion Device into Left Subclavian Vein, Percutaneous Approach (ICD-10-PCS; principal; 2018-11-02)
PROC: B547ZZA Ultrasonography of Left Subclavian Vein, Guidance (ICD-10-PCS; 2018-11-02)
DX: E11.52 Type 2 diabetes mellitus with diabetic peripheral angiopathy with gangrene (principal); N17.0 Acute kidney failure with tubular necrosis; I96 Gangrene, not elsewhere classified; G93.49 Other encephalopathy; N13.30 Unspecified hydronephrosis; M86.9 Osteomyelitis, unspecified; L03.012 Cellulitis of left finger; E11.22 Type 2 diabetes mellitus with diabetic chronic kidney disease; I12.9 Hypertensive chronic kidney disease with stage 1 through stage 4 chronic kidney disease, or unspecified chronic kidney disease; N18.9 Chronic kidney disease, unspecified; R62.7 Adult failure to thrive; R13.10 Dysphagia, unspecified; D63.8 Anemia in other chronic diseases classified elsewhere; H54.62 Unqualified visual loss, left eye, normal vision right eye; K21.9 Gastro-esophageal reflux disease without esophagitis; Z98.890 Other specified postprocedural states; Z79.82 Long term (current) use of aspirin; Z79.4 Long term (current) use of insulin; Z79.899 Other long term (current) drug therapy; I25.10 Atherosclerotic heart disease of native coronary artery without angina pectoris; E78.5 Hyperlipidemia, unspecified; E11.69 Type 2 diabetes mellitus with other specified complication; F03.90 Unspecified dementia, unspecified severity, without behavioral disturbance, psychotic disturbance, mood disturbance, and anxiety
CPT/HCPCS: 36415; 36569; 71045-TC; 76770-TC; 80048-TC; 80053-TC; 80061-TC; 80076-TC; 80202-TC; 82947-TC; 82962-TC; 83540-TC; 83605-TC; 83735-TC; 84100-TC; 84443-TC; 84484-TC; 85025-TC; 85730-TC; 86850-TC; 87040-TC; 87070-TC; 87075-TC; 87081-TC; 87186-TC; A4216; G0378; J1170; J1815; J2060; J2185; J2543; J3370; J7030; J7040; J7050; J7060; Q0163

== ENCOUNTER 2018-11-17 12:55 | Outpatient (CLI) | payer MEDICARE, OTHER, MEDICAID ==
[~2018-11-17 12:55] MED LIST changes: +ACET-868 PO; +ALBU2.5V38 IH; +AMIN30LI2 PO; -AMIN887L7 PO; +CADE40GE2 TP; -CEFE1PIG3 IV; +CHOL100044 PO; +CLIN300C11 PO; +COLL30OI TP; +DIPH25CA6 PO; +FERR325T23 PO; -FLUC100T8 PO; -HALO1TAB5 PO; -INSU100V27 SQ; -LACT1CAP72 PO; +MAG30ORA PO; -NYST15CR TP; -RXVAN XX; -TRAM50TA PO; +TRAM50TA2 PO
== END 2018-11-17 23:59 | disposition home health service (06) ==
LOC: VASLAB 12:55
PROVIDERS: ATTEND Surgery Vascular Surgery
DX: I96 Gangrene, not elsewhere classified (principal)
CPT/HCPCS: A6402; G0463

== ENCOUNTER 2018-11-19 12:10 | Outpatient (CLI) | payer MEDICARE, OTHER, MEDICAID | END 2018-11-19 23:59 | disposition home health service (06) | LOC: WOU 12:10 | PROVIDERS: ATTEND Surgery | DX: E11.52 Type 2 diabetes mellitus with diabetic peripheral angiopathy with gangrene (principal); E11.69 Type 2 diabetes mellitus with other specified complication; M86.372 Chronic multifocal osteomyelitis, left ankle and foot; L03.019 Cellulitis of unspecified finger; Z89.511 Acquired absence of right leg below knee; I10 Essential (primary) hypertension; Z87.891 Personal history of nicotine dependence; E11.610 Type 2 diabetes mellitus with diabetic neuropathic arthropathy; Z79.82 Long term (current) use of aspirin; Z79.899 Other long term (current) drug therapy; E11.621 Type 2 diabetes mellitus with foot ulcer; L97.909 Non-pressure chronic ulcer of unspecified part of unspecified lower leg with unspecified severity | CPT/HCPCS: A6402; G0463 ==

== ENCOUNTER 2018-11-20 11:55 | Outpatient (CLI) | payer MEDICARE, OTHER, MEDICAID | END 2018-11-20 23:59 | LOC: WOU 11:55 | PROVIDERS: ATTEND Podiatrist Foot & Ankle Surgery | DX: E11.621 Type 2 diabetes mellitus with foot ulcer (principal); L97.523 Non-pressure chronic ulcer of other part of left foot with necrosis of muscle; M25.372 Other instability, left ankle; E11.610 Type 2 diabetes mellitus with diabetic neuropathic arthropathy; Z89.511 Acquired absence of right leg below knee; E11.51 Type 2 diabetes mellitus with diabetic peripheral angiopathy without gangrene; Z86.14 Personal history of Methicillin resistant Staphylococcus aureus infection; Z79.82 Long term (current) use of aspirin | CPT/HCPCS: 11043 ==

== ENCOUNTER 2018-11-30 12:15 | Outpatient (CLI) | payer MEDICARE, OTHER, MEDICAID | END 2018-11-30 23:59 | disposition home or self-care (01) | LOC: WOU 12:15 | PROVIDERS: ATTEND Surgery | DX: E11.52 Type 2 diabetes mellitus with diabetic peripheral angiopathy with gangrene (principal); I96 Gangrene, not elsewhere classified; L03.012 Cellulitis of left finger; M86.372 Chronic multifocal osteomyelitis, left ankle and foot; S81.809D Unspecified open wound, unspecified lower leg, subsequent encounter; Z79.82 Long term (current) use of aspirin; Z79.891 Long term (current) use of opiate analgesic; X58.XXXD Exposure to other specified factors, subsequent encounter | CPT/HCPCS: A6402; G0463 ==

== ENCOUNTER 2018-12-02 07:03 | Inpatient (IN) | payer MEDICARE, OTHER, MEDICAID ==
[~2018-12-02] VITALS: Ht 180.3 cm; Wt 67.6 kg
--- NOTE | 2018-12-02 07:05 | NUR ---
AAOX3, BIBPA from [facility] sent by PMD for wound infection to his left 4th digit, 3rd right digit and left foot. RR is even and unlabored with NAD noted. Skin is warm and dry. Awaiting md for eval.
--- NOTE | 2018-12-02 07:29 | NUR ---
CALLED DR ELISE'S OFFICE, , VM LEFT. WAITING FOR MD CALL BACK.
--- NOTE | 2018-12-02 07:36 | NUR ---
CALLED DR. ELISE SECOND TIME, VOICEMAIL LEFT. WAITING FOR CALL BACK.
--- NOTE | 2018-12-02 07:54 | NUR ---
DR FU PAGED FOR ADMISSION
[2018-12-02 07:56] LABS: BASOPHILS % (AUTO) 0.6 % (0.0-2.0); EOSINOPHILS % (AUTO) 3.8 % (0.0-6.0); HEMATOCRIT 23 % (39-51); HEMOGLOBIN 7.5 g/dL (13.5-17.5); LYMPHOCYTES # (AUTO) 1.8 /CMM (0.8-4.8); LYMPHOCYTES % (AUTO) 26.6 % (20.0-44.0); MEAN CORPUSCULAR HGB CONC 32 g/dl (31.0-36.0); MEAN CORPUSCULAR VOLUME 97 fL (80-96); MONOCYTES # (AUTO) 0.7 /CMM (0.1-1.30); MONOCYTES % (AUTO) 10.1 % (2.0-12.0); NEUTROPHILS # (AUTO) 4.1 /CMM (1.8-8.9); NEUTROPHILS % (AUTO) 58.9 % (43.0-81.0); PLATELET COUNT (AUTO) 135 /CMM (150-450); RED BLOOD CELL COUNT(AUTO) 2.39 MIL/uL (4.5-6.0); WHITE BLOOD COUNT (AUTO) 6.9 K/uL (4.3-11.0)
[2018-12-02 08:03] LABS: CALCIUM, SERUM 8.2 mg/dL (8.5-10.1); CREATININE 2.6 mg/dL (0.6-1.3); POTASSIUM 5.2 mmol/L (3.5-5.1)
[2018-12-02 08:09] LABS: BILIRUBIN,TOTAL 0.2 mg/dL (0.2-1.0); TOTAL PROTEIN, SERUM 6.6 g/dL (6.4-8.2)
[2018-12-02] MEDS ORDERED: FINA5TAB11 PO (09:04)
[2018-12-02] MEDS ORDERED: CADE40GE2 TP (09:04)
[2018-12-02] MEDS ORDERED: ONDA4TAB10 PO (09:04)
[2018-12-02] MEDS ORDERED: NYST15PO4 TP (09:04)
[2018-12-02] MEDS ORDERED: DIPH25TA62 PO (09:04)
[2018-12-02] MEDS ORDERED: HYDR-4384 PO (09:04)
[2018-12-02] MEDS ORDERED: LINE600T PO (09:04)
[2018-12-02] MEDS ORDERED: LACT1CAP72 PO (09:04)
[2018-12-02] MEDS ORDERED: CHOL200059 PO (09:04)
[2018-12-02] MEDS ORDERED: TAMS0.4C34 PO (09:04)
--- NOTE | 2018-12-02 09:12 | NUR ---
REPORT GIVEN TO RUTHY SAMSON FOR ANGEL MS [id number]
[2018-12-02] MEDS ORDERED: ACETAMINOPHEN 325 MG TABLET PO PRN ×2 (10:00)
[2018-12-02] MEDS ORDERED: MAG HYDROX/AL HYDROX/SIMETH 30 ML UDC PO PRN (10:00)
[2018-12-02] MEDS ORDERED: FUROSEMIDE 40 MG TABLET PO SCH (10:00)
[2018-12-02] MEDS ORDERED: MAGNESIUM HYDROXIDE 30 ML UDC PO PRN (10:00)
[2018-12-02] MEDS ORDERED: ONDANSETRON HCL/PF 4 MG/2 ML VIAL IVP PRN (10:00)
[2018-12-02] MEDS ORDERED: Z GUARD REMEDY 2 OZ OINT TP PRN (10:00)
[2018-12-02] MEDS ORDERED: HYDROCODONE/APAP 5/325MG 1 EACH TABLET PO PRN (10:00)
[2018-12-02] MEDS ORDERED: ZOLPIDEM TARTRATE 5 MG TABLET PO PRN (10:00)
[2018-12-02] MEDS ORDERED: ONDANSETRON 4 MG TAB.RAPDIS PO PRN (11:30)
[2018-12-02] MEDS ORDERED: AMLODIPINE BESYLATE 5 MG TABLET PO SCH (11:30)
[2018-12-02 12:00] VITALS: BP 180/88
[2018-12-02] MEDS: CHOLECALCIFEROL 1,000 UNIT TABLET (VIT D3) PO SCH (12:09)
[2018-12-02] MEDS ORDERED: ALBUTEROL FS 2.5 MG/0.5 ML VIAL.NEB NEB PRN (13:30)
--- NOTE | 2018-12-02 13:30 | NUR ---
ms rn received a new admission from er, 62 year old male, awake,alert,oriented x4,not in any form of distress, came in w/ left and right finger wound, followed by dr. magaña,denies pain at this time, will monitor patient's condition.
[2018-12-02 16:00] VITALS: BP 160/85
[2018-12-02] MEDS ORDERED: CARVEDILOL 6.25 MG TABLET PO SCH (17:00)
--- NOTE | 2018-12-02 17:00 | NUR ---
ms rn due meds given, tolerated well.
[2018-12-02] MEDS: diphenhydrAMINE HCL 25 MG CAPSULE PO PRN ×2 (17:04→21:58)
[2018-12-02] MEDS: TAMSULOSIN 0.4 MG CAP.SR.24H PO SCH (17:04)
[2018-12-02] MEDS: LACTOBACILLUS RHAMNOSUS GG 1 EACH CAP.SPRINK PO SCH (17:05)
[2018-12-02] MEDS: TRAMADOL HCL 50 MG TABLET PO PRN (17:06)
--- NOTE | 2018-12-02 18:12 | NUR ---
ms rn dr. magaña called, pt is for surgery of left finger in am.
[2018-12-02] MEDS ORDERED: FEE PK DOSING 1 MIN EA MC ONE (18:32)
[2018-12-02 20:00] VITALS: BP 152/82
[2018-12-02] MEDS: CEFTRIAXONE 1 G in IV D5W 50 ML IV SCH (20:41)
[2018-12-02] MEDS: METRONIDAZOLE 500 MG TABLET PO SCH (21:17)
[2018-12-02] MEDS: ATORVASTATIN 40 MG TABLET PO SCH (21:19)
[2018-12-02] MEDS: FINASTERIDE (5 MG) 5 MG TABLET PO SCH (21:19)
[2018-12-02] MEDS: NYSTATIN TOP POWDER 15 GM BOTTLE TP SCH (21:21)
[2018-12-02] MEDS: VANCOMYCIN 0.75 GM in IV D5W 250 ML IV SCH (21:46)
--- NOTE | 2018-12-02 21:53 | NUR ---
ms shilpa notes spoke to the patient regarding his consent for his procedure edna ,blood transfusion ( prn)and anesthesia consent. son vignesh aware and told us that his father can signed the consent for himself.
[2018-12-02] MEDS: INSULIN GLARGINE, 100 UNIT/ML CARTRIDGE SQ SCH (22:00)
--- NOTE | 2018-12-02 22:56 | NUR ---
MS IBAN NOTES PT REFUSED TO HAVE HIS BLOOD SUGAR CHECK EVEN I EXPLAINED TO HIM THE BENEFIT OF CHECKING HIS BLOOD SUGAR.
[2018-12-03] VITALS (12 sets, daily range): BP systolic 121–163; BP diastolic 70–94
[2018-12-03] MEDS: METRONIDAZOLE 500 MG TABLET PO SCH ×3 (05:59→20:27)
[2018-12-03] MEDS ORDERED: PANTOPRAZOLE 40 MG TABLET.DR PO SCH (07:30)
--- NOTE | 2018-12-03 07:42 | NUR ---
MS PERCUSSION TEACHER CLOSING NOTES PT RESTING COMFORTABLY IN BED WITHOUT ANY ACUTE DISTRESS NOTED. ALL DUE MEDS GIVEN AND ALL NEEDS MET. STABLE AND SLEPT WELL. KEPT HIM WARM AND COMFORTABLE AT ALL TIMES. HAND HELD CALL LIGHT TO HIM . BED IN LOW AND LOCK IN POSITION WITH SIDE RAILS X2 UP AND BED ALARM SET FOR SAFETY. ENDORSE TO AM NURSE FOR CONTINUITY OF CARE.
--- NOTE | 2018-12-03 07:54 | NUR ---
RN OPENING NOTES RECEIVED PATIENT AWAKE, RESTING COMFORTABLY IN BED. NO SIGNS OR SYMPTOMS OF RESPIRATORY DISTRESS OR SHORTNESS OF BREATH. SAFETY PRECAUTIONS IMPLEMENTED: BED IN LOW POSITION, SIDE RAILS UP X2, BED LOCKED, CALL LIGHT WITHIN REACH. WILL CONTINUE TO MONITOR.
[2018-12-03 08:09] LABS: BASOPHILS % (AUTO) 0.7 % (0.0-2.0); EOSINOPHILS % (AUTO) 4.7 % (0.0-6.0); HEMATOCRIT 22 % (39-51); HEMOGLOBIN 7.2 g/dL (13.5-17.5); LYMPHOCYTES # (AUTO) 1.7 /CMM (0.8-4.8); LYMPHOCYTES % (AUTO) 25.6 % (20.0-44.0); MEAN CORPUSCULAR HGB CONC 32 g/dl (31.0-36.0); MEAN CORPUSCULAR VOLUME 97 fL (80-96); MONOCYTES # (AUTO) 0.6 /CMM (0.1-1.30); MONOCYTES % (AUTO) 8.8 % (2.0-12.0); NEUTROPHILS # (AUTO) 4.1 /CMM (1.8-8.9); NEUTROPHILS % (AUTO) 60.2 % (43.0-81.0); PLATELET COUNT (AUTO) 149 /CMM (150-450); RED BLOOD CELL COUNT(AUTO) 2.29 MIL/uL (4.5-6.0); WHITE BLOOD COUNT (AUTO) 6.8 K/uL (4.3-11.0)
[2018-12-03 08:24] LABS: CALCIUM, SERUM 8.3 mg/dL (8.5-10.1); CREATININE 2.5 mg/dL (0.6-1.3); POTASSIUM 5.2 mmol/L (3.5-5.1)
[2018-12-03 08:33] LABS: BILIRUBIN,TOTAL 0.2 mg/dL (0.2-1.0); MAGNESIUM 1.8 mg/dL (1.8-2.4); PHOSPHORUS 3.9 mg/dL (2.5-4.9); TOTAL PROTEIN, SERUM 6.5 g/dL (6.4-8.2)
[2018-12-03] MEDS: LACTOBACILLUS RHAMNOSUS GG 1 EACH CAP.SPRINK PO SCH ×2 (09:00→17:23)
[2018-12-03] MEDS: CARVEDILOL 6.25 MG TABLET PO SCH ×2 (09:00→17:23)
[2018-12-03] MEDS ORDERED: AMLODIPINE BESYLATE 5 MG TABLET PO SCH (09:00)
[2018-12-03] MEDS: AMLODIPINE BESYLATE 5 MG TABLET PO SCH (09:00)
[2018-12-03] MEDS: CHOLECALCIFEROL 1,000 UNIT TABLET (VIT D3) PO SCH (09:00)
[2018-12-03] MEDS: ASPIRIN EC 81 MG TABLET.DR PO SCH (09:00)
[2018-12-03] MEDS: FERROUS SULFATE (325 MG) 325 MG/TAB TABLET PO SCH (09:00)
--- NOTE | 2018-12-03 09:30 | NUR ---
RN NOTES PATIENT WAS TAKEN TO OR AT 0930. PATIENT LEFT IN STABLE CONDITION.
[2018-12-03] MEDS ORDERED: MIDAZOLAM HCL 2 MG/2ML VIAL ONE (09:41)
[2018-12-03] MEDS ORDERED: FENTANYL PF 100MCG/2ML AMPUL ONE (09:41)
[2018-12-03] MEDS ORDERED: LIDOCAINE HCL/PF 1% 30 ML SDV ONE (09:52)
[2018-12-03] MEDS ORDERED: BUPIVACAINE MPF 0.5% W/EPI INJ 30 ML VIAL ONE (09:53)
--- NOTE | 2018-12-03 11:38 | NUR ---
RN NOTES RECEIVED ORDER FROM DR ARIK Tomas TO INFUSE 1 UNIT OF PRBC. ORDER IS NOTED AND CARRIED OUT.
--- NOTE | 2018-12-03 11:40 | NUR ---
RN NOTES PATIENT CAME BACK FROM THE OR AT 1140. PATIENT IS IN STABLE CONDITION. PATIENT IS A/O X4. NO CHANGE IN LEVEL OF CONSCIOUSNESS. PATIENT HAS DRESSING COVERED WITH FRANCISCO WRAP ON THE RIGHT HAND. NO SIGNS OF BLEEDING FROM THE DRESSING. PATIENT DENIES PAIN AT THIS TIME. WILL CONTINUE TO MONITOR.
--- NOTE | 2018-12-03 11:47 | NUR ---
MS/RN NOTE RECEIVED ORDER FROM DILIP PARKS FOR NORVASC 10 MG PO X1. THE ORDER IS NOTED AND CARRIED OUT. THE ORDER IS OBTAINED DUE TO PATIENT WAS NPO IN THE MORNING AND DID NOT HAVE ANY OF HIS MEDICATIONS.
[2018-12-03] MEDS ORDERED: AMLODIPINE BESYLATE 10 MG TABLET PO ONE (12:00)
[2018-12-03] MEDS: IV NS 0.9% 1,000 ML IV PRN (12:18)
--- NOTE | 2018-12-03 13:00 | NUR ---
MS/RN NOTE [employer]400 PROGRAMMER BRANDY IS MADE AWARE OF POTASSIUM LEVEL OF 5.2. PER AS400 PROGRAMMER NO NEW ORDER.
[2018-12-03] MEDS: VANCOMYCIN 0.75 GM in IV D5W 250 ML IV SCH (14:42)
[2018-12-03] MEDS: TAMSULOSIN 0.4 MG CAP.SR.24H PO SCH (17:23)
--- NOTE | 2018-12-03 18:45 | NUR ---
RN CLOSING NOTES PATIENT IS RESTING COMFORTABLY IN BED WITHOUT ANY SIGNS OF ACUTE DISTRESS. NO SHORTNESS OF BREATH. DENIES PAIN AT THIS TIME. BLOOD TRANSFUSION RUNNING PER ORDER. SAFETY PRECAUTIONS IMPLEMENTED: BED IN LOWEST POSITION, LOCKED BED, SIDE RAILS UP X2, CALL LIGHT WITHIN REACH, BED ALARM SET FOR SAFETY. WILL ENDORSE TO PM SHIFT.
[2018-12-03] MEDS: NYSTATIN TOP POWDER 15 GM BOTTLE TP SCH ×2 (18:57→20:21)
--- NOTE | 2018-12-03 19:27 | NUR ---
RN MS OPENING NOTES RECEIVED PATIENT IN BED AWAKE. ALERT AND ORIENTED X2-3, VERBALLY RESPONSIVE, ABLE TO MAKE NEEDS KNOWN. BREATHING EVEN AND UNLABORED. NO SOB NOTED. TOLERATING ROOM AIR. NO COMPLAINTS OF PAIN OR DISCOMFORT. NO FACIAL GRIMACING. RIGHT UPPER PICC LINE INTACT AND PATENT - BLOOD TRANSFUSION CURRENTLY INFUSING. NO S/S OF ADVERSE REACTIONS. SKIN DRY AND WARM TO TOUCH. AFEBRILE. ALL OTHER NEEDS ATTENDED TO. SAFETY MEASURES IN PLACE. CALL LIGHT WITHIN REACH. WILL CONTINUE TO MONITOR.
--- NOTE | 2018-12-03 19:48 | NUR ---
RUTHY MS NOTES PATIENT IS S/P BLOOD TRANSFUSION. TOLERATED WELL. NO S/S OF ANY ADVERSE EFFECTS. WILL CONTINUE TO MONITOR.
[2018-12-03] MEDS: CEFTRIAXONE 1 G in IV D5W 50 ML IV SCH (20:21)
[2018-12-03] MEDS: INSULIN GLARGINE, 100 UNIT/ML CARTRIDGE SQ SCH (22:00)
[2018-12-03] MEDS: FINASTERIDE (5 MG) 5 MG TABLET PO SCH (22:01)
[2018-12-03] MEDS: ATORVASTATIN 40 MG TABLET PO SCH (22:02)
[2018-12-03] MEDS: diphenhydrAMINE HCL 25 MG CAPSULE PO PRN (22:02)
--- NOTE | 2018-12-03 22:22 | NUR ---
RN MS NOTES PATIENT BS 128 - REFUSED LANTUS THIS EVENING DESPITE EXPLANATION OF RISKS AND BENEFITS. PER PATIENT, "NO NEED." WILL CONTINUE TO MONITOR.
--- NOTE | 2018-12-04 00:36 | NUR ---
RN MS NOTES PATIENT SCREAMING AND REQUESTING FOR ANOTHER DOSE OF BENADRYL DUE TO ITCHING AND NOT BEING ABLE TO SLEEP. INFORMED PATIENT THAT I GAVE HIM BENADRYL AT 10:02PM ALREADY AND THAT THE FREQUENCY OF THE MEDICATION IS ONLY ONE TIME AT BEDTIME. PATIENT CONTINUOUSLY SCREAMING AND DENYING THAT HE DID NOT RECEIVED MEDICATION. FINISHING TRIMMER WITNESSED ME GIVING MEDICATIONS INCLUDING BENADRYL 50MG. PATIENT STATED THAT HE HAS NOT RECEIVED IT FOR THE LAST 3 DAYS, INFORMED PATIENT HE HAS BEEN. OFFERED TO RACHID RAO FOR POSSIBLY A SLEEPING MEDICATION. PAGED URGENT CARE TECHNICIAN DAMASO CAMACHO. AWAITING RESPONSE AND FURTHER ORDERS.
--- NOTE | 2018-12-04 00:49 | NUR ---
RUTHY MS NOTES RECEIVED ORDER TO CHANGE BENADRYL 50MG PO QHS PRN TO BENADRYL 50MG PO Q6H PRN, AND AMBIEN 5MG PO QHS PRN. ORDERS NOTED AND CARRIED OUT. Addendum: 12/04/18 at 0050 by IGNACIO OCONNELL RN RECEIVED ORDERS FROM DILIP CAMACHO
[2018-12-04] MEDS ORDERED: ZOLPIDEM TARTRATE 5 MG TABLET PO PRN (01:00)
[2018-12-04] MEDS: IV NS 0.9% 1,000 ML IV PRN ×3 (02:39→18:29)
[2018-12-04] MEDS: METRONIDAZOLE 500 MG TABLET PO SCH ×3 (04:49→21:16)
--- NOTE | 2018-12-04 06:13 | NUR ---
RN MS NOTES PER OVERHEAD CRANE INSPECTOR, PATIENT HAD 3 SMALL BOWEL MOVEMENTS THROUGHOUT SHIFT. SOFT FORMED, BROWN IN COLOR.
[2018-12-04 06:39] LABS: BASOPHILS % (AUTO) 0.8 % (0.0-2.0); EOSINOPHILS % (AUTO) 4.2 % (0.0-6.0); HEMATOCRIT 22 % (39-51); HEMOGLOBIN 7.3 g/dL (13.5-17.5); LYMPHOCYTES # (AUTO) 1.8 /CMM (0.8-4.8); LYMPHOCYTES % (AUTO) 29.4 % (20.0-44.0); MEAN CORPUSCULAR HGB CONC 33 g/dl (31.0-36.0); MEAN CORPUSCULAR VOLUME 97 fL (80-96); MONOCYTES # (AUTO) 0.6 /CMM (0.1-1.30); MONOCYTES % (AUTO) 9.5 % (2.0-12.0); NEUTROPHILS # (AUTO) 3.5 /CMM (1.8-8.9); NEUTROPHILS % (AUTO) 56.1 % (43.0-81.0); PLATELET COUNT (AUTO) 143 /CMM (150-450); RED BLOOD CELL COUNT(AUTO) 2.28 MIL/uL (4.5-6.0); WHITE BLOOD COUNT (AUTO) 6.3 K/uL (4.3-11.0)
--- NOTE | 2018-12-04 06:43 | NUR ---
RN MS CLOSING NOTES PATIENT RESTING IN BED. NO ACUTE CHANGES THROUGHOUT SHIFT. BREATHING EVEN AND UNLABORED. NO SOB NOTED. TOLERATING ROOM AIR. NO COMPLAINTS OF PAIN OR DISCOMFORT. NO FACIAL GRIMACING. RIGHT UPPER PICC LINE INTACT AND PATENT WITH NS INFUSING AT 125 ML/HR. NO S/S OF ADVERSE REACTIONS FROM BLOOD TRANSFUSION. SKIN DRY AND WARM TO TOUCH. AFEBRILE. ALL OTHER NEEDS ATTENDED TO. KEPT CLEAN DRY AND COMFORTABLE. DRESSINGS INTACT. SAFETY MEASURES IN PLACE. CALL LIGHT WITHIN REACH. WILL ENDORSE TO ONCOMING NURSE FOR ANGEL.
[2018-12-04 06:57] LABS: ALBUMIN 1.8 g/dL (3.4-5.0); BILIRUBIN,TOTAL 0.2 mg/dL (0.2-1.0); CALCIUM, SERUM 7.6 mg/dL (8.5-10.1); CREATININE 2.5 mg/dL (0.6-1.3); MAGNESIUM 1.7 mg/dL (1.8-2.4); PHOSPHORUS 4.3 mg/dL (2.5-4.9); POTASSIUM 4.9 mmol/L (3.5-5.1); TOTAL PROTEIN, SERUM 5.9 g/dL (6.4-8.2)
[2018-12-04 08:00] VITALS: BP 174/97
--- NOTE | 2018-12-04 08:12 | NUR ---
RN OPENING NOTES RECEIVED PATIENT RESTING IN BED. NO S/S OF RESPIRATORY DISTRESS OR SHORTNESS OF BREATH. TOLERATES ROOM AIR. NO FACIAL GRIMACING. RIGHT UPPER PICC LINE INTACT AND PATENT WITH NS INFUSING AT 125 ML/HR. SAFETY PRECAUTIONS IMPLEMENTED: BED IN LOW POSITION, SIDERAILS UP X2, BED LOCKED, CALL LIGHT WITHIN REACH. WILL CONTINUE TO MONITOR.
[2018-12-04] MEDS: ASPIRIN EC 81 MG TABLET.DR PO SCH (09:23)
[2018-12-04] MEDS: CHOLECALCIFEROL 1,000 UNIT TABLET (VIT D3) PO SCH (09:23)
[2018-12-04] MEDS: LACTOBACILLUS RHAMNOSUS GG 1 EACH CAP.SPRINK PO SCH ×2 (09:23→18:19)
[2018-12-04] MEDS: FERROUS SULFATE (325 MG) 325 MG/TAB TABLET PO SCH (09:23)
[2018-12-04] MEDS: AMLODIPINE BESYLATE 5 MG TABLET PO SCH (09:26)
[2018-12-04] MEDS: VANCOMYCIN 0.75 GM in IV D5W 250 ML IV SCH (09:26)
[2018-12-04] MEDS: CARVEDILOL 6.25 MG TABLET PO SCH ×2 (09:26→18:21)
[2018-12-04] MEDS: NYSTATIN TOP POWDER 15 GM BOTTLE TP SCH ×2 (09:37→21:17)
[2018-12-04 10:19] LABS: *SPE A/G RATIO 0.6 (0.7-1.7); *SPE ALBUMIN 2.2 g/dL (2.9-4.4); *SPE ALPHA-1-GLOBULIN 0.3 g/dL (0.0-0.4); *SPE ALPHA-2-GLOBULIN 0.8 g/dL (0.4-1.0); *SPE BETA GLOBULIN 0.9 g/dL (0.7-1.3); *SPE GLOBULIN, TOTAL 3.5 g/dL (2.2-3.9); *SPE M-SPIKE Not Observed g/dL (Not Observed); *SPEGAMMA GLOBULIN 1.5 g/dL (0.4-1.8)
[2018-12-04] MEDS ORDERED: Magnesium 1GM/D5W 100ML PREMIX 100 ML IV SCH (10:30)
[2018-12-04] MEDS: TRAMADOL HCL 50 MG TABLET PO PRN ×2 (12:10→18:19)
--- NOTE | 2018-12-04 12:10 | NUR ---
MS/RN NOTE TRAMADOL 50 MG NOT SCANNED DUE TO SYSTEM DOES NOT RECOGNIZE NCD NUMBER (PER MESSAGE BOX). RUTHY FULLER WITNESSED ADMINISTRATION OF THE MEDICATION.
[2018-12-04 13:14] LABS: PTH, INTACT 86 pg/mL (15-65)
--- NOTE | 2018-12-04 14:56 | NUR ---
MS/RN NOTE RECEIVED AN ORDER FROM DILIP NAVA: NORCO 5/352 MG Q6HR PRN. THE ORDER READ BACK, VERIFIED, NOTED AND CARRIED OUT.
[2018-12-04 16:00] VITALS: BP 158/85
[2018-12-04] MEDS: HYDROCODONE/APAP 5/325MG 1 EACH TABLET PO PRN ×2 (16:18→22:49)
--- NOTE | 2018-12-04 18:02 | NUR ---
RN CLOSING NOTES PATIENT RESTING IN BED. NO ACUTE CHANGES THROUGHOUT THE SHIFT. BREATHING EVEN AND UNLABORED. DENIES SHORTNESS OF BREATH. TOLERATES ROOM AIR. PATIENT DENIES PAIN AT THIS TIME. RIGHT UPPER PICC LINE INTACT AND PATENT. NS IS INFUSING AT 125 ML/HR. ALL NEEDS ATTENDED TO. SAFETY PRECAUTIONS IMPLEMENTED: BED IN LOW POSITION, SIDE RAILS UP X2, BED LOCKED, CALL LIGHT WITHIN REACH. WILL ENDORSE TO ONCOMING PM NURSE.
[2018-12-04] MEDS: TAMSULOSIN 0.4 MG CAP.SR.24H PO SCH (18:19)
[2018-12-04] MEDS: diphenhydrAMINE HCL 50 MG CAPSULE PO PRN (18:20)
[2018-12-04] MEDS: CEFTRIAXONE 1 G in IV D5W 50 ML IV SCH (19:58)
[2018-12-04 20:00] VITALS: BP 148/86
[2018-12-04] MEDS: ATORVASTATIN 40 MG TABLET PO SCH (21:16)
[2018-12-04] MEDS: FINASTERIDE (5 MG) 5 MG TABLET PO SCH (21:16)
[2018-12-04] MEDS: INSULIN GLARGINE, 100 UNIT/ML CARTRIDGE SQ SCH (21:26)
[2018-12-05] MEDS: VANCOMYCIN 0.75 GM in IV D5W 250 ML IV SCH ×2 (02:44→21:12)
[2018-12-05] MEDS: IV NS 0.9% 1,000 ML IV PRN ×2 (02:45→23:04)
[2018-12-05] MEDS: diphenhydrAMINE HCL 50 MG CAPSULE PO PRN ×2 (02:45→12:20)
[2018-12-05] MEDS: METRONIDAZOLE 500 MG TABLET PO SCH ×3 (05:04→21:17)
[2018-12-05 06:43] LABS: CALCIUM, SERUM 7.7 mg/dL (8.5-10.1); CREATININE 2.2 mg/dL (0.6-1.3); POTASSIUM 4.4 mmol/L (3.5-5.1)
--- NOTE | 2018-12-05 07:30 | NUR ---
MS RN OPENING NOTE RECEIVED PATIENT IN BED. SLEEPING, EASILY AROUSED WITH VERBAL STIMULI. ORIENTED X 2. ON ROOM AIR, TOLERATING WELL. IN NO APPARENT DISTRESS OR DISCOMFORT AT THIS TIME. RESPIRATIONS EVEN AND UNLABORED. DENIES SOB AT THIS TIME. PATIENT IS ABLE TO COMMUNICATE NEEDS. INCONTINENT WITH USE OF DIAPER. RIGHT UPPER ARM PICC LINE IN PLACE, WITH SN RUNNING AT 125ML/HR PATENT AND INTACT. ISOLATION PRECAUTIONS OBSERVED AT THE PATIENT'S DOOR. PATIENT KEPT CLEAN AND COMFORTABLE. ALL NEEDS ATTENDED, SAFETY MEASURES IN PLACE, BED IN LOW LOCKED POSITION, SIDE RAILS UP X3, CALL LIGHT WITHIN EASY REACH. WILL CONTINUE TO MONITOR.
--- NOTE | 2018-12-05 07:37 | NUR ---
MS RN NOTES PATIENT IN BED ASLEEP BUT EASILY AWOKEN VERBALLY OR BY TOUCH. PT STABLE THROUGHOUT SHIFT. BREATHING EVEN AND UNLABORED WITH NO S/S OF ACUTE DISTRESS OR SOB ON SHIFT. PATIENT DENIES PAIN AT THIS TIME. RIGHT UPPER PICC LINE INTACT AND PATENT WITH NS IS INFUSING AT 125 ML/HR. SAFETY PRECAUTIONS IMPLEMENTED WITH BED IN LOW POSITION, SIDE RAILS UP X2, AND BED LOCKED. CALL LIGHT WITHIN REACH. WILL ENDORSE TO ONCOMING NURSE FOR CONTINUATION OF CARE.
[2018-12-05 08:00] VITALS: BP 156/76
[2018-12-05] MEDS: LACTOBACILLUS RHAMNOSUS GG 1 EACH CAP.SPRINK PO SCH ×2 (08:36→17:13)
[2018-12-05] MEDS: HYDROCODONE/APAP 5/325MG 1 EACH TABLET PO PRN ×3 (08:37→23:40)
[2018-12-05] MEDS: AMLODIPINE BESYLATE 5 MG TABLET PO SCH (08:39)
[2018-12-05] MEDS: ASPIRIN EC 81 MG TABLET.DR PO SCH (08:39)
[2018-12-05] MEDS: FERROUS SULFATE (325 MG) 325 MG/TAB TABLET PO SCH (08:39)
[2018-12-05] MEDS: CARVEDILOL 6.25 MG TABLET PO SCH ×2 (08:39→17:13)
[2018-12-05] MEDS: CHOLECALCIFEROL 1,000 UNIT TABLET (VIT D3) PO SCH (08:40)
[2018-12-05] MEDS: NYSTATIN TOP POWDER 15 GM BOTTLE TP SCH ×2 (08:42→21:23)
[2018-12-05] MEDS: TRAMADOL HCL 50 MG TABLET PO PRN (12:26)
[2018-12-05 16:00] VITALS: BP 147/81
--- NOTE | 2018-12-05 17:00 | NUR ---
RECEIVED ORDER FROM DR. ELISE TO DRESS PATIENT'S LEFT 4TH FINGER BY PAINTING IT WITH BETADINE. NOTED AND CARRIED OUT.
--- NOTE | 2018-12-05 17:00 | NUR ---
RECEIVED ORDER FROM KASEY NAVA TO GIVE PATIENT CLARITIN 10MG PO DAILY FOR ITCHING. NOTED AND CARRIED OUT.
[2018-12-05] MEDS: LORATADINE 10 MG TABLET PO SCH (17:13)
[2018-12-05] MEDS: TAMSULOSIN 0.4 MG CAP.SR.24H PO SCH (17:13)
--- NOTE | 2018-12-05 18:38 | NUR ---
MS RN CLOSING NOTE PATIENT IN BED. SLEEPING, EASILY AROUSED WITH VERBAL STIMULI. ORIENTED X 3. ON ROOM AIR, TOLERATING WELL. IN NO APPARENT DISTRESS OR DISCOMFORT AT THIS TIME. RESPIRATIONS EVEN AND UNLABORED. DENIES PAIN AND SOB AT THIS TIME. PATIENT IS ABLE TO COMMUNICATE NEEDS. INCONTINENT WITH USE OF DIAPER. RIGHT UPPER ARM PICC LINE IN PLACE, WITH FLUIDS RUNNING AT 125ML/HR PATENT AND INTACT. ISOLATION PRECAUTIONS OBSERVED AT THE PATIENT'S DOOR. PATIENT KEPT CLEAN AND COMFORTABLE. ALL NEEDS ATTENDED, ORDERS RENDERED, SAFETY MEASURES IN PLACE, BED IN LOW LOCKED POSITION, SIDE RAILS UP X3, CALL LIGHT WITHIN EASY REACH. WILL ENDORSE TO PM NURSE FOR ANGEL.
--- NOTE | 2018-12-05 19:30 | NUR ---
MS RN INITIAL NOTES Patient in bed, left and right finger wound dressing C/D/I, denies pain. Patient appears irritable when asked. KIMO PICC line intact, IVF infusing at 125ml/hr. Patient is blind, maintained safety, bed alarm on and audible, call light within reach. Will cont to monitor.
[2018-12-05 20:00] VITALS: BP 139/74
[2018-12-05] MEDS: CEFTRIAXONE 1 G in IV D5W 50 ML IV SCH (20:34)
[2018-12-05 20:36] VITALS: BP 139/74
[2018-12-05] MEDS: FINASTERIDE (5 MG) 5 MG TABLET PO SCH (21:17)
[2018-12-05] MEDS: ATORVASTATIN 40 MG TABLET PO SCH (21:17)
[2018-12-05] MEDS: INSULIN GLARGINE, 100 UNIT/ML CARTRIDGE SQ SCH (22:00)
[2018-12-05] MEDS ORDERED: Z GUARD REMEDY 2 OZ OINT TP PRN (23:00)
[2018-12-06] MEDS: METRONIDAZOLE 500 MG TABLET PO SCH ×3 (05:02→20:40)
[2018-12-06] MEDS: TRAMADOL HCL 50 MG TABLET PO PRN (05:03)
[2018-12-06] MEDS: diphenhydrAMINE HCL 50 MG CAPSULE PO PRN (06:21)
--- NOTE | 2018-12-06 06:41 | NUR ---
MS RN CLOSING NOTES Patient in bed, A/O x2 with irritable behavior. KIMO PICC line intact, IVF infusing, maintained at 125ml/hr. Right 3rd finger, left 4th finger dressing C/D/I, no bleeding, pain is controlled with PRN [place] and Tramadol. On IV antibiotic, afebrile during the shift, ID following. Patient is blind, maintained safety, will endorse to oncoming RN.
[2018-12-06 06:53] LABS: BASOPHILS % (AUTO) 0.4 % (0.0-2.0); EOSINOPHILS % (AUTO) 5.2 % (0.0-6.0); HEMATOCRIT 22 % (39-51); HEMOGLOBIN 7.2 g/dL (13.5-17.5); LYMPHOCYTES # (AUTO) 1.6 /CMM (0.8-4.8); MEAN CORPUSCULAR HGB CONC 33 g/dl (31.0-36.0); MEAN CORPUSCULAR VOLUME 98 fL (80-96); MONOCYTES # (AUTO) 0.7 /CMM (0.1-1.30); MONOCYTES % (AUTO) 9.9 % (2.0-12.0); NEUTROPHILS # (AUTO) 4.2 /CMM (1.8-8.9); NEUTROPHILS % (AUTO) 61.5 % (43.0-81.0); PLATELET COUNT (AUTO) 193 /CMM (150-450); RED BLOOD CELL COUNT(AUTO) 2.23 MIL/uL (4.5-6.0); WHITE BLOOD COUNT (AUTO) 6.9 K/uL (4.3-11.0)
[2018-12-06 07:07] LABS: CALCIUM, SERUM 7.4 mg/dL (8.5-10.1); CREATININE 2.1 mg/dL (0.6-1.3); POTASSIUM 4.6 mmol/L (3.5-5.1)
[2018-12-06] MEDS: HYDROCODONE/APAP 5/325MG 1 EACH TABLET PO PRN ×2 (07:13→17:04)
[2018-12-06 08:00] VITALS: BP 140/75
--- NOTE | 2018-12-06 08:00 | NUR ---
RN NOTES RECEIVED PATIENT IN THE BED A/O X3/4. PATIENT STABLE REFUSED PAIN AT THIS TIME, NO ACUTE DISTRESS, ADMINISTERED SCHEDULED MEDICATION. PICC LINE ON RIGHT UPPER ARM INFUSIN NS AT 125 M/M HR INTACT. PATIENT BLIND ASSIST EATING. ALSO HAS A WOUND ON RIGHT 4TH FINGERS, AND LEFT 3 TH FINGER. DRESSING CHANGED. 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 KEEP LEGS ELEVATED USING PILLOWS. NEEDS ATTENDED AND ANTICIPATED. CALL LIGHT WITHIN TO REACH. SAFETY PRECAUTION MAINTAINED ALL THE TIME.
[2018-12-06] MEDS: LACTOBACILLUS RHAMNOSUS GG 1 EACH CAP.SPRINK PO SCH ×2 (10:06→17:05)
[2018-12-06] MEDS: FERROUS SULFATE (325 MG) 325 MG/TAB TABLET PO SCH (10:07)
[2018-12-06] MEDS: CHOLECALCIFEROL 1,000 UNIT TABLET (VIT D3) PO SCH (10:07)
[2018-12-06] MEDS: ASPIRIN EC 81 MG TABLET.DR PO SCH (10:07)
[2018-12-06] MEDS: AMLODIPINE BESYLATE 5 MG TABLET PO SCH (10:07)
[2018-12-06] MEDS: LORATADINE 10 MG TABLET PO SCH (10:08)
[2018-12-06] MEDS: CARVEDILOL 6.25 MG TABLET PO SCH ×2 (10:08→17:06)
[2018-12-06] MEDS: NYSTATIN TOP POWDER 15 GM BOTTLE TP SCH ×2 (10:09→20:46)
[2018-12-06] MEDS: IV NS 0.9% 1,000 ML IV PRN ×2 (10:11→20:40)
--- NOTE | 2018-12-06 13:00 | NUR ---
RN NOTES PATIENT RESTING IN THE BED , NO ACUTE RESPIRATORY DISTRESS, V/S STABLE, PATIENT ASSIST TURN AND REPOSTION Q 2 HR. PATIENT REFUSED PAIN AT THIS TIME. BRASS ROLLER ASSIST PATIENT TO EAT, CALL LIGHT WITHIN TO REACH. CONTINUED MONITORING.
[2018-12-06] MEDS: VANCOMYCIN 0.75 GM in IV D5W 250 ML IV SCH (15:11)
[2018-12-06 15:39] VITALS: BP 126/71
[2018-12-06 16:00] VITALS: BP 126/71
--- NOTE | 2018-12-06 17:04 | NUR ---
RN NOTES ADMINISTERED NARCO 5/325 MG PO PRN FOR RIGHT HAND PAIN 04/07 PER PATIENT REQUEST V/S TAKEN BP- 126/81, P-85, ALSO ADMINISTERED SCHEDULED MEDICATION, CALL LIGHT WITHIN TO REACH. SAFETY PRECAUTION MAINTAINED ALL THE TIME.
[2018-12-06] MEDS: TAMSULOSIN 0.4 MG CAP.SR.24H PO SCH (17:05)
--- NOTE | 2018-12-06 18:30 | NUR ---
RN NOTES PATIENT STABLE, MEDICATION WERE ADMINISTERED FOR PAIN EFFECTIVE, V/S STABLE, ASSIST TURN AND REPOSTION Q 2 HR. PATIENT NEEDY. INFUSING NS AT 125 ML/HR IN UPPER RIGHT PICC LINE INTACT, ELEVATED BLE, CALL LIGHT WITHIN TO REACH, NEEDS ATTENDED AND ANTICIPATED, ASSIST TURN AND REPOSTION Q 2 HR. ENDORSED ONCOMING NURSE FOR PLAN OF CARE.
--- NOTE | 2018-12-06 19:55 | NUR ---
RN INITIAL NOTES: RECEIVED REPORT FROM SHIRLEY BLISS, PT IN BED, AWAKE, A/O X3-4, BHUTANESE AND IRISH SPEAKING, PT IS BLIND, PT HAS KIMO PICC LINE, PATENT AND FLUSHING WELL, INFUSING WITH NS AT 125ML/HR, GOOD BLOOD RETURN NOTED, DRESSING C/D/I. PT S/P RIGHT 3RD FINGER AMPUTATION, FRANCISCO WRAP BANDAGE IN PLACED, C/D/I, PER ORDER NOT TO OPEN OR REMOVE, PT ALSO REFUSED TO TOUCH AND OPEN THE AREA, HAS LEFT LEG CAST IN PLACED, DRESSING C/D/I. H/H 7.11/20 AWARE NO NEW ORDERS RECEIVED. SAFETY PRECAUTIONS FOR FALL INITIATED, CALL LIGHT IN REACH, WILL CONTINUE MONITORING PT.
[2018-12-06 20:00] VITALS: BP 149/92
--- NOTE | 2018-12-06 20:00 | NUR ---
RN NOTES?: SKIN ASSESSMENT PERFORMED, PT STILL INSIST NOT TO OPEN THE AC WRAP BANDAGE ON RIGHT HAND/ARM AREA, ALSO REFUSED TO OPEN THE DRESSING AND TAKE PHOTO FOR LEFT 4TH FINGER WOUND, DAMARIS BORDEN WITNESSED PT'S REFUSAL, EDUCATION PROVIDED TO THE PT. NOTED PT'S SACRALA KENA TO HAVE SUSPECTED/POSSIBLE DTI, SKIN IS INTACT, NO OPEN WOUND NOTED BUT AREA APPEARS REALLY RED, NON BLANCHABLE. TOOK PHOTOS, ATTACHED TO CHART.
[2018-12-06 20:01] VITALS: BP 149/92
--- NOTE | 2018-12-06 20:01 | NUR ---
RN NOTES: SACRAL AREA APPEARS TO DRY WITH NOTED EXCORIATION, PURPLISH AND RED COLORED SKIN NOTED, WILL HAVE WOUND CONSULT OBTAINED, FINANCE TEACHER MADE AWARE
[2018-12-06] MEDS: CEFTRIAXONE 1 G in IV D5W 50 ML IV SCH (20:33)
[2018-12-06] MEDS: INSULIN GLARGINE, 100 UNIT/ML CARTRIDGE SQ SCH (22:00)
[2018-12-06] MEDS: ATORVASTATIN 40 MG TABLET PO SCH (22:35)
[2018-12-06] MEDS: FINASTERIDE (5 MG) 5 MG TABLET PO SCH (22:36)
--- NOTE | 2018-12-06 23:11 | NUR ---
REFUSED ACCU CHECK UNAVAILABLE TO GIVE LANTUS; PT REFUSED BLOOD SUGAR CHECK, STATED HE DOESNT WANT IT DUE TO HIS FINGER CONDITION, INFORMED PT THIS IS NECESSARY STEP IN ORDER TO KNOW MONITOR HIS BLOOD SUGAR, PT STILL REFUSED. ALSO TOOK PHOTOS OF PT'S SKIN ISSUES, PT REFUSED TO CHANGE DRESSING ON HIS LEFT FOURTH FINGER, UNABLE TO TAKE PHOTOS OF THE SAID AREA. PER REPORT DO NOT OPEN, REMOVE DRESSING ON LEFT LEG WITH CAST AND RIGHT HAND WITH FRANCISCO WRAP/BANDAGE PER MD. DAMARIS BORDEN WITNESSED PT'S REFUSAL. PT IS A/O X3
[2018-12-07 00:37] VITALS: BP 140/85
--- NOTE | 2018-12-07 00:39 | NUR ---
RN NOTES: SEEN SLEEPING COMFORTABLY, NO FACIAL GRIMACE NOTED, APPEARS COMFORTABLE,
[2018-12-07] MEDS: HYDROCODONE/APAP 5/325MG 1 EACH TABLET PO PRN ×3 (01:21→16:56)
--- NOTE | 2018-12-07 01:21 | NUR ---
prn norco: pt screaming, yelling for pain, stated he has pain in legs and fingers, 04/07 prn norco 5/325 mg tab po administered at this time, will continue to montior and reassess
[2018-12-07 04:00] VITALS: BP 148/76
[2018-12-07] MEDS: METRONIDAZOLE 500 MG TABLET PO SCH ×2 (04:13→12:47)
[2018-12-07] MEDS: TRAMADOL HCL 50 MG TABLET PO PRN (04:13)
--- NOTE | 2018-12-07 04:14 | NUR ---
PRN ULTRAM: PT C/O HAND AND FINGER PAIN 03/08 REQUESTING FOR NORCO, BUT PT TOOK NORCO 2HRS AGO AND NORCO WAS ORDERED Q6HRS PRN FOR PAIN -04/07, INFORMED PT ABOUT THIS, AND MADE HIM AWARE OF THE OTHER MEDS TO HELP WITH HIS PAIN WHICH IS ULTRAM, PT AGREE STATED WHATEVER WILL HELP WITH HIS PAIN, PRN ULTRAM 50MG TAB ADMINISTERED AT THIS TIME, WILL CONTINUE TO MONITOR AND REASSESS
[2018-12-07] MEDS: diphenhydrAMINE HCL 50 MG CAPSULE PO PRN (04:42)
[2018-12-07 04:43] VITALS: BP 160/84
[2018-12-07] MEDS: IV NS 0.9% 1,000 ML IV PRN ×2 (04:43→12:47)
--- NOTE | 2018-12-07 04:44 | NUR ---
PRN BENADRYL: PT YELLING SCREAMING D/T ITCHING, VS TAKEN AND RECORDED, PRN BENADRYL 50 MG CAP ADMINISTERED TO THE PT AT THIS TIME, PT STATED HE'S TAKING 150MG CAP, INFORMED PT ONLY 50MG WAS ORDERED BY MD, PT STARTED CURSING.
--- NOTE | 2018-12-07 07:20 | NUR ---
MS RN OPENING NOTE RECEIVED PT IN BED, RESTING WITH EYES CLOSED. BREATHING IS EVEN AND UNLABORED ON ROOM AIR, NO ACUTE DISTRESS NOTED AT THIS TIME. RIGHT UPPER ARM PICC LINE IS INFUSING NS @ 75ML/HR WITHOUT REDNESS OR SWELLING. ASPIRATION PRECAUTIONS MAINTAINED. ALL NEEDS ATTENDED TO. BED IS LOCKED AND IN LOWEST POSITION, SIDE RAILS UP X2, BED ALARM ON, CALL LIGHT AND POSSESSIONS WITHIN REACH.
--- NOTE | 2018-12-07 07:27 | NUR ---
RN CLOSING NOTES: PT IN BED, SLEEPING. RIGHT UPPER ARM PICC LINE REMAINS PATENT AND FLUSHING WELL, INFUSING WITH NS AT 125ML/HR. DRESSING ON RIGHT HAND, LEFT 4TH FINGER AND LEFT LEG CAST REMAINS C/D/I, NO ACTIVE BLEEDING NOTED. VS REMAINS STABLE, NEEDS ATTENDED. SAFETY PRECAUTIONS FOR FALL REMAINS ENGAGED, CALL LIGHT IN REACH, WILL ENDORSE TO DAY RN FOR CONTINUITY OF CARE.
[2018-12-07 08:00] VITALS: BP 139/72
[2018-12-07] MEDS: CARVEDILOL 6.25 MG TABLET PO SCH ×2 (08:07→16:57)
[2018-12-07] MEDS: LACTOBACILLUS RHAMNOSUS GG 1 EACH CAP.SPRINK PO SCH ×2 (08:07→16:56)
[2018-12-07] MEDS: LORATADINE 10 MG TABLET PO SCH (08:08)
[2018-12-07] MEDS: AMLODIPINE BESYLATE 5 MG TABLET PO SCH (08:08)
[2018-12-07] MEDS: CHOLECALCIFEROL 1,000 UNIT TABLET (VIT D3) PO SCH (08:08)
[2018-12-07] MEDS: ASPIRIN EC 81 MG TABLET.DR PO SCH (08:08)
[2018-12-07] MEDS: FERROUS SULFATE (325 MG) 325 MG/TAB TABLET PO SCH (08:08)
[2018-12-07] MEDS: NYSTATIN TOP POWDER 15 GM BOTTLE TP SCH (08:09)
[2018-12-07 08:18] LABS: CALCIUM, SERUM 7.7 mg/dL (8.5-10.1); CREATININE 2.1 mg/dL (0.6-1.3); POTASSIUM 4.4 mmol/L (3.5-5.1)
[2018-12-07] MEDS: VANCOMYCIN 0.75 GM in IV D5W 250 ML IV SCH (09:00)
[2018-12-07] MEDS ORDERED: GLUCERNA SHAKE 237 ML CAN PO SCH (09:00)
--- NOTE | 2018-12-07 09:10 | NUR ---
MS RN NOTE VANCOMYCIN HELD, VANCO TROUGH CAME BACK 23. PHARMACY NOTIFIED.
--- NOTE | 2018-12-07 09:59 | NUR ---
WOUND CARE CONSULT: RECEIVED WOUND CONSULT FOR SACRAL AREA. SACRAL AREA NOTED TO HAVE BLANCHABLE REDNESS WITH SOME PEELING SKIN. NO PURPLE AREAS OR OPEN WOUND NOTED. WILL SEE PRN. DEFER TO SURGICAL TEAM ALREADY ON CASE FOR WOUND TREATMENT PLAN. Addendum: 12/07/18 at 1001 by DEE ANDERSEN WNDNU Amended: Links added.
--- NOTE | 2018-12-07 10:58 | NUR ---
MS RN NOTE DR. ELISE AT THE BEDSIDE. NO NEW ORDERS RECEIVED FOR PENILE WOUND. DR. ELISE ASSESSED BOTH THE LEFT AND RIGHT HAND WOUNDS. NEW WOUND CARE ORDERS RECEIVED FOR 3RD RIGHT FINGER DRESSING.
[2018-12-07 16:00] VITALS: BP 143/78
[2018-12-07 16:57] VITALS: BP 143/78
[2018-12-07] MEDS ORDERED: CITRIC ACID/SODIUM CITRATE (BICITRA)15 ML UDC PO SCH (17:00)
--- NOTE | 2018-12-07 17:28 | NUR ---
MS ELECTROMEDICAL EQUIPMENT REPAIRER NOTE PT DISCHARGED TO [facility] VIA AMBULANCE IN MEDICALLY STABLE CONDITION. PT IS A/O X2-3 AND BLIND IN BOTH EYES. PT DENIES CHEST PAIN, SOB, N/V. BREATHING IS EVEN AND UNLABORED ON ROOM AIR, NO ACUTE DISTRESS NOTED AT THIS TIME. PT MEDICATED WITH NORCO 5-325MG @ 1657 FOR RIGHT AND LEFT HAND PAIN ORDERED PRIOR TO TRANSFER. RIGHT UPPER ARM PICC LINE IS PATENT WITH GOOD BLOOD RETURN, CLEAN, DRY AND INTACT. ADLS AND WOUND CARE PROVIDED ORDERED AND PT ASSISTED TO TURN AND REAPPORTIONED Q2H FOR THE DURATION OF THE SHIFT PRIOR TO TRANSFER. REPORT GIVEN TO RUTHY SULLIVAN FOR CONTINUITY OF CARE. DISCUSSED CONTINUATION OF IV ABX VANCOMYCIN 0.75MG Q24H TO START TONIGHT AT 2100, ROCEPHIN 1G Q24H DUE AT 2000, AND FLAGYL 500MG PO Q8HR AND TO D/C ZYVOX 600MG. INFORMED OF VANCO TROUGH LEVEL THIS MORNING OF 23. INFORMED OF FOLLOW UP APPOINTMENT WITH AT WOUND CARE CLINIC ON 12/08 AT [facility] RECOMMENDED BY DR. ELISE. CASE MANAGEMENT CRISTOFER SPOKE WITH OVER THE PHONE WHO IS IN AGREEMENT WITH THE PLAN OF CARE. PARTIAL WOUND DOCUMENTATION COMPLETED PER PROTOCOL. PT DID NOT ALLOW LAST COUNTER CLERK TRACTOR PARTS NURSE TO CHANGE DRESSINGS ON LEFT AND RIGHT HANDS AND DID NOT ALLOW PHOTO DOCUMENTATION TO BE COMPLETED. AT 1058 TODAY, AT THE BEDSIDE AND REMOVED AND CHANGED BOTH HAND DRESSINGS. PT DID NOT ALLOW THE NURSE TO REMOVE AND REPLACE THEM FOR WOUND DOCUMENTATION. RISKS AND BENEFITS EXPLAINED, PT STILL STRONGLY DECLINED. ALL BELONGINGS ACCOUNTED FOR ACCOUNTED FOR AND BELONGINGS LIST SIGNED AND PLACED IN CHART. DISCHARGE PAPERWORK AND EDUCATION COMPLETED PER PROTOCOL. REPORT GIVEN TO AMBULANCE STAFF FOR TRANSFER OF CARE.
[2018-12-07] MEDS ORDERED: VANCOMYCIN 0.75 GM in IV D5W 250 ML IV SCH (21:00)
== END 2018-12-07 17:20 | DRG 255 ==
LOC: ER 07:06 → ICU 08:54 → MED 09:08
PROVIDERS: ADMIT Student in an Organized Health Care Education/Training Program; ATTEND Nurse Practitioner Acute Care
PROC: 0X6N0Z2 Detachment at Right Index Finger, Mid, Open Approach (ICD-10-PCS; principal; 2018-12-03)
PROC: 30233N1 Transfusion of Nonautologous Red Blood Cells into Peripheral Vein, Percutaneous Approach (ICD-10-PCS; 2018-12-03)
DX: E11.52 Type 2 diabetes mellitus with diabetic peripheral angiopathy with gangrene (principal); N17.0 Acute kidney failure with tubular necrosis; G93.41 Metabolic encephalopathy; E43 Unspecified severe protein-calorie malnutrition; N13.30 Unspecified hydronephrosis; M86.672 Other chronic osteomyelitis, left ankle and foot; L97.429 Non-pressure chronic ulcer of left heel and midfoot with unspecified severity; E11.22 Type 2 diabetes mellitus with diabetic chronic kidney disease; I12.9 Hypertensive chronic kidney disease with stage 1 through stage 4 chronic kidney disease, or unspecified chronic kidney disease; N18.9 Chronic kidney disease, unspecified; R62.7 Adult failure to thrive; R13.10 Dysphagia, unspecified; E11.69 Type 2 diabetes mellitus with other specified complication; E87.5 Hyperkalemia; E78.5 Hyperlipidemia, unspecified; L03.012 Cellulitis of left finger; D63.8 Anemia in other chronic diseases classified elsewhere; Z89.511 Acquired absence of right leg below knee; Z90.49 Acquired absence of other specified parts of digestive tract; Z79.82 Long term (current) use of aspirin; Z79.4 Long term (current) use of insulin; Z79.899 Other long term (current) drug therapy; I25.10 Atherosclerotic heart disease of native coronary artery without angina pectoris; H54.7 Unspecified visual loss; F03.90 Unspecified dementia, unspecified severity, without behavioral disturbance, psychotic disturbance, mood disturbance, and anxiety; K21.9 Gastro-esophageal reflux disease without esophagitis; Z98.890 Other specified postprocedural states; R74.0 Nonspecific elevation of levels of transaminase and lactic acid dehydrogenase [LDH]; E11.621 Type 2 diabetes mellitus with foot ulcer; T46.6X5A Adverse effect of antihyperlipidemic and antiarteriosclerotic drugs, initial encounter; Y92.129 Unspecified place in nursing home as the place of occurrence of the external cause; Z93.1 Gastrostomy status
CPT/HCPCS: 36415; 71045-TC; 76770-TC; 80048-TC; 80053-TC; 80202-TC; 82962-TC; 83735-TC; 83970; 84100-TC; 84155; 84165; 85025-TC; 85730-TC; 86850-TC; 86921-TC; 87081-TC; 88305-TC; 88311-TC; A6402; G0378; J0696; J1815; J2250; J3010; J3370; J3475; J3490; J7030; J7042; J7050; J7060; P9016-BL; Q0163

== ENCOUNTER 2018-12-17 12:15 | Outpatient (CLI) | payer MEDICARE, OTHER, MEDICAID ==
[~2018-12-17 12:15] MED LIST changes: -AMIN30LI2 PO; -ASCO500C18 PO; -CHOL100044 PO; +CHOL200059 PO; -CLIN300C11 PO; -COLL30OI TP; -DIPH25CA6 PO; +DIPH25TA62 PO; +FINA5TAB11 PO; +HYDR-4384 PO; +LACT1CAP72 PO; -MAG30ORA PO; -MULT-1185 PO; +NYST15PO4 TP; +ONDA4TAB10 PO; +TAMS0.4C34 PO
[2019-01-10] MEDS ORDERED: METR500T PO (10:15)
[2019-01-10] MEDS ORDERED: CEFE1PIG3 IV (10:15)
[2019-01-10] MEDS ORDERED: LINE600T PO (10:15)
== END 2018-12-17 23:59 ==
LOC: WOU 12:15
PROVIDERS: ATTEND Surgery
DX: E11.52 Type 2 diabetes mellitus with diabetic peripheral angiopathy with gangrene (principal); E11.621 Type 2 diabetes mellitus with foot ulcer; L97.509 Non-pressure chronic ulcer of other part of unspecified foot with unspecified severity; E11.69 Type 2 diabetes mellitus with other specified complication; M86.372 Chronic multifocal osteomyelitis, left ankle and foot; Z89.511 Acquired absence of right leg below knee; E11.610 Type 2 diabetes mellitus with diabetic neuropathic arthropathy; I10 Essential (primary) hypertension; Z87.891 Personal history of nicotine dependence; Z79.82 Long term (current) use of aspirin; Z79.899 Other long term (current) drug therapy
CPT/HCPCS: A6402; G0463

== ENCOUNTER 2018-12-25 12:05 | Outpatient (CLI) | payer MEDICARE, OTHER, MEDICAID ==
[2019-01-10] MEDS ORDERED: CEFE1PIG3 IV (10:15)
[2019-01-10] MEDS ORDERED: METR500T PO (10:15)
[2019-01-10] MEDS ORDERED: LINE600T PO (10:15)
== END 2018-12-25 23:59 ==
LOC: WOU 12:05
PROVIDERS: ATTEND Podiatrist Foot & Ankle Surgery
DX: E11.610 Type 2 diabetes mellitus with diabetic neuropathic arthropathy (principal); M25.372 Other instability, left ankle; E11.42 Type 2 diabetes mellitus with diabetic polyneuropathy; Z86.31 Personal history of diabetic foot ulcer; R60.0 Localized edema; E11.51 Type 2 diabetes mellitus with diabetic peripheral angiopathy without gangrene; Z79.82 Long term (current) use of aspirin; Z79.899 Other long term (current) drug therapy; Z89.511 Acquired absence of right leg below knee; Z86.14 Personal history of Methicillin resistant Staphylococcus aureus infection
CPT/HCPCS: 29445; A6402

== ENCOUNTER 2018-12-31 14:15 | Outpatient (CLI) | payer MEDICARE, OTHER, MEDICAID ==
[2019-01-10] MEDS ORDERED: CEFE1PIG3 IV (10:15)
[2019-01-10] MEDS ORDERED: LINE600T PO (10:15)
[2019-01-10] MEDS ORDERED: METR500T PO (10:15)
== END 2018-12-31 23:59 ==
LOC: WOU 14:15
PROVIDERS: ATTEND Surgery
DX: E11.52 Type 2 diabetes mellitus with diabetic peripheral angiopathy with gangrene (principal); Z89.022 Acquired absence of left finger(s); Z89.021 Acquired absence of right finger(s); Z89.511 Acquired absence of right leg below knee; E11.610 Type 2 diabetes mellitus with diabetic neuropathic arthropathy; I10 Essential (primary) hypertension; M25.372 Other instability, left ankle; E11.621 Type 2 diabetes mellitus with foot ulcer; L97.429 Non-pressure chronic ulcer of left heel and midfoot with unspecified severity; Z86.14 Personal history of Methicillin resistant Staphylococcus aureus infection
CPT/HCPCS: A6402; G0463

== ENCOUNTER 2019-01-06 07:57 | Inpatient (IN) | payer MEDICARE, OTHER, MEDICAID ==
[~2019-01-06] VITALS: Ht 177.8 cm; Wt 64.9 kg
--- NOTE | 2019-01-06 08:00 | NUR ---
PT EULALIA FITZGERALD FROM [facility]. PRESENTS W/ A GANGRENOUS L 4TH FINGER. PER REPORT, SENT BY PMD FOR POSSIBLE AMPUTATION. 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 PLACED ON MONITOR. VSS. AWAITING MD VILLARREAL.
--- NOTE | 2019-01-06 08:08 | NUR ---
ERMD AT BEDSIDE FOR EVAL.
--- NOTE | 2019-01-06 08:16 | NUR ---
RADIOLOGY AT BEDSIDE FOR CHEST XRAY.
[2019-01-06] MEDS ORDERED: IV NS 0.9% 500 ML BAG IV ONE (08:30)
[2019-01-06 08:49] LABS: BASOPHILS # (AUTO) 0.1 /CMM (0.0-0.2); EOSINOPHILS % (AUTO) 4.4 % (0.0-6.0); HEMATOCRIT 28 % (39-51); HEMOGLOBIN 9.1 g/dL (13.5-17.5); LYMPHOCYTES # (AUTO) 1.8 /CMM (0.8-4.8); LYMPHOCYTES % (AUTO) 22.8 % (20.0-44.0); MEAN CORPUSCULAR HGB CONC 32 g/dl (31.0-36.0); MEAN CORPUSCULAR VOLUME 99 fL (80-96); MONOCYTES # (AUTO) 0.6 /CMM (0.1-1.30); MONOCYTES % (AUTO) 8.2 % (2.0-12.0); NEUTROPHILS % (AUTO) 63.6 % (43.0-81.0); PLATELET COUNT (AUTO) 356 /CMM (150-450); RED BLOOD CELL COUNT(AUTO) 2.84 MIL/uL (4.5-6.0); WHITE BLOOD COUNT (AUTO) 7.9 K/uL (4.3-11.0)
[2019-01-06 09:05] LABS: CALCIUM, SERUM 8.2 mg/dL (8.5-10.1); POTASSIUM 4.8 mmol/L (3.5-5.1)
--- NOTE | 2019-01-06 09:07 | NUR ---
PANEL ON-CALL PAGED
[2019-01-06] MEDS ORDERED: PROT946L PO (09:45)
[2019-01-06] MEDS ORDERED: LOPE2TAB57 PO (09:45)
[2019-01-06] MEDS ORDERED: METR-147 PO (09:45)
[2019-01-06] MEDS ORDERED: VANC750F2 IV (09:45)
[2019-01-06] MEDS ORDERED: CEFT1VIA15 IV (09:45)
[2019-01-06] MEDS ORDERED: SODI4SOL PO (09:45)
[2019-01-06] MEDS ORDERED: TRAM50TA2 PO (09:45)
--- NOTE | 2019-01-06 10:18 | NUR ---
REPORT TO TIMA BLISS FOR ANGEL.
--- NOTE | 2019-01-06 10:50 | NUR ---
CONCRETE FLOAT MAKER PATIENT A/OX2-3, BREATHING EVEN AND UNLABORED, DIANA. BLINDNESS, NO SOB NOTED. DENIES PAIN OR DISCOMFORT AT THIS TIME, PATIENT'S SKIN CARE RENDERED, NEEDS ATTENDED, CALL LIGHT WITHIN REACH, WILL CONTINUE TO MONITOR.
--- NOTE | 2019-01-06 10:55 | NUR ---
RN NOTES SKIN ASSESSMENT COMPLETED, PHOTOS TAKEN AND PLACED IN CHART. PATIENT HAS RIGHT BKA AND LEFT LE CAST. KIMO MIDLINE PRESENT VP INFORMATICS.
[2019-01-06] MEDS ORDERED: ONDANSETRON HCL/PF 4 MG/2 ML VIAL IVP PRN (11:30)
[2019-01-06] MEDS ORDERED: Z GUARD REMEDY 2 OZ OINT TP PRN (11:30)
[2019-01-06] MEDS ORDERED: MAGNESIUM HYDROXIDE 30 ML UDC PO PRN (11:30)
[2019-01-06] MEDS ORDERED: MAG HYDROX/AL HYDROX/SIMETH 30 ML UDC PO PRN (11:30)
[2019-01-06] MEDS ORDERED: ALBUTEROL FS 2.5 MG/3 ML VIAL.NEB NEB PRN (13:30)
[2019-01-06] MEDS: IV NS 0.9% 1,000 ML IV PRN (14:06)
[2019-01-06] MEDS: CEFEPIME 1 GM in IV D5W 50 ML IV SCH (14:18)
[2019-01-06] MEDS: LINEZOLID 600 MG TABLET PO SCH ×2 (14:21→23:10)
[2019-01-06] MEDS: METRONIDAZOLE 500 MG TABLET PO SCH ×2 (14:21→21:41)
[2019-01-06 16:00] VITALS: BP 144/72
[2019-01-06] MEDS: LACTOBACILLUS RHAMNOSUS GG 1 EACH CAP.SPRINK PO SCH (17:34)
[2019-01-06] MEDS: CARVEDILOL 6.25 MG TABLET PO SCH (17:34)
[2019-01-06] MEDS: TAMSULOSIN 0.4 MG CAP.SR.24H PO SCH (17:35)
[2019-01-06] MEDS: PROSOURCE / PROSTAT (PYXIS) 30 ML UDC PO SCH (17:35)
--- NOTE | 2019-01-06 18:51 | NUR ---
RN NOTES PATIENT A/OX3, CITRIC ACID FOLLOWED UP WITH PHARMACY TWICE AND PER PHARMACY, STILL WORKING ON IT AND WILL BE DELIVERED SOON. PATIENT ASSISTED WITH TURNING AND REPOSITIONING, MEPILEX APPLIED ON SACRAL. WOUND TREATMENT RENDERED, NEEDS ATTENDED AND MET, CALL LIGHT WITHIN REACH, WILL ENDORSE TO RESEARCH METHODOLOGIST FOR ANGEL.
[2019-01-06] MEDS: CITRIC ACID/SODIUM CITRATE (BICITRA)15 ML UDC PO SCH ×2 (19:39→21:00)
--- NOTE | 2019-01-06 19:42 | NUR ---
RN MS NOTES BEVERLY SCHEDULED FOR 1700 GIVEN LATE DUE TO PHARMACY DELIVERING MEDICATION LATE.
[2019-01-06 20:00] VITALS: BP 136/76
--- NOTE | 2019-01-06 20:05 | NUR ---
RN MS OPENING NOTES RECEIVED PATIENT IN BED AWAKE, ALERT AND ORIENTED X3, VERBALLY RESPONSIVE, ABLE TO MAKE NEEDS KNOWN. BREATHING EVEN AND UNLABORED. NO SOB NOTED. TOLERATING ROOM AIR. NO COMPLAINTS OF PAIN OR DISCOMFORT. NO FACIAL GRIMACING. IV ON RIGHT UPPER ARM INTACT AND PATENT. SKIN DRY AND WARM TO TOUCH. AFEBRILE. ALL OTHER NEEDS ATTENDED TO. SAFETY MEASURES IN PLACE. CALL LIGHT WITHIN REACH. WILL CONTINUE TO MONITOR.
[2019-01-06] MEDS ORDERED: NYSTATIN TOP POWDER 15 GM BOTTLE TP SCH (21:00)
--- NOTE | 2019-01-06 21:06 | NUR ---
RN MS NOTES PATIENT REQUESTING FOR BENADRYL DUE TO ITCHINESS AND ALSO FOR TO USE FOR SLEEP AID. PAGED NO DAMASO CAMACHO. WAITING FOR A PAGE BACK.
--- NOTE | 2019-01-06 21:25 | NUR ---
RN MS NOTES ALLERGY AND IMMUNOLOGY SPECIALIST DAMASO CAMACHO WITH ORDERS FOR BENADRYL 25MG IV Q6H PRN FOR ITCHINESS AND AMBIEN 10MG PO QHS PRN FOR INSOMNIA. ORDERS NOTED AND CARRIED OUT. WILL CONTINUE TO MONITOR.
[2019-01-06] MEDS: ATORVASTATIN 10 MG TABLET PO SCH (21:41)
[2019-01-06] MEDS: diphenhydrAMINE HCL 50 MG/ML VIAL IV PRN (21:41)
[2019-01-06] MEDS: FINASTERIDE (5 MG) 5 MG TABLET PO SCH (21:41)
[2019-01-06] MEDS: INSULIN GLARGINE, 100 UNIT/ML CARTRIDGE SQ SCH (21:43)
[2019-01-07] VITALS (9 sets, daily range): BP systolic 104–164; BP diastolic 66–87
[2019-01-07] MEDS: METRONIDAZOLE 500 MG TABLET PO SCH ×3 (04:00→21:49)
[2019-01-07] MEDS: IV NS 0.9% 1,000 ML IV PRN ×2 (04:55→23:39)
--- NOTE | 2019-01-07 05:16 | NUR ---
RN MS NOTES OBTAINED CONSENT FROM LAURIE MUNOZWILMABhargavi () FOR ANESTHESIA AND BLOOD TRANSFUSION OVER THE PHONE. ROMEO JANG RN ALSO SPOKE WITH A WITNESS. ALSO CONSENTS SIGNED AND PLACED IN CHART.
[2019-01-07 06:44] LABS: BASOPHILS # (AUTO) 0.1 /CMM (0.0-0.2); EOSINOPHILS % (AUTO) 5.8 % (0.0-6.0); HEMATOCRIT 26 % (39-51); HEMOGLOBIN 8.7 g/dL (13.5-17.5); LYMPHOCYTES # (AUTO) 1.6 /CMM (0.8-4.8); LYMPHOCYTES % (AUTO) 21.1 % (20.0-44.0); MEAN CORPUSCULAR HGB CONC 33 g/dl (31.0-36.0); MEAN CORPUSCULAR VOLUME 97 fL (80-96); MONOCYTES # (AUTO) 0.6 /CMM (0.1-1.30); MONOCYTES % (AUTO) 8.1 % (2.0-12.0); NEUTROPHILS # (AUTO) 4.8 /CMM (1.8-8.9); PLATELET COUNT (AUTO) 338 /CMM (150-450); WHITE BLOOD COUNT (AUTO) 7.5 K/uL (4.3-11.0)
[2019-01-07] MEDS ORDERED: MIDAZOLAM HCL 2 MG/2ML VIAL ONE (06:54)
[2019-01-07] MEDS ORDERED: FENTANYL PF 250MCG/5ML AMPUL ONE (06:55)
[2019-01-07] MEDS ORDERED: FAMOTIDINE/PF INJ 20 MG/2 ML VIAL IV ONE (06:55)
[2019-01-07] MEDS ORDERED: METOCLOPRAMIDE HCL 10 MG/2 ML VIAL ONE (06:55)
--- NOTE | 2019-01-07 07:04 | NUR ---
RN MS CLOSING NOTES PATIENT RESTING IN BED. NO ACUTE CHANGES THROUGHOUT SHIFT. BREATHING EVEN AND UNLABORED. NO SOB NOTED. TOLERATING ROOM AIR. NO COMPLAINTS OF PAIN OR DISCOMFORT. NO FACIAL GRIMACING. IV ON RIGHT UPPER ARM INTACT AND PATENT WITH IVF INFUSING WELL. SKIN DRY AND WARM TO TOUCH. AFEBRILE. KEPT CLEAN DRY AND COMFORTABLE. ALL OTHER NEEDS ATTENDED TO. SAFETY MEASURES IN PLACE. CALL LIGHT WITHIN REACH. WILL ENDORSE TO ONCOMING NURSE FOR ANGEL. Addendum: 01/07/19 at 0706 by IGNACIO OCONNELL RN ANTICIPATING SURGERY THIS AM.
[2019-01-07 07:09] LABS: THYROID STIMULATING HORMONE 1.605 uIU/mL (0.358-3.74)
[2019-01-07] MEDS ORDERED: ANESTHESIA TRAY IN PYXIS 1 EA TRAY MC ONE (07:10)
[2019-01-07 07:14] LABS: CALCIUM, SERUM 8.3 mg/dL (8.5-10.1); CREATININE 2.5 mg/dL (0.6-1.3); MAGNESIUM 1.9 mg/dL (1.8-2.4); PHOSPHORUS 4.4 mg/dL (2.5-4.9); POTASSIUM 4.3 mmol/L (3.5-5.1)
--- NOTE | 2019-01-07 07:15 | NUR ---
RN MS NOTES PATIENT WENT DOWN TO SURGERY IN STABLE CONDITION.
[2019-01-07] MEDS ORDERED: LIDOCAINE HCL/PF 1% 30 ML SDV ONE (07:29)
--- NOTE | 2019-01-07 07:51 | NUR ---
RN NOTES ENDORSED BY IGNACIO BLISS, PATIENT IS IN OR FOR THE PROCEDURE.
[2019-01-07] MEDS ORDERED: BACITRACIN 50000 UNITS/VIAL ONE (08:04)
--- NOTE | 2019-01-07 08:11 | NUR ---
WOUND CARE CONSULT WOUND CARE RECEIVED CONSULT FOR SACRAL REDNESS, LEFT AND RIGHT FOURTH FINGER WOUNDS. WOUND CARE WILL DEFER CONSULT AND TREATMENT PLANS TO PLASTIC SURGICAL TEAM WHO ARE CURRENTLY FOLLOWING THIS PATIENT. PATIENT WITH JEANINE AT 12, ALL PRESSURE ULCER PREVENTION MEASURES ARE NOTED TO BE IN PLACE AT THIS TIME. WILL SEE PRN.
--- NOTE | 2019-01-07 08:53 | NUR ---
RN NOTE ENDORSED PATIENT TO LILLY BLISS.
[2019-01-07] MEDS ORDERED: CEFTRIAXONE SODIUM 1 GM IV SCH (09:00)
[2019-01-07] MEDS ORDERED: CADEXOMER IODINE UD 5 GM TUBE TP SCH (09:00)
--- NOTE | 2019-01-07 09:25 | NUR ---
RN NOTES PATIENT RETURNED FROM SURGERY S/P LEFT FOURTH FINGER AMPUTATION BY DR ARIK PORTER. DRESSING IN PLACE WITH FRANCISCO WRAP C/D/I, NO ACTIVE BLEEDING NOTED. MD WITH ORDER TO PUT PT ON REGULAR DIET AND ELEVATED LEFT HAND ABOVE HEART AT ALL TIMES. V/S TAKEN: BP 109/79, P 74, R 18 AND SP02 98% ON ROOM AIR, NO ACUTE DISTRESS NOTED. WILL CONTINUE TO MONITOR.
[2019-01-07] MEDS: CITRIC ACID/SODIUM CITRATE (BICITRA)15 ML UDC PO SCH ×4 (09:39→21:50)
[2019-01-07] MEDS: ASPIRIN EC 81 MG TABLET.DR PO SCH (09:39)
[2019-01-07] MEDS: LACTOBACILLUS RHAMNOSUS GG 1 EACH CAP.SPRINK PO SCH ×2 (09:39→16:41)
[2019-01-07] MEDS: CHOLECALCIFEROL 1,000 UNIT TABLET (VIT D3) PO SCH (09:40)
[2019-01-07] MEDS: PROSOURCE / PROSTAT (PYXIS) 30 ML UDC PO SCH ×2 (09:41→16:42)
[2019-01-07] MEDS: FERROUS SULFATE (325 MG) 325 MG/TAB TABLET PO SCH (09:41)
[2019-01-07] MEDS: CARVEDILOL 6.25 MG TABLET PO SCH ×2 (09:41→16:41)
[2019-01-07] MEDS: AMLODIPINE BESYLATE 5 MG TABLET PO SCH (09:41)
[2019-01-07] MEDS: LINEZOLID 600 MG TABLET PO SCH ×2 (10:27→22:14)
[2019-01-07] MEDS: CEFEPIME 1 GM in IV D5W 50 ML IV SCH (13:32)
[2019-01-07] MEDS: TAMSULOSIN 0.4 MG CAP.SR.24H PO SCH (17:03)
[2019-01-07] MEDS: diphenhydrAMINE HCL 50 MG/ML VIAL IV PRN ×2 (17:09→23:10)
--- NOTE | 2019-01-07 18:33 | NUR ---
MS RN CLOSING NOTES PATIENT AWAKE IN BED WITH AT BEDSIDE AT THIS TIME. HOB ELEVATED. A.O X3, SAME ABLE TO MAKE NEEDS KNOWN. ON ROOM AIR, BREATHING EVEN AND UNLABORED, NO ACUTE RESPIRATORY DISTRESS NOTED. S/P LEFT FOURTH FINGER AMPUTATION THIS MORNING, DRESSING AT SITE C/D/I WITH FRANCISCO WRAP IN PLACE. LLE CAST IN PLACE AND DRY. MIDLINE ON KIMO INTACT AND PATENT, IVF OF NS @75ML/HR INFUSING WELL. SKIN DRY AND WARM. KEPT CLEAN DRY AND COMFORTABLE. ALL NEEDS AND CARE ATTENDED WELL. SAFETY MEASURES IN PLACE. BED IN LOW LOCKED POSITION WITH SR UP X2. CALL LIGHT WITHIN REACH. WILL ENDORSE TO INCOMING NIGHT NURSE FOR ANGEL.
--- NOTE | 2019-01-07 19:36 | NUR ---
RN OPENING NOTES RECEIVED PATIENT AWAKE, RESTING COMFORTABLY IN BED. IS AT BEDSIDE AT THIS TIME. PATIENT HAS NO SIGNS OF RESPIRATORY DISTRESS. PATIENT DENIES SHORTNESS OF BREATH. SAFETY PRECAUTIONS IMPLEMENTED. CALL LIGHT WITHIN REACH. WILL CONTINUE TO MONITOR PATIENT THROUGHOUT MY SHIFT.
--- NOTE | 2019-01-07 19:37 | NUR ---
RN NOTES PER PATIENT AND : PATIENT REFUSES ACCUCHEKS THROUGHOUT THE PM SHIFT. PATIENT AND STILL WANT INSULIN TO BE ADMINISTERED STILL WITHOUT CHECKING GLUCOSE LEVEL PRIOR TO ADMINISTRATION
--- NOTE | 2019-01-07 21:35 | NUR ---
Patient has hx of dementia and legally blind. He resides at [facility] [phone]. He comes to the [facility] regularly for non-healing wound care. He is bed/chair bound most of the time. He is totally dependent with adl's. is the primary source of support and want patient to return to SNF when discharge. Addendum: 01/07/19 at 2135 by JOSH LY RN Amended: Links added.
[2019-01-07] MEDS: FINASTERIDE (5 MG) 5 MG TABLET PO SCH (21:49)
[2019-01-07] MEDS: ATORVASTATIN 10 MG TABLET PO SCH (21:49)
[2019-01-07] MEDS: INSULIN GLARGINE, 100 UNIT/ML CARTRIDGE SQ SCH (22:00)
--- NOTE | 2019-01-07 22:05 | NUR ---
PATIENT REFUSES ACCUCHEK. LANTUS NOT GIVEN.
[2019-01-07] MEDS: ACETAMINOPHEN 325 MG TABLET PO PRN (23:10)
[2019-01-08] MEDS: METRONIDAZOLE 500 MG TABLET PO SCH ×3 (05:11→20:50)
--- NOTE | 2019-01-08 06:24 | NUR ---
RN CLOSING NOTES PATIENT IS RESTING COMFORTABLY IN BED. NO SIGNS OF RESPIRATORY DISTRESS. NO FACIAL GRIMACING INDICATING PAIN AT THIS TIME. SAFETY PRECAUTIONS IMPLEMENTED. CALL LIGHT WITHIN REACH. ALL NEEDS WERE MET THROUGHOUT THE SHIFT. WILL ENDORSE TO AM RN.
--- NOTE | 2019-01-08 07:36 | NUR ---
MS RN Opening Notes Received patient asleep, resting in bed. Semi-Fowlers position, supine. Alert and oriented x3, able to make needs known. Blind. No complaints of shortness of breath or pain at this time. Respirations even and unlabored on room air, no acute distress noted. Midline IV to the right upper arm, intact, patent and infusing fluids as ordered. Updated patient on current plan of care and safety measures. Safety and fall precautions in place: bed in lowest and locked position, side rails up x2, bed alarm on, call light and personal possessions within reach. Reminded patient of safety measures, verbalized understanding. Patient currently clean, dry and comfortable. Refused AM blood draw. Will continue to monitor and intervene as needed. Addendum: 01/08/19 at 1041 by CAMI MARQUIS RN Addition: Rajiv wrap dressing noted to the left arm/hand, clean, dry and intact.
[2019-01-08 08:00] VITALS: BP 151/84
[2019-01-08] MEDS: CITRIC ACID/SODIUM CITRATE (BICITRA)15 ML UDC PO SCH ×4 (08:38→20:50)
[2019-01-08] MEDS: CHOLECALCIFEROL 1,000 UNIT TABLET (VIT D3) PO SCH (08:38)
[2019-01-08] MEDS: AMLODIPINE BESYLATE 5 MG TABLET PO SCH (08:39)
[2019-01-08] MEDS: FERROUS SULFATE (325 MG) 325 MG/TAB TABLET PO SCH (08:39)
[2019-01-08] MEDS: LINEZOLID 600 MG TABLET PO SCH ×2 (08:39→20:50)
[2019-01-08] MEDS: ACETAMINOPHEN 325 MG TABLET PO PRN (08:40)
[2019-01-08] MEDS: ASPIRIN EC 81 MG TABLET.DR PO SCH (08:40)
[2019-01-08] MEDS: CARVEDILOL 6.25 MG TABLET PO SCH ×2 (08:40→17:06)
[2019-01-08] MEDS: LACTOBACILLUS RHAMNOSUS GG 1 EACH CAP.SPRINK PO SCH ×2 (08:40→17:06)
[2019-01-08] MEDS: PROSOURCE / PROSTAT (PYXIS) 30 ML UDC PO SCH ×2 (08:40→17:07)
[2019-01-08] MEDS: diphenhydrAMINE HCL 50 MG/ML VIAL IV PRN (12:24)
[2019-01-08] MEDS: CEFEPIME 1 GM in IV D5W 50 ML IV SCH (13:39)
[2019-01-08] MEDS: IV NS 0.9% 1,000 ML IV PRN (13:39)
[2019-01-08 15:29] LABS: BASOPHILS # (AUTO) 0.1 /CMM (0.0-0.2); BASOPHILS % (AUTO) 0.9 % (0.0-2.0); EOSINOPHILS % (AUTO) 5.6 % (0.0-6.0); HEMATOCRIT 25 % (39-51); HEMOGLOBIN 8.2 g/dL (13.5-17.5); LYMPHOCYTES # (AUTO) 1.2 /CMM (0.8-4.8); LYMPHOCYTES % (AUTO) 19.4 % (20.0-44.0); MEAN CORPUSCULAR HGB CONC 33 g/dl (31.0-36.0); MEAN CORPUSCULAR VOLUME 97 fL (80-96); MONOCYTES # (AUTO) 0.6 /CMM (0.1-1.30); MONOCYTES % (AUTO) 10.1 % (2.0-12.0); NEUTROPHILS # (AUTO) 4.1 /CMM (1.8-8.9); PLATELET COUNT (AUTO) 281 /CMM (150-450); RED BLOOD CELL COUNT(AUTO) 2.58 MIL/uL (4.5-6.0); WHITE BLOOD COUNT (AUTO) 6.3 K/uL (4.3-11.0)
[2019-01-08 15:58] LABS: BILIRUBIN,DIRECT 0.1 mg/dL (0.0-0.2); BILIRUBIN,TOTAL 0.2 mg/dL (0.2-1.0); CALCIUM, SERUM 7.9 mg/dL (8.5-10.1); CREATININE 2.4 mg/dL (0.6-1.3); POTASSIUM 4.4 mmol/L (3.5-5.1); TOTAL PROTEIN, SERUM 6.6 g/dL (6.4-8.2)
[2019-01-08 16:00] VITALS: BP_SYST 151; BP_SYST 164; BP_DIAS 84; BP_DIAS 85
[2019-01-08] MEDS: TAMSULOSIN 0.4 MG CAP.SR.24H PO SCH (17:06)
--- NOTE | 2019-01-08 18:48 | NUR ---
MS RN Closing Notes Patient currently awake, resting in bed. Semi-Fowlers position, supine. Alert and oriented x3, able to make needs known. Blind. No complaints of shortness of breath or pain at this time. Respirations even and unlabored on room air, no acute distress noted. Midline IV to the right upper arm, intact, patent and infusing fluids as ordered. Rajiv wrap/hard cast dressing noted to the left arm/hand, clean, dry and intact.Updated patient on current plan of care and safety measures. Safety and fall precautions in place: bed in lowest and locked position, side rails up x2, bed alarm on, call light and personal possessions within reach. Reminded patient of safety measures, verbalized understanding. Patient currently clean, dry and comfortable. Spouse present at bedside. Will endorse to copy supervisor RN for continuity of care.
--- NOTE | 2019-01-08 19:34 | NUR ---
RN OPENING NOTES RECEIVED PATIENT AWAKE RESTING IN BED. AT BED SIDE. NO SIGNS OF RESPIRATORY DISTRESS. PATIENT DENIES SHORTNESS OF BREATH OR PAIN AT THIS TIME. IV SITE INTACT AND PATENT. SAFETY PRECAUTIONS IMPLEMENTED. CALL LIGHT WITHIN REACH. WILL CONTINUE TO MONITOR.
[2019-01-08 19:55] VITALS: BP 149/82
[2019-01-08 20:00] VITALS: BP 149/82
[2019-01-08] MEDS: ATORVASTATIN 10 MG TABLET PO SCH (21:00)
[2019-01-08] MEDS: FINASTERIDE (5 MG) 5 MG TABLET PO SCH (21:00)
[2019-01-08] MEDS: INSULIN GLARGINE, 100 UNIT/ML CARTRIDGE SQ SCH (21:07)
--- NOTE | 2019-01-08 21:08 | NUR ---
RN NOTES PATIENT REFUSES ACCUCHEKS. LANTUS NOT GIVEN DUE TO UNKNOWN CURRENT BLOOD SUGAR.
[2019-01-09] MEDS: ZOLPIDEM TARTRATE 10 MG TABLET PO PRN (00:56)
--- NOTE | 2019-01-09 01:08 | NUR ---
RN NOTES PATIENT REQUESTED SLEEP MEDICATION. PATIENT IS STATES HE CANNOT SLEEP.
[2019-01-09] MEDS: IV NS 0.9% 1,000 ML IV PRN ×2 (03:29→17:37)
[2019-01-09] MEDS: METRONIDAZOLE 500 MG TABLET PO SCH ×3 (05:01→21:16)
[2019-01-09 06:27] LABS: BASOPHILS # (AUTO) 0.1 /CMM (0.0-0.2); BASOPHILS % (AUTO) 0.6 % (0.0-2.0); HEMATOCRIT 25 % (39-51); HEMOGLOBIN 8.4 g/dL (13.5-17.5); LYMPHOCYTES # (AUTO) 1.6 /CMM (0.8-4.8); MEAN CORPUSCULAR HGB CONC 33 g/dl (31.0-36.0); MEAN CORPUSCULAR VOLUME 97 fL (80-96); MONOCYTES # (AUTO) 0.8 /CMM (0.1-1.30); MONOCYTES % (AUTO) 9.4 % (2.0-12.0); NEUTROPHILS # (AUTO) 5.6 /CMM (1.8-8.9); PLATELET COUNT (AUTO) 295 /CMM (150-450); RED BLOOD CELL COUNT(AUTO) 2.61 MIL/uL (4.5-6.0); WHITE BLOOD COUNT (AUTO) 8.4 K/uL (4.3-11.0)
--- NOTE | 2019-01-09 06:33 | NUR ---
RN CLOSING NOTES PATIENT IS RESTING IN BED COMFORTABLY. NO SIGNS OF RESPIRATORY DISTRESS. NO SIGNS OF SHORTNESS OF BREATH. NO SIGNS OF PAIN OR DISCOMFORT AT THIS TIME. IV SITE INTACT AND PATENT. SAFETY PRECAUTIONS IMPLEMENTED. CALL LIGHT WITHIN REACH. WILL ENDORSE TO AM NURSE.
[2019-01-09 06:46] LABS: CALCIUM, SERUM 8.2 mg/dL (8.5-10.1); CREATININE 2.4 mg/dL (0.6-1.3); POTASSIUM 4.3 mmol/L (3.5-5.1)
--- NOTE | 2019-01-09 07:30 | NUR ---
MS RN Opening Notes Patient currently awake, resting in bed. Semi-Fowlers position, supine. Alert and oriented x3, able to make needs known. Blind. No complaints of shortness of breath or pain at this time. Respirations even and unlabored on room air, no acute distress noted. Midline IV to the right upper arm, intact, patent and infusing fluids as ordered. Rajiv wrap/hard cast dressing noted to the left arm/hand, clean, dry and intact.Updated patient on current plan of care and safety measures. Safety and fall precautions in place: bed in lowest and locked position, side rails up x2, bed alarm on, call light and personal possessions within reach. Reminded patient of safety measures, verbalized understanding. Patient currently clean, dry and comfortable. Will continue to monitor and intervene as needed.
[2019-01-09 08:00] VITALS: BP 140/81
[2019-01-09] MEDS: CITRIC ACID/SODIUM CITRATE (BICITRA)15 ML UDC PO SCH ×4 (09:00→21:16)
[2019-01-09] MEDS: ASPIRIN EC 81 MG TABLET.DR PO SCH (09:52)
[2019-01-09] MEDS: CHOLECALCIFEROL 1,000 UNIT TABLET (VIT D3) PO SCH (09:52)
[2019-01-09] MEDS: LACTOBACILLUS RHAMNOSUS GG 1 EACH CAP.SPRINK PO SCH ×2 (09:53→17:32)
[2019-01-09] MEDS: FERROUS SULFATE (325 MG) 325 MG/TAB TABLET PO SCH (09:53)
[2019-01-09] MEDS: LINEZOLID 600 MG TABLET PO SCH ×2 (09:53→21:16)
[2019-01-09] MEDS: CARVEDILOL 6.25 MG TABLET PO SCH ×2 (09:54→17:31)
[2019-01-09] MEDS: AMLODIPINE BESYLATE 5 MG TABLET PO SCH (09:54)
[2019-01-09] MEDS: PROSOURCE / PROSTAT (PYXIS) 30 ML UDC PO SCH ×2 (09:55→17:34)
[2019-01-09] MEDS: CEFEPIME 1 GM in IV D5W 50 ML IV SCH (13:08)
[2019-01-09] MEDS: TAMSULOSIN 0.4 MG CAP.SR.24H PO SCH (17:36)
--- NOTE | 2019-01-09 18:54 | NUR ---
MS RN Closing Notes Patient currently awake, resting in bed. Semi-Fowlers position, supine. Alert and oriented x3, able to make needs known. Legally blind in both eyes. No complaints of shortness of breath or pain at this time. Respirations even and unlabored on room air, no acute distress noted. Midline IV to the right upper arm, intact, patent and infusing fluids as ordered. Rajiv wrap/hard cast dressing noted to the left arm/hand, clean, dry and intact. No bleeding or strikethrough noted. Updated patient on current plan of care and safety measures. Safety and fall precautions in place: bed in lowest and locked position, side rails up x2, bed alarm on, call light and personal possessions within reach. Reminded patient of safety measures, verbalized understanding. Patient currently clean, dry and comfortable. Spouse present at bedside. Will endorse to technical systems architect RN for continuity of care.
[2019-01-09] MEDS: diphenhydrAMINE HCL 50 MG/ML VIAL IV PRN (19:34)
--- NOTE | 2019-01-09 19:34 | NUR ---
MS RN OPENING NOTES Received patient in bed, at bedside. Alert, oriented x 3, legally blind in both eyes. able to make needs known. Complaining of itchiness all over the body, Benadryl given as ordered. Peripheral IV infusing at 75mL/hr. FRANCISCO wrap noted in L hand, clean, dry and intact. Safety measures in place; call light within reach. Bed in lowest locked position. Will continue to monitor accordingly
[2019-01-09 20:00] VITALS: BP 148/81
[2019-01-09] MEDS: ATORVASTATIN 10 MG TABLET PO SCH (21:16)
[2019-01-09] MEDS: FINASTERIDE (5 MG) 5 MG TABLET PO SCH (21:16)
[2019-01-09] MEDS: INSULIN GLARGINE, 100 UNIT/ML CARTRIDGE SQ SCH (21:25)
--- NOTE | 2019-01-09 21:25 | NUR ---
RN NOTES Patient refused accu- check. Lantus not given
[2019-01-10] MEDS: diphenhydrAMINE HCL 50 MG/ML VIAL IV PRN (02:42)
--- NOTE | 2019-01-10 02:43 | NUR ---
RN NOTES Patient complaining of itchiness, benadryl 25mg IV given as ordered.
[2019-01-10] MEDS: HYDROCODONE/APAP 5/325MG 1 EACH TABLET PO PRN ×2 (03:44→21:13)
--- NOTE | 2019-01-10 03:45 | NUR ---
RN NOTES Patient c/o pain in L) 4th finger, [place] 5-325mg given as ordered. Will continue to monitor
[2019-01-10] MEDS: METRONIDAZOLE 500 MG TABLET PO SCH ×3 (05:23→20:48)
[2019-01-10] MEDS: IV NS 0.9% 1,000 ML IV PRN ×2 (05:30→18:17)
[2019-01-10 06:10] LABS: BASOPHILS # (AUTO) 0.1 /CMM (0.0-0.2); EOSINOPHILS % (AUTO) 4.5 % (0.0-6.0); HEMATOCRIT 25 % (39-51); HEMOGLOBIN 8.2 g/dL (13.5-17.5); LYMPHOCYTES # (AUTO) 1.7 /CMM (0.8-4.8); LYMPHOCYTES % (AUTO) 23.2 % (20.0-44.0); MEAN CORPUSCULAR HGB CONC 33 g/dl (31.0-36.0); MEAN CORPUSCULAR VOLUME 97 fL (80-96); MONOCYTES # (AUTO) 0.6 /CMM (0.1-1.30); MONOCYTES % (AUTO) 8.6 % (2.0-12.0); NEUTROPHILS # (AUTO) 4.5 /CMM (1.8-8.9); NEUTROPHILS % (AUTO) 62.7 % (43.0-81.0); PLATELET COUNT (AUTO) 293 /CMM (150-450); RED BLOOD CELL COUNT(AUTO) 2.55 MIL/uL (4.5-6.0); WHITE BLOOD COUNT (AUTO) 7.2 K/uL (4.3-11.0)
[2019-01-10 06:27] LABS: CALCIUM, SERUM 8.1 mg/dL (8.5-10.1); CREATININE 2.2 mg/dL (0.6-1.3)
--- NOTE | 2019-01-10 06:41 | NUR ---
MS RN CLOSING NOTES Patient still sleeping in bed, but easily arousable. Patient able to make needs known. Legally blind in both eyes. No complaints of pain at this time. Respirations even and unlabored on room air, no acute distress noted. Midline IV to the right upper arm, intact, patent and infusing fluids at 75mL/hr. Rajiv wrap/hard cast dressing on left hand, clean, dry and intact. Safety precautions in place: bed in lowest and locked position, side rails up x2, bed alarm on, call light within reach. Patient currently clean, dry and comfortable. Will endorse continuity of care to oncoming RN.
--- NOTE | 2019-01-10 07:25 | NUR ---
MS RN OPENING NOTE RECEIVED PT IN BED, RESTING WITH EYES CLOSED AND EASILY AROUSABLE. PT IS ALERT AND ORIENTED X2-3 AND BLIND IN BOTH EYES. PT DENIES CHEST PAIN, SOB, N/V. BREATHING IS EVEN AND UNLABORED ON ROOM AIR. NO ACUTE DISTRESS NOTED AT THIS TIME. RIGHT UPPER ARM MIDLINE IS INFUSING NS @ 75ML/HR WITHOUT REDNESS OR SWELLING. DRESSING WITH FRANCISCO WRAP TO LEFT FOURTH FINGER IS CLEAN, DRY AND INTACT. ALL NEEDS ATTENDED TO. BED IS LOCKED AND IN LOWEST POSITION, SIDE RAILS UP X2, BED ALARM ON, CALL LIGHT AND POSSESSIONS WITHIN REACH.
--- NOTE | 2019-01-10 07:29 | NUR ---
MS RN NOTE CONTACTED REGARDING CLARIFICATION OF WOUND CARE FOR LEFT FOURTH FINGER. AWAITING RESPONSE.
[2019-01-10 08:00] VITALS: BP 147/81
[2019-01-10] MEDS: CHOLECALCIFEROL 1,000 UNIT TABLET (VIT D3) PO SCH (08:26)
[2019-01-10] MEDS: CITRIC ACID/SODIUM CITRATE (BICITRA)15 ML UDC PO SCH ×4 (08:26→20:48)
[2019-01-10] MEDS: PROSOURCE / PROSTAT (PYXIS) 30 ML UDC PO SCH ×3 (08:26→17:00)
[2019-01-10] MEDS: CARVEDILOL 6.25 MG TABLET PO SCH ×2 (08:27→17:29)
[2019-01-10] MEDS: AMLODIPINE BESYLATE 5 MG TABLET PO SCH (08:27)
[2019-01-10] MEDS: ASPIRIN EC 81 MG TABLET.DR PO SCH (08:27)
[2019-01-10] MEDS: LINEZOLID 600 MG TABLET PO SCH ×2 (08:27→20:48)
[2019-01-10] MEDS: LACTOBACILLUS RHAMNOSUS GG 1 EACH CAP.SPRINK PO SCH ×2 (08:27→17:29)
[2019-01-10] MEDS: FERROUS SULFATE (325 MG) 325 MG/TAB TABLET PO SCH (08:27)
--- NOTE | 2019-01-10 08:43 | NUR ---
MS RN NOTE ORDERS RECEIVED FOR WOUND CARE OF LEFT FOURTH FINGER FROM . ALSO STATED THAT PT IS OKAY FOR D/C WITH FOLLOW UP APPOINTMENT FOR NEXT FRIDAY. WILL INITIATE ORDERS AND INFORM CASE MANAGEMENT.
[2019-01-10] MEDS ORDERED: CEFE1PIG3 IV (10:15)
[2019-01-10] MEDS ORDERED: LINE600T PO (10:15)
[2019-01-10] MEDS ORDERED: METR500T PO (10:15)
--- NOTE | 2019-01-10 12:00 | NUR ---
MS RN NOTE RIGHT UPPER ARM MIDLINE DRESSING CHANGED UTILIZING STERILE TECHNIQUE. WOUND CARE PROVIDED ORDERED BY . PT TOLERATED PROCEDURES WELL.
--- NOTE | 2019-01-10 12:18 | NUR ---
MS RN NOTE PER MEHNAZ JACKSON IN CASE MANAGEMENT, LAURIE IS NOT AGREEABLE TO DISCHARGE AT THIS TIME.
--- NOTE | 2019-01-10 12:30 | NUR ---
MS RN NOTE ASSISTED PT TO CALL LAURIE REQUESTED.
--- NOTE | 2019-01-10 13:47 | NUR ---
MS BLISS NOTE SENT MESSAGE TO REQUESTED BY PT JOSE SULLIVAN, AWAITING RESPONSE. Addendum: 01/10/19 at 1603 by ÁLVARO LUO RN PLEASE DISREGARD, WRONG TIME.
[2019-01-10] MEDS: CEFEPIME 1 GM in IV D5W 50 ML IV SCH (13:54)
--- NOTE | 2019-01-10 15:13 | NUR ---
MS RN NOTE SPOKE WITH LAURIE OVER THE PHONE. PROVIDED WBC COUNT OF 7.2 OVER THE PHONE REQUESTED. LAURIE REQUESTS THAT THE NURSE SEND A MESSAGE TO STATING THAT SHE IS REFUSING DISCHARGE UNTIL AND NOT HIS NURSE PRACTITIONER SEES THE PT IN PERSON. INFORMED LAURIE THAT THE NURSE WILL SEND A MESSAGE TO REQUESTED. LAURIE ALSO HAS A CASE NUMBER FOR INSURANCE THAT SHE WOULD LIKE TO PROVIDE TO CASE MANAGEMENT. FORWARDED TO CASE MANAGEMENT OFFICE.
--- NOTE | 2019-01-10 15:47 | NUR ---
MS RN NOTE SENT MESSAGE TO REQUESTED BY PT LAURIE, AWAITING RESPONSE.
[2019-01-10 16:00] VITALS: BP 147/79
[2019-01-10] MEDS: TAMSULOSIN 0.4 MG CAP.SR.24H PO SCH (17:29)
--- NOTE | 2019-01-10 18:14 | NUR ---
MS RN CLOSING NOTE PT IN BED, RESTING WITH EYES CLOSED AND EASILY AROUSABLE. PT IS ALERT AND ORIENTED X2-3 AND BLIND IN BOTH EYES. PT DENIES CHEST PAIN, SOB, N/V. BREATHING IS EVEN AND UNLABORED ON ROOM AIR. NO ACUTE DISTRESS NOTED AT THIS TIME. RIGHT UPPER ARM MIDLINE IS INFUSING NS @ 75ML/HR WITHOUT REDNESS OR SWELLING. MIDLINE DRESSING CHANGED TODAY USING STERILE TECHNIQUE. WOUND CARE AND ADLS PROVIDED ORDERED BY . ALL NEEDS ATTENDED TO. PT HAS D/C ORDER WITH DISCHARGE DOCUMENTATION COMPLETED PER PROTOCOL, HOWEVER LAURIE IS NOT AGREEABLE TO D/C AT THIS TIME. BED IS LOCKED AND IN LOWEST POSITION, SIDE RAILS UP X2, BED ALARM ON, CALL LIGHT AND POSSESSIONS WITHIN REACH. WILL ENDORSE TO INDIVIDUAL PENSION ADVISER NURSE FOR CONTINITY OF CARE.
--- NOTE | 2019-01-10 19:21 | NUR ---
MS RN RECEIVE PT IN BED A/O X 2-3 BLIND PERIOD OF FORGETFULNESS, RESPIRATIONS EVEN AND UNLABORED, NO SOB NOTED, NO DISTRESS, SAFETY MEASURES IN PLACE. WILL CONTINUE TO MONITOR.
[2019-01-10 20:00] VITALS: BP 153/74
[2019-01-10] MEDS: ZOLPIDEM TARTRATE 10 MG TABLET PO PRN (20:49)
[2019-01-10] MEDS: ATORVASTATIN 10 MG TABLET PO SCH (21:13)
[2019-01-10] MEDS: FINASTERIDE (5 MG) 5 MG TABLET PO SCH (21:13)
[2019-01-10] MEDS: INSULIN GLARGINE, 100 UNIT/ML CARTRIDGE SQ SCH (21:14)
--- NOTE | 2019-01-10 21:18 | NUR ---
PATIENT REFUSES ACCUCHECK PER PT "I DISCUSSED THIS ALREADY TO MY PHYSICIAN AND TO ALL THE PAST NURSES I DONT WANT TO HAVE MY BLOOD SUGAR TO BE TAKEN AND POKE MY FINGERS ITS TOO MUCH MY FINGERS ARE SENSITIVE I AM REFUSING MY LANTUS" DESPITE EXPLAINING RISKS AND BENEFITS . LANTUS NOT GIVEN DUE AT 2200 OFFERED 3 TIMES STILL REFUSED, HOSPITALIST AWARE.
[2019-01-11] MEDS: METRONIDAZOLE 500 MG TABLET PO SCH ×2 (05:17→12:15)
--- NOTE | 2019-01-11 06:07 | NUR ---
MS RN CLOSING PT ASLEEP AND EASILY AWAKEN, RESPIRATION EVEN AND UNLABORED, STABLE AND NOT IN DISTRESS, AM CARE RENDERED, AFEBRILE. NEEDS ATTENDED AND ANTICIPATED, KEPT CLEAN AND DRY AND COMFORTABLE. NO COMPLAIN OF PAIN. REPOSITION EVERY 2 HOURS. SAFETY MEASURES AT ALL TIMES. ENDORSE TO THE NEXT SHIFT POC.
--- NOTE | 2019-01-11 07:16 | NUR ---
MS RN OPENING NOTES RECEIVED PATIENT ASLEEP IN BED, EASILY AROUSABLE. HOB ELEVATED. ON ROOM AIR, RESPIRATIONS EVEN AND UNLABORED. KIMO MIDLINE INTACT AND PATENT, IVF OF NS RUNNING @75ML/HR, NO S/S OF INFILTRATIONS NOTED. SAFETY MEASURES IN PLACE. BED IN LOW LOCKED POSITION WITH SR UP X2. CALL LIGHT WITHIN REACH. WILL CONTINUE TO MONITOR AND ATTEND TO NEEDS.
[2019-01-11 08:00] VITALS: BP 150/88
[2019-01-11] MEDS: CITRIC ACID/SODIUM CITRATE (BICITRA)15 ML UDC PO SCH ×3 (08:10→16:15)
[2019-01-11] MEDS: PROSOURCE / PROSTAT (PYXIS) 30 ML UDC PO SCH ×2 (08:11→16:15)
[2019-01-11] MEDS: LINEZOLID 600 MG TABLET PO SCH (08:11)
[2019-01-11] MEDS: AMLODIPINE BESYLATE 5 MG TABLET PO SCH (08:11)
[2019-01-11] MEDS: ASPIRIN EC 81 MG TABLET.DR PO SCH (08:11)
[2019-01-11] MEDS: LACTOBACILLUS RHAMNOSUS GG 1 EACH CAP.SPRINK PO SCH ×2 (08:11→16:15)
[2019-01-11] MEDS: FERROUS SULFATE (325 MG) 325 MG/TAB TABLET PO SCH (08:12)
[2019-01-11] MEDS: CARVEDILOL 6.25 MG TABLET PO SCH ×2 (08:12→17:10)
[2019-01-11] MEDS: CHOLECALCIFEROL 1,000 UNIT TABLET (VIT D3) PO SCH (08:12)
--- NOTE | 2019-01-11 11:08 | NUR ---
RN NOTES PT SEEN BY DR PORTER AND DID CHANGE WOUND DRESSINGS. WILL CONTINUE TO MONITOR.
[2019-01-11] MEDS: IV NS 0.9% 1,000 ML IV PRN (12:16)
[2019-01-11] MEDS: CEFEPIME 1 GM in IV D5W 50 ML IV SCH (13:39)
--- NOTE | 2019-01-11 14:48 | NUR ---
RN NOTES PATIENT FOR DISCHARGE TODAY TO [facility]. CALLED AND REPORT GIVEN TO NURSE PREPRESS SUPERVISOR RAFAEL. INFORMED HER THAT PT HAS APPOINTMENT WITH DR ARIK PORTER OF [facility] ON Friday01/18/2019 AT 1245. SAME REPORTED ABOUT AT[facility]'S THERAPIES TO CONTINUE.
--- NOTE | 2019-01-11 14:52 | NUR ---
RN NOTES CALLED PT'S LAURIE CASEY @ [facility] #[phone] AND INFORMED HER THAT PT WILL BE DISCHARGE THIS AFTERNOON WITH AMBULANCE PICK-UP AT 1800. PT'S STATED THAT SHE WILL COME AND VISIT PT THIS AFTERNOON.
[2019-01-11 16:00] VITALS: BP 145/83
[2019-01-11] MEDS: diphenhydrAMINE HCL 50 MG/ML VIAL IV PRN (16:17)
[2019-01-11 17:10] VITALS: BP 145/83
[2019-01-11] MEDS: TAMSULOSIN 0.4 MG CAP.SR.24H PO SCH (17:10)
--- NOTE | 2019-01-11 18:47 | NUR ---
CESSATION SYSTEMS OUTREACH SPECIALIST NOTES PATIENT DISCHARGED TO [facility] IN STABLE CONDITION. A/O X3. ABLE TO MAKE NEEDS KNOWN WITH NO ACUTE SIGNS OF DISTRESS NOTED. V/S TAKEN AND RECORDED. PHOTOS OF SKIN ISSUES TAKEN BY PREVIOUS SHIFT NURSE AND FILED ON CHART. PT TO CONTINUE IV ANTIBIOTIC @ THE SNF, KIMO MIDLINE NOT REMOVE. PT HAS NO BELONGINGS WHEN HE WAS ADMITTED AND WAS NOTED. HEALTH TEACHINGS GIVEN TO PT AND , BOTH VERBALIZED UNDERSTANDING. PT LEFT UNIT AT 1840 VIA GURNEY ACCOMPANIED BY 2 EMT'S AND . CHARGE NURSE AWARE OF DISCHARGE.
== END 2019-01-11 18:35 | DRG 255 ==
LOC: ER 08:00 → MED 10:34
PROVIDERS: ADMIT Nurse Practitioner Acute Care; ATTEND Nurse Practitioner Acute Care
PROC: 05H533Z Insertion of Infusion Device into Right Subclavian Vein, Percutaneous Approach (ICD-10-PCS; 2019-01-06)
PROC: B546ZZA Ultrasonography of Right Subclavian Vein, Guidance (ICD-10-PCS; 2019-01-06)
PROC: 0X6T0Z1 Detachment at Left Ring Finger, High, Open Approach (ICD-10-PCS; principal; 2019-01-07)
DX: E11.52 Type 2 diabetes mellitus with diabetic peripheral angiopathy with gangrene (principal); N17.0 Acute kidney failure with tubular necrosis; E87.1 Hypo-osmolality and hyponatremia; N18.4 Chronic kidney disease, stage 4 (severe); G93.40 Encephalopathy, unspecified; M86.672 Other chronic osteomyelitis, left ankle and foot; N13.30 Unspecified hydronephrosis; E11.69 Type 2 diabetes mellitus with other specified complication; I12.9 Hypertensive chronic kidney disease with stage 1 through stage 4 chronic kidney disease, or unspecified chronic kidney disease; E11.22 Type 2 diabetes mellitus with diabetic chronic kidney disease; F03.90 Unspecified dementia, unspecified severity, without behavioral disturbance, psychotic disturbance, mood disturbance, and anxiety; I25.10 Atherosclerotic heart disease of native coronary artery without angina pectoris; E78.5 Hyperlipidemia, unspecified; E11.42 Type 2 diabetes mellitus with diabetic polyneuropathy; Z90.49 Acquired absence of other specified parts of digestive tract; Z89.022 Acquired absence of left finger(s); Z89.511 Acquired absence of right leg below knee; Z79.899 Other long term (current) drug therapy; Z79.4 Long term (current) use of insulin; Z79.82 Long term (current) use of aspirin; D63.8 Anemia in other chronic diseases classified elsewhere; H54.8 Legal blindness, as defined in USA; E86.1 Hypovolemia; R62.7 Adult failure to thrive; N18.9 Chronic kidney disease, unspecified; K21.9 Gastro-esophageal reflux disease without esophagitis; L03.012 Cellulitis of left finger; L03.011 Cellulitis of right finger; F09 Unspecified mental disorder due to known physiological condition; L30.4 Erythema intertrigo
CPT/HCPCS: 36415; 71045-TC; 73140-TC; 76770-TC; 80048-TC; 80061-TC; 80076-TC; 82962-TC; 83735-TC; 84100-TC; 84443-TC; 85025-TC; 85730-TC; 86850-TC; 87070-TC; 87075-TC; 87081-TC; 88305-TC; 88311-TC; A6253; A6402; G0378; J0690; J0692; J1200; J1815; J2250; J2405; J2704; J2765; J3010; J3490; J7030; J7040; J7060

== ENCOUNTER 2019-01-18 12:15 | Outpatient (CLI) | payer MEDICARE, OTHER, MEDICAID ==
[~2019-01-18 12:15] MED LIST changes: +CEFE1PIG3 IV; +LINE600T PO; +LOPE2TAB57 PO; +METR500T PO; +PROT946L PO; +SODI4SOL PO
== END 2019-01-18 23:59 ==
LOC: WOU 12:15
PROVIDERS: ATTEND Surgery
DX: Z47.81 Encounter for orthopedic aftercare following surgical amputation (principal); Z89.022 Acquired absence of left finger(s); E11.621 Type 2 diabetes mellitus with foot ulcer; L97.909 Non-pressure chronic ulcer of unspecified part of unspecified lower leg with unspecified severity; M86.372 Chronic multifocal osteomyelitis, left ankle and foot; E11.52 Type 2 diabetes mellitus with diabetic peripheral angiopathy with gangrene; I96 Gangrene, not elsewhere classified; I73.9 Peripheral vascular disease, unspecified; Z79.82 Long term (current) use of aspirin
CPT/HCPCS: A6402; G0463

== ENCOUNTER 2019-01-29 12:15 | Outpatient (CLI) | payer MEDICARE, OTHER, MEDICAID | END 2019-01-29 23:59 | LOC: WOU 12:15 | PROVIDERS: ATTEND Podiatrist Foot & Ankle Surgery | DX: M25.372 Other instability, left ankle (principal); E11.42 Type 2 diabetes mellitus with diabetic polyneuropathy; Z89.511 Acquired absence of right leg below knee; R26.9 Unspecified abnormalities of gait and mobility; E11.610 Type 2 diabetes mellitus with diabetic neuropathic arthropathy; E11.51 Type 2 diabetes mellitus with diabetic peripheral angiopathy without gangrene; Z79.82 Long term (current) use of aspirin; Z79.899 Other long term (current) drug therapy ==

== ENCOUNTER 2019-02-04 12:15 | Outpatient (CLI) | payer MEDICARE, OTHER, MEDICAID | END 2019-02-04 23:59 | disposition home or self-care (01) | LOC: WOU 12:15 | PROVIDERS: ATTEND Surgery | DX: T87.51 Necrosis of amputation stump, right upper extremity (principal); E11.52 Type 2 diabetes mellitus with diabetic peripheral angiopathy with gangrene; Z87.891 Personal history of nicotine dependence; E11.610 Type 2 diabetes mellitus with diabetic neuropathic arthropathy; Z89.022 Acquired absence of left finger(s); Z89.021 Acquired absence of right finger(s); M25.372 Other instability, left ankle; Z89.511 Acquired absence of right leg below knee; Z93.1 Gastrostomy status; Z79.82 Long term (current) use of aspirin; Z79.899 Other long term (current) drug therapy | CPT/HCPCS: 11042; A6402 ==

== ENCOUNTER 2019-02-18 12:25 | Outpatient (CLI) | payer MEDICARE, OTHER, MEDICAID | END 2019-02-18 23:59 | LOC: WOU 12:25 | PROVIDERS: ATTEND Surgery | DX: E11.52 Type 2 diabetes mellitus with diabetic peripheral angiopathy with gangrene (principal); I96 Gangrene, not elsewhere classified; E11.69 Type 2 diabetes mellitus with other specified complication; M86.372 Chronic multifocal osteomyelitis, left ankle and foot; T87.51 Necrosis of amputation stump, right upper extremity; E11.621 Type 2 diabetes mellitus with foot ulcer; L97.529 Non-pressure chronic ulcer of other part of left foot with unspecified severity; H40.9 Unspecified glaucoma; E11.610 Type 2 diabetes mellitus with diabetic neuropathic arthropathy; Z87.891 Personal history of nicotine dependence; Z89.511 Acquired absence of right leg below knee; Z79.82 Long term (current) use of aspirin; Z79.899 Other long term (current) drug therapy | CPT/HCPCS: 11042; A6402 ==

== ENCOUNTER 2019-03-05 12:05 | Outpatient (CLI) | payer MEDICARE, OTHER, MEDICAID | END 2019-03-05 23:59 | LOC: WOU 12:05 | PROVIDERS: ATTEND Podiatrist Foot & Ankle Surgery | DX: E11.621 Type 2 diabetes mellitus with foot ulcer (principal); L97.522 Non-pressure chronic ulcer of other part of left foot with fat layer exposed; E11.610 Type 2 diabetes mellitus with diabetic neuropathic arthropathy; M25.372 Other instability, left ankle; Z79.82 Long term (current) use of aspirin; E11.51 Type 2 diabetes mellitus with diabetic peripheral angiopathy without gangrene | CPT/HCPCS: 11042; A6402 ==

== ENCOUNTER 2019-03-15 12:19 | Outpatient (CLI) | payer MEDICARE, OTHER, MEDICAID | END 2019-03-15 23:59 | disposition home health service (06) | LOC: WOU 12:19 | PROVIDERS: ATTEND Surgery | DX: E11.52 Type 2 diabetes mellitus with diabetic peripheral angiopathy with gangrene (principal); I96 Gangrene, not elsewhere classified; T81.89XA Other complications of procedures, not elsewhere classified, initial encounter; M86.372 Chronic multifocal osteomyelitis, left ankle and foot; S81.809D Unspecified open wound, unspecified lower leg, subsequent encounter; X58.XXXD Exposure to other specified factors, subsequent encounter; Z89.022 Acquired absence of left finger(s); Z89.021 Acquired absence of right finger(s); Z79.82 Long term (current) use of aspirin; Z79.891 Long term (current) use of opiate analgesic | CPT/HCPCS: 11042; A6402 ==

== ENCOUNTER 2019-07-21 12:30 | Outpatient (CLI) | payer MEDICARE, OTHER, MEDICAID ==
[~2019-07-21 12:30] MED LIST changes: -LINE600T PO; +LINE600T12 PO
== END 2019-07-21 23:59 | disposition home health service (06) ==
LOC: WOU 12:30
PROVIDERS: ATTEND Podiatrist Foot & Ankle Surgery
DX: E11.622 Type 2 diabetes mellitus with other skin ulcer (principal); L97.823 Non-pressure chronic ulcer of other part of left lower leg with necrosis of muscle; L97.528 Non-pressure chronic ulcer of other part of left foot with other specified severity; L97.325 Non-pressure chronic ulcer of left ankle with muscle involvement without evidence of necrosis; Z87.891 Personal history of nicotine dependence; H40.9 Unspecified glaucoma; E11.22 Type 2 diabetes mellitus with diabetic chronic kidney disease; I12.0 Hypertensive chronic kidney disease with stage 5 chronic kidney disease or end stage renal disease; N18.6 End stage renal disease; Z99.2 Dependence on renal dialysis; Z89.511 Acquired absence of right leg below knee; E11.42 Type 2 diabetes mellitus with diabetic polyneuropathy; M25.372 Other instability, left ankle; Z79.4 Long term (current) use of insulin; Z79.82 Long term (current) use of aspirin; Z79.899 Other long term (current) drug therapy
CPT/HCPCS: 11043

== ENCOUNTER 2019-08-04 11:50 | Outpatient (CLI) | payer MEDICARE, OTHER, MEDICAID | END 2019-08-04 23:59 | disposition home health service (06) | LOC: WOU 11:50 | PROVIDERS: ATTEND Podiatrist Foot & Ankle Surgery | DX: E11.621 Type 2 diabetes mellitus with foot ulcer (principal); E11.622 Type 2 diabetes mellitus with other skin ulcer; L97.322 Non-pressure chronic ulcer of left ankle with fat layer exposed; L97.528 Non-pressure chronic ulcer of other part of left foot with other specified severity; L97.825 Non-pressure chronic ulcer of other part of left lower leg with muscle involvement without evidence of necrosis; E11.42 Type 2 diabetes mellitus with diabetic polyneuropathy; E11.610 Type 2 diabetes mellitus with diabetic neuropathic arthropathy; Z89.422 Acquired absence of other left toe(s); Z89.512 Acquired absence of left leg below knee; E11.51 Type 2 diabetes mellitus with diabetic peripheral angiopathy without gangrene; Z79.4 Long term (current) use of insulin; Z79.82 Long term (current) use of aspirin | CPT/HCPCS: 11042 ==

== ENCOUNTER 2019-08-18 12:00 | Outpatient (CLI) | payer MEDICARE, OTHER, MEDICAID | END 2019-08-18 23:59 | disposition home or self-care (01) | LOC: WOU 12:00 | PROVIDERS: ATTEND Podiatrist Foot & Ankle Surgery | DX: E11.622 Type 2 diabetes mellitus with other skin ulcer (principal); L97.222 Non-pressure chronic ulcer of left calf with fat layer exposed; E11.621 Type 2 diabetes mellitus with foot ulcer; L97.522 Non-pressure chronic ulcer of other part of left foot with fat layer exposed; Z89.511 Acquired absence of right leg below knee; E11.42 Type 2 diabetes mellitus with diabetic polyneuropathy; M20.42 Other hammer toe(s) (acquired), left foot; E11.610 Type 2 diabetes mellitus with diabetic neuropathic arthropathy; M25.372 Other instability, left ankle; E11.51 Type 2 diabetes mellitus with diabetic peripheral angiopathy without gangrene | CPT/HCPCS: 11042 ==